=== PATIENT | female | born 1960 | race Caucasian/White ===

== ENCOUNTER 2018-09-27 02:39 | Outpatient (CLI) | payer MEDICAID, SELFPAY ==
[2018-09-27 10:56] LABS: ALT 32 U/L (12-78); AST 18 U/L (15-37); Albumin 3.9 g/dL (3.4-5.0); Alkaline Phosphatase 84 U/L (46-116); Anion Gap 11.6 mmol/L (3-11); BUN 19 mg/dL (7-18); Bilirubin, Total 0.3 mg/dL (0.2-1.0); CO2 28.4 mmol/L (21.0-32.0); CREATININE 0.83 mg/dL (0.55-1.02); Calcium 9.1 mg/dL (8.5-10.1); Chloride 103 mmol/L (98-107); Cholesterol 169 mg/dL (50-200); Glucose 85 mg/dL (70-100); HDL Cholesterol 47 mg/dL (40-60); LDL CHOLESTEROL 97 mg/dL (<100); Potassium 4.3 mmol/L (3.5-5.1); Sodium 143 mmol/L (136-145); TSH (W/Ref FT4) 2.41 uIU/mL (0.358-3.74); Total Protein 6.9 g/dL (6.4-8.2); Triglyceride 106 mg/dL (30-150)
== END 2018-09-27 02:59 ==
DX: E03.9 Hypothyroidism, unspecified (principal); G47.00 Insomnia, unspecified; G43.909 Migraine, unspecified, not intractable, without status migrainosus; G89.29 Other chronic pain; I10 Essential (primary) hypertension; M54.41 Lumbago with sciatica, right side; R63.8 Other symptoms and signs concerning food and fluid intake; E78.5 Hyperlipidemia, unspecified
CPT/HCPCS: 36415; 80053; 80061; 83721; 84443

== ENCOUNTER 2020-08-15 01:32 | Outpatient (CLI) | payer BC, SELFPAY ==
[2020-08-15 12:39] LABS: Abs Immature Grans 0.11 10^3/uL (0.0-0.06); Absolute Basophil Count 0.05 10^3/uL (0.0-0.2); Absolute Eosinophil Count 0.11 10^3/uL (0.0-0.7); Absolute Lymphocyte Count 2.46 10^3/uL (1.2-3.4); Absolute Monocyte Count 0.46 10^3/uL (0.1-0.8); Absolute Neutrophil Count 4.15 10^3/uL (1.2-6.7); Basophils % 0.7; Eosinophils % 1.5; HCT 41.4 % (36.0-46.0); HGB 13.6 g/dL (11.2-15.7); Immature Grans % 1.5; Lymphocytes % 33.5; MCH 29.2 pg (27.0-33.0); MCHC 32.9 % (32.0-36.0); MCV 88.8 fL (80-95); MPV 9.2 fL (8.0-11.0); Monocytes % 6.3; Neutrophils % 56.5; Nucleated RBC 0 %; Platelet Count 310 10^3/uL (130-400); RBC 4.66 10^6/uL (3.93-5.22); RDW 12.1 % (11.7-14.6); RDW-SD 39.1 fL; WBC 7.34 10^3/uL (4.4-10.8)
[2020-08-15 14:53] LABS: ALT 38 U/L (14-59); AST 14 U/L (15-37); Albumin 4.1 g/dL (3.4-5.0); Alkaline Phosphatase 88 U/L (46-116); Anion Gap 8.8 mmol/L (3-11); BUN 21 mg/dL (7-18); Bilirubin, Total 0.4 mg/dL (0.2-1.0); CO2 29.2 mmol/L (21.0-32.0); CREATININE 0.8 mg/dL (0.55-1.02); Calcium 8.9 mg/dL (8.5-10.1); Chloride 105 mmol/L (98-107); Glucose 82 mg/dL (74-106); Potassium 4.3 mmol/L (3.5-5.1); Sodium 143 mmol/L (136-145); TSH (W/Ref FT4) 1.31 uIU/mL (0.36-3.74); Total Protein 6.7 g/dL (6.4-8.2)
[2020-08-18 09:38] LABS: Hepatitis C Ab w Rflx HCV PCR Negative (Negative)
== END 2020-08-15 01:33 | disposition home or self-care (01) ==
LOC: LOS 01:32
DX: E03.9 Hypothyroidism, unspecified (principal); I10 Essential (primary) hypertension; G43.909 Migraine, unspecified, not intractable, without status migrainosus; B19.20 Unspecified viral hepatitis C without hepatic coma
CPT/HCPCS: 36415; 80053; 86803; 84443; 85025

== ENCOUNTER 2022-02-19 02:01 | Outpatient (CLI) | payer BC, SELFPAY ==
--- OUTSIDE RECORDS SUMMARY | 2022-02-19 02:03 | XMS_ITS | Encounter Summary ---
:1960 Author Organization [facility] Address [address] [place] [address] Care Team Providers Name Role Phone Arleth Cueva APRN Primary Care Provider Encounter Details Date Type Department Care Team Description 11/16/2019 Office Visit Obstetrics and Sulaiman Vivar, Encounter for [place]necology [place] [facility] [place] Jocelyne Cat CNM gynecological [facility] [address] abnormal finding [place], [place] OBSTETRICS & [id number] GYNECOLOGY [phone] [place], [place] [address] Social History Tobacco Use Types Packs/Day Years Used Date Former Smoker Cigarettes 1.5 10 Quit: 06/12/18 88 Smokeless Tobacco: Never Used Alcohol Use Standard Drinks/Week Comments No 0 (1 standard drink = 0.6 oz pure alcoho l) Sex Assigned at Date Recorded Not on file documented as of this encounter Last Filed Vital Signs Vital Sign Reading Time Taken Comments Blood Pressure 136/72 11/16/2019 3:37 PM EDT Pulse 54 11/16/2019 3:37 PM EDT Temperature - - Respiratory Rate - - Oxygen Saturation 100% 11/16/2019 3:37 PM EDT Inhaled Oxygen Concentration - - Weight 108.9 kg (240 lb) 11/16/2019 3:37 PM EDT Height 165.3 cm (5' 5.08) 11/16/2019 3:37 PM EDT Body Mass Index 39.84 11/16/2019 3:37 PM EDT documented in this encounter Progress Notes Melinda Murphy, NOEL - 11/16/2019 4:00 PM EDT Domestic Violence Screener 11/16/2019 Hit,kicked,punched or hurt in past year No Safe in current relationship Yes Partner from previous relationship making you feel unsafe No Emotionally hurt and/or controlled by someone No Jocelyne Fay CNM - 11/16/2019 4:00 PM EDT TYPING CHECKER Visit: Usha Huizar is a 59 y.o. postmenopausal female who presents to [facility] for annual[facility] exam. She is transferring her care from planner chief oncology as she is 5 yr out from treatment for uterine cancer. She denies any planner chief issues or concerns today. Not sexually active, with for 35 yrs. Denies any postmenopausal bleeding, bowel or bladder issues. Rarely has some urinary incontinence that is not bothersome. Exercise: none Nutrition: no restrictions, includes dairy, does not take any supplements. Self-breast exam: not regular Mammogram: 2019 Hx of RODRICK/ BSO for endometrial cancer in 2014, no HRT Has had sling for stress UI in 2013 Patient Active Problem List Diagnosis Code ??? SVT (supraventricular tachycardia) I47.1 ??? Hyperlipemia E78.5 ??? Migraine headache G43.909 ??? Hypothyroidism E03.9 ??? Stage 1A Grade II Endometrial cancer, s/p robotic hyst/ BSO complicated by a trocar injury 10/22/14 C54.1 ??? Psoriasis L40.9 ??? Hypertension I10 ??? Sciatica of right side M54.31 ??? Lumbar spondylosis M47.816 ??? Cystic lesion of abdominal viscera K66.8 Current Outpatient Medications on File Prior to Visit Medication Sig Dispense Refill ??? gabapentin (NEURONTIN) 100 mg Capsule Take 1 capsule by mouth 3 times daily. 90 capsule 12 ??? ibuprofen (ADVIL;MOTRIN) 600 mg Tablet Take 1 tablet by mouth every 6 hours as needed for Pain. 50 tablet 0 ??? meTOPROLOL tartrate (LOPRESSOR) 25 mg Tablet Take 1 tablet by mouth 2 times daily. ??? acetaminophen (TYLENOL) 325 mg Tablet Take 650 mg by mouth every 4 hours as needed for Pain. ??? hydrochlorothiazide (HYDRODIURIL) 25 mg tablet Take 25 mg by mouth daily. ??? simvastatin (ZOCOR) 20 mg tablet Take 20 mg by mouth nightly. ??? levothyroxine (SYNTHROID) 75 mcg tablet Take 75 mcg by mouth daily. ??? naproxen (Naprosyn) 250 mg Tablet TAKE ONE TABLET BY MOUTH FOUR TIMES A DAY No current facility-administered medications on file prior to visit. Allergies Allergen Reactions ??? Shellfish Containing Products Angioedema ??? Pollen Extracts Stuffy head headache. There is no immunization history for the selected administration types on file for this patient. Past Medical History: Diagnosis Date ??? Cancer uterine ca at 3-4 yrs ago ??? Chronic pain mosltly back and shoulder ??? Congenital heart defect ??? High blood pressure ??? HTN (hypertension) ??? Hyperlipidemia ??? Hypothyroid ??? Hypothyroidism ??? Intraoperative complication Groin site ablation woke up 5 yrs ago ??? Irregular heart beat got ablation for ??? Migraine ??? Motion sickness ??? Obesity ??? Palpitations started on beta lena approx one month ago ??? Psoriasis Past Surgical History: Procedure Laterality Date ??? ABLATION OF DYSRHYTHMIC FOCUS ??? CARDIAC SURGERY ablation ??? FINGER SURGERY ??? HYSTERECTOMY ??? ORTHOPEDIC SURGERY cyst removed from bone in pelvis ??? PRO EXPLORATORY RETROPERITONEAL N/A 10/22/2014 @EXPLORATION RETROPERITONEAL W OR W\O BIOPSY performed by Yoselyn Yip MD at [facility] ? ? PRO LAPAROSCOPY W TOT HYSTERECTUTERUS <=250 GRAM W TUBE/OVARY N/A 10/22/2014 LAPAROSCOPY,TOTAL HYST, UTERUS<250GM, DERRICK TYBE &/OR OVARY, ROBOTIC ASSIST performed by Marsha Godfrey MD at [facility] ??? PRO SLING OPER STRES INCONTINENCE 09/20/2012 URETHRAL SUSPENSION, SLING\FASCIA OR SYNTHETIC performed by Jozef Kent MD at [facility] Family History Problem Relation Age of Onset ??? GERD Mother ??? Suicide Father ??? Obesity Sister ??? Respiratory Disease Brother ??? Cancer Maternal Grandfather ??? Breast Cancer Neg Hx ??? Colorectal Cancer Neg Hx ??? Ovarian Cancer Neg Hx Social History Socioeconomic History ??? Marital status: Spouse name: Not on file ??? Number of children: Not on file ??? Years of education: Not on file ??? Highest education level: Not on file Occupational History ??? Not on file Social Needs ??? Financial resource strain: Not on file ??? Food insecurity Worry: Not on file Inability: Not on file ??? Transportation needs Medical: Not on file Non-medical: Not on file Tobacco Use ??? Smoking status: Former Smoker Packs/day: 1.50 Years: 10.00 Pack years: 15.00 Types: Cigarettes Last attempt to quit: 06/12/1987 Years since quittin.4 ??? Smokeless tobacco: Never Used Substance and Sexual Activity ??? Alcohol use: No ??? Drug use: Not Currently Types: Marijuana Comment: marijuana (very occasional)denies at this time ??? Sexual activity: Yes Partners: Male Comment: no contraception Lifestyle ??? Physical activity Days per week: Not on file Minutes per session: Not on file ??? Stress: Not on file Relationships ??? Social connections Talks on phone: Not on file Gets together: Not on file Attends zoroastrian service: Not on file Active member of club or organization: Not on file Attends meetings of clubs or organizations: Not on file Relationship status: Not on file ??? Intimate partner violence Fear of current or ex partner: Not on file Emotionally abused: Not on file Physically abused: Not on file Forced sexual activity: Not on file Other Topics Concern ??? Not on file Social History Narrative ??? Not on file ROS: denies any problems Constitutional: No fevers, chills, weight loss, fatigue. HEENT: No visual changes, hearing loss, epistaxis, or rhinorrhea. Cardio: No Chest pain, palpitations, angina, dyspnea, shortness of breath. Resp: No wheeze\ing, cough, or sputum production. Abdomen/GI: No abdominal pain, nausea, vomiting, GERD, constipation, diarrhea, blood in stool. : No dysuria, abnormal discharge, lesions, itching, or irritation. Musculoskeletal: No changes in ROM, no joint swelling, sudden weakness. Skin: No rashes or discoloration. Psych:No sadness, depression, anxiety or suicidal ideation. Neuro: No seizures, BRADEN, syncope, numbness or change in balance PE: BP 136/72 Pulse 54 Ht 165.3 cm (5' 5.08) Wt 108.9 kg (240 lb) LMP 10/20/2014 SpO2 100% BMI 39.84 kg/m?? General - A&O x 3. Pleasant with no apparent distress. Breasts - pt declines exam Abdomen - soft, NT Pelvic exam External Genitalia - No lesions, discharge, or erythema, normal hair pattern Urethral Meatus - no discharge or prolapse Vagina - pale pink with atrophic changes, no lesions Cervix - Neg CMT, without lesions or abnormal discharge Uterus - normal size, non-tender, mobile Adnexa - non-tender, no palpable masses Rectovaginal - declined Extremities - FROM, no edema Neuro - grossly intact, sensory function appears intact, normal gait. Assessment/ Plan: Healthy 59 y.o. woman with normal limited planner chief exam as she declined clinical breast exam. ??? Mammogram: pt declines having an order placed today. ??? This patient sees her primary care provider for age and disease specific screening not related to gynecological care ??? Return for pelvic/breast exam in 1 year ??? Preventative recommendations for this patient include: BSE, Regular exercise, Healthy diet, Vitamin D 1000 iu supplementation. documented in this encounter Plan of Treatment Not on filedocumented as of this encounter Visit Diagnoses Diagnosis Encounter for gynecological examination without abnormal finding Routine gynecological examination documented in this encounter Care Teams Price Clerk Relationship Specialty Start Date End Date Arleth Cueva, YUVAL PCP - General Family Medicine 06/24/16 [facility] [address] [facility] [address] [place] [address] documented as of this encounter
--- OUTSIDE RECORDS SUMMARY | 2022-02-19 02:03 | XMS_ITS | Encounter Summary ---
:1960 Author Organization [facility] [place] [address] Care Team Providers Name Role Phone Arleth Cueva APRN Primary Care Provider Reason for Visit Auth/Cert Specialty Diagnoses / Procedures Referred By Contact Refer red To Contact Diagnoses Encounter for general adult medical examination without abnormal findings screening Procedures PRO COLONOSCOPY, DIAGNOSTIC PRO ANESTH, LWR INTESTINE, NOS COLONOSCOPY, DIAGNOSTIC Referral ID Status Reason Start Date Expiration Date Visits Requ ested Visits Authorized [id number] 1 1 Encounter Details Date Type Department Care Team Description 05/29/2021 Surgery Gastroenterology at [facility] Cade Lizraraga COLONOSCOPY, [facility] Dre Allen MD POLYPECTOMY, [place] [address] [facility] LESION BY SNARE [phone] (WRVU 4.67) GASTROENTEROLOGY [place], [place] 0375 (Wo rk) Social History Tobacco Use Types Packs/Day Years Used Date Former Smoker Cigarettes 1.5 10 Quit: 06/12/18 88 Smokeless Tobacco: Never Used Alcohol Use Standard Drinks/Week Comments Yes 0 (1 standard drink = 0.6 oz pure alcoho l) once every couple months Alcohol Habits Answer Date Recorded How often do you have a drink containing Never 05/29/2021 alcohol? How many drinks containing alcohol do you Not asked have on a typical day when you are drinking? How often do you have six or more drinks on Not asked one occasion? Comment: once every couple months 05/29/2021 Sex Assigned at Date Recorded Not on file documented as of this encounter Last Filed Vital Signs Vital Sign Reading Time Taken Comments Blood Pressure 138/97 05/29/2021 4:50 PM EST Pulse 55 05/29/2021 4:50 PM EST Temperature 36.7 ??C (98 ??F) 05/29/2021 3:03 PM EST Respiratory Rate 11 05/29/2021 4:50 PM EST Oxygen Saturation 99% 05/29/2021 4:50 PM EST Inhaled Oxygen Concentration - - Weight 111.1 kg (245 lb) 05/29/2021 3:03 PM EST Height 167.6 cm (5' 6) 05/29/2021 3:03 PM EST Body Mass Index 39.54 05/29/2021 3:03 PM EST documented in this encounter Discharge Instructions Discharge InstructionsYadi Florence RN - 05/29/2021 5:03 PM EST Colonoscopy: What to Expect at Home Your Recovery Your doctor will talk to you about when you will need your next colonoscopy. Your doctor can help you decide how often you need to be checked. This will depend on the results of your test and your riskfor colorectal cancer. After the test, you may be bloated or have gas pains. You may need to pass gas. If a biopsy was doneor a polyp was removed, you may have streaks of blood in your stool (feces) for a few days. Problemssuch as heavy rectal bleeding may not occur until several weeks after the test. This isn't common. But it can happen after polyps are removed. This care sheet gives you a general idea about how long it will take for you to recover. But each person recovers at a different pace. Follow the steps below to get better as quickly as possible. How can you care for yourself at home? Activity Rest when you feel tired. ?? You can do your normal activities when it feels okay to do so. Diet ?? Follow your doctor's directions for eating. ?? Unless your doctor has told you not to, drink plenty of fluids. This helps to replace the fluidsthat were lost during the colon prep. ?? Do not drink alcohol. Medicines ?? Your doctor will tell you if and when you can restart your medicines. He or she will also give you instructions about taking any new medicines. ?? If you take blood thinners, such as warfarin (Coumadin), clopidogrel (Plavix), or aspirin, be sure to talk to your doctor. He or she will tell you if and when to start taking those medicines again.Make sure that you understand exactly what your doctor wants you to do. ?? If polyps were removed or a biopsy was done during the test, your doctor may tell you not to take aspirin or other anti-inflammatory medicines for a few days. These include ibuprofen (Advil, Motrin) and naproxen (Aleve). Other instructions ?? For your safety, do not drive or operate machinery until the medicine wears off and you can think clearly. Your doctor may tell you not to drive or operate machinery until the day after your test. ?? Do not sign legal documents or make major decisions until the medicine wears off and you can think clearly. The anesthesia can make it hard for you to fully understand what you are agreeing to. Additional Information for Sedation Patients For patients who received sedation: ?? You may have received medications before and/or during your procedure which effects your judgement and reaction time. ?? Do not drive, operate machinery, drink alcoholic beverages or make important decisions for 24 hours. ?? Be careful on stairs as you may be unsteady on your feet. ?? You may eat a regular diet as tolerated. ?? Do not smoke if you are alone. ?? IV site: Slight redness or tenderness is normal, you can use a warm compress if you would like. If tenderness and/or redness increase or if foul drainage occurs, please contact your Doctor. Please call [phone] before 8pm Mon-Fri with problems, questions or concerns. If you call after 8pm or on weekends, call the Hospital at [phone] and ask to speak to the Final Inspector dictaphone transcriber and the vibrating screen operator will contact that person for you. When should you call for help? Call [phone] anytime you think you may need emergency care. For example, call if: ?? You passed out (lost consciousness). ?? You pass maroon or bloody stools. ?? You have trouble breathing. Call your doctor now or seek immediate medical care if: ?? You have pain that does not get better after you take pain medicine. ?? You are sick to your stomach or cannot drink fluids. ?? You have new or worse belly pain. ?? You have blood in your stools. ?? You have a fever. ?? You cannot pass stools or gas. Watch closely for changes in your health, and be sure to contact your doctor if you have any problems. Where can you learn more? [facility] View your After Visit Summary and more online at [email or web address] If you would like to provide feedback about your hospital experience, please call the Office of Patient and Family Relations at . If you have received this After Visit Summary in error, please immediately return it in person to the department, or notify the [facility] Privacy Office by calling toll free at between the hours of 8AM and 5PM to arrange for our retrieval of the documents at no cost to you. Content Version: 12.2 ?? [id number] [employer] Care instructions adapted under license by [facility]. If you have questions about a medical condition or this instruction, always ask your healthcare professional. [employer] disclaims any warranty or liability for your use of this information. documented in this encounter Medications at Time of Discharge Medication Sig Dispensed Refills Start Date End Date naproxen (Naprosyn) 250 mg TAKE ONE TABLET 0 09/2019 Tablet BY MOUTH FOUR TIMES A DAY gabapentin (NEURONTIN) 100 mg Take 1 capsule by 90 capsule 12 06/01/2018 Capsule mouth 3 times daily. meTOPROLOL tartrate Take 1 tablet by 0 10/24/2014 (LOPRESSOR) 25 mg Tablet mouth 2 times daily. acetaminophen (TYLENOL) 325 Take 650 mg by 0 mg Tablet mouth every 4 hours as needed for Pain. hydrochlorothiazide Take 25 mg by 0 (HYDRODIURIL) 25 mg tablet mouth daily. simvastatin (ZOCOR) 20 mg Take 20 mg by 0 tablet mouth nightly. levothyroxine (SYNTHROID) 75 Take 75 mcg by 0 mcg tablet mouth daily. ibuprofen (ADVIL;MOTRIN) 600 Take 1 tablet by 50 tablet 0 0 10/24/2014 mg Tablet mouth every 6 hours as needed for Pain. documented as of this encounter H&P Notes Cade Lizarraga MD - 05/29/2021 4:13 PM EST Patient Name: Usha Huizar Patient Age: 60 y.o. Birthdate: 1960 Admit date: 05/29/2021 Attending Physician: Seema Saxena MD Gastroenterology & Hepatology Pre-Procedure History and Physical Planned Procedure: Colonoscopy: Indication: surveillance, history of polyp (2016), adenomas and sigmoid TVA Patient Active Problem List Diagnosis Code ??? SVT (supraventricular tachycardia) I47.1 ??? Hyperlipemia E78.5 ??? Migraine headache G43.909 ??? Hypothyroidism E03.9 ??? Stage 1A Grade II Endometrial cancer, s/p robotic hyst/ BSO complicated by a trocar injury 10/22/14 C54.1 ??? Psoriasis L40.9 ??? Hypertension I10 ??? Sciatica of right side M54.31 ??? Lumbar spondylosis M47.816 ??? Cystic lesion of abdominal viscera K66.8 Medications: Reviewed in [facility] Allergies Allergen Reactions ??? Shellfish Containing Products Angioedema ??? Pollen Extracts Stuffy head headache. Social History/Family History: Reviewed in [facility]. No changes Exam: Patient Vitals for the past 24 hrs: Temp Pulse Resp BP SpO2 O2 Flow Rate (L/min) O2 Device 05/29/21 1503 36.7 ??C (98 ??F) 65 20 157/79 100 % -- RA 05/29/21 1545 -- -- -- 143/59 98 % 3 L/min NC 05/29/21 1550 -- 60 13 139/74 100 % -- -- GEN: NAD, AAOX3 HEENT: NC/AT dryMM, anicteric Chest: CTAB Heart: RRR, nl s1, s2 Abdomen: normal bowel sounds, soft, non tender Assessment and Plan: Proceed with Colonoscopy: ASA Grade: ASA 2 - Patient with mild systemic disease with no functional limitations Mallampati: II (soft palate, uvula, fauces visible) Sedation plan: IV Conscious Sedation Risks and benefits of the procedure were discussed with the patient. Risks discussed including bleeding, infection, reaction to anesthesia, perforation or other intraabdominal trauma, pancreatitis (if applicable), missing a cancer (if applicable) and/or other unforseen complication. Informed Consent signed by patient (or computer help desk representative). documented in this encounter Plan of Treatment Not on filedocumented as of this encounter Procedures Procedure Name Priority Date/Time Associated Comments Diagnosis SURGICAL PATHOLOGY Routine 05/29/2021 4:52 PM Res ults for this REPORT EST procedure are i n the results section. SPECIMEN TO PATHOLOGY Routine 05/29/2021 4:52 PM Results for this EST procedure are i n the results section. COLONOSCOPY, 05/29/2021 3:44 PM screening POLYPECTOMY, REMOVAL EST LESION BY SNARE (WRVU 4.67) COLONOSCOPY Routine 05/29/2021 3:35 PM Results f or this EST procedure are i n the results section. documented in this encounter Results Surgical Pathology Report (05/29/2021 4:52 PM EST) Component Value Ref Test Analysis Performed At [facility] Range Method Time Signature Surgical [id number] ? Location: ; [facility]; [facility] Report The signing pathologist has (i) examined the relevant preparation(s) for the [facility] specimen(s) and (ii) rendered or confirmed the diagnosis(es) . HOSPITAL [facility] . ?Surgic al Pathology DIAGNOSIS A - Rectum colon polyp, excision: - ??Hyperplastic polyp. Electronically signed by: ?Ginna JURADO PhD, Deneen Verified: ??06/09/2021 9:34 ?? Pathologist Performed at: ??-[facility] Dept. of Pathology, [place], [place] SPECIMEN(S) SUBMITTED A - Rectum colon polyp, excision (1) CLINICAL INFORMATION 60-year-old female W/ HX polyps SPECIMEN PROCESSING A - Labeled/Fixative: Rectum colon polyp, formalin. Quantity/Size: Single, 0.9 cm. Tissue Description: Strip of burden mucosa with a central 0.4 cm red-burden polypoid focus. Sections/Processing: Inked, bisected and entirely submitted in 1 cassette labeled A1. ??mnd Specimen (Source) Anatomical Collection Method Collection Time Re ceived Time Location / / Volume Laterality 05/29/2021 4:52 PM EST Cade Lizarraga MD PATHOLOGY/CYTOLOGY ORDERABLE S Performing Organization Address [facility]/[place]IP [place] [address] Specimen to Pathology (05/29/2021 4:52 PM EST) Specimen Anatomical Collection Method Collection Time Receive d Time (Source) Location / / Volume Laterality AP Specimen 05/29/2021 4:52 PM 4:52 EST PM EST Narrative [facility] - 05/29/2021 4:52 PM EST Specimen requisition ordered. ??Separate Pathology report to follow Cade Lizarraga MD PATHOLOGY/CYTOLOGY ORDERABLE S Performing Organization Address City/[facility]/[place] [address] COLONOSCOPY (05/29/2021 3:35 PM EST) [facility] gist Method Time Signature COLONOSCOPY [facility] Endoscopy Procedure Date: 05/29/2021 3:35 PM ? Patient Name: Usha Huizar ? Date of : 1960 ? Age: 60 ? Order #: [id number] ? Instrument Name: [id number] ? Procedure: ? Colonoscopy Indications: ? High risk colon cancer surveillance : ? Personal history of adenoma w ith ? villous component, High risk colon ? cancer surveillance: Personal history ? of multiple (3 or more) adeno mas Patient Profile: ? This is a 60 year old female. Refer ? to note in patient chart for ? documentation of history and ? physical. Multiple polyps inc luding ? TVA in 2016. Providers: ? Isaiah Connell RN, Sara Biswas , ? Cade Lizarraga MD Referring MD: ?Arleth Cueva Medicines: ? Midazolam 5 mg IV, Fentanyl 200 ? micrograms IV Complications: ? No immediate complications. Procedure: ? Pre-Anesthesia Assessment: ? - Prior to the procedure, a H istory ? and Physical was performed, a nd ? patient medications and aller gies ? were reviewed. The patient's ? tolerance of previous anesthe keanu was ? also reviewed. The risks and benefits ? of the procedure and the elayne tion ? options and risks were discus sed with ? the patient. All questions we re ? answered, and informed consen t was ? obtained. Prior Anticoagulant s: The ? patient has taken no previous ? anticoagulant or antiplatelet agents. ? ASA Grade Assessment: II - A patient ? with mild systemic disease. A fter ? reviewing the risks and benef its, the ? patient was deemed in satisfa ctory ? condition to undergo the proc edure. ? The procedure, indications, b enefits, ? risks and alternatives were e xplained ? to the patient. Specifically ? discussed were potential ? complications including, but not ? limited to, bleeding, perfora tion, ? infection, missing a cancer, and ? adverse medication reactions. The ? patient was placed in the lef t ? lateral decubitus position, a nd a ? digital rectal exam was perfo rmed. ? The Colonoscope was inserted in the ? anus and under direct visuali zation, ? advanced to the terminal ileu m, with ? identification of the appendi ceal ? orifice and IC valve. Careful ? inspection was made as the ? colonoscope was withdrawn. Th e ? colonoscopy was performed wit abner ? difficulty. The patient renita ated the ? procedure well. The quality o f the ? bowel preparation was evaluat ed using ? the BBPS ([place] Bowel Prepar ation ? Scale) with scores of: Right Colon = ? 3 (entire mucosa seen well wi th no ? residual staining, small frag ments of ? stool or opaque liquid), Joshi sverse ? Colon = 3 (entire mucosa seen well ? with no residual staining, sm all ? fragments of stool or opaque liquid) ? and Left Colon = 3 (entire mu cosa ? seen well with no residual st aining, ? small fragments of stool or o paque ? liquid). The total BBPS score equals ? 9. The quality of the bowel ? preparation was excellent. Th e ? terminal ileum, ileocecal sourav ve, ? appendiceal orifice, and rect um were ? photographed. Scope withdrawa l time ? was 9 minutes. ? Findings: ? The perianal and digital rectal examinations were ? normal. ? A 4 mm polyp was found in the rectum. The polyp was ? semi-sessile. The polyp was removed with a cold ? snare. Resection and retrieval were complete. ? The terminal ileum appeared normal. ? The exam was otherwise without abnormality on direct ? and retroflexion views. ? Moderate Sedation: ? Moderate (conscious) sedation was administered by the ? endoscopy nurse and supervised by the endoscopist. ? The patient's oxygen saturation, heart rate, blood ? pressure and response to care were monitored. ? I was present during the intraservice time as ? documented by the sedation RN. Impression: ?- One 4 mm polyp in the rectum, ? removed with a cold snare. Re sected ? and retrieved. ? - The examined portion of the ileum ? was normal. ? - The examination was otherwi se ? normal on direct and retrofle xion ? views. Recommendation: ?- Await pathology results. ? - Repeat colonoscopy in 5 yea rs for ? surveillance. ? Attending Participation: ? I personally performed the entire procedure. ? I was present during the intraservice time as ? documented by the sedation RN. ? Dr. Dewey Lizarraga Cade Lizarraga MD 05/29/2021 5:11:59 PM Number of Addenda: 0 Note Initiated On: 05/29/2021 3:35 PM Specimen (Source) Anatomical Collection Method Collection Time Re ceived Time Location / / Volume Laterality 05/29/2021 3:35 PM EST Arleth J Hammad CRM ADMINISTRATOR GENERAL SURGICAL ORDERABLES Performing Organization Address City/State/ZIP Code Phon e Number [facility] documented in this encounter Visit Diagnoses Not on filedocumented in this encounter Administered Medications Inactive Administered Medications - up to 3 most recent administrations Medication Order MAR Action Action Date Dose Rate Site fentaNYL (pf) (50 mcg/mL) Given 05/29/2021 4:41 PM EST 50 mcg multi-dose injection ONCE PRN, Starting on Tue05/29/21 at 1622, Until Tue05/29/21 at 1943, Intra-Operative (Intra-Procedure), Routine Given 05/29/2021 4:38 PM EST 25 mcg Given 05/29/2021 4:29 PM EST 25 mcg midazolam (pf) (Versed) (1 mg/mL) multi-dose Given 05/29/2021 4: 41 PM EST 1 mg injection ONCE PRN, Starting on Tue05/29/21 at 1622, Until Tue05/29/21 at 1943, Intra-Operative (Intra-Procedure), Routine Given 05/29/2021 4:38 PM EST 0.5 mg Given 05/29/2021 4:29 PM EST 0.5 mg documented in this encounter Active and Recently Administered Medications Times are shown in EST. PRN Medication Order 05/27/2021 05/28/2021 05/29/2021 fentaNYL (pf) (50 mcg/mL) multi-dose injection (CANCELED) 1622 (Given - Provider: Isaiah Connell RN)1625 (Given - Provider: Isaiah Connell RN)1629 (Given - Provider: Isaiah Connell, RN)1638 (Given - Provider: Isaiah Connell, ASHLEE)1641 (Given - Provider: Isaiah Connell, RN) ONCE PRN, Starting on Tue05/29/21 at 162 2, Until Tue05/29/21 at 1943, Intra- Operative (Intra-Procedure), Routine midazolam (pf) (Versed) (1 mg/mL) multi-dose injection (CANCELED ) 1622 (Given - Provider: Isaiah Connell RN)1625 (Given - Provider: Isaiah Connell, ASHLEE)1629 (Given - Provider: Isaiah Connell, RN)1638 (Given - Provider: Isaiah Connell, ASHLEE)1641 (Given - Provider: Isaiah Connell RN) ONCE PRN, Starting on Tue05/29/21 at 162 2, Until Tue05/29/21 at 1943, Intra- Operative (Intra-Procedure), Routine documented in this encounter Care Teams Duco Polisher Relationship Specialty Start Date End Date Arleth Cueva, YUVAL PCP - General Family Medicine 06/24/16 [address] [place] [address] documented as of this encounter
--- OUTSIDE RECORDS SUMMARY | 2022-02-19 02:03 | XMS_ITS | Clinical Summary ---
:1960 Author Organization [facility] [place] [address] Care Team Providers Name Role Phone Arleth Cueva APRN Primary Care Provider Allergies Active Allergy Reactions Severity Noted Date Comments Pollen Extracts 09/12/2012 Stuffy head headache. Shellfish Containing Products Angioedema High 06/12/2012 Medications Medication Sig Dispensed Refills Start Date End Date Status simvastatin (ZOCOR) 20 mg Take 20 mg by 0 Active tablet mouth nightly. levothyroxine (SYNTHROID) Take 75 mcg 0 Active 75 mcg tablet by mouth daily. hydrochlorothiazide Take 25 mg by 0 Active (HYDRODIURIL) 25 mg tablet mouth daily. acetaminophen (TYLENOL) Take 650 mg 0 Active 325 mg Tablet by mouth every 4 hours as needed for Pain. ibuprofen (ADVIL;MOTRIN) Take 1 tablet 50 tablet 0 10/24/2014 Active 600 mg Tablet by mouth every 6 hours as needed for Pain. meTOPROLOL tartrate Take 1 tablet 0 10/24/2014 Active (LOPRESSOR) 25 mg Tablet by mouth 2 times daily. gabapentin (NEURONTIN) 100 Take 1 90 capsule 12 06/01/2018 Active mg Capsule capsule by mouth 3 times daily. naproxen (Naprosyn) 250 mg TAKE ONE 0 10/12/2019 Active Tablet TABLET BY MOUTH FOUR TIMES A DAY Active Problems Problem Noted Date Lumbar spondylosis 06/01/2018 Cystic lesion of abdominal viscera 06/01/2018 Sciatica of right side 09/12/2017 Hypertension 09/02/2015 Psoriasis 08/01/2015 Stage 1A Grade II Endometrial cancer, s/p robotic hyst / BSO complicated by 10/22/2014 a trocar injury 10/22/14 SVT (supraventricular tachycardia) 08/28/2013 Overview: ?? Echo 07/07/12 showing normal LF with EF 68%; mild MR ?? Holter 07/08/12 showing rare PACs with no runs ?? Symptoms abated after treatment for H TN with metoprolol ?? SVT noted on ILR - apparent short RP tachycardia ?? 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 Hyperlipemia 08/28/2013 Migraine headache 08/28/2013 Hypothyroidism 08/28/2013 Resolved Problems Problem Noted Date Resolved Date Near syncope 08/28/2013 09/12/2017 Breast mass 02/16/2013 09/02/2015 Immunizations Name Administration Dates Next Due Influenza PF, Split 07/10/2018 (Deferred: Patient Refused) Family History Medical History Relation Comments Respiratory Disease Brother Suicide Father Cancer Maternal Grandfather GERD Mother Obesity Sister Breast Cancer Neg Hx Colorectal Cancer Neg Hx Ovarian Cancer Neg Hx Relation Status Comments Brother Alive Father Maternal Grandfather Maternal Grandmother Mother Alive Sister Alive Social History Tobacco Use Types Packs/Day Years [...] Assigned at Date Recorded Not on file Last Filed Vital Signs Vital Sign Reading Time Taken Comments Blood Pressure 130/67 05/29/2021 5:20 PM EST Pulse 55 05/29/2021 4:50 PM EST Temperature 36.7 ??C (98 ??F) 05/29/2021 3:03 PM EST Respiratory Rate 18 05/29/2021 5:20 PM EST Oxygen Saturation 97% 05/29/2021 5:20 PM EST Inhaled Oxygen Concentration - - Weight 111.1 kg (245 lb) 05/29/2021 3:03 PM EST Height 167.6 cm (5' 6) 05/29/2021 3:03 PM EST Body Mass Index 39.54 05/29/2021 3:03 PM EST Plan of Treatment Health Maintenance Due Date Last Done Comments Covid-19 Vaccine (#1) 03/22/1961 HIV screen 1978 Hepatitis C Screening 1978 Tdap adult 09/20/1979 Tetanus vaccine 09/20/1979 HPV test 1990 PAP Smear 1990 Breast Cancer Share Decision 2000 Needed Zoster vaccine (1 of 2) 2010 Advance Directive 09/20/2015 Diabetes Screening (HgbA1C or 10/24/2017 10/24/2014, 2014, Glucose) 03/01/2014, Additional history exists Influenza (Flu) vaccine (1 of 1 - 01/07/2022 Influenza standard series) Breast Cancer screening 06/05/2023 06/05/2021, 04/02/2015, 02/19/2014, Additional history exists Colonoscopy 05/29/2031 05/29/2021, 05/29/2021 Medical Devices Implanted Type Area Jd Edwards Consultant Device Shelf Model / Identifier Expiration Serial / Date Lot Jaxson Hadley Monarc,Feml ([id number]) - Sn/A IMPLANTS N/A: 04/24/2015 [id number] / Implanted: Qty: 1 on 09/20/2012 by Jozef Kent MD at [facility] Pelvis N/A / [id number] Mdt : Reveal Linq Lnq11 : [id number] Implantable Medtronic I nc. [id number] / Implanted: 12/12/2013 (Quantity not on file) Diagnostic [id number] / Monitor Description: Medtronic : REVEAL LINQ LNQ 11 : [id number] Insurance Payer Benefit Plan / Subscriber ID Effective Dates Phone Addre ss Type Group [employer] NATIONAL [id number] 2021-Presen [phone] [address] BLUE [employer]IELD [place] PPO t [address] [place], [place] [address] [place] [id number] 2020-Presen [phone] [address] PRIMARY CARE t 7 [place] [address] Advance Directives Latest Code Status on File Code Status Date Activated Date Inactivated Comments Full Code 10/15/2015 7:22 AM 10/15/2015 10:48 AM Does patient have capacity to make decision: Yes Full Code 10/22/2014 12:11 PM 10/24/2014 5:03 PM Does patient have decision making capacity? Yes, order is based on Patient wishes. Full Code 10/03/2014 11:38 AM 10/08/2014 10:21 PM Full Code 03/01/2014 3:08 PM 03/02/2014 12:34 PM Order Status: Initial Order Does patient have decision making capacity? Yes, Order is based on Patients wishes. Full Code 09/20/2012 8:39 AM 09/20/2012 11:50 AM Care Teams Echo Technician Relationship Specialty Start Date End Date Arleth Cueva, ARTIFICIAL LIMB MAKER PCP - General Family Medicine 06/24/[address] [place] [address]
--- OUTSIDE RECORDS SUMMARY | 2022-02-19 02:03 | XMS_ITS | Encounter Summary ---
:1960 Author Organization [facility] [place] [address] Care Team Providers Name Role Phone Arleth Cueva APRN Primary Care Provider Encounter Details Date Type Department Care Team Description 07/10/2018 Laboratory Lab at [facility] Spondylolisthesis of Appointment [facility] [place] [id number] Social History Tobacco Use Types Packs/Day Years Used Date Former Smoker Cigarettes 1.5 10 Quit: 06/12/18 88 Smokeless Tobacco: Never Used Alcohol Use Standard Drinks/Week Comments No 0 (1 standard drink = 0.6 oz pure alcoho l) 2-3 a couple of times per week Alcohol Habits Answer Date Recorded How often do you have a drink containing Not asked alcohol? How many drinks containing alcohol do Not asked you have on a typical day when you are drinking? How often do you have six or more drinks Not asked on one occasion? Comment: 2-3 a couple of times per week 3 Sex Assigned at Date Recorded Not on file documented as of this encounter Plan of Treatment Not on filedocumented as of this encounter Procedures Procedure Name Priority Date/Time Associated Diagnosis Comme nts URINALYSIS WITH Routine 07/10/2018 4:28 Spondylolisthesis of R esults for this REFLEX CULTURE PM EST lumbosacral region procedu re are in the results section. ABORH RECHECK STATUS Routine 07/10/2018 4:25 Resu lts for this PM EST procedure are i n the results section. HEMOGRAM Routine 07/10/2018 4:25 Spondylolisthesis of Resu lts for this PM EST lumbosacral region procedure are in the results section. DIFFERENTIAL, Routine 07/10/2018 4:25 Spondylolisthesis of Res ults for this AUTOMATED PM EST lumbosacral region procedure are in the results section. TYPE AND SCREEN, SDP Routine 07/10/2018 4:25 Spondylolisthesis of (FUTURE SURGERY, PM EST lumbosacral region [facility] SAME DAY PROGRAM ONLY) CREATININE Routine 07/10/2018 4:25 Spondylolisthesis of Resu lts for this PM EST lumbosacral region procedure are in the results section. ABO/RH TYPING Routine 07/10/2018 4:25 Spondylolisthesis of Res ults for this PM EST lumbosacral region procedure are in the results section. APTT Routine 07/10/2018 4:25 Spondylolisthesis of Resu lts for this PM EST lumbosacral region procedure are in the results section. PROTHROMBIN TIME Routine 07/10/2018 4:25 Spondylolisthesis of Results for this PM EST lumbosacral region procedure are in the results section. CBC (WITH DIFF) Routine 07/10/2018 4:25 Spondylolisthesis of PM EST lumbosacral region ANTIBODY SCREEN Routine 07/10/2018 4:25 Spondylolisthesis of R esults for this PM EST lumbosacral region procedure are in the results section. BUN Routine 07/10/2018 4:25 Spondylolisthesis of Resu lts for this PM EST lumbosacral region procedure are in the results section. ELECTROLYTES PANEL Routine 07/10/2018 4:25 Spondylolisthesis o f Results for this PM EST lumbosacral region procedure are in the results section. documented in this encounter Results Urinalysis with reflex Culture (07/10/2018 4:28 PM EST) [facility] Method Time Signature Glucose UA Negative Negative [facility] Protein UA Negative Negative [facility] mg/dL [facility] Bilirubin UA Negative Negative [facility] mg/dL [facility] Comment: Clinical correlation required for positi ve Urine Bilirubin results as false positive may occur with some drugs and d rug related products. If a false positive is suspected a serum total bili esparza should be considered if clinically indicated. Urobilinogen UA Normal Normal mg/dL [facility] pH UA 6.0 5.0 - 8.0 [facility] Blood UA Negative Negative mg/dL [facility] Ketones UA Negative Negative mg/dL [facility] Nitrite UA Negative Negative [facility] Leukocytes UA Negative Negative [facility] LABORATORY Appearance UA Clear Clear [facility] Spec [place] UA 1.009 1.002 - 1.030 [facility] Color UA Straw Yellow [facility] Culture Reflexed No [facility] Specimen (Source) Anatomical Collection Method Collection Time Re ceived Time Location / / Volume Laterality Urine specimen 07/10/2018 4:28 07/10/2018 4:35 obtained by clean PM EST PM EST catch procedure (specimen) Resulting Agency Comment Spec In Lab Du Dodge MD URINE ORDERABLES Performing Organization Address City/State/ZIP Code Phon e Number [address] ABORH Recheck Status (07/10/2018 4:25 PM EST) Patholo gist Method Time Signature ABORH Type Completed [facility] LABORATORY Specimen Anatomical Collection Method Collection Time Receive d Time (Source) Location / / Volume Laterality Blood specimen 07/10/2018 4:25 PM 019 4:32 (specimen) EST PM EST Resulting Agency Comment Spec In Lab Du Dodge MD BLOOD BANK ORDERABLES Performing Organization Address City/[facility]/ZIP Code Phon e Number [address] Differential, Automated (07/10/2018 4:25 PM EST) P athologist Signature Neutrophils % 50.8 % [facility] Neutr Abs (ANC) 3.62 1.70 - [facility] 6.10 [facility] x10(3)/[facility] LABORATORY Lymphocytes % 38.7 % [facility] Lymphocytes Abs 2.8 0.9 - 3.2 [facility] x10(3)/[facility] LABORATORY Monocytes % 7.5 % [facility] Monocyte Abs 0.5 0.3 - 0.9 [facility] x10(3)/[facility] LABORATORY Eosinophils % 2.0 % [facility] Eosinophils Abs 0.1 0.0 - 0.4 [facility] x10(3)/[facility] LABORATORY Basophils % 0.7 % [facility] Basophils Abs 0.0 0.0 - 0.1 [facility] x10(3)/[facility] LABORATORY Immature Gran % 0.30 % [facility] Comment: Immature granulocytes(IG's)percentage an d absolute count will include metamyelocytes, myelocytes, and promyelo cytes. Blood smears from CBCs yielding IG's will be scanned manually for concor dance. If this scan disagrees with the automated IG or if promyelocytes are not ed, a manual differential will be performed. Ayala Gran Abs 0.02 0.00 - 0.04 x10(3)/[facility] MAR Y [facility] LABORATORY Specimen Anatomical Collection Method Collection Time Receive d Time (Source) Location / / Volume Laterality Blood specimen 07/10/2018 4:25 PM 019 4:35 (specimen) EST PM EST Resulting Agency Comment Spec In Lab Du Dodge MD HEMATOLOGY ORDERABLES Performing Organization Address City/State/[place] [address] Hemogram (07/10/2018 4:25 PM EST) P athologist Signature WBC 7.1 4.0 - 9.5 [facility] x10(3)/[facility] LABORATORY RBC 4.93 4.00 - [facility] 5.21 [facility] x10(6)/[facility] LABORATORY Hemoglobin 14.4 11.7 - [facility] 15.5 gm/dL [facility] Hematocrit 43.8 35.7 - [facility] 45.8 % [facility] MCV 88.8 82.6 - [facility] 94.4 fL [facility] MCH 29.2 27.1 - [facility] 32.0 pg [facility] MCHC 32.9 31.7 - [facility] 35.0 gm/dL [facility] Platelets 294 145 - 357 [facility] x10(3)/[facility] LABORATORY RDWSD 39.5 37.0 - [facility] [address] [facility] LABORATORY RDWCV 12.1 11.5 - [facility] 14.1 % [facility] MPV 9.7 7.6 - 12.9 [facility] LABORATORY nRBC % Auto 0.0 % [facility] nRBC Abs Auto 0.000 0.000 - [facility] 0.000 [facility] x10(3)/[facility] LABORATORY Specimen Anatomical Collection Method Collection Time Receive d Time (Source) Location / / Volume Laterality Blood specimen 07/10/2018 4:25 PM 019 4:35 (specimen) EST PM EST Resulting Agency Comment Spec In Lab Du Dodge MD HEMATOLOGY ORDERABLES Performing Organization Address City/[facility]/[place] [address] Antibody screen (07/10/2018 4:25 PM EST) Patholo gist Method Time Signature Ab Screen Negative [facility] LABORATORY Expires at 08/24/2018 [id number] on: [facility] Specimen Anatomical Collection Method Collection Time Receive d Time (Source) Location / / Volume Laterality Blood specimen 07/10/2018 4:25 PM 019 4:32 (specimen) EST PM EST Resulting Agency Comment Spec In Lab Du Dodge MD BLOOD BANK ORDERABLES Performing Organization Address City/[facility]/[place] [address] ABO/Rh Typing (07/10/2018 4:25 PM EST) P athologist Signature ABORh Type B Pos [facility] Specimen Anatomical Collection Method Collection Time Receive d Time (Source) Location / / Volume Laterality Blood specimen 07/10/2018 4:25 PM 019 4:32 (specimen) EST PM EST Resulting Agency Comment Spec In Lab Du Dodge MD BLOOD BANK ORDERABLES Performing Organization Address City/State/[place] [address] (ABNORMAL) Electrolytes panel (07/10/2018 4:25 PM EST) athologist Signature Sodium 144 135 - 145 [facility] mmol/L [facility] Potassium 4.1 3.5 - 5.0 [facility] mmol/[facility] Comment: Please note: ??Patients with WBC >100,00 0 may have falsely elevated Potassium levels. ??For accurate Potassium quantif ication in these patients send serum separator tube (gold top) for subsequent determinations. ??Contact the Clinical Chemistry Laboratory if there are any qu estions. Chloride 102 98 - 107 mmol/L [facility] CO2 32 (H) 22 - 31 mmol/L [facility] Anion Gap 10 5 - 15 mmol/L [facility] Specimen Anatomical Collection Method Collection Time Receive d Time (Source) Location / / Volume Laterality Blood specimen 07/10/2018 4:25 PM 019 4:35 (specimen) EST PM EST Resulting Agency Comment Spec In Lab Du Dodge MD CHEMISTRY ORDERABLES Performing Organization Address City/[facility]/[place] [address] (ABNORMAL) BUN (07/10/2018 4:25 PM EST) athologist Signature BUN 19 (H) 8 - 18 [facility] mg/dL [facility] Specimen Anatomical Collection Method Collection Time Receive d Time (Source) Location / / Volume Laterality Blood specimen 07/10/2018 4:25 PM 019 4:35 (specimen) EST PM EST Resulting Agency Comment Spec In Lab Du Dodge MD CHEMISTRY ORDERABLES Performing Organization Address City/[facility]/[place] [address] Creatinine (07/10/2018 4:25 PM EST) athologist Signature Creatinine 0.98 0.70 - [facility] 1.20 mg/dL [facility] Estimated GFR 64 >=60 [facility] mL/min/1.7 [facility] 3 m?? HOSPITAL LABORATORY Comment: The eGFR was calculated using the CKD-EP I equation. As with all creatinine based estimates of kidney function, eGFR values calculated with the CKD-EPI equation are not accurate in patients wi th acute kidney failure, extremes of body mass or the acutely ill. [email or web address] eGFR 74 >=60 mL/min/1.73 m?? [facility] Comment: The eGFR was calculated using the CKD-EP I equation. As with all creatinine based estimates of kidney function, eGFR values calculated with the CKD-EPI equation are not accurate in patients wi th acute kidney failure, extremes of body mass or the acutely ill. [email or web address] Specimen Anatomical Collection Method Collection Time Receive d Time (Source) Location / / Volume Laterality Blood specimen 07/10/2018 4:25 PM 019 4:35 (specimen) EST PM EST Resulting Agency Comment Spec In Lab Du Dodge MD CHEMISTRY ORDERABLES Performing Organization Address City/[facility]/[place] [address] Prothrombin Time (07/10/2018 4:25 PM EST) P athologist Signature PT 11.4 9.4 - 12.5 [facility] LABORATORY INR 1.0 [facility] Comment: An INR <2.0 indicates adequate procoagul ant activity for hemostasis in most patients without underlying bleeding dis orders, though the INR may not adequately reflect hemostatic capacity i n patients with liver disease and synthetic impairment. The recommended ta rget INR range for therapeutic anticoagulation is 2.0 ? 3.0 for most applications, though lower and higher ranges may be appropriate depending on c linical circumstances. Specimen Anatomical Collection Method Collection Time Receive d Time (Source) Location / / Volume Laterality Blood specimen 07/10/2018 4:25 PM 019 4:35 (specimen) EST PM EST Resulting Agency Comment Spec In Lab Du Dodge MD HEMATOLOGY ORDERABLES Performing Organization Address City/[facility]/[place] [address] APTT (07/10/2018 4:25 PM EST) P athologist Signature PTT 32 25 - 37 sec [facility] Comment: The PTT is NOT appropriate for heparin m onitoring. Use the Anti-Xa level for heparin monitoring (HEP UFH) or LMWH mon itoring (HEP LMW). A PTT less than 37 seconds generally indicates adequate hem ostasis. Specimen Anatomical Collection Method Collection Time Receive d Time (Source) Location / / Volume Laterality Blood specimen 07/10/2018 4:25 PM 019 4:35 (specimen) EST PM EST Resulting Agency Comment Spec In Lab Du Dodge MD HEMATOLOGY ORDERABLES Performing Organization Address City/State/[place] [address] documented in this encounter Visit Diagnoses Diagnosis Spondylolisthesis of lumbosacral region Acquired spondylolisthesis documented in this encounter Care Teams Clean Out Driller Relationship Specialty Start Date End Date Arleth Cueva APRN PCP - General Family Medicine 06/24/[address] [place] [address] documented as of this encounter
--- OUTSIDE RECORDS SUMMARY | 2022-02-19 02:03 | XMS_ITS | Encounter Summary ---
:1960 Author Organization [facility] [place] [address] Care Team Providers Name Role Phone Arleth Cueva APRN Primary Care Provider Encounter Details Date Type Department Care Team Description 09/28/2018 Telephone Neurosurgery at [facility] [place] [phone] Social History Tobacco Use Types Packs/Day Years Used Date Former Smoker Cigarettes 1.5 10 Quit: 06/12/18 88 Smokeless Tobacco: Never Used Alcohol Use Standard Drinks/Week Comments No 0 (1 standard drink = 0.6 oz pure alcoho l) Sex Assigned at Date Recorded Not on file documented as of this encounter Miscellaneous Notes Telephone Encounter - Opal Molina - 10/12/2018 5:17 PM EDT Attempted to reach patient on both numbers on file, there was no answer and voicemail was not available on either number. Mailing letter. Telephone Encounter - Yoselyn Fulton - 10/03/2018 2:51 PM EDT Called pt to schedule f/u w TCR = no answer no machine no message left Postpone 1w Telephone Encounter - Opal Molina - 09/28/2018 9:50 AM EDT Patient needs f/u appointment(s): With TCR on/around next available next available OVE, Discuss surgery, no imaging requested Telephone Encounter - Opal Molina - 09/28/2018 9:50 AM EDT ----- Message from ISACC Pineda sent at 09/26/2018 2:26 PM EDT ----- Regarding: Clinic appointment Isabella, Could you please schedule Ms. Huizar for a clinic appointment to discuss surgery again with Dr. Dodge at ? Please see my telephone note if needed. Thank you, Jame documented in this encounter Plan of Treatment Not on filedocumented as of this encounter Visit Diagnoses Not on filedocumented in this encounter Care Teams Logistic Manager Relationship Specialty Start Date End Date Arleth Cueva APRN PCP - General Family Medicine 06/24/[address] [place] [address] [address] [place] [address] documented as of this encounter
--- OUTSIDE RECORDS SUMMARY | 2022-02-19 02:03 | XMS_ITS | Encounter Summary ---
:1960 Author Organization [facility] [place] [address] Care Team Providers Name Role Phone Arleth Cueva APRN Primary Care Provider Encounter Details Date Type Department Care Team Description 07/10/2018 Hospital Encounter XRay at [facility] Du Dodge MD [address] [place] [phone] [place], [place] [address] (Wo rk) Social History Tobacco [...] on file documented as of this encounter Medications at Time of Discharge Medication Sig Dispensed Refills Start Date End Date gabapentin (NEURONTIN) 100 Take 1 capsule 90 capsule 12 06/01 mg Capsule by mouth 3 times daily. meTOPROLOL tartrate Take [...] every 6 hours as needed for Pain. methotrexate 2.5 mg Tablet Take 6 tablets 78 tablet 0 06/2408/28/2018 by mouth once a week (15 mg) documented as of this encounter Plan of Treatment Not on filedocumented as of this encounter Procedures Procedure Name Priority Date/Time Associated Diagnosis Comme nts XR CHEST PA AND Routine 07/10/2018 4:49 PM Result s for this LATERAL EST procedure are i n the results section. documented in this encounter Results XR Chest PA & Lateral (Generic) (07/10/2018 4:49 PM EST) Anatomical Region Laterality Modality Chest N/A Digital Radiography Specimen (Source) Anatomical Location Collection Method / Collectio n Time Received Time / Laterality Volume Impressions 07/10/2018 4:55 PM EST No active cardiopulmonary pathology identified. Thank you for letting us participate in the care of this patient. For questions regarding this report, please contact e number below. ? Narrative 07/10/2018 4:55 PM EST EXAMINATION: XR CHEST PA AND LATERAL (GENERIC) CLINICAL HISTORY: preop TECHNIQUE: PA and lateral views of the c hest. COMPARISON: None. FINDINGS: The lungs appear clear. The ca rdiomediastinal silhouette, quita, pulmonary vessels, and pleura are within normal limits. Thoracic spine vertebral body endplate productive changes /osteop hytes are present. Procedure Note Carmelita Mckeon MD - 07/10/2018Formatt ing of this note might be different from the original. EXAMINATION: XR CHEST PA AND LATERAL (GE NERIC) CLINICAL HISTORY: preop TECHNIQUE: PA and lateral views of the c hest. COMPARISON: None. FINDINGS: The lungs appear clear. The ca rdiomediastinal silhouette, quita, pulmonary vessels, and pleura are within normal limits. Thoracic spine vertebral body endplate productive changes /osteop hytes are present. IMPRESSION No active cardiopulmonary pathology iden tified. Thank you for letting us participate in the care of this patient. For questions regarding this report, please contact e number below. Du Dodge MD IMG DX ORDERABLES documented in this encounter Visit Diagnoses Not on filedocumented in this encounter Care Teams Quenching Car Operator Relationship Specialty Start Date End Date Arleth Cueva, AUTO TRAVEL COUNSELOR PCP - General Family Medicine 06/24/[address] [place] [address] documented as of this encounter
--- OUTSIDE RECORDS SUMMARY | 2022-02-19 02:03 | XMS_ITS | Encounter Summary ---
:1960 Author Organization [facility] [address] Care Team Providers Name Role Phone Arleth Cueva APRN Primary Care Provider Encounter Details Date Type Department Care Team Description 07/10/2018 Clinical Support Same Day at [facility] [place] [address] Social History Tobacco Use Types Packs/Day [...] Sign Reading Time Taken Comments Blood Pressure - - Pulse - - Temperature - - Respiratory Rate - - Oxygen Saturation 96% 07/10/2018 3:13 PM EST Inhaled Oxygen Concentration - - Weight - - Height - - Body Mass Index - - documented in this encounter Progress Notes Thao Solomon RN - 07/10/2018 3:20 PM EST PAT questionnaire reviewed with patient while in Pre Admission testing. Pre- operative instruction booklet reviewed. Patient verbalizes a good understanding of all information reviewed. PLAN: Testing: Urine, lab, T&S,EKG. To CXR after. Special medication instructions: Procedure date: Not booked. documented in this encounter Plan of Treatment Not on filedocumented as of this encounter Visit Diagnoses Not on filedocumented in this encounter Care Teams Hair Spring Cutter Relationship Specialty Start Date End Date Arleth Cueva APRN PCP - General Family Medicine 06/24/[address] [place] [address] [address] [place] [address] documented as of this encounter
--- OUTSIDE RECORDS SUMMARY | 2022-02-19 02:03 | XMS_ITS | Encounter Summary ---
:1960 Author Organization [place] [address] Care Team Providers Name Role Phone Hammad Arleth Oconnell APRN Primary Care Provider Reason for Visit Reason Onset Date Comments Follow-up 09/26/2018 Encounter Details Date Type Department Care Team Description 09/26/2018 Telephone Neurosurgery at [facility] Alex Handley PA Follow-up [facility] [place] [address] NEUROSURGERY [phone] [place], [place] [address] (Wo rk) Social History Tobacco Use Types Packs/Day Years Used Date Former Smoker Cigarettes 1.5 10 Quit: 06/12/18 88 Smokeless Tobacco: Never Used Alcohol Use Standard Drinks/Week Comments No 0 (1 standard drink = 0.6 oz pure alcoho l) Sex Assigned at Date Recorded Not on file documented as of this encounter Miscellaneous Notes Telephone Encounter - Alex Handley PA - 09/26/2018 2:21 PM EDT Called and spoke with patient in follow up regarding her lumbar spine. Plan at the time of her last clinic appointment with Dr. Dodge 07/10/18 was to obtain EMGs and schedule for L4-S1 decompression and instrumented fusion. Ms. Huizar states that she was afraid to proceed with surgery following EMG studies which did not show specific nerve root injury. I reviewed EMG results with her and discussed that while these studies are very helpful, they are not 100% sensitive. Answered other general questions regarding her MRI findings and expected post-operative course. She inquired about possible minimally invasive approach vs open. I suggested she make a return appointment to further discuss with Dr. Dodge. She agreed. Will arrange for clinic appointment at [facility] with Dr. Dodge. documented in this encounter Plan of Treatment Not on filedocumented as of this encounter Visit Diagnoses Not on filedocumented in this encounter Care Teams Entry Level Relationship Specialty Start Date End Date Arleth Cueva, YUVAL PCP - General Family Medicine 06/24/[address] [place] [address] documented as of this encounter
--- OUTSIDE RECORDS SUMMARY | 2022-02-19 02:03 | XMS_ITS | Encounter Summary ---
:1960 Author Organization [facility] Address [address] [place] [address] Care Team Providers Name Role Phone Arleth Cueva APRN Primary Care Provider Encounter Details Date Type Department Care Team Description 07/10/2018 Hospital Encounter XRay at [facility] Hamida Pedro Cystic lesion of [address] [facility] [address] Micaela APRN abdominal viscera [facility] [id number] Romance [phone] [place] [address] Social History Tobacco Use Types Packs/Day Years [...] Priority Date/Time Associated Diagnosis Comme nts XR ABDOMEN FLAT AND Routine 07/10/2018 10:32 AM Cystic lesion of Results for this UPRIGHT EST abdominal viscera procedure are in the results section. documented in this encounter Results XR Abdomen Flat & Upright (07/10/2018 10:32 AM EST) Anatomical Region Laterality Modality Abdomen N/A Digital Radiography Specimen (Source) Anatomical Location Collection Method / Collectio n Time Received Time / Laterality Volume Impressions 07/10/2018 12:23 PM EST 1. No radiopaque foreign body seen. The previously seen ovoid density projecting in the left abdomen on lumbar spine exam of 06/01/2018 is not visualized. 2. Nonobstructive bowel gas pattern. Thank you for letting us participate in the care of this patient. For questions regarding this report, please contact e number below. ? Narrative 07/10/2018 12:23 PM EST EXAMINATION: XR ABDOMEN FLAT AND UPRIGHT CLINICAL HISTORY: Follow up for abnormal finding of left abdominal cyst like lesion seen on lumbar films. TECHNIQUE: Upright and supine abdomen. COMPARISON: Lumbar spine 06/01/2018, abdo agnieszka radiograph 10/22/2014 FINDINGS: The previously seen ovoid density proje cting in the left abdomen on the lumbar spine 06/01/2018 is not visualized. The bowel gas pattern is nonobstructive. Air and fecal material are seen in nondilated colon, with distal gas seen i n the rectum. Air is seen in scattered nondilated small bowel. There is no evid ence of free intraperitoneal air. No abnormal abdominal calcifications. The l china bases are clear. No acute osseous lesion. Procedure Note Rosario Lee MD - 9 EXAMINATION: XR ABDOMEN FLAT AND UPRIGHT CLINICAL HISTORY: Follow up for abnormal finding of left abdominal cyst like lesion seen on lumbar films. TECHNIQUE: Upright and supine abdomen. COMPARISON: Lumbar spine 06/01/2018, abdo agnieszka radiograph 10/22/2014 FINDINGS: The previously seen ovoid density proje cting in the left abdomen on the lumbar spine 06/01/2018 is not visualized. The bowel gas pattern is nonobstructive. Air and fecal material are seen in nondilated colon, with distal gas seen i n the rectum. Air is seen in scattered nondilated small bowel. There is no evid ence of free intraperitoneal air. No abnormal abdominal calcifications. The l china bases are clear. No acute osseous lesion. IMPRESSION 1. No radiopaque foreign body seen. The previously seen ovoid density projecting in the left abdomen on lumbar spine exam of 06/01/2018 is not visualized. 2. Nonobstructive bowel gas pattern. Thank you for letting us participate in the care of this patient. For questions regarding this report, please contact th e number below. Hamida Pedro APRN IMG DX ORDERABLES documented in this encounter Visit Diagnoses Diagnosis Cystic lesion of abdominal viscera documented in this encounter Care Teams Outsole Scheduler Relationship Specialty Start Date End Date Arleth Cueva APRN PCP - General Family Medicine 06/24/[address] [place] [address] documented as of this encounter
--- OUTSIDE RECORDS SUMMARY | 2022-02-19 02:03 | XMS_ITS | Encounter Summary ---
:1960 Author Organization [facility] [address] Care Team Providers Name Role Phone Arleth Cueva APRN Primary Care Provider Reason for Visit Auth/Cert Specialty Diagnoses / Procedures Referred By Contact Refer red To Contact Diagnoses Encounter for general adult medical examination without abnormal findings screening Procedures PRO COLONOSCOPY, DIAGNOSTIC PRO ANESTH, LWR INTESTINE, NOS COLONOSCOPY, DIAGNOSTIC Referral ID Status Reason Start Date Expiration Date Visits Requ ested Visits Authorized [id number] 1 1 Encounter Details Date Type Department Care Team Description 05/29/2021 Hospital Encounter Gastroenterology at [facility] Seema Saxena MD [facility] [place] [address] [facility] Cade Bush MD [facility] [place] [address] [place] [address] Social History Tobacco Use Types Packs/Day [...] occurs, please contact your Doctor. Please call [phone] before 8pm Mon-Fri with problems, questions or concerns. If you call after 8pm or on weekends, call the Hospital at [phone] and ask to speak to the Biodiesel Process Control Technician emergency vehicle operations instructor and the chain saw operator will contact that person for you. When should you call for help? Call [phone] anytime you think you may need emergency [...] any problems. Where can you learn more? [facility] View your After Visit Summary and more online at [email or web address] If you would like to provide feedback about your hospital experience, please call the Office of Patient and Family Relations at . If you have received this After Visit Summary in error, please immediately return it in person to the department, or notify the [facility] Privacy Office by calling toll free at between the hours of 8AM and 5PM to arrange for our retrieval of the documents at no cost to you. Content Version: 12.2 ?? 4258-2479 [employer]. Care instructions adapted under license by [facility]. If you have questions about a medical condition or this instruction, always ask your healthcare professional. [employer] disclaims any warranty or liability for your [...] complication. Informed Consent signed by patient (or sales representative printing). documented in this encounter Plan of Treatment [...] Component Value Ref Test Analysis Performed At [facility] Range Method Time Signature Surgical [id number] ? Location: ; [facility]; [facility] Report The signing pathologist has (i) examined the relevant preparation(s) for the [facility]ORIAL specimen(s) and (ii) rendered or confirmed the diagnosis(es) . HOSPITAL LABORATORY . ?Surgic al Pathology DIAGNOSIS A - Rectum colon polyp, excision: - ??Hyperplastic polyp. Electronically signed by: ?Ginna JURADO PhD, Deneen Verified: ??06/09/2021 9:34 ?? Pathologist Performed at: ??-[facility] Dept. of Pathology, [place], [place] SPECIMEN(S) SUBMITTED A - Rectum colon [...] MD PATHOLOGY/CYTOLOGY ORDERABLE S Performing Organization Address City/[facility]/[place]IP [place] [address] Specimen to Pathology (05/29/2021 4:52 PM EST) Specimen Anatomical Collection Method Collection Time Receive d Time (Source) Location / / Volume Laterality AP Specimen 05/29/2021 4:52 PM 4:52 EST PM EST N[address] [facility] - 05/29/2021 4:52 PM EST Specimen requisition ordered. ??Separate Pathology report to follow Cade Lizarraga MD PATHOLOGY/CYTOLOGY ORDERABLE S Performing Organization Address City/[facility] [place] [address] COLONOSCOPY (05/29/2021 3:35 PM EST) [facility] Method Time Signature COLONOSCOPY [facility] Endoscopy Procedure Date: 05/29/2021 3:35 PM ? Patient Name: Usha Huizar ? Date of : 1960 ? Age: 60 ? Order #: [id number] ? Instrument Name: [id number] ? Procedure: ? Colonoscopy Indications: ? High [...] ? Cade Lizarraga MD Referring MD: ?Arleth AnishPhuc Cueva Medicines: ? Midazolam 5 mg IV, [...] was evaluat ed using ? the BBPS ([place] Bowel Prepar ation ? Scale) with scores [...] Volume Laterality 05/29/2021 3:35 PM EST Arleth Cueva APRN GENERAL SURGICAL ORDERABLES Performing Organization Address City/State/ZIP Code Phon e Number [employer] documented in this encounter Visit Diagnoses Not on filedocumented in this encounter Active and Recently Administered Medications Times are shown in EST. PRN Medication Order 05/27/2021 05/28/2021 05/29/2021 fentaNYL (pf) (50 mcg/mL) multi-dose injection (CANCELED) 1622 (Given - Provider: Isaiah Connell RN)1625 (Given - Provider: Isaiah Connell RN)1629 (Given - Provider: Isaiah Connell RN)1638 (Given - Provider: Isaiah Connell RN)1641 (Given - Provider: Isaiah Connell RN) ONCE PRN, Starting on Tue05/29/21 at 162 2, Until Tue05/29/21 at 1943, Intra- Operative (Intra-Procedure), Routine midazolam (pf) (Versed) (1 mg/mL) multi-dose injection (CANCELED ) 1622 (Given - Provider: Isaiah Connell RN)1625 (Given - Provider: Isaiah Connell RN)1629 (Given - Provider: Isaiah Connell RN)1638 (Given - Provider: Isaiah Connell, ASHLEE)1641 (Given - Provider: Isaiah Connell RN) ONCE PRN, Starting on Tue05/29/21 at 162 2, Until Tue05/29/21 at 1943, Intra- Operative (Intra-Procedure), Routine documented in this encounter Care Teams Bell Hole Digger Relationship Specialty Start Date End Date Arleth Cueva APRN PCP - General Family Medicine 06/24/[address] [place] [address] [address] [place] [address] documented as of this encounter
--- OUTSIDE RECORDS SUMMARY | 2022-02-19 02:03 | XMS_ITS | Encounter Summary ---
:1960 Author Organization [facility] [address] Care Team Providers Name Role Phone Arleth Cueva APRN Primary Care Provider Reason for Visit Consultation (Routine) - Closed Specialty Diagnoses / Procedures Referred By Contact Refer red To Contact Neurology Diagnoses Spondylolisthesis of lumbosacral region Du Dodge MD [facility] 3c [facility] [place] [address] [place] [address] Referral ID Status Reason Start Date Expiration Date Visits V isits Requested Authorized [id number] Closed Test Only 07/10/2018 07/10/2019 1 1 Encounter Details Date Type Department Care Team Description 08/28/2018 Procedure visit Neurology at [facility] Maicol Neely MD [facility] [place] [address] Polyneuropathy, [facility] Dustin Cason MD [facility] [place] [address] [place] [address] Social History Tobacco Use Types Packs/Day Years Used Date Former Smoker Cigarettes 1.5 10 Quit: 06/12/18 88 Smokeless Tobacco: Never Used Alcohol Use Standard Drinks/Week Comments No 0 (1 standard drink = 0.6 oz pure alcoho l) Sex Assigned at Date Recorded Not on file documented as of this encounter Last Filed Vital Signs Vital Sign Reading Time Taken Comments Blood Pressure 127/68 08/28/2018 10:03 AM EDT Pulse 57 08/28/2018 10:03 AM EDT Temperature - - Respiratory Rate - - Oxygen Saturation - - Inhaled Oxygen Concentration - - Weight 111.6 kg (246 lb) 08/28/2018 10:03 AM EDT Height 167.6 cm (5' 6) 08/28/2018 10:03 AM EDT reporte d Body Mass Index 39.71 08/28/2018 10:03 AM EDT documented in this encounter Progress Notes Dustin Cason MD - 08/28/2018 10:30 AM EDT Neurology Electrodiagnostics Clinic Encounter Patient name: Usha Huizar Date of : 1960 PCP: Arleth Cueva APRN Clinic Attending: Dr. Neely Usha Huizar is a 57 y.o. right-handed woman referred for EDX studies by Du Dodge to look for evidence of lumbosacral radiculopathy on the right. Per Dr. Dodge on 07/10/18: She has progressively worsening low back pain for the past approximately 15 years. She has been taking gabapentin since her last visit which has been helpful in reducing the pain she experiences in her gluteal area. She continues to have pain in her lower lumbar area which is her primary complaint. She also notes pain in her upper lumbar area. She describes feeling of numbness in her Right > Leftplantar aspect of foot. Her pain is aggravated by activity. She gets some relief with ice. She denies feeling of weakness of either lower extremity. Medrol dosepak taken in the past provided some degree of short term relief. She denies bowel or bladder incontinence or retention. Note from previous visit 06/01/18: ...She notes pain in midline upper lumbar times at times, but her most persistent pain reina ??severe deep ache in right buttocks. When she is walking at times the pain will be present on both left and right, in a similar distribution. ...She also endorses intermittent right foot numbness that occurs sometimes with sitting and sometimes when standing. At times she has left foot numbness as well, but this is less frequent. She has done several courses of PT, chiropractor, and muscle relaxants which have provided limited relief.She has tried medrol dose pack with a flair up??and has temporary improvement in symptoms. She is unable to engage in her usual level of activities including walking and hiking because of pain and has gained weight as a result. She reports no change in bowel or bladder function. She adds the following: Her chronic midline lower back pain does not radiate into her legs. She has tingling and numbness over the plantar and dorsal surface of her foot up to her posterolateral mid-calf, primarily over her right foot, but also over her left. These bilateral tingling paresthesias have been present and unchanged for many years, but she does note this sensation was initially more notable in her left foot and now bothers her more in her right foot. She denies any weakness of any kind in her legs or arms. She has no symptoms proximal to her mid-calf on either foot. She has no symptoms in either arm or hand, has no neck pain, and has no bowel or bladder problems. Of note, she had bilateral CTS in the past andhad a successful CTS release surgery on her right side, and the other resolved on its own. On exam she has full 5/5 strength in her bilateral lower extremities will no atrophy. Sensation is intact to light touch and temperature throughout bilateral feet and legs. She has mildly diminished vibration from her knees to toes symmetrically. Reflexes were brisk in her upper and lower extremities and were symmetrical and 2+ throughout with downgoing toes bilaterally. She has intact coordination and fine motor movements without tremors at rest or with motion. Her gait is subtly trendelenburg but is overall stable and steady. ?? 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 There was no clearcut electrodiagnostic evidence of lumbosacral radiculopathy on the left or the right. Report to be scanned into [facility]. She is planning to discuss these results with Dr. Dodge and her PCP, who may wish to order neuropathy labs to evaluate for reversible causes of her symptoms. She notes she is also planning to discuss the role for a pain clinic evaluation for possible injections or ablations, in addition to potentiallyincreasing her dose of gabapentin. She has no other questions or concerns at this time. Seen with Dr. Neely. Dustin Cason MD Clinical Neurophysiology Fellow Personal Pager #[phone] Neurology Staff Note I have reviewed the above fellows's history during the visit and I agree with the details as written. My physical examination confirms the fellow's findings. The assessment and plan were formulated in discussion with me at the time of the visit and I agree with them as documented. I participated in the EDX studies. Maicol Neely MD documented in this encounter Plan of Treatment Scheduled Referrals Name Type Priority Associated Diagnoses Order S chedule Referral to Outpatient Routine Spondylolisthesis of Ordered : Neurology Referral lumbosacral region 9 documented as of this encounter Visit Diagnoses Diagnosis Polyneuropathy, peripheral sensorimotor axonal Other specified idiopathic peripheral ne uropathy documented in this encounter Care Teams Coremaker Machine Relationship Specialty Start Date End Date Arleth Cueva, YUVAL PCP - General Family Medicine 06/24/[address] [place] [address] documented as of this encounter
--- OUTSIDE RECORDS SUMMARY | 2022-02-19 02:03 | XMS_ITS | Encounter Summary ---
:1960 Author Organization [facility] Address [address] [place] [address] Care Team Providers Name Role Phone Arleth Cueva APRN Primary Care Provider Reason for Visit Reason Comments Established Encounter Details Date Type Department Care Team Description 2018 Office Visit Gynecology Oncology Hien Joe Sta ge 1A Grade II at [facility] Endometrial cancer, [facility] s/p robotic hyst/ BSO Drive DR complicated by lorena Sotelo, [place] [id number] 6 trocar injury 10/22/14 [id number] [phone] Social History Tobacco Use Types Packs/Day Years Used Date Former Smoker Cigarettes 1.5 10 Quit: 06/12/18 88 Smokeless Tobacco: Never Used Alcohol Use Standard Drinks/Week Comments No 0 (1 standard drink = 0.6 oz pure alcoho l) Sex Assigned at Date Recorded Not on file documented as of this encounter Last Filed Vital Signs Vital Sign Reading Time Taken Comments Blood Pressure 132/62 2018 8:58 AM EDT Pulse 52 2018 8:58 AM EDT Temperature 36.8 ??C (98.2 ??F) 2018 8:58 AM EDT Respiratory Rate 16 2018 8:58 AM EDT Oxygen Saturation 100% 2018 8:58 AM EDT Inhaled Oxygen Concentration - - Weight 111.9 kg (246 lb 11.1 oz) 2018 8:58 AM EDT Height 167.6 cm (5' 5.98) 2018 8:58 AM EDT Body Mass Index 39.84 2018 8:58 AM EDT documented in this encounter Progress Notes Hien Joe, BOTTLE HOP - 2018 9:00 AM EDT Division [place] [address] Reason For Visit: Post Treatment Surveillance Exam History of Present Illness: Usha Huizar is a 57 y.o. woman who presents today for surveillance exam. She has a hx of Stage 1A Grade II Endometrioid Adenocarcinoma. On 10/22/14 she underwent a robotic hysterectomy and BSO that was complicated by a mesenteric trochar injury.?? She was converted to laparotomy and vascular surgery was called in, no major vascular injury was discovered. Interim Health: Her health has been overall stable, she continues to be bothered by her back pain/sciatica. She had been considering surgery then was seen by neurology who advised against surgery. She is scheduled for pain clinic consultation. Otherwise no new medical issues, surgeries or hospitalizations. No VELVET WEAVER questions/concerns today. ROS: No Fever, chills, nausea, vomiting, diarrhea No Pelvic/abdominal pain or bloating. No Bowel/bladder concerns or changes. Energy level: tires more easily d/t back pain. No Vaginal bleeding or discharge No lower extremity edema Weight is down 15 lbs, more active Appetite is good No SOB, cough or chest pain. Sexual function: Sexually active without problems. Advanced Directives: not interested in completing at this time Health Habits: Tobacco: Non-smoker ETOH: none Exercise: trying to walk when she can, limited d/t back/sciatic pain. Health Maintenance: Mammogram: up to date, done locally at [facility]. Colonoscopy: Done 03/2016 at [facility] Social History: Lives with her . They have 2 adult children. Not currently working d/t sciatic nerve pain. Patient Active Problem List Diagnosis Code ??? SVT (supraventricular tachycardia) I47.1 ??? Hyperlipemia E78.5 ??? Migraine headache G43.909 ??? Hypothyroidism E03.9 ??? Stage 1A Grade II Endometrial cancer, s/p robotic hyst/ BSO complicated by a trocar injury 10/22/14 C54.1 ??? Psoriasis L40.9 ??? Hypertension I10 ??? Sciatica of right side M54.31 ??? Lumbar spondylosis M47.816 ??? Cystic lesion of abdominal viscera K66.8 Past Surgical History: Procedure Laterality Date ??? ABLATION OF DYSRHYTHMIC FOCUS ??? CARDIAC SURGERY ablation ??? FINGER SURGERY ??? HYSTERECTOMY ??? ORTHOPEDIC SURGERY cyst removed from bone in pelvis ??? PRO EXPLORATORY RETROPERITONEAL N/A 10/22/2014 @EXPLORATION RETROPERITONEAL W OR W\O BIOPSY performed by Yoselyn Yip MD at [facility] ? ? PRO LAPAROSCOPY W TOT HYSTERECTUTERUS <=250 GRAM W TUBE/OVARY N/A 10/22/2014 LAPAROSCOPY,TOTAL HYST, UTERUS<250GM, DERRICK TYBE &/OR OVARY, ROBOTIC ASSIST performed by Marsha Godfrey MD at [facility] ??? PRO SLING OPER STRES INCONTINENCE 09/20/2012 URETHRAL SUSPENSION, SLING\FASCIA OR SYNTHETIC performed by Jozef Kent MD at [facility] Allergies Allergen Reactions ??? Shellfish Containing Products Angioedema ??? Pollen Extracts Stuffy head headache. Current Outpatient Medications on File Prior to [...] tablet Take 75 mcg by mouth daily. No current facility-administered medications on file prior to visit. Vital Signs: BP 132/62 (Patient Position: Sitting) Pulse 52 Temp 36.8 ??C (98.2 ??F) Resp 16 Ht 167.6 cm (5' 5.98) Wt 111.9 kg (246 lb 11.1 oz) LMP 10/20/2014 SpO2 100% BMI 39.84 kg/m?? PHYSICAL EXAM: Gen: Pleasant, NAD, Alert HEENT: No clavicular adenopathy or thyromegaly. Lungs: clear to auscultation Cor: heart RRR without appreciable murmurs. Abdomen: soft, non- distended, non-tender, no appreciable masses or inguinal adenopathy Lower Extremities: without edema Pelvic exam: normal appearing external female genitalia; vulva, urethral meatus, and perineum are without lesions. Speculum exam: intact vaginal cuff, no visible lesions. Bimanual exam: exam is limitedsecondary to body habitus. Uterus and adnexae surgically absent. No appreciable masses, nodularity or tenderness. Rectovaginal exam:. No appreciable masses or tenderness. ASSESSMENT/PLAN: Usha Huizar is a 57 y.o. woman who is post treatment of stage 1A Grade II endometrioid adenocarcinoma. She has no evidence of recurrent disease. We reviewed signs and symptoms of recurrent disease.Reviewed O surveillance guidelines, she will RTC 1 year for surveillance exam, she will call/rtc sooner prn with questions/concerns. Hien Joe APRN documented in this encounter Plan of Treatment Not on filedocumented as of this encounter Visit Diagnoses Diagnosis Stage 1A Grade II Endometrial cancer, s/ p robotic hyst/ BSO complicated by a trocar injury 10/22/14 Malignant neoplasm of corpus uteri, exce pt isthmus documented in this encounter Care Teams Promotion Manager Relationship Specialty Start Date End Date Arleth Cueva APRN PCP - General Family Medicine 06/24/[address] [place] [address] documented as of this encounter
--- OUTSIDE RECORDS SUMMARY | 2022-02-19 02:03 | XMS_ITS | Encounter Summary ---
:1960 Author Organization [facility] [place] [address] Care Team Providers Name Role Phone Arleth Cueva APRN Primary Care Provider Reason for Referral Diagnostic Test (Routine) - Denied Specialty Diagnoses / Procedures Referred By Contact Refer red To Contact Radiology Diagnoses Lumbar spondylosis Hamida Pedro APRN [facility] Rad Mri Procedures MRI Lumbar Spine wo Contrast (Generic) [facility] [place], [place] [id number] [place] [id number] Referral ID Status Reason Start Date Expiration Date Visits V isits Requested Authorized [id number] Denied Specialty 06/01/2018 06/01/2019 1 0 Service Requested Reason for Visit Diagnostic Test (Routine) - Denied Specialty Diagnoses / Procedures Referred By Contact Refer red To Contact Radiology Diagnoses Lumbar spondylosis Hamida Pedro APRN [facility] Rad Mri Procedures MRI Lumbar Spine wo Contrast (Generic) [facility] [address] [place] [address] Referral ID Status Reason Start Date Expiration Date Visits V isits Requested Authorized [id number] Denied Specialty 06/01/2018 06/01/2019 1 0 Service Requested Encounter Details Date Type Department Care Team Description 07/10/2018 Hospital Encounter MRI at [facility] Hamida Pedro Lumbar spondylosis [facility] C, [address] [place] [address] [place], [place] [phone] Social History Tobacco Use Types Packs/Day Years [...] Name Priority Date/Time Associated Diagnosis Comme nts MRI LUMBAR SPINE Routine 07/10/2018 1:12 PM Lumbar spondylosis Results for this WITHOUT CONTRAST EST procedure a re in the results section. documented in this encounter Results MRI Lumbar Spine wo Contrast (Generic) (07/10/2018 1:12 PM EST) Anatomical Region Laterality Modality L-spine Magnetic Resonance Specimen (Source) Anatomical Location Collection Method / Collectio n Time Received Time / Laterality Volume Impressions 07/10/2018 3:50 PM EST Fairly extensive changes of lumbar spondylosis similar to the prior study. Foraminal narrowing on the right at L5-S 1 appears to be somewhat worse. Comment: The Following Findings Are So C ommon In People Without Low Back Pain That While We Report Their Presence, The y Must Be Interpreted With Caution And In Context Of The Clinical Situation (Re sarika Chen Et Al, Spine 2001). Findings: (Prevalence In Patients Withou t Low Back Pain), Disc Degeneration (Decreased T2 Signal, Height Loss, Bulge ) (91%), Disc T2-Signal Loss (83%), Disc Height Loss (56%), Disc Bulge (64%), Dis c Protrusion (32%), Annular Fissure (38%). Thank you for letting us participate in the care of this patient. For questions regarding this report, please contact e number below. ? Narrative 07/10/2018 3:50 PM EST EXAMINATION: MRI LUMBAR SPINE WO CONTRAST (GENERIC) CLINICAL HISTORY: lumbar spondylosis wit h worsening symptoms over past year. TECHNIQUE: MRI of the lumbar spine performed withou t intravenous contrast administration. COMPARISON: 09/16/2016 FINDINGS: There is anterolisthesis of L5 on S1, an d anterolisthesis of L4 on L5. Alignment is unchanged compared to the prior studi es. There is no focal, aggressive appearing marrow lesion. The normal appe aring conus terminates at L1. Visualized retroperitoneal structures are unremarka ble. Findings at specific levels: L1-L2: There is loss of disc height. Dis c bulge, and endplate osteophyte produce mild central canal narrowing and narrowi ng of the left subarticular recess. There is moderate left and mild right fo raminal narrowing. Findings are similar to the prior study. L2-L3: Disc bulge and facet arthropathy and lateral right disc protrusion contributes to similar right greater neeta n left foraminal narrowing. The lateral disc herniation contacts the exiting rig ht L3 root. L3-L4: Disc bulge and facet arthropathy produces mild central canal narrowing and moderate right and mild left foramin al narrowing without change compared to the prior exam. L4-L5: Listhesis, disc bulge, and extens leandro facet arthropathy produces mild central canal and moderate bilateral for aminal narrowing without change compared to the previous study. L5-S1: Disc bulge, marked facet arthropa thy, listhesis, and endplate arthropathy produces moderate left foraminal narrowi ng unchanged compared to the prior exam. There is a component of disc protrusion on the right contacting the exiting right L5 root with fairly severe foramin al stenosis, worse than on the prior study. Procedure Note Pipo Harrell MD - 07/10/2018Format ting of this note might be different from the original. EXAMINATION: MRI LUMBAR SPINE WO CONTRAS T (GENERIC) CLINICAL HISTORY: lumbar spondylosis wit h worsening symptoms over past year. TECHNIQUE: MRI of the lumbar spine performed withou t intravenous contrast administration. COMPARISON: 09/16/2016 FINDINGS: There is anterolisthesis of L5 on S1, an d anterolisthesis of L4 on L5. Alignment is unchanged compared to the prior studi es. There is no focal, aggressive appearing marrow lesion. The normal appe aring conus terminates at L1. Visualized retroperitoneal structures are unremarka ble. Findings at specific levels: L1-L2: There is loss of disc height. Dis c bulge, and endplate osteophyte produce mild central canal narrowing and narrowi ng of the left subarticular recess. There is moderate left and mild right fo raminal narrowing. Findings are similar to the prior study. L2-L3: Disc bulge and facet arthropathy and lateral right disc protrusion contributes to similar right greater neeta n left foraminal narrowing. The lateral disc herniation contacts the exiting rig ht L3 root. L3-L4: Disc bulge and facet arthropathy produces mild central canal narrowing and moderate right and mild left foramin al narrowing without change compared to the prior exam. L4-L5: Listhesis, disc bulge, and extens leandro facet arthropathy produces mild central canal and moderate bilateral for aminal narrowing without change compared to the previous study. L5-S1: Disc bulge, marked facet arthropa thy, listhesis, and endplate arthropathy produces moderate left foraminal narrowi ng unchanged compared to the prior exam. There is a component of disc protrusion on the right contacting the exiting right L5 root with fairly severe foramin al stenosis, worse than on the prior study. IMPRESSION Fairly extensive changes of lumbar spond ylosis similar to the prior study. Foraminal narrowing on the right at L5-S 1 appears to be somewhat worse. Comment: The Following Findings Are So C ommon In People Without Low Back Pain That While We Report Their Presence, The y Must Be Interpreted With Caution And In Context Of The Clinical Situation (Re pedro- Catalinok Et Al, Spine 2001). Findings: (Prevalence In Patients Withou t Low Back Pain), Disc Degeneration (Decreased T2 Signal, Height Loss, Bulge ) (91%), Disc T2-Signal Loss (83%), Disc Height Loss (56%), Disc Bulge (64%), Dis c Protrusion (32%), Annular Fissure (38%). Thank you for letting us participate in the care of this patient. For questions regarding this report, please contact e number below. 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
--- OUTSIDE RECORDS SUMMARY | 2022-02-19 02:03 | XMS_ITS | Encounter Summary ---
:1960 Author Organization [facility] [place] [address] Care Team Providers Name Role Phone Arleth Cueva APRN Primary Care Provider Reason for Referral Consultation (Routine) - Closed Specialty Diagnoses / Procedures Referred By Contact Refer red To Contact Neurology Diagnoses Spondylolisthesis of lumbosacral region Du Dodge MD [facility] Neurology 3c [facility] [place] [address] [place] [address] Referral ID Status Reason Start Date Expiration Date Visits V isits Requested Authorized [id number] Closed Test Only 07/10/2018 07/10/2019 1 1 Reason for Visit Reason Comments Advice Only Next available OV, surgical consult - Chroinic bilat. back pain, sciatica Encounter Details Date Type Department Care Team Description 07/10/2018 Office Visit Neurosurgery at [facility] Du Dodge Spondylolisthesis of [facility] MD Micaela lumbosacral region [facility] (Primary Dx) [facility] [id number] NEUROSURGERY [phone] [place] [address] Social History Tobacco Use Types Packs/Day Years [...] Sign Reading Time Taken Comments Blood Pressure 135/72 07/10/2018 1:54 PM EST Pulse 62 07/10/2018 1:54 PM EST Temperature 36.8 ??C (98.3 ??F) 07/10/2018 1:54 PM EST Respiratory Rate - - Oxygen Saturation - - Inhaled Oxygen Concentration - - Weight 114.2 kg (251 lb 12.3 oz) 07/10/2018 1:54 PM EST Height 162.6 cm (5' 4) 07/10/2018 1:54 PM EST Body Mass Index 43.22 07/10/2018 1:54 PM EST documented in this encounter Progress Notes Du Dodge MD - 07/10/2018 2:00 PM EST Images from the original note were not included. [facility] Section of Neurosurgery Department of Surgery History and Physical Examination Clinic - Followup Subjective: 57 yo F returns after new lumbar MRI done this morning. She has progressively worsening low back pain [...] feeling of numbness in her Right > Left plantar aspect of foot. Her pain is aggravated by activity. She gets some relief with ice. She denies feeling of weakness of either lower extremity. Medrol dosepak taken in the past provided some degree of short term relief. She denies bowel or bladder incontinence or retention. Note from previous visit 06/01/18: Usha Huizar is a 57 y.o. with 15 year history of lumbar pain which has gradually worsened over several years. She notes pain in midline upper lumbar times at times, but her most persistent pain is a severe deep ache in right buttocks. When she is walking at times the pain will be present on both left and right, in a similar distribution. ?? She also endorses intermittent right foot numbness that occurs sometimes with sitting and sometimes when standing. At times she has left foot numbness as well, but this is less frequent. She has done several courses of PT, chiropractor, and muscle relaxants which have provided limited relief.She has tr ied medrol dose pack with a flair up and has temporary improvement in symptoms. She is unable to engage in her usual level of activities including walking and hiking because of pain and has gained weight as a result. She reports no change in bowel or bladder function. At this point she feels pain is limiting her ability to engage in activity and would like to explore surgical options. Most recent MRI September 2016. Never had EMG. No previous spine surgeries. She stopped smoking in 1987. Other med hx includes HTN, HLD, hypothyroid, migraine. Chief Complaint: Chief Complaint Patient presents with ??? Advice Only Next available OV, surgical consult - Chroinisrael bilat. back pain, sciatica Previous Spine Surgeons Seen: NA Past Surgical History (Spine Specific): No previous spine surgeries. Years ago had a procedure to remove a cyst in pelvis. (at ) NSAIDS Treatment (length): Physical Therapy Treatment (length): She has completed PT in the past for greater than 6 weeks without relief. Pain Clinic Consults / Injections: She has been referred for pain clinic consult. Activities of Daily Living Modification: All ADLs modified or limited. Helpful Treatments: Gabapentin Bladder/Bowel Concerns: NA Depression/Anxiety: Smoking Cessation Education: Former smoker. Quit 1987. Current Pain Management: Gabapentin Symptoms: Symptom Location (Back versus Leg) Patient Response (Zia one with X) Back Pain only Back Pain greater than Leg Pain X Back Pain equal to Leg Pain Leg Pain greater than Back Pain Leg Pain Only Distribution (Back versus Leg) Patient (Zia one with X) 90% vs. 10% 80% vs 20% X 70% vs. 30% 60% vs 40% NA Leg Symptoms Patient (Zia one with X) RIght only Right Greater than Left X (numbness) RIght and Left Equal Left Greater than Right Left Only NA Distribution Between Legs Patient (Zia one with X) 90% vs. 10% 80% vs 20% 70% vs. 30% X 60% vs 40% NA Chronic Conditions (Most relevant to lumbar spine conditions): Condition Zia with X if present. Treatment ( if applicable) Smoking Diabetes Insulin Oral Depression Past Surgical History: Past Surgical History: Procedure Laterality Date ??? ABLATION OF DYSRHYTHMIC FOCUS ??? FINGER SURGERY ??? HYSTERECTOMY ??? ORTHOPEDIC SURGERY cyst removed from bone in pelvis ??? PRO EXPLORATORY RETROPERITONEAL N/A 10/22/2014 @EXPLORATION RETROPERITONEAL W OR W\O BIOPSY performed by Yoselyn Yip MD at [facility] ? ? PRO LAPAROSCOPY W TOT HYSTERECTUTERUS <=250 GRAM W TUBE/OVARY N/A 10/22/2014 LAPAROSCOPY,TOTAL HYST, UTERUS<250GM, DERRICK TYBE &/OR OVARY, ROBOTIC ASSIST performed by Marsha Godfrey MD at [facility] ??? PRO SLING OPER STRES INCONTINENCE 09/20/2012 URETHRAL SUSPENSION, SLING\FASCIA OR SYNTHETIC performed by Jozef Ketn MD at [facility] Past Medical History: Past Medical History: Diagnosis Date ??? HTN (hypertension) ??? Hyperlipidemia ??? Hypothyroidism ??? Migraine ??? Obesity ??? Palpitations started on beta lena approx one month ago ??? Psoriasis Social History: Social History Tobacco Use ??? Smoking status: Former Smoker Packs/day: 1.50 Years: 10.00 Pack years: 15.00 Types: Cigarettes Last attempt to quit: 06/12/1987 Years since quittin.0 ??? Smokeless tobacco: Never Used Substance Use Topics ??? Alcohol use: No Comment: 2-3 a couple of times per week Family History: Family History Problem Relation Age of Onset ??? Breast Cancer Neg Hx ??? Colorectal Cancer Neg Hx ??? Ovarian Cancer Neg Hx Allergies: Allergies Allergen Reactions ??? Shellfish Containing Products Angioedema ??? Pollen Extracts Stuffy head headache. Medications: has a current medication list which includes the following prescription(s): gabapentin, metoprolol tartrate, hydrochlorothiazide, simvastatin, levothyroxine, methotrexate, ibuprofen, and acetaminophen. Review of Systems: Review of Systems Objective: General Physical Exam: BP 135/72 Pulse 62 Temp 36.8 ??C (98.3 ??F) Ht 162.6 cm (5' 4) Wt 114.2 kg (251 lb 12.3 oz) LMP 10/20/2014 BMI 43.22 kg/m?? Body mass index is 43.22 kg/m??. General Appearance: No acute distress Lungs: Clear to auscultation bilaterally Heart: Regular rate and rhythm Abdomen: Soft, non-tender. Bowel sounds normal. Extremities: No edema, redness or tenderness in the calves or thighs General Neurologic Exam: Mental Status: Awake, alert and oriented x 4, fluent speech, normal cognition Pupils: Pupils equal round and reactive to light Cranial Nerves: CN II-XII individually tested and found to be intact, gag not tested Motor: Strength Normal muscle bulk and tone No pronator drift Cerebellar: No dysmetria, No dysdiadochokinesia Focused Lumbar Exam: Percussion tenderness: Tender to palpation over lower lumbar spine > upper lumbar spine. Lumbar Range of Motion: Motion Normal (Degrees) Patient Flexion 60 55 Extension 25 20 Left Lateral Bending 25 20 Right Lateral Bending 25 20 Hip Flexion and External Rotation: Symmetric Tension signs: + SLR on R. Motor Strength: Test Muscle Root Right Left Hip Flexion Iliopsoas (femoral nerve) L123 5 5 Hip Adduction obturator L234 5 5 Hip Abduction superior gluteal L45S1 5 5 Hip Extension Gluteus isabel (inferior gluteal) L5S12 5 5 Knee Flexion Hamstrings (sciatic) L45S1 5 5 Knee Extension Quadriceps (femoral) L234 5 5 Ankle Dorsiflexion Anterior tibial (deep peroneal) L45 5 5 Ankle Inversion Posterior tibialis (tibial) L45 5 5 Great toe extension Extensor hallicus longus (deep peroneal) L5 5 5 Ankle Eversion Peroneus longus and brevis (superficial peroneal) L5S1 5 5 Ankle Plantar Flexion Gastroc (tibial) L5S12 5 5 Reflexes: Test Root / Syndrome Right Left Knee L4 2 2 Ankle S1 2 2 Plantar Myelopathy no no Clonus Myelopathy no no Sensation: (Light Touch and Pin) Reported percent of normal Location Root Nerve Right Left Upper and medial thigh L1-3 Lateral and Anterior Cutaneous b. Femoral 80 100 Medial aspect of LE L4 Saphenous b. Femoral 80 100 Central LE and dorsum of foot, 1st web foot L5 Common peroneal b.sciatic 80 100 Lateral lower extremity and foot S1 Tibial b. sciatic 80 100 Gait: Normal gait, with tandem, heel, and toe walk. Increased pain with heel and toe walking. Studies Reviewed: MRI lumbar spine without mony 07/10/18: FINDINGS: There is anterolisthesis of L5 on S1, and anterolisthesis of L4 on L5. Alignment is unchanged compared to the prior studies. There is no focal, aggressive appearing marrow lesion. The normal appearing conus terminates at L1. Visualized retroperitoneal structures are unremarkable. Findings at specific levels: L1-L2: There is loss of disc height. Disc bulge, and endplate osteophyte produce mild central canal narrowing and narrowing of the left subarticular recess. There is moderate left and mild right foraminal narrowing. Findings are similar to the prior study. L2-L3: Disc bulge and facet arthropathy and lateral right disc protrusion contributes to similar right greater than left foraminal narrowing. The lateral disc herniation contacts the exiting right L3 root. L3-L4: Disc bulge and facet arthropathy produces mild central canal narrowing and moderate right and mild left foraminal narrowing without change compared to the prior exam. L4-L5: Listhesis, disc bulge, and extensive facet arthropathy produces mild central canal and moderate bilateral foraminal narrowing without change compared to the previous study. L5-S1: Disc bulge, marked facet arthropathy, listhesis, and endplate arthropathy produces moderate left foraminal narrowing unchanged compared to the prior exam. There is a component of disc protrusion on the right contacting the exiting right L5 root with fairly severe foraminal stenosis, worse than on the prior study. ?? Specific relevant MRI observations: Observation Zia with X if present Disc collapse Listhesis X Disc herniation Modic Changes X-ray lumbar spine 06/01/18 Assessment: 57 yo F with progressively worsening and debilitating lower lumbar pain with right > left lumbar radiculopathy. She experiences some relief of radicular component with gabapentin, but she has exhausted other non-surgical measures including activity modification, PT for greater than 6 weeks, chiropractic, and NSAID use. Plan: Discussed all options including non-surgical measures and surgical option of lumbar decompression and instrumented fusion. She favors surgical intervention at this time. Will proceed with PAT visit today, referral to Neurology for EMG/NCV studies, and scheduling for surgery. Discussed options for L4S1 spondylolisthesis. EMG NCV studies requested (can be done closer to home or back here). Preop for L45S1 Navigated Decompression and Fusion. I spent 40 minutes of this 60 minute encounter in face to face contact counseling the patient regarding treatment options and addressing specific questions. She indicated she had no further questions at this time and was pleased with the appointment. Du Dodge MD MS Professor and Chair Section of Neurosurgery Department of Surgery [facility] NOTE CASE ENTERED IN DEPOT L5S1 only need to change to L4-S1 otherwise same equipment. documented in this encounter Plan of Treatment Scheduled Referrals Name Type Priority Associated Diagnoses Order S chedule Referral to Outpatient Routine Spondylolisthesis of Ordered : Neurology Referral lumbosacral region 9 documented as of this encounter Procedures Procedure Name Priority Date/Time Associated Diagnosis Comme nts XR CHEST PA AND Routine 07/10/2018 4:49 Results f or this LATERAL PM EST procedure are i n the results section. EKG 12-LEAD Routine 07/10/2018 3:58 Spondylolisthesis of Resu lts for this PM [...] report, please contact e number below. ? Electronically signed by: Carmelita Mckeon [facility] ([phone]), at 07/10/2018 4:55 PM Narrative 07/10/2018 4:55 PM EST EXAMINATION: XR [...] below. Du Dodge MD IMG DX ORDERABLES Urinalysis with reflex Culture (07/10/2018 4:28 PM EST) [facility] Method Time Signature Glucose UA Negative Negative [facility] mg/dL [facility] Protein UA Negative Negative [facility] mg/dL [facility] Bilirubin UA Negative Negative [facility] mg/dL [facility] Comment: Clinical correlation required for positi ve Urine Bilirubin results as false positive may occur with some drugs and d rug related products. If a false positive is suspected a serum total bili esparza should be considered if clinically indicated. Urobilinogen UA Normal Normal mg/dL [facility] pH UA 6.0 5.0 - 8.0 [facility] Blood UA Negative Negative mg/dL [facility] Ketones UA Negative Negative mg/dL [facility] Nitrite UA Negative Negative [facility] Leukocytes UA Negative Negative [facility]ORY Appearance UA Clear Clear [facility] Spec [place] UA 1.009 1.002 - 1.030 [facility] Color UA Straw Yellow [facility] Culture Reflexed No [facility] Specimen (Source) Anatomical Collection Method Collection Time Re ceived Time Location / / Volume Laterality Urine specimen 07/10/2018 4:28 07/10/2018 4:35 obtained by clean PM EST PM EST catch procedure (specimen) Resulting Agency Comment Spec In Lab Du Dodge MD URINE ORDERABLES Performing Organization Address City/[facility]/ZIP [facility] Phon e Number [address] APTT (07/10/2018 4:25 PM EST) P athologist Signature PTT 32 25 - 37 sec [facility] Comment: The PTT is NOT appropriate [...] Dodge MD HEMATOLOGY ORDERABLES Performing Organization Address City/[facility]/ZIP [facility] Phon e Number [address] Prothrombin Time (07/10/2018 4:25 PM EST) P athologist Signature PT 11.4 9.4 - 12.5 [facility] LABORATORY INR 1.0 [facility] Comment: An INR <2.0 indicates adequate [...] Dodge MD HEMATOLOGY ORDERABLES Performing Organization Address City/[facility]/ZIP Code [place] [address] Creatinine (07/10/2018 4:25 PM EST) P athologist Signature Creatinine 0.98 0.70 - PRASHANTH JUANCARLOS 1.20 mg/dL [facility] Estimated GFR 64 >=60 [facility] mL/min/1.7 [facility] 3 m?? HOSPITAL LAB[facility]ORY Comment: The eGFR was calculated using the CKD-EP I equation. As with all creatinine based estimates of kidney function, eGFR values calculated with the CKD-EPI equation are not accurate in patients wi th acute kidney failure, extremes of body mass or the acutely ill. [email or web address]/[facility] eGFR 74 >=60 mL/min/1.73 m?? [facility] Comment: The eGFR was calculated using the CKD-EP I equation. As with all creatinine based estimates of kidney function, eGFR values calculated with the CKD-EPI equation are not accurate in patients wi th acute kidney failure, extremes of body mass or the acutely ill. [email or web address] Specimen Anatomical Collection Method Collection Time Receive d Time (Source) Location / / Volume Laterality Blood specimen 07/10/2018 4:25 PM 019 4:35 (specimen) EST PM EST Resulting Agency Comment Spec In Lab Du Dodge MD CHEMISTRY ORDERABLES Performing Organization Address City/[facility]/ZIP Code [place] [address] (ABNORMAL) BUN (07/10/2018 4:25 PM EST) P athologist Signature BUN 19 (H) 8 - 18 [facility] mg/dL [facility] Specimen Anatomical Collection Method Collection Time Receive d Time (Source) Location / / Volume Laterality Blood specimen 07/10/2018 4:25 PM 019 4:35 (specimen) EST PM EST Resulting Agency Comment Spec In Lab Du Dodge MD CHEMISTRY ORDERABLES Performing Organization Address City/[facility]/ZIP Code [place] [address] (ABNORMAL) Electrolytes panel (07/10/2018 4:25 PM EST) P athologist Signature Sodium 144 135 - 145 [facility] mmol/[facility] Potassium 4.1 3.5 - 5.0 [facility] mmol/[facility] Comment: Please note: ??Patients with WBC >100,00 0 may have falsely elevated Potassium levels. ??For accurate Potassium quantif ication in these patients send serum separator tube (gold top) for subsequent determinations. ??Contact the Clinical Chemistry Laboratory if there are any qu estions. Chloride 102 98 - 107 mmol/L [facility] CO2 32 (H) 22 - 31 mmol/L [facility] Anion Gap 10 5 - 15 mmol/L [facility] Specimen Anatomical Collection Method Collection Time Receive d Time (Source) Location / / Volume Laterality Blood specimen 07/10/2018 4:25 PM 4:35 (specimen) EST PM EST Resulting Agency Comment Spec In Lab Du Dodge MD CHEMISTRY ORDERABLES Performing Organization Address City/[facility]/ZIP [place] [address] EKG 12 Lead (07/10/2018 3:58 PM EST) Component Value Ref Range Test Analysis Performed Pathologis t Method Time At Signature Ventricular rate 55 BPM MUSE SYSTEM Atrial Rate 55 BPM MUSE SYSTEM P-R Interval 206 ms MUSE SYSTEM QRS Duration 88 ms MUSE SYSTEM Q-T Interval 476 ms MUSE SYSTEM QTC Calculated 455 ms MUSE SYSTEM (Bezet) Calculated P Logan 78 degrees MUSE SYSTEM Calculated R Logan 34 degrees MUSE SYSTEM Calculated T Logan 26 degrees MUSE SYSTEM INTERPRETATION Sinus bradycardia MUSE SY STEM Possible Left atrial enlargement Borderline ECG When compared with ECG of 03-OCT-2014 13:09, No significant change was found Confirmed by MD Christine, Toñito Glover ([id number]) on 07/10/2018 9: 35:05 PM Specimen Anatomical Collection Method Collection Time Receive d Time (Source) Location / / Volume Laterality 07/10/2018 3:58 PM 9 9:35 EST PM EST Du Dodge MD ECG ORDERABLES Performing Organization Address City/State/ZIP Code Phon e Number MUSE SYSTEM documented in this encounter Visit Diagnoses Diagnosis Spondylolisthesis of lumbosacral region - Primary Acquired spondylolisthesis documented in this encounter Care Teams Regulatory Compliance Coordinator Relationship Specialty Start Date End Date Arleth Cueva APRN PCP - General Family Medicine 06/24/[address] [place] [address] documented as of this encounter
--- OUTSIDE RECORDS SUMMARY | 2022-02-19 02:03 | XMS_ITS | Encounter Summary ---
:1960 Author Organization [facility] [place] [address] Care Team Providers Name Role Phone Arleth Cueva APRN Primary Care Provider Encounter Details Date Type Department Care Team Description 02/12/2019 Telephone Neurosurgery at [facility] Zahira Flores, [place] [phone] Social History Tobacco Use Types Packs/Day Years Used Date Former Smoker Cigarettes 1.5 10 Quit: 06/12/18 88 Smokeless Tobacco: Never Used Alcohol Use Standard Drinks/Week Comments No 0 (1 standard drink = 0.6 oz pure alcoho l) Sex Assigned at Date Recorded Not on file documented as of this encounter Miscellaneous Notes Telephone Encounter - Zahira Flores - 02/12/2019 2:57 PM EDT I called Usha at the request of Dr. Dodge to f/u as she never called our OR coremaker pipe back to book her surgery. Her home number rang and rang w/ no option to LM. Her alternate number did not have a VM box set up so I was unable to LM. documented in this encounter Plan of Treatment Not on filedocumented as of this encounter Visit Diagnoses Not on filedocumented in this encounter Care Teams Database Analyst Relationship Specialty Start Date End Date Arleth Cueva APRN PCP - General Family Medicine 06/24/[address] [place] [address] (work) documented as of this encounter
--- OUTSIDE RECORDS SUMMARY | 2022-02-19 02:03 | XMS_ITS | Encounter Summary ---
:1960 Author Organization [facility] [place] [address] Care Team Providers Name Role Phone Arleth Cueva APRN Primary Care Provider Reason for Referral Diagnostic Test (Routine) - Pending Review Specialty Diagnoses / Procedures Referred By Contact Refer red To Contact Radiology Diagnoses Visit for screening mammogram Arleth Cueva APRN [facility] Rad Mammography Procedures Mammo Screening Cad and Allen Bilateral [address] [place], [place] [address] [place] [address] Phone: Referral ID Status Reason Start Expiration Visits Visits Date Date Requested Authorized [id number] Pending Specialty 09/27/2022 1 1 Review Service 1 Requested Reason for Visit Diagnostic Test (Routine) - Pending Review Specialty Diagnoses / Procedures Referred By Contact Refer red To Contact Radiology Diagnoses Visit for screening mammogram Arleth Cueva APRN [facility] Rad Mammography Procedures Mammo Screening Cad and Allen Bilateral [address] [place], [place] [address] [place] [address] Phone: Referral ID Status Reason Start Expiration Visits Visits Date Date Requested Authorized [id number] Pending Specialty 09/27/2022 1 1 Review Service 1 Requested Encounter Details Date Type Department Care Team Description 06/05/2021 Hospital Encounter Mammography/DXA at Arleth Cueva, Visit for screening [facility] [address] [phone] Social History Tobacco Use Types Packs/Day Years [...] for Pain. documented as of this encounter Plan of Treatment Not on filedocumented as of this encounter Procedures Procedure Name Priority Date/Time Associated Diagnosis Comme nts MAMMO SCREENING CAD Routine 06/05/2021 3:57 PM Visit for madison lópez Results for this AND ALLEN BILATERAL EST mammogram procedure are in the results section. documented in this encounter Results Mammo Screening Cad and Allen Bilateral (06/05/2021 3:57 PM EST) Anatomical Region Laterality Modality Breast Bilateral Mammography Specimen (Source) Anatomical Location Collection Method / Collectio n Time Received Time / Laterality Volume Narrative 06/07/2021 7:23 PM EST BILATERAL MAMMOGRAPHY REASON FOR EXAM: Screening TECHNIQUE: CC and MLO views were obtaine d of each breast using standard 2-D mammography as well as 3-D tomosynth esis. Computer aided detection was used. This is compared with prior images . FINDINGS: ??The breasts are almost entir frankie fatty. There are no suspicious microcalcifications, masses, or areas of distortion. The pattern is stable. CONCLUSION: No mammographic evidence of malignancy. RECOMMENDATION: Regular screening mammograms starting be tween age 40 and 50 reduces the risk of from breast cancer. All screening tests have both risks and benefits. These risks and benefits should be assessed for each individual p atient through discussion with their provider to determine their prefer red breast cancer screening schedule. Women should report any breast changes t o a health care provider right away. Some women, because of their family hist ory, a genetic tendency, or other factors, should be screened with annual breast MRI as well as with mammograms. (The number of women who fal l into this category is very small). Patients and health care provide rs should discuss each patient? s history to decide if earlier screening a nd/or breast MRI are appropriate. Screening should continue as long as a w pankaj is in good health and is expected to live 10 years or longer. Screening mammography may not detect 10- 15% of breast cancers. A result letter has been sent to this ailyn reilly by [facility]. BIRADS CATEGORY 1: NEGATIVE Electronically signed by: RAMON ARNOLD MD Arleth Cueva APRN IMG MAMMO ORDERABLES documented in this encounter Visit Diagnoses Diagnosis Visit for screening mammogram Other screening mammogram documented in this encounter Care Teams Direct Care Professional Relationship Specialty Start Date End Date Arleth Cueva APRN PCP - General Family Medicine 06/24/[address] [place] [address] documented as of this encounter
--- OUTSIDE RECORDS SUMMARY | 2022-02-19 02:03 | XMS_ITS | Encounter Summary ---
:1960 Author Organization [facility] [place] [address] Care Team Providers Name Role Phone Arleth Cueva APRN Primary Care Provider Encounter Details Date Type Department Care Team Description 04/15/2021 Telephone [place]astro[place]ology [place] [facility] [place] [address] Social History Tobacco Use Types Packs/Day Years Used Date Former Smoker Cigarettes 1.5 10 Quit: 06/12/18 88 Smokeless Tobacco: Never Used Alcohol Use Standard Drinks/Week Comments No 0 (1 standard drink = 0.6 oz pure alcoho l) Sex Assigned at Date Recorded Not on file documented as of this encounter Miscellaneous Notes Telephone Encounter - Zandra King - 04/15/2021 4:36 PM EST Usha Huizar [id number] Diagnosis/Indication: screening 1. Have you ever had a/an Colonoscopy before? Yes: Date 6+ years [place] If yes, did you have any problems with the procedure? No What type of sedation was used: Other: unknown 2. Do you take any blood thinners or have you been diagnosed with a bleeding disorder that increasesyour risk of bleeding with procedures? No 3. Do you have a Pacemaker or Defibrillator device? No 4. Are you a diabetic? No 5. Do you have any Allergies to Eggs, Latex or Medications? No 6. Do you take any Oral Iron Supplements (Including multi-vitamins)? No 7. Do you have a history of three or more abdominal surgeries? No 8. Have you had a problem with sedation or anesthesia? Yes Woke up 9. Do you use a c-pap machine or oxygen tank? Neither 10. Do you take prescription narcotic pain medications, including suboxone or methodone? No 11. Do you have a preference regarding the gender of your provider? Yes: Female 12. Is there any other information you would like to us to note for the provider and nursing team who will perform your case? No 13. Say to patient: You must have a responsible republican who will drive you to your procedure, stay on campus for the entire duration of your procedure, and drive you home from your procedure? *Please Verify the height and weight, and adjust if height and/or weight have changed* Estimated body mass index is 39.84 kg/m?? as calculated from the following: Height as of 11/16/19: 165.3 cm (5' 5.08). Weight as of 11/16/19: 108.9 kg (240 lb). *Delete if not needed* Height: 5'4 Weight: 230 BMI: 39.5 Age:60 y.o. documented in this encounter Plan of Treatment Not on filedocumented as of this encounter Visit Diagnoses Not on filedocumented in this encounter Care Teams Director Integrated Relationship Specialty Start Date End Date Arleth Cueva APRN PCP - General Family Medicine 06/24/[address] [place] [address] documented as of this encounter
--- OUTSIDE RECORDS SUMMARY | 2022-02-19 02:03 | XMS_ITS | Encounter Summary ---
:1960 Author Organization [facility] [place] [address] Care Team Providers Name Role Phone Arleth Cueva APRN Primary Care Provider Encounter Details Date Type Department Care Team Description 08/28/2018 External Results Neurology at [facility] [place] Maicol Neely MD [facility] [place] [address] NEUROLOGY DEPT. [phone] [place], [place] [address] (Wo rk) Social History Tobacco [...] Name Priority Date/Time Associated Diagnosis Comme nts EMG SCAN Routine 08/28/2018 documented in this encounter Results Scan Doc: EMG (08/28/2018) Narrative This result has an attachment that is no t available. Maicol Neely MD MEDIA MGR SCAN EXT ORDR/RSLT documented in this encounter Visit Diagnoses Not on filedocumented in this encounter Care Teams Credit Officer Relationship Specialty Start Date End Date Arleth Cueva APRN PCP - General Family Medicine 06/24/[address] [place], [place] [id number] documented as of this encounter
--- OUTSIDE RECORDS SUMMARY | 2022-02-19 02:04 | XMS_ITS | Encounter Summary ---
:1960 Author Organization [place] [address] Care Team Providers Name Role Phone None Primary Care Provider Unavailable Reason for Visit Reason Comments Tachycardia Encounter Details Date Type Department Care Team Description 09/25/2015 Office Visit Cardiology at [facility] [place] Zia Eli, SVT (supraventricular [facility] tachycardia) [place] [address] CARDIOLOGY DEPT. [phone] [place], [place] [address] Social History Tobacco Use Types [...] Sign Reading Time Taken Comments Blood Pressure 120/80 09/25/2015 9:33 AM EDT Pulse 52 09/25/2015 9:33 AM EDT Temperature - - Respiratory Rate - - Oxygen Saturation 97% 09/25/2015 9:33 AM EDT room ai r Inhaled Oxygen Concentration - - Weight 109.7 kg (241 lb 14.4 oz) 09/25/2015 9:33 AM EDT Height 154.9 cm (5' 1) 09/25/2015 9:33 AM EDT Body Mass Index 45.71 09/25/2015 9:33 AM EDT documented in this encounter Patient Instructions Patient InstructionsZia Eli PA - 09/25/2015 9:57 AM EDT You have been scheduled for ILR removal on TuesdayOctober 14 with 0600 arrival at 4W SAME DAY Please do not eat after midnight documented in this encounter Progress Notes Zia Eli PA - 09/25/2015 10:44 AM EDT Subjective: Patient ID: Usha Huizar is a 55 y.o. female. HPI 55yo woman with ILR implanted on 12/12/2013 now has device cell depletion. Her ILR was implanted following near syncope that was associated with tachycardia. 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 The ILR reached EMMIE/EOL on 2015. She feels well and would like the device explanted. Patient Active Problem List Diagnosis Code ??? Near syncope R55 ??? SVT (supraventricular tachycardia) I47.1 ??? Hyperlipemia E78.5 ??? Migraine headache G43.909 ??? Hypothyroidism E03.9 ??? Stage 1A Grade II Endometrial cancer, s/p robotic hyst/ BSO complicated by a trocar injury 10/22/14 C54.1 ??? Psoriasis L40.9 ??? Hypertension I10 Review of Systems Constitutional: Negative for diaphoresis, fatigue and fever. Respiratory: Negative for chest tightness and shortness of breath. Cardiovascular: Negative for chest pain, palpitations and leg swelling. Neurological: Negative for dizziness, syncope and light-headedness. History Substance Use Topics ??? Smoking status: Former Smoker Packs/day: 1.50 Years: 10.00 Types: Cigarettes Quit date: 06/12/1987 ??? Smokeless tobacco: Never Used ??? Alcohol use: Yes Comment: 2-3 a couple of times per week Current Outpatient Prescriptions Medication Sig Dispense Refill ??? folic acid (FOLVITE) 1 mg Tablet Take 1 mg by mouth daily. ??? methotrexate 2.5 mg Tablet Take by mouth once a week. ??? calcipotriene (DOVONEX) 0.005 % Cream Apply topically to trunk and extremities twice a day as needed, Tuesday - Tuesday 120 g PRN ??? betamethasone dipropionate (DIPROLENE) 0.05 % Cream Apply topically to affected areas on the trunk and extremities twice daily as needed, Tuesday and Tuesday 90 g 1 ??? ibuprofen (ADVIL;MOTRIN) 600 mg Tablet Take [...] Take 75 mcg by mouth daily. ??? chlorhexidine (HIBICLENS) 4 % Liquid Apply topically daily as needed. Shower/bathe from head to toe with Chlorhexidine the night before the procedure and the morning of the procedure. . 120 mL 0 Objective: Physical Exam Constitutional: She is oriented to person, place, and time. No distress. Cardiovascular: Normal rate and regular rhythm. Pulmonary/Chest: Effort normal. Well healed anterior chest wall ILR implant site Neurological: She is alert and oriented to person, place, and time. Skin: Skin is warm and dry. She is not diaphoretic. Nursing note and vitals reviewed. ILR: Medtronic Reveal Linq Model# LNQ11, Serial # [id number] ??12/12/2013 BV: EMMIE/EOL 09/07/2015 No events Assessment and Plan: 55yo woman with ILR implanted 2013 now with cell depletion. She has not had recurrent symptoms since her AVNRT ablation. We discussed ILR explant procedure and she wishes to proceed. Scheduled for 10/15/2015 with 0600 arrival to Same Day. NPO after midnight except meds. Not anticoagulated. No IV required. Written consent obtained and scanned to chart. Provider: [facility] Fisher Provider#: [id number] Consult attending physician: Sanna Grier MD documented in this encounter H&P Notes Zia Eli PA - 09/25/2015 10:43 AM EDT See progress note. documented in this encounter Plan of Treatment Pending Results Name Type Priority Associated Date/Time Diagnoses Electrophysiology Electrophysiology Routine SVT 10/14 8:11 Procedure (supraventricular AM EDT tachycardia) documented as of this encounter Procedures Procedure Name Priority Date/Time Associated Diagnosis Comme nts ELECTROPHYSIOLOGY PROCEDURE Routine 10/15/2015 8:11 AM SVT EDT (supraventricular tachycardia) Procedure Note - Julieth Campos MD / Jozef Mcbride MD - 10/15/2015 8:11 AM EDTThis note is in progress. Formatting of this note migh t be different from the original. Implantable Loop Recorder (I LR) Removal Indication: Usha Huizar is a 55 y.o. female with ILR implantation for SVT. She had ablation for AVNRT and was noted have no recurrence of arrhythmia and advised to have her ILR removed. Operators: JULIETH CAMPOS MD and JOZEF MCBRIDE MD. Procedure: The left paraster nal area was prepped and draped in the usual sterile fashion and 2% lidocaine with 0.5 bupivicaine in a 2:3 mixture was instilled for local anesthesia. Moderate sedation was administered with midazolam and fentanyl given in incremental doses. A two centimeter incision wa s made over the old incision and was carried down to the device using sharp and blunt dissection. The ILR was removed. The wound was flushed with neosporin solution and was closed with interupted stitches of 4-O Vicryl and the skin was closed with a subcuticular stitch of 4-0 Vicryl. Medical adhesive (Dermabond) was applied to the incision followed by a Sterile dressing. The incision was covered by a Tegaderm dressing. Incision: [id number] Estimated blood loss: < 5 cc Fluoroscopy: none The patient tolerated the pr ocedure well. Dr. Mcbride was present and participated in all weaver portions of the procedure. documented in this encounter Visit Diagnoses Diagnosis SVT (supraventricular tachycardia) Other specified cardiac dysrhythmias SVT (supraventricular tachycardia) Other specified cardiac dysrhythmias documented in this encounter Care Teams Sensitometrist Relationship Specialty Start Date End Date None PCP - General 03/07/14 06/23/16 None documented as of this encounter
--- OUTSIDE RECORDS SUMMARY | 2022-02-19 02:04 | XMS_ITS | Encounter Summary ---
:1960 Author Organization [facility] [address] Care Team Providers Name Role Phone Arleth Cueva APRN Primary Care Provider Reason for Referral Consultation (Urgent) - Canceled Specialty Diagnoses / Procedures Referred By Contact Refer red To Contact Pain Management Diagnoses Sciatica of right side Lumbar spondylosis Hamida Pedro Gellis, Janice E, MD Procedures PRO INJECTION DX/THER SBST INTRLMNR LMBR/SAC W/IMG GDN [facility] [place] [address] Fax: Referral ID Status Reason Start Date Expiration Date Visits V isits Requested Authorized [id number] Canceled Consult, 06/01/2018 06/01/2019 1 1 Test & Treat Diagnostic Test (Routine) - Denied Specialty Diagnoses / Procedures Referred By Contact Refer red To Contact Radiology Diagnoses Lumbar spondylosis Hamida Pedro APRN [facility] Rad Mri Procedures MRI Lumbar Spine wo Contrast (Generic) [place] [phone] Referral ID Status Reason Start Date Expiration Date Visits V isits Requested Authorized [id number] Denied Specialty 06/01/2018 06/01/2019 1 0 Service Requested Reason for Visit Reason Comments Advice Only Chronic bilat. back pain, sc iatica Consultation (Routine) - Closed Specialty Diagnoses / Procedures Referred By Contact Refer red To Contact Neurosurgery Diagnoses Chronic bilat. back pain, sciatica. Arleth Cueva APRN [facility] [address] [address] [facility] [address] [place] [address] [place] [id number] 1 Referral ID Status Reason Start Date Expiration Date Visits V isits Requested Authorized [id number] Closed Consult, 05/30/2018 05/30/2019 1 1 Test & Treat Connection Center Encounter Details Date Type Department Care Team Description 06/01/2018 Office Visit Neurosurgery at [facility] Hamida Pedroa of right side; [facility] YUVAL Hinojosa Lumbar spondylosis; [facility] Cystic [place] [address] [phone] [place], [place] [address] Social History Tobacco Use Types [...] Sign Reading Time Taken Comments Blood Pressure 128/75 06/01/2018 9:20 AM EST Pulse 52 06/01/2018 9:20 AM EST Temperature - - Respiratory Rate - - Oxygen Saturation - - Inhaled Oxygen Concentration - - Weight 116.5 kg (256 lb 13.4 oz) 06/01/2018 9:20 AM EST Height 162.6 cm (5' 4) 06/01/2018 9:20 AM EST Body Mass Index 44.09 06/01/2018 9:20 AM EST documented in this encounter Progress Notes Hamida Pedro, YUVAL - 06/01/2018 10:00 AM EST Images from the original note were not included. [facility] Section of Neurosurgery Department of Surgery History and Physical Examination Clinic - New Lumbar Spine Patient Subjective: Chief Complaint: Chronic bilateral sciatica History of Present Illness: Usha Huizar is a 57 y.o. with 15 year history of lumbar pain which has gradually worsened over several years. She notes pain in midline upper lumbar times at times, but her most persistent pain is a severe deep ache in right buttocks. When she is walking at times the pain will be present on both left and right, in a similar distribution. She also endorses intermittent right foot numbness [...] med hx includes HTN, HLD, hypothyroid, migraine. Previous Spine Surgeons Seen: No previous spine surgeons. Past Surgical History (Spine Specific): Previous Spine Surgeries (Procedure / Data/ Surgeon/ Location of Records): Years ago had a procedure to remove a cyst in pelvis. (at ) Physical Therapy Treatment (length): Pt done - did gain some strength and flexibility but no sustained pain relief. Symptoms: Symptom Location (Back versus Leg) Patient Response (Zia one with X) Back Pain only Back Pain greater than Leg Pain Back Pain equal to Leg Pain x Leg Pain greater than Back Pain Leg Pain Only Distribution (Back versus Leg) Patient (Zia one with X) 90% vs. 10% 80% vs 20% 70% vs. 30% 60% vs 40% NA Leg Symptoms Patient (Zia one with X) RIght only Right Greater than Left x RIght and Left Equal Left Greater than Right Left Only NA Past Surgical History: Past Surgical History: Procedure Laterality Date ??? ABLATION OF DYSRHYTHMIC FOCUS ??? FINGER SURGERY ??? HYSTERECTOMY ??? ORTHOPEDIC SURGERY cyst removed from bone in pelvis ??? PRO EXPLORATORY RETROPERITONEAL N/A 10/22/2014 @EXPLORATION RETROPERITONEAL W OR W\O BIOPSY performed by Yoselyn Yip MD at [facility] MAIN OR ? ? PRO LAPAROSCOPY W TOT HYSTERECTUTERUS <=250 GRAM W TUBE/OVARY N/A 10/22/2014 LAPAROSCOPY,TOTAL HYST, UTERUS<250GM, DERRICK TYBE &/OR OVARY, ROBOTIC ASSIST performed by Marsha Godfrey MD at [facility] MAIN OR ??? PRO SLING OPER STRES INCONTINENCE 09/20/2012 URETHRAL SUSPENSION, SLING\FASCIA OR SYNTHETIC performed by Jozef Kent MD at [facility] MAIN OR Past Medical History: Past Medical History: Diagnosis Date ??? HTN (hypertension) ??? Hyperlipidemia ??? Hypothyroidism ??? Migraine ??? Obesity ??? Palpitations started on beta lena approx one month ago ??? Psoriasis Social History: Social History Tobacco Use ??? Smoking status: Former Smoker Packs/day: 1.50 Years: 10.00 Pack years: 15.00 Types: Cigarettes Last attempt to quit: 06/12/1987 Years since quittin.9 ??? Smokeless tobacco: Never Used Substance Use [...] medication list which includes the following prescription(s): methotrexate, ibuprofen,metoprolol tartrate, acetaminophen, hydrochlorothiazide, simvastatin, levothyroxine, and gabapentin. Review of Systems: Review of Systems Objective: General Physical Exam: BP 128/75 Pulse 52 Ht 162.6 cm (5' 4) Wt 116.5 kg (256 lb 13.4 oz) LMP 10/20/2014 BMI 44.09 kg/m?? Body mass index is 44.09 kg/m??. General Appearance: Pleasant, well groomed, no acute distress. Extremities: No edema, redness or tenderness in the calves or thighs General Neurologic Exam: Mental Status: Awake, alert and oriented x 4, fluent speech, normal cognition Pupils: Pupils equal round and reactive to light Cranial Nerves: CN II-XII individually tested and found to be intact, gag not tested Motor: Strength Normal muscle bulk and tone No pronator drift Sensation: Sensation intact to light touch - decreased in right leg - Focused Lumbar Exam: Percussion tenderness: Lumbar Range of Motion: Motion Normal (Degrees) Patient Flexion 60 60 Extension 25 20 Left Lateral Bending 25 25 Right Lateral Bending 25 25 Motor Strength: Test Muscle Root Right Left [...] Plantar Flexion Gastroc (tibial) L5S12 5 5 Special tests (Indicate Positive or Negative): Test Positive Negative Straight Leg Raise Test (radiating-type pain experienced in a leg raised between 30-60 degrees-sensitive but not specific for LDH). at 30 degrees. Reflexes: Test Root / Syndrome Right Left Knee L4 2 2 Ankle S1 2 2 Plantar Myelopathy no no Clonus Myelopathy no no Sensation: (Light Touch and Pin) Reported percent of normal Location Root Nerve Right Left Upper and medial thigh L1-3 Lateral and Anterior Cutaneous b. Femoral 70 100 Medial aspect of LE L4 Saphenous b. femoral 70 100 Central LE and dorsum of foot, 1st web foot L5 Common peroneal b.sciatic 70 100 Lateral lower extremity and foot S1 Tibial b. sciatic 70 100 Gait: Normal gait, with tandem, mild pain with heel walk, shana on right. Studies Reviewed: MRI 09/16/16 FINDINGS: 5 nonrib-bearing lumbar-type vertebral segments. Mild retrolisthesis of L1 with respect to L2, L2 with respect to L3, L3 with respect to L4 on a degenerative basis. Trace anterolisthesis of L4 respect L5 and L5 with respect to S1 on a degenerative basis. Heterogeneous endplate marrow fatty change related to degeneration. Intraosseous vertebral body hemangiomas noted at L3 and L5. The conus is normal in signal and terminates at L1. ?? T12-L1: No significant stenosis. ?? L1-2: Disc bulge and facet arthropathy contributes to mild central canal and left subarticular recess stenosis. Mild left foraminal stenosis. ?? L2-3: Disc bulge with superimposed right foraminal disc protrusion and facet arthropathy contributes to mild central canal and mild right greater than left neural foraminal stenosis. The disc protrusion impinges on the exiting right L2 nerve root. ?? L3-4: Disc bulge and facet arthropathy contributes to mild central canal and mild left and moderate right neural foraminal stenosis. ?? L4-5: Disc bulge and pronounced facet arthropathy contributes to mild central canal and moderate bilateral neural foraminal stenosis. ?? L5-S1: Disc bulge and pronounced facet arthropathy contributes to moderate bilateral neural foraminal stenosis. Assessment: Usha Huizar is a 57 y.o. with 15 year history of lumbar pain which has gradually worsened over several years. She has pain in midline upper lumbar times at times, but her most persistent pain is a severe deep ache in right buttocks. When she is walking at times the pain will be present on both left and right, in a similar distribution. Pain is increased with activity. She also describes intermittent right foot numbess. She has tried PT, chiropractor, muscle relaxants and oral steroids with limited relief. She would like to discuss surgical options. We reviewed imaging including issues disc bulges at L1-2, L4-5 and L5-S1 and foraminal stenosis at several levels and mild retrolisthesis at L1-2. Her most persistent symptoms seem to be most consistent with right L5 or S1 radiculopathy. I think it's reasonable to try a trial of low dose gabapentin, re ferral to pain clinic for right L5/S1 SACHA and get an updated lumbar MRI. Will order lumbar flexion extension to check for dynamic listhesis and have her scheduled for follow up with after MRI is completed. On exam she has no appreciable weakness in LE, reflexes are 2+ symmetrical. She does have decreased sensation throughout right leg. Plan: Trial of low dose gabapentin. Referral to pain clinic for L5S1. Lumbar flexion/extension today. Ordered updated MRI, abdominal xray (d/t abnormal finding on lumbar flex/ex of cystic type lesion atlevel of L3. Follow up with Dr. Dodge in clinic for surgical consult. documented in this encounter Plan of Treatment Scheduled Referrals Name Type Priority Associated Diagnoses Order S chedule Referral to Pain Outpatient Referral Routine Sciatica of right Ordered: Clinic side 06/01/2018 Lumbar spondylosis documented as of this encounter Results MRI Lumbar Spine wo [...] For questions regarding this report, please contact [facility] number below. Hamida Hinojosa Mayela BRIM [facility] IMG MRI ORDERABLES XR Abdomen Flat & Upright (07/10/2018 10:32 [...] please contact e number below. Hamida Pedro BRIM PLATER IMG DX ORDERABLES (ABNORMAL) XR Lumbar Spine AP & Flexion & Extension Only (06/01/2018 10:45 AM EST) Anatomical Region Laterality Modality L-spine N/A Digital Radiography Specimen (Source) Anatomical Location Collection Method / Collectio n Time Received Time / Laterality Volume Impressions 06/01/2018 11:41 AM EST 1. ??Multilevel degenerative disc disease and spondylolisthesis as described above. 2. ??No dynamic instability is seen betw een L1 and L5. The L5-S1 level is difficult to evaluate secondary to poor visualization of the margins of the L5 and S1 vertebral bodies due to overlappi ng bony and soft tissue structures. Within the limits of the study, there ap pears to be a anterolisthesis of L5-S1 in flexion which may decrease slightly i n extension to 6 mm. 3. ??Unexpected finding: On the AP view only, there is a 4.4 x 1.9 cm ovoid structure with thin radiodense margins p rojecting over the left abdomen, just lateral to the L3 vertebral body. This f inding was not seen in on abdominal radiographs from 2015. This finding is o f unclear etiology and unclear clinical significance. This could represent an ob ject that was external to the patient at the time of image acquisition. However, a partially rim calcified cyst, solid lesion, or vascular lesion cannot be exc luded by this radiographic appearance alone. Repeat AP and (larger FOV) latera l radiographs of the abdomen could be considered to evaluate for persistence a nd localization of this finding. Thank you for letting us participate in the care of this patient. For questions regarding this report, please contact th e number below. ? Narrative 06/01/2018 11:41 AM EST EXAMINATION: XR LUMBAR SPINE AP AND FLEXION AND EXTENSION ONLY CLINICAL HISTORY: lumbar spondylosis TECHNIQUE: AP view the lumbar spine with lateral fl exion and extension views lumbar spine. COMPARISON: MR of the lumbar spine 09/16/2016. Abdomi nal radiograph 10/22/2014. FINDINGS: 5 nonrib-bearing lumbar-type vertebral b odies. This is in keeping with the numbering sc heme that was used for MR dated 09/16/2016. There is gentle right convex curvature of the spine. Disc space narrowing at all levels of the lumbar sp ine, most pronounced at L1-2 and L2-3. On the lateral view, the posterior bogdan n of L5 and S1 are poorly visualized, due to overlapping bony and soft tissue structures. As such, the degree of listhesis at L5-S1 with measured using t he anterior margins of L5 and S1, which were still quite difficult to visualize: 7 mm retrolisthesis of L1 on L2, 4 mm re trolisthesis of L2 on L3, 4 mm retrolisthesis of L3 3 on L4, and 7 mm a nterolisthesis of L4 on L5 are all unchanged in flexion and extension. 8 mm anterolisthesis at L5-S1 in flexion may decrease slightly to 6 mm in extension. There is a 4.4 x 1.9 cm ovoid structure with thin dense margins projecting just left of the L3 vertebral body on the AP view. No definite correlate is seen on the lateral views. This finding was not seen on abdominal radiograph dated 10/22/2014. Resulting Agency Comment Unexpected Finding Hamida Pedro APRN IMG DX ORDERABLES documented in this encounter Visit Diagnoses Diagnosis Sciatica of right side Sciatica Lumbar spondylosis Lumbosacral spondylosis without myelopat hy Cystic lesion of abdominal viscera Sciatica of right side Sciatica Lumbar spondylosis Lumbosacral spondylosis without myelopat hy Cystic lesion of abdominal viscera documented in this encounter Care Teams Se[employer] Relationship Specialty Start Date End Date Arleth Cuvea APRN PCP - General Family Medicine 06/24/[address] [place] [address] documented as of this encounter
--- OUTSIDE RECORDS SUMMARY | 2022-02-19 02:04 | XMS_ITS | Encounter Summary ---
:1960 Author Organization [facility] [place] [address] Care Team Providers Name Role Phone Arleth Cueva APRN Primary Care Provider Reason for Visit Reason Comments Follow-up Encounter Details Date Type Department Care Team Description 06/24/2016 Office Visit Dermatology at [facility] Kp Damon MD Psoriasis [address] [facility] [address] [place] [address] DERMATOLOGY [phone] [place], [place] [address] (Wo rk) Social History Tobacco Use Types [...] on file documented as of this encounter Progress Notes Kp Damon MD - 06/24/2016 11:15 AM EST PROBLEM: Follow up psoriasis on methotrexate. Usha follows up and is doing very well. She stopped the methotrexate over the last 2 weeks, however, because she started taking Naprosyn for some arthralgias. She is going to be undergoing PT. The pharmacy actually had called her and advised her to stop taking it. She has not had any nausea at all during the last 3 months while taking the methotrexate. Physical examination reveals that her psoriasis remains largely clear with just a thin patch on the elbow. Otherwise she is clear. This despite no dosing of methotrexate for the last 2 weeks. A/P: Psoriasis responding well to methotrexate. a. Recommend that she resume methotrexate, taking 60 mg once a week on Tuesday evenings after dinner. Today we will call in 78 of the 2.5-mg tablets to be taken 6 of these tablets once weekly for a 15-mg dose. This will represent a 3-month supply. b. Continue folate 1 mg p.o. daily every day of the week except for Sundays when she takes her methotrexate dose. We will call in #[phone] with 3 refills. This also represents a 3-month supply. c. For folliculitis of her presternal chest begin clindamycin 1% solution, applying b.i.d. for about 6 weeks, 60 mL dispensed with 3 refills. Return to clinic in 3 months for repeat check. d. Obtained methotrexate labs; repeat again in 3 months. cc: Arleth Cueva APRN documented in this encounter Plan of Treatment Not on filedocumented as of this encounter Visit Diagnoses Diagnosis Psoriasis Other psoriasis documented in this encounter Care Teams Superintendent Meter Tests Relationship Specialty Start Date End Date Arleth Cueva APRN PCP - General Family Medicine 06/24/[address] [place] [address] documented as of this encounter
--- OUTSIDE RECORDS SUMMARY | 2022-02-19 02:04 | XMS_ITS | Encounter Summary ---
:1960 [place] [address] Care Team Providers Name Role Phone None Primary Care Provider Unavailable Encounter Details Date Type Department Care Team Description 10/22/2014 - Hospital Encounter 1 Nain Godfrey Marcelaemma Santoyo trial cancer 10/24/2014 [facility] MD Tiffanie [facility] DR [address] GYNECOLOGY [place], [place] ONCOLOGY [id number] [place], [place] [phone] [id number] Social History Tobacco Use Types Packs/Day Years [...] Sign Reading Time Taken Comments Blood Pressure 120/68 10/24/2014 12:14 PM EDT Pulse 70 10/24/2014 12:14 PM EDT Temperature 37.1 ??C (98.8 ??F) 10/24/2014 12:14 PM EDT Respiratory Rate 20 10/24/2014 12:14 PM EDT Oxygen Saturation 98% 10/24/2014 12:14 PM EDT Inhaled Oxygen Concentration - - Weight 108.9 kg (240 lb) 10/22/2014 7:09 AM EDT Height 167.6 cm (5' 6) 10/22/2014 7:09 AM EDT Body Mass Index 38.74 10/22/2014 7:09 AM EDT documented in this encounter Discharge Summaries Katia Vazquez PA - 10/24/2014 1:56 PM EDT Images from the original note were not included. Discharge Summary Patient Name: Elvia Huizar Patient Age: 54 y.o. Language: Wallisian Race: White Ethnicity: Not nor Admit date: 10/22/2014 Discharge date and time: 10/24/2014 Attending Physician: Marcela Godfrey MD Discharge Physician: Marcela Godfrey MD Follow-up Recommendations for Providers: -Staple removal 11/01/14 at 2:30PM -Follow-up with Dr. Godfrey on 11/13/14 Inpatient Provider Contact Information: Dr. Godfrey, [facility] Gynecologic Oncology, Discharge Diagnoses (Hospital Problems) and Secondary Diagnoses (Chronic Problems): Active Hospital Problems Diagnosis ??? Endometrial cancer Resolved Hospital Problems Diagnosis Date Resolved No resolved problems to display. Active Non-Hospital Problems Diagnosis ??? Near syncope ??? SVT (supraventricular tachycardia) ??? Hyperlipemia ??? Migraine headache ??? Hypothyroidism ??? Breast mass Operations/Major Procedures: Robotic assisted laparoscopic hysterectomy, bilateral oophorectomy followed by exploratory laparotomy History of Presentation: From clinic note 10/03/14 and confirmed upon admission Elvia Huizar is a 54 y.o. female referred for evaluation of endometrial cancer. Elvia reports having irregular periods for at least a year, maybe two. She noticed that she has been skipping monthsat a time, with the largest period being about 6 months. When she does get her menses, they are heavier than they used to be, though she is not passing clots or symptomatic of pelvic cramping. They areabout 5 days duration. She has had one episode in July when she had a period then a week later had one day of spotting. She denies dizziness, sob, cp with menses. She presented to her PCP who ordered a transvaginal u/s, which demonstrated the followin09/02/14 Transvaginal Ultrasound 1. Normal thickness endometrium for a menstruating woman, no associated vascularity, however endometrium is ill defined and heterogeneous in appearance. In the clinical setting of abnormal bleeding, consider gynecologic consultation. 2. Diffusely heterogeneous myometrial echogenicity suggestive of adenomyosis, which could be better characterized by MR. One discrete measurable fibroid identified, measuring approximately 3 cm. 3. Normal ovaries. Then had endometrial biopsy 09/16/14: Endometrial carcinoma, endometrioid type, FIGO II, with extensive squamous differentiation. She presents for definitive treatment (surgery) for her endometrioid endometrial adenocarcinoma, FIGO grade 2. Hospital Course: Elvia Huizar was admitted through Same Day Surgery and underwent the above procedures-- robotic assisted hysterectomy followed by exploratory laparotomy of retroperitoneal area with assistance from vascular team in setting of a trocar injury to small bowel mesentary. EBL was 700cc. Findings were notable for: -Normal intraoperative anatomy. -Small bowel mesenteric hematoma. Frozen Section: AFS - Uterus and cervix for frozen section: 1. Focal hyperplasia, no definite tumor identified on gross or wireless sales representative section. 2. Lower uterine segment is not involved. Postoperatively the patient was taken to PACU and on POD #0 was transferred to the floor. Post operative hemoglobin trended down from 13.6 preoperatively to 12.3 stephen to 8.5 and recheck was9.4-- likely due to hemodilution from the fluids she received for resuscitation during her surgery. She will trial iron at home (and continue pericolace as discussed). She was able to tolerate a regular diet and ambulate without difficulty. Meyers catheter was removed on POD#1 and pt was able to void without issue. Her pain was well-controlled on oral medications by the time of discharge. She was discharged home on POD #2 in stable condition with follow-up in place. Vital signs at Discharge: BP: 120/68 mmHg, Heart Rate: 70, Temp: 37.1 ??C (98.8 ??F), Resp: 20, BMI (Calculated): 38.8 Height: 167.6 cm (5' 6) (10/22/14 07) Weight - Scale: 108.863 kg (240 lb) (10/22/14 07) Functional and Cognitive status: Fully functional and cognitively intact Important Studies and Lab Data: Labs: Last 3 wbc, hgb, hct plt Recent Labs 10/24/14 1220 10/24/14 0321 10/23/14 1554 WBC 8.0 8.2 10.1* HGB 9.4* 8.5* 9.5* HCT 28.5* 25.8* 28.7* PLATELET 220 200 242 Last 3 Lytes Recent Labs 10/24/14 0321 10/23/14 0333 10/03/14 1300 03/01/14 1058 NA 141 137 -- 142 K 3.6 4.0 -- 4.0 CL 104 100 -- 97* CO2 26 25 -- 29 BUN 12 12 -- 15 CREATININE 0.93 0.79 0.81 0.78 Studies: Frozen section AFS - Uterus and cervix for frozen section: 1. Focal hyperplasia, no definite tumor identified on gross or wireless sales representative section. 2. Lower uterine segment is not involved. Pending Studies and Lab Data: Final pathology pending Discharge Conditions/Prognosis: Stable Discharge to: Home Updated Allergies/ADRs: Allergies Allergen Reactions ??? Shellfish Containing Products Angioedema ??? Pollen Extracts Stuffy head headache. Immunizations Given this Hospitalization: There is no immunization history on file for this patient. Discharge Medications: Your Medications New Medications Dose Details ferrous sulfate 325 mg (65 mg iron) [facility] Take 1 tablet by mouth 2 times daily (with meals). 325 mg Quantity: 60 tablet Refills: 1 ibuprofen 600 mg Tab Commonly known as: ADVIL;MOTRIN Take 1 tablet by mouth every 6 hours as needed for Pain. 600 mg Quantity: 50 tablet Refills: 0 oxyCODONE 5 mg Tab Commonly known as: ROXICODONE Take 1 tablet by mouth every 4 hours as needed for Pain. 5 mg Quantity: 30 tablet Refills: 0 senna-docusate 8.6-50 mg Tab Commonly known as: PERICOLACE Take 2 tablets by mouth 2 times daily. 2 tablet Quantity: 60 tablet Refills: 1 Continued medications, unchanged Dose Details acetaminophen 325 mg Tab Commonly known as: TYLENOL Take 650 mg by mouth every 4 hours as needed for Pain. 650 mg Refills: 0 hydrochlorothiazide 25 mg Tab Commonly known as: HYDRODIURIL Take 25 mg by mouth daily. 25 mg Refills: 0 levothyroxine 75 mcg Tab Commonly known as: SYNTHROID Take 75 mcg by mouth daily. 75 mcg Refills: 0 meTOPROLOL tartrate 25 mg Tab Commonly known as: LOPRESSOR Take 1 tablet by mouth 2 times daily. 25 mg Refills: 0 simvastatin 20 mg Tab Commonly known as: ZOCOR Take 20 mg by mouth nightly. 20 mg Refills: 0 Smoking Status at Discharge: History Smoking status ??? Former Smoker -- 1.50 packs/day for 10 years ??? Types: Cigarettes ??? Quit date: 06/12/1987 Smokeless tobacco ??? Never Used Instructions Given to Patient at Discharge: Patient Instructions PATIENT DISCHARGE INSTRUCTIONS Gynecology Oncology phone number: [phone] -Staple removal 11/01/14 at 2:30PM with Latonya Chacko RN -Follow-up with Dr. Godfrey on 11/13/14 at 2:00PM Call your doctor if you develop: --A fever over 101 degrees --Severe pain --Heavy vaginal bleeding --Increasing pain, redness, or discharge at your incision --It is normal to have light spotting from the vagina for up to 3 weeks following hysterectomy Activity level: No heavy lifting, pushing or pulling for 6 weeks. No sexual intercourse, no tampons,nothing in the vagina for 8 weeks. Diet: You may resume your regular diet. Be sure you drink plenty of fluids. Please use bryan-colace 1-2 tablets twice daily for the entire time that you are taking pain medication to keep your bowel movements soft and regular. If you are constipated or have not had a bowel movement in 3 days, please use milk of magnesia (or miralax) as directed over the counter. Driving: Do not drive until you are off of all narcotic medications and you are not feeling pain; usually about 2 weeks. Shower/Bath: Showering is fine. Short baths are OK but you should avoid having any abdominal incision submerged for more than 10-15 minutes for the next 2 weeks. Wound Care: You will have your kelsie removed 10-14 days after surgery by a healthcare provider, who will place small pieces of paper tape over your incision. This tape can get wet in the shower, justensure that you dry them well. These pieces of tape should fall off within 7 days; if they have not, please remove them after one week. Pain medications include oxycodone and ibuprofen ??? Please use ibuprofen 600 mg every 6 hours with food around the clock for the next several days and then after that use it only as needed. ??? Please use the oxycodone every 3-4 hours as needed for pain that breaks through the ibuprofen. ??? You may use Tylenol over the counter as prescribed. Do not exceed 3000mg of Tylenol (acetaminophen) from any source in a 24 hour period. General Instructions None Future Appointments Provider Department Dept Phone 11/01/2014 2:30 PM Real Estate Officer, Onc Nurse Gynecologic Oncology [phone] 11/13/2014 2:00 PM Marcela Godfrey MD Gynecologic Oncology [phone] 04/22/2015 12:40 PM Jhony Rodriguez RN Cardiology [phone] Joint Appt CARDIOLOGY INTAKE, NURSE ONE Cardiology [phone] Discharge References/Attachments None Provider Contact Information: RENE GARCÍA MD [phone] documented in this encounter Discharge Instructions Patient InstructionsKatia Vazquez PA - 10/23/2014 3:04 PM EDT Images from the original note were not included. PATIENT DISCHARGE INSTRUCTIONS Gynecology Oncology phone number: [phone] -Staple removal 11/01/14 at 2:30PM with Latonya Chacko RN -Follow-up with Dr. Godfrey on 11/13/14 at 2:00PM Call your doctor if you develop: --A fever over 101 degrees --Severe pain --Heavy vaginal bleeding --Increasing pain, redness, or discharge at your incision --It is normal to have light spotting from the vagina for up to 3 weeks following hysterectomy Activity level: No heavy lifting, pushing or pulling for 6 weeks. No sexual intercourse, no tampons,nothing in the vagina for 8 weeks. Diet: You may resume your regular diet. Be sure you drink plenty of fluids. Please use bryan-colace 1-2 tablets twice daily for the entire time that you are taking pain medication to keep your bowel movements soft and regular. If you are constipated or have not had a bowel movement in 3 days, please use milk of magnesia (or miralax) as directed over the counter. Driving: Do not drive until you are off of all narcotic medications and you are not feeling pain; usually about 2 weeks. Shower/Bath: Showering is fine. Short baths are OK but you should avoid having any abdominal incision submerged for more than 10-15 minutes for the next 2 weeks. Wound Care: You will have your kelsie removed 10-14 days after surgery by a healthcare provider, who will place small pieces of paper tape over your incision. This tape can get wet in the shower, justensure that you dry them well. These pieces of tape should fall off within 7 days; if they have not, please remove them after one week. Pain medications include oxycodone and ibuprofen ??? Please use ibuprofen 600 mg every 6 hours with food around the clock for the next several days and then after that use it only as needed. ??? Please use the oxycodone every 3-4 hours as needed for pain that breaks through the ibuprofen. ??? You may use Tylenol over the counter as prescribed. Do not exceed 3000mg of Tylenol (acetaminophen) from any source in a 24 hour period. documented in this encounter Medications at Time of Discharge Medication Sig Dispensed Refills Start Date End Date meTOPROLOL tartrate Take 1 tablet by 0 [...] every 6 hours as needed for Pain. senna-docusate (PERICOLACE) Take 2 tablets 60 tablet 1 10/0703/21/2015 8.6-50 mg Tablet by mouth 2 times daily. oxyCODONE (ROXICODONE) 5 mg Take 1 tablet by 30 tablet 0 11/13/2014 Tablet mouth every 4 hours as needed for Pain. ferrous sulfate 325 mg (65 mg Take 1 tablet by 60 tablet 1 10/24/2014 03/21/2015 iron) Tablet, Delayed Release mouth 2 times (E.C.) daily (with meals). documented as of this encounter Progress Notes Opal Pena RN - 10/24/2014 2:18 PM EDT The patient is awake, alert and oriented and being discharged home with her . Her IV was DC'dwith the tip intact and she tolerated this well. I went over discharge instructions with her and herhusband and they voiced understanding of those instructions. She had no complaints of pain at the time of discharge. Ele Win RN - 10/24/2014 11:42 AM EDT Office of Care Management Director Of Scientific Research RN Initial Note/DC Planning: no continuing care needs identified Reviewed record and discussed pt with Samantha DEXTER, inpt rivet spinner-oncology team, and at interdisciplinary discharge rounds. Did not interview pt. Reason for hospitalization:54 y.o. woman whose PMH is significant for hypertension, palpitations resolved after cardiac ablation (now on metoprolol), hypothyroid, hyperlipidemia, psoriasis, and migraines who is post operative day #2 s/p robotic assisted total laparoscopic hysterectomy, bilateral salpingectomy for endometrioid endometrial adenocarcinoma, FIGO grade 2 which was converted to exploratory laparotomy in setting of trocar injury to small bowel mesentery. (10/24/2014, herve alvarado) Functional status:independent prior to surgery, and has ambulated on-unit post- procedure without problem Immediate support: lives with in [facility] Insurance/prescription coverage: [place] Medicaid Anticipated needs at DC:no VNA services/no assistive equipment P: DC to home when medically ready, no services. Director Of Scientific Research RN is available to assist with any identified continuing care needs until discharge. Papo Win shrimp peeling machine tender Office of Care Management [phone] and [phone] Kelsy Longoria MD - 10/24/2014 6:35 AM EDT Real Estate Officer Oncology Progress Note ID: Elvia Huizar is a 54 y.o. woman whose PMH is significant for hypertension, palpitations resolved after cardiac ablation (now on metoprolol), hypothyroid, hyperlipidemia, psoriasis, and migraines who is post operative day #2 s/p robotic assisted total laparoscopic hysterectomy, bilateral salpingectomy for endometrioid endometrial adenocarcinoma, FIGO grade 2 which was converted to exploratorylaparotomy in setting of trocar injury to small bowel mesentery. Subjective: She has no complaints. Mild nausea overnight relieved by Zofran. No current nausea or vomiting. Painis controlled with tylenol and oxycodone. She has ambulated in the hallway without issues. She has tolerated a regular diet without nausea/vomiting. Voiding spontaneously. + flatus. Denies nausea/vomiti ng, cp, sob, dizziness, lightheadedness, leg pain. ROS: As per HPI, otherwise all systems reviewed and negative. Physical Exam: Last value Range last 24 hrs Temperature Temp: 37 ??C (98.6 ??F) Temp: [36.8 ??C (98.2 ??F)-37 ??C (98.6 ??F)] Heart Rate Heart Rate: 62 Heart Rate: [62-79] Blood Pressure BP: 104/62 mmHg BP: (96-126)/(56-70) Respiratory Rate Resp: 16 Resp: [16-20] SpO2 SpO2: 96 % SpO2: [94 %-99 %] Art BP BP (Arterial Line): -- Intake/Output Summary (Last 24 hours) at 10/24/14 0638 Last data filed at 10/24/14 0530 Gross per 24 hour Intake 860 ml Output 3400 ml Net -2540 ml UOP at 50-200 cc/hr Since admission: 3.4L Gen: Resting in bed. Appears comfortable NAD. Neuro: Alert and oriented. Cardiac: RRR. No murmurs, rubs, or gallops. Pulm: CTAB. No wheezes, rales, or rhonci. Abd: +BS. Soft. Mild tenderness to palpation. No rebound or guarding. Incision: C/D/I. Midline incision with kelsie in place. Port site incisions well approximated with skin glue. No drainage, erythema, or induration. Extremities: No lower extremity edema. Laboratory (Last 24 Hours): Recent Labs 10/24/14 0321 10/23/14 1554 10/23/14 0333 WBC 8.2 10.1* 10.5* HGB 8.5* 9.5* 10.0* HCT 25.8* 28.7* 29.6* PLATELET 200 242 238 Recent Labs 10/24/14 0321 10/23/14 0333 NA 141 137 K 3.6 4.0 CL 104 100 CO2 26 25 BUN 12 12 CREATININE 0.93 0.79 Recent Labs 10/24/14 0321 10/23/14 0333 CALCIUM 8.4* 8.1* Ma.87 Frozen Section: 10/22/14 AFS - Uterus and cervix for frozen section: 1. Focal hyperplasia, no definite tumor identified on gross or wireless sales representative section. 2. Lower uterine segment is not involved. Final Pathology Pending Assessment and Plan Elvia Huizar is a 54 y.o. woman whose PMH is significant for hypertension, palpitations with cardiac ablation, hypothyroid, hyperlipidemia, psoriasis, and migraines who is post operative day #2 s/p robotic assisted total laparoscopic hysterectomy, bilateral salpingectomy converted to exploratory l aparotomy in setting of trocar injury to small bowel mesentary for endometrioid endometrial adenocarcinoma, FIGO grade 2. Pt is recovering appropriately and is currently normotensive with good urine output and no sign of active bleeding. If H/H remains stable at noon, will consider discharge home today. Neuro: Pain well controlled on oral medication. Alert and oriented. Cardiovascular: s/p cardiac ablation. Vital signs wnl. Hemodynamically stable, no evidence of activebleeding. - Hemoglobin continues to have a slow downward trend, however vital signs remain stable with good urine output. Anemia likely combination of acute blood loss anemia and hemodilution as she received 5L of fluid intraop. Will repeat h/h at noon. -Will hold home HCTZ, simvastatin, will cont to monitor blood pressure and restart as appropriate. -Metoprolol 25mg BID Pulmonary: Adequate spO2 on room air. No concerns - Encourage incentive spirometry GI: Denies current nausea, vomiting, and constipation. + flatus. Tolerating regular diet. -Zofran/pericolace prn. : Voiding spontaneously. Adequate urine output. -Monitor intake and output FEK: Tolerating PO intake. - Lytes wnl. Onc: Frozen section revealed no identifiable residual cancer. Final pathology report pending. -Follow up in clinic 3-4 weeks postoperatively Endocrine: Hypothyroid- continue home levothyroxine. ID: Afebrile, received prophylactic antibiotics preop, no evidence of infection -continue to monitor vital signs. Prophylaxis: - ICDs while in bed, encourage ambulation, incentive spirometry Dispo: Requires inpatient management for post-operative care. Consider discharge home later today. Code Status: Full Code Pt was discussed with MD Kelsy Taylor MD PGY3 10/24/2014 Julissa Cruz RN - 10/23/2014 4:23 PM EDT Wrote in wrong patient's chart. Marcela Godfrey MD - 10/23/2014 7:35 AM EDT Real Estate Officer Oncology Progress Note ID: Elvia Huizar is a 54 y.o. woman whose PMH is significant for hypertension, palpitations resolved after cardiac ablation (now on metoprolol), hypothyroid, hyperlipidemia, psoriasis, and migraines who is post operative day #1 s/p robotic assisted total laparoscopic hysterectomy, bilateral salpingectomy for endometrioid endometrial adenocarcinoma, FIGO grade 2 which was converted to exploratorylaparotomy in setting of trocar injury to small bowel mesentery. Subjective: She has no complaints. Pain is controlled with tylenol and dilaudid DIE PRESS OPERATOR. She reports having low backpain that is unchanged from baseline for her. She has ambulated in the hallway with assistance. Slightly woozy with ambulation that she attributes to pain medications. She has tolerated a regular diet last night and has been drinking water since then. Denies nausea/vomiting, cp, sob, dizziness, lightheadedness, leg pain. ROS: As per HPI, otherwise all systems reviewed and negative. Physical Exam: Last value Range last 24 hrs Temperature Temp: 37 ??C (98.6 ??F) Temp: [36.2 ??C (97.2 ??F)-37 ??C (98.6 ??F)] Heart Rate Heart Rate: 72 Heart Rate: [60-85] Blood Pressure BP: 112/58 mmHg BP: (88-116)/(39-70) Respiratory Rate Resp: 16 Resp: [14-16] SpO2 SpO2: 95 % SpO2: [94 %-100 %] Art BP BP (Arterial Line): -- Intake/Output Summary (Last 24 hours) at 10/23/14 0735 Last data filed at 10/23/14 0559 Gross per 24 hour Intake 8650.33 ml Output 3730 ml Net 4920.33 ml UOP at ~150 cc/hr Since admission: 4.9L Gen: Resting in bed. Appears comfortable NAD. Neuro: Alert and oriented. Cardiac: RRR. No murmurs, rubs, or gallops. Pulm: CTAB. No wheezes, rales, or rhonci. Abd: +BS. Soft. Mild tenderness to palpation. No rebound or guarding. Incision: C/D/I. Midline incision with dressing in place, minimal drainage within markings. Port site incisions well approximated with skin glue. No drainage, erythema, or induration. : Meyers draining clear yellow colored urine. Extremities: No lower extremity edema. Laboratory (Last 24 Hours): Pre op: hgb 13. Recent Labs 10/23/14 0333 10/22/14 1345 WBC 10.5* 11.0* HGB 10.0* 12.3 HCT 29.6* 36.1 PLATELET 238 243 Recent Labs 10/23/14 0333 NA 137 K 4.0 CL 100 CO2 25 BUN 12 CREATININE 0.79 Recent Labs 10/23/14 0333 CALCIUM 8.1* Ma.68 Frozen Section: 10/22/14 AFS - Uterus and cervix for frozen section: 1. Focal hyperplasia, no definite tumor identified on gross or wireless sales representative section. 2. Lower uterine segment is not involved. Final Pathology Pending Assessment and Plan Elvia Huizar is a 54 y.o. woman whose PMH is significant for hypertension, palpitations with cardiac ablation, hypothyroid, hyperlipidemia, psoriasis, and migraines who is post operative day #1 s/p robotic assisted total laparoscopic hysterectomy, bilateral salpingectomy converted to exploratory l aparotomy in setting of trocar injury to small bowel mesentary for endometrioid endometrial adenocarcinoma, FIGO grade 2. Pt is recovering appropriately and is currently normotensive with good urine output and no sign of active bleeding. 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 Will transition to oral pain meds today. Alert and oriented. Cardiovascular: s/p cardiac ablation. Vital signs wnl. Hemodynamically stable, no evidence of bleeding. -Daily CBC- Hemoglobin trended down from 12.6 --10.0. Likely combination of acute blood loss anemia and hemodilution as she received 5L of fluid intraop. Will consider repeat h/h later today. -Will hold home HCTZ, simvastatin, will cont to monitor blood pressure and restart as appropriate. -Metoprolol 25mg BID Pulmonary: Adequate spO2 on room air. No concerns - Encourage incentive spirometry GI: Denies nausea, vomiting, and constipation. Tolerating regular diet. -Zofran/pericolace prn. : Meyers is in place draining clear yellow colored urine. Adequate urine output. -Will D/C meyers today. -Monitor intake and output FEK:IVF: LR @100cc/hr. Will d/c IVF. Tolerating PO intake. -Daily BMP/mag. Hypomagnesemic, will replete IV. Onc: Frozen section revealed no identifiable residual cancer. Final pathology report pending. -Follow up in clinic 3-4 weeks postoperatively Endocrine: Hypothyroid- continue home levothyroxine. ID: Afebrile, received prophylactic antibiotics preop, no evidence of infection -continue to monitor vital signs. Prophylaxis: - ICDs while in bed, encourage ambulation, incentive spirometry Dispo: Requires inpatient management for post-operative care. Code Status: Full Code Pt was discussed with MD Kelsy Taylor MD PGY3 10/23/2014 I have seen and examined the patient and reviewed and edited the resident's above history and I agree with the details as written. The assessment and plan were formulated in discussion with me and I agree with them as documented. Marcela Godfrey MD Kelsy Longoria MD - 10/22/2014 6:57 PM EDT Real Estate Officer Oncology Post Op Check ID: Elvia Huizar is a 54 y.o. woman whose PMH is significant for hypertension, palpitations resolved after cardiac ablation (now on metoprolol), hypothyroid, hyperlipidemia, psoriasis, and migraines who is post operative day #0 s/p robotic assisted laparoscopic hysterectomy, bilateral salpingectomy for endometrioid endometrial adenocarcinoma, FIGO grade 2 which was converted to exploratory laparotomy in setting of trocar injury to small bowel mesentery. Subjective: She has no complaints. 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 She has not yet ambulated. She has tolerated chicken and mashed potatoes. Denies nausea/vomiting, cp, sob, dizziness, lightheadedness, leg pain. ROS: As per HPI, otherwise all systems reviewed and negative. Physical Exam: Last value Range last 8 hrs Temperature Temp: 36.4 ??C (97.5 ??F) Temp: [36.2 ??C (97.2 ??F)-36.5 ??C (97.7 ??F)] Heart Rate Heart Rate: 77 Heart Rate: [60-77] Blood Pressure BP: 104/70 mmHg BP: (88-112)/(39-70) Respiratory Rate Resp: 16 Resp: [14-16] SpO2 SpO2: 98 % SpO2: [98 %-100 %] Intake/Output Summary (Last 24 hours) at 10/22/141856 Last data filed at 10/22/14 185 Gross per 24 hour Intake 7052 ml Output 1680 ml Net 5372 ml I/O this shift: In: 7052 [P.O.:360; I.V.:6692] Out: 1680 [Urine:980; Blood:700] UOP at ~40-100 cc/hr Gen: Resting in bed. Appears comfortable NAD. Neuro: Alert and oriented. Cardiac: RRR. No murmurs, rubs, or gallops. Pulm: CTAB. No wheezes, rales, or rhonci. Abd: +BS. Soft. Non tender. No rebound or guarding. Incision: C/D/I. Midline incision with dressing in place, minimal drainage within markings. Port site incisions well approximated with skin glue. No drainage, erythema, or induration. : Meyers draining clear yellow colored urine. Extremities: No lower extremity edema. ICDs in place. Laboratory (Last 24 Hours): Pre op: hgb 13.6 Recent Labs 10/22/14 1345 WBC 11.0* HGB 12.3 HCT 36.1 PLATELET 243 Frozen Section: 10/22/14 AFS - Uterus and cervix for frozen section: 1. Focal hyperplasia, no definite tumor identified on gross or wireless sales representative section. 2. Lower uterine segment is not involved. Final Pathology Pending Assessment and Plan Elvia Huizar is a 54 y.o. woman whose PMH is significant for hypertension, palpitations with cardiac ablation, hypothyroid, hyperlipidemia, psoriasis, and migraines who is post operative day #0 s/p robotic assisted laparoscopic hysterectomy, bilateral salpingectomy converted to exploratory laparotomy in setting of trocar injury to small bowel mesentary for endometrioid endometrial adenocarcinoma, FIGO grade 2. Pt initially had low blood pressure in PACU, which has now resolved. Post op H/H stable with no evidence of active bleeding and good urine output. 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 Alert and oriented. Cardiovascular: s/p cardiac ablation. Vital signs wnl. Hemodynamically stable, no evidence of bleeding. -Daily CBC- Post-operative hemoglobin 12.3 (from 13.6 preop). -Will hold home HCTZ, simvastatin, will cont to monitor blood pressure and restart as appropriate. -Metoprolol 25mg BID Pulmonary: Adequate spO2 on room air. No concerns - Encourage incentive spirometry GI: Denies nausea, vomiting, and constipation. Tolerating clear liquid diet. -Advance diet as tolerated. -Zofran/pericolace prn. : Meyers is in place draining clear yellow colored urine. Adequate urine output. -D/C meyers when ambulatory -Monitor intake and output FEK:IVF: LR @100cc/hr. Tolerating PO intake. -Daily BMP/mag Onc: Frozen section revealed no identifiable residual cancer. Final pathology report pending. -Follow up in clinic 3-4 weeks postoperatively Endocrine: Hypothyroid- will continue home levothyroxine. ID: Afebrile, received prophylactic antibiotics preop, no evidence of infection -continue to monitor vital signs. Prophylaxis: - ICDs while in bed, encourage ambulation, incentive spirometry Dispo: Requires inpatient management for post-operative care. Code Status: Full Code Pt was discussed with MD Kelsy Taylor MD PGY3 10/22/2014 Latonya Ruvalcaba RN - 10/22/2014 12:38 PM EDT 1220) Assuming care of patient. Patient c/o pain. 02 changed to 2LNC. Blood pressure soft. Erika RN 1230) Anesthesia at bedside. Aware of soft bp. Fluids up. Erika RN 1345) BP remains lower than baseline. CBC drawn and sent. Erika RN 1430) Family in at bedside. Erika RN 1445) Update given to service regarding post op CBC and BP. OKs going to room and will dc 1500 H/H. Meets PACU dc criteria. Erika RN Alex Marcus RN - 10/22/2014 12:06 PM EDT Pt to PACU placed on monitor alarms noted and appropriate for Pt. 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 Godfrey on 10/03/2014. (x) Condition unchanged since H&P originally performed. Interval Note: Gen: NAD CVS: RRR, no m/r/g Resp: cta b/l, no wheezing Abd: soft, ndnt Ext: no calf tenderness Plan: Proceed with Robotic assisted total laparoscopic hysterectomy, bilateral salpingo-oophorectomyand pelvic and para-aortic lymph node dissection for biopsy showing endometrioid endometrial adenocarcinoma, FIGO grade 2. A copy of this document will be sent to the patient's Primary Care Physician and/or Referring Physician. Kelsy Longoria MD PGY3 10/22/2014 documented in this encounter Miscellaneous Notes Med Student Progress Note - Shirin Trotter - 10/24/2014 6:06 AM EDT General Surgery Resident Inpatient Progress Note ID: Elvia Huizar is a 54 y.o. female with PMH of HTN, hyperlipidemia, hypothyroid, palpitations that resolved after cardiac ablation, psoriasis and migraines POD#2 after robotic assisted laparoscopic hysterectomy with bilateral salping oophorectomy complicated by trochar injury of the small bowel mesentery necessitating conversion to open incision for endometrioid endometrial adenocarcinoma FIGO grade 2 per endometrial biopsy. Subjective: Ms. Huizar reports that her pain is well controlled on oral medications and that she has been able to walk around the pod several times yesterday without dizziness. She reports only an hour and a halfof sleep and looks forward to going home and sleeping in her own bed. She has had a good appetite but notes occasional mild heartburn. She had some nausea early this morning which was relieved without medication. She has passed flatus x 3 since yesterday. No longer wearing a pad. She has no noticed vaginal bleeding and denies chest pain/SOB/leg pain. O: Last value Range last 24hrs Temperature Temp: 37 ??C (98.6 ??F) Temp: [36.8 ??C (98.2 ??F)-37 ??C (98.6 ??F)] Heart Rate Heart Rate: 62 Heart Rate: [62-79] Blood Pressure BP: 104/62 mmHg BP: (96-126)/(56-70) Respiratory Rate Resp: 16 Resp: [16-20] SpO2 SpO2: 96 % SpO2: [94 %-99 %] 10/23 0701 - 10/24 0700 In: 860 [P.O.:860] Out: 3400 [Urine:3400] + 1 unrecorded Output over last 8 hours: 100 cc/hr Surgery EBL: 700 +2.3L since admission Physical Exam: General: NAD, seated comfortably, pleasant, conversant HEENT: PERRL, anicteric sclerae CVS: RRR, no m/r/g Pulm: CTAB without wheezing or rhales Abd: soft, mildtenderness to palpation in all quadrants, non-distended. No rebound tenderness or guarding. Incision sites : midline incision site dressing C/D/I and removed this morning, port site closed with skin tape. No erythema or drainage. : No bleeding or pad in place.. Skin: warm, dry Ext: no erythema or swelling of the lower extremities Recent Labs 10/24/14 0321 10/23/14 1554 10/23/14 0333 10/22/14 1345 WBC 8.2 10.1* 10.5* 11.0* HGB 8.5* 9.5* 10.0* 12.3 HCT 25.8* 28.7* 29.6* 36.1 PLATELET 200 242 238 243 Recent Labs 10/24/14 0321 10/23/14 0333 NA 141 137 K 3.6 4.0 CL 104 100 CO2 26 25 BUN 12 12 CREATININE 0.93 0.79 GLUCOSE 104 131 CALCIUM 8.4* 8.1* MAGNESIUM 0.87 0.68* Frozen Section 10/22/14 Uterus and cervix demonstrated focal hyperplasia without tumor on gross or frozen section without lower uterine involvement. ASSESSMENT: Elvia Huizar is a 54 y.o. female with PMH of HTN, hyperlipidemia, hypothyroid, palpitations that resolved after cardiac ablation, psoriasis and migraines POD#2 after robotic assisted laparoscopic hysterectomy with bilateral salping oophorectomy complicated by trochar injury of the smallbowel mesentery necessitating conversion to open incision for endometrioid endometrial adenocarcinoma FIGO grade 2 per endometrial biopsy, recovering well with the exception of a slow downtrending HgB.Her vital signs have been stable without tachycardia or hypotension and she has been ambulating extensively, however, given her complicated surgery, it would be useful to recheck HgB for stabilization later today prior to discharge. PLAN: NEURO: Well controlled on PO oxycodone, ibuprophen and acetaminophen. CV: Continue on home metoprolol, holding home simvastatin and HCTZ given the lack of hypertension. PULM: Excellent sats on RA, encourage incentive spirometry. GI: Regular diet, pericolace and zofran PRN. Esomeprazole and tums PRN for GERD. /FEK: Excellent UOP at ~100cc/hr. Daily BMPs ID: Afebrile, no leukocytosis. Continue to monitor vital signs HEME: Hg has decreased to 8.5 from 13.6 prior to surgery to 12.3 intraoperative to 10.0 yesterday AMto 9.5 yesterday PM to 8.5 this morning. Despite this decline in hemoglobin, she has been normotensive without tachycardia or dizziness with ambulation so these results are likely a combination of surgical blood loss with hemodilution from fluid recesitation. However, given that the Hg is continuing to trend downwards, it should be rechecked later today or earlier if symptoms develop. ENDO: Continue home levothyroxine for hypothyroidism. PROPHYLAXIS: SCDs, incentive spirometry and ambulation. DISPO: Likely to home today pending H&H results Pt discussed with Real Estate Officer Onc Resident Team Shirin Trotter, MS3 Plan of Care - Adali Spears RN - 10/24/2014 4:19 AM EDT Problem: General Plan of Care Goal: Plan of Care Review Outcome: Ongoing (Interventions Implemented as Appropriate) 10/24/14 0322 Plan of Care Review Plan of Care Outcome Status ongoing (interventions implemented as appropriate) Progress improving Coping/Psychosocial Response Interventions Plan of Care Reviewed with patient OUTCOME EVALUATION NOTE: OUTCOME SUMMARY: Patient stated she slept about an hour in total, anxious to get home and sleep in her own bed. VSS. Patient remains on room air with oxygen sats above 93%. Pain well controlled with tylenol and ibuprofen. Midline incision gauze intact and dry, 5 other laproscopic sites open to air. Patient had some nausea early AM (0400), given gingerale and saltines with good affect. PLAN MOVING FORWARD: Hopeful d/c home in the AM INDIVIDUALIZED FALL PREVENTION: Assistance: Independent Supervision: Intermittent Surveillance: Purposeful hourly rounding CPG GOAL OUTCOME EVALUATION: Goal: Individualization and Mutuality Outcome: Ongoing (Interventions Implemented as Appropriate) Goal: Fall Prevention-Safe Patient Handling Outcome: Ongoing (Interventions Implemented as Appropriate) Goal: Infection Control Outcome: Ongoing (Interventions Implemented as Appropriate) Goal: Discharge Needs Assessment Outcome: Ongoing (Interventions Implemented as Appropriate) 10/24/14415 Discharge Needs Assessment Concerns to be Addressed no discharge needs identified Readmission Within the Last 30 Days no previous admission in last 30 days Equipment Needed After Discharge none Current Health Anticipated Changes Related to Illness none Self-Care Equipment Currently Used at Home none Living Environment Transportation Available family or friend will provide Problem: Hysterectomy (Adult, Obstetrics) Goal: Signs and symptoms of listed potential problems will be absent or manageable (reference (Hysterectomy (Adult, Obstetrics)) CPG) Outcome: Ongoing (Interventions Implemented as Appropriate) 10/24/14415 Hysterectomy Problems Assessed (Hysterectomy) all Problems Present (Hysterectomy) acute pain Problem: Fall/Trauma/Injury Risk (Adult, Obstetrics) Goal: Identify Signs and Symptoms and Related Risk Factors Signs and symptoms and related risk factors are identified upon initiation of Human Response Clinical Practice Guideline (CPG) Outcome: Ongoing (Interventions Implemented as Appropriate) 10/23/14 0135 Fall/Trauma/Injury Risk Personal Related Risk Factors (Fall/Trauma/Injury Risk) fatigue/slowed reaction time Environmental Related Risk Factors (Fall/Trauma/Injury Risk) environment unfamiliar Physiological Related Risk Factors (Fall/Trauma/Injury Risk) pain Treatment Related Related Risk Factors (Fall/Trauma/Injury Risk) invasive/noninvasive equipment;medications, greater than 4 daily;medication Signs and Symptoms (Fall/Trauma/Injury Risk) presence of risk factors;decreased knowledge of safety/environmental hazards Goal: Absence of Trauma/Injury/Falls Patient will demonstrate the desired outcomes. Outcome: Ongoing (Interventions Implemented as Appropriate) 10/24/14415 Fall/Trauma/Injury Risk (Adult, Obstetrics) Absence of Trauma/Injury/Falls making progress toward outcome Plan of Care - Julissa Cruz RN - 10/23/2014 4:23 PM EDT Problem: General Plan of Care Goal: Plan of Care Review Outcome: Ongoing (Interventions Implemented as Appropriate) 10/23/14 0135 10/23/14 1000 Plan of Care Review Plan of Care Outcome Status ongoing (interventions implemented as appropriate) -- Progress progress toward functional goals as expected -- Coping/Psychosocial Response Interventions Plan of Care Reviewed with -- patient OUTCOME EVALUATION NOTE: OUTCOME SUMMARY: Pt Ambulated numerous times today around the unit. DIE PRESS OPERATOR d'dinora and pain coverage withoxycodone PO with positive effect. Meyers discontinued and patient urinated 400 ml within the 4 hour protocol. Patient alert and very pleasant and very independent. Midline incision covered with gauze and CDI. 5 laparoscopic sites CDI. PLAN MOVING FORWARD: Encourage use if IS and ambulation, pain management INDIVIDUALIZED FALL PREVENTION: Assistance: independent Supervision: intermittent Surveillance: Masimo, hourly rounding, call light within reach, bed in lowest position CPG GOAL OUTCOME EVALUATION: ongoing Goal: Individualization and Mutuality Outcome: Ongoing (Interventions Implemented as Appropriate) 10/22/14 1700 Mutuality/Individual Preferences What anxieties, fears or concerns do you have about your health or care? none at this time What questions do you have about your health or care? none at this time What information would help us give you more personalized care? none at this time Goal: Fall Prevention-Safe Patient Handling Outcome: Ongoing (Interventions Implemented as Appropriate) 10/23/14 1000 Safety Interventions Safety Precautions/Fall Reduction environmental modification Musculoskeletal Interventions Activity/Level of Assistance dangled at bedside Positioning HOB up 30-45 degrees Muscle Strengthening personal routines for BADL/IADL promoted;activity/mobility promoted Self-Care Promotion independence encouraged while providing assistance Shepard Fall Risk History of Falling 0 Secondary Diagnosis 15 Ambulatory Aids 15 Intravenous Therapy/Heparin/Saline Lock 20 Gait/Transferring 10 Mental Status 0 Score 60 OTHER Shepard Fall Risk High Goal: Infection Control Outcome: Ongoing (Interventions Implemented as Appropriate) 10/22/14201110/23/14 1000 Safety Interventions Isolation Precautions -- standard precautions maintained Infection Prevention -- bronchial hygiene promoted;environmental surveillance;hydration promoted;nutrition promoted;promote handwashing;rest/sleep promoted Coping/Psychosocial Response Interventions Counseling emotional support provided;problem solving facilitated;reassurance provided;understandingof situation facilitated;verbalization of feelings encouraged -- Goal: Discharge Needs Assessment Outcome: Ongoing (Interventions Implemented as Appropriate) 10/22/14 1704 10/22/14 1814 Discharge Needs Assessment Concerns to be Addressed -- no discharge needs identified Living Environment Transportation Available car;family or friend will provide -- Problem: Skin Integrity Impairment, Risk/Actual (Adult, Obstetrics) Goal: Identify Signs and Symptoms and Related Risk Factors Signs and symptoms and related risk factors are identified upon initiation of Human Response Clinical Practice Guideline (CPG) Outcome: Outcome (s) achieved Date Met: 10/23/14 10/23/14 013 Skin Integrity Impairment, Risk/Actual Personal Related Risk Factors (Skin Integrity Impairment, Risk/Actual) fair complexion;stress Environmental Related Risk Factors (Skin Integrity Impairment, Risk/Actual) trauma Physiological Related Risk Factors (Skin Integrity Impairment, Risk/Actual) malignancy Treatment Related Related Risk Factors (Skin Integrity Impairment, Risk/Actual) invasive catheters;medication;surgery Goal: Skin Integrity/Wound Healing Patient will demonstrate the desired outcomes. Outcome: Ongoing (Interventions Implemented as Appropriate) 10/22/141813 Skin Integrity Impairment, Risk/Actual (Adult, Obstetrics) Skin Integrity/Wound Healing making progress toward outcome Problem: Hysterectomy (Adult, Obstetrics) Goal: Signs and symptoms of listed potential problems will be absent or manageable (reference (Hysterectomy (Adult, Obstetrics)) CPG) Outcome: Ongoing (Interventions Implemented as Appropriate) 10/23/14 013 Hysterectomy Problems Assessed (Hysterectomy) all Problems Present (Hysterectomy) acute pain Problem: Pain, Acute (Adult, Obstetrics) Goal: Identify Signs and Symptoms and Related Risk Factors Signs and symptoms and related risk factors are identified upon initiation of Human Response Clinical Practice Guideline (CPG) Outcome: Outcome (s) achieved Date Met: 10/23/14 10/23/14 013 Pain, Acute Related Risk Factors (Acute Pain) disease process;stress;surgery;under reporting Signs and Symptoms (Acute Pain) facial mask of pain/grimace;fatigue/weakness;guarding/abnormal postur ing/positioning;verbalization of pain descriptors Goal: Acceptable Pain Control/Comfort Level Patient will demonstrate the desired outcomes. Outcome: Ongoing (Interventions Implemented as Appropriate) 10/23/14 1601 Pain, Acute (Adult, Obstetrics) Acceptable Pain Control/Comfort Level making progress toward outcome Problem: Fall/Trauma/Injury Risk (Adult, Obstetrics) Goal: Identify Signs and Symptoms and Related Risk Factors Signs and symptoms and related risk factors are identified upon initiation of Human Response Clinical Practice Guideline (CPG) Outcome: Ongoing (Interventions Implemented as Appropriate) 10/23/14 0135 Fall/Trauma/Injury Risk Personal Related Risk Factors (Fall/Trauma/Injury Risk) fatigue/slowed reaction time Environmental Related Risk Factors (Fall/Trauma/Injury Risk) environment unfamiliar Physiological Related Risk Factors (Fall/Trauma/Injury Risk) pain Treatment Related Related Risk Factors (Fall/Trauma/Injury Risk) invasive/noninvasive equipment;medications, greater than 4 daily;medication Signs and Symptoms (Fall/Trauma/Injury Risk) presence of risk factors;decreased knowledge of safety/environmental hazards Goal: Absence of Trauma/Injury/Falls Patient will demonstrate the desired outcomes. 10/23/14 1601 Fall/Trauma/Injury Risk (Adult, Obstetrics) Absence of Trauma/Injury/Falls achieves outcome Med Student Progress Note - Shirin Trotter - 10/23/2014 7:02 AM EDT General Surgery Resident Inpatient Progress Note ID: Elvia Huizar is a 54 y.o. female with PMH of HTN, hyperlipidemia, hypothyroid, palpitations that resolved after cardiac ablation, psoriasis and migraines POD#1 after robotic assisted laparoscopic hysterectomy with bilateral salping oophorectomy complicated by trochar injury of the small bowel mesentery necessitating conversion to open incision for endometrioid endometrial adenocarcinoma FIGO grade 2 per endometrial biopsy. Subjective: Ms. Huizar reports 5/10 pain this morning, mostly at the incision site as well as back pain. She states that she has this back pain at baseline when she spends a more time lying in bed. She did 2 laps around the pod last night and again this morning, felt a bit woozy but feels this is due to medication. She ate a full dinner last night including dessert without nausea/emesis. She had one episode of heartburn while walking but it went away quickly without medications. She has no noticed vaginal bleeding and denies chest pain/SOB/leg pain. O: Last value Range last 24hrs Temperature Temp: 36.9 ??C (98.4 ??F) Temp: [36.8 ??C (98.2 ??F)-37 ??C (98.6 ??F)] Heart Rate Heart Rate: 79 Heart Rate: [72-85] Blood Pressure BP: 116/68 mmHg BP: (98-126)/(52-70) Respiratory Rate Resp: 16 Resp: [16-20] SpO2 SpO2: 96 % SpO2: [94 %-99 %] 10/22 0701 - 10/23 0700 In: 8650.3 [P.O.:840; I.V.:7810.3] Out: 3730 [Urine:3030] Output over last 8 hours: 200 cc/hr Surgery EBL: 700 Physical Exam: General: NAD, seated comfortably, pleasant, conversant HEENT: PERRL, anicteric sclerae CVS: RRR, no m/r/g Pulm: CTAB without wheezing or rhales Abd: soft, moderate tenderness to palpation in all quadrants, non-distended. No rebound tenderness or guarding. Incision sites : midline incision site dressing C/D/I, port site closed with skin tape. No erythema or drainage. : Bryan-pad with small spots of dark blood. Meyers in place draining clear urine. Skin: warm, dry Ext: no erythema or swelling of the lower extremities Recent Labs 10/23/14 1554 10/23/14 0333 10/22/14 1345 WBC 10.1* 10.5* 11.0* HGB 9.5* 10.0* 12.3 HCT 28.7* 29.6* 36.1 PLATELET 242 238 243 Recent Labs 10/23/14 0333 NA 137 K 4.0 CL 100 CO2 25 BUN 12 CREATININE 0.79 GLUCOSE 131 CALCIUM 8.1* MAGNESIUM 0.68* Frozen Section 10/22/14 Uterus and cervix demonstrated focal hyperplasia without tumor on gross or frozen section without lower uterine involvement. ASSESSMENT: Elvia Huizar is a 54 y.o. female with PMH of HTN, hyperlipidemia, hypothyroid, palpitations that resolved after cardiac ablation, psoriasis and migraines POD#1 after robotic assisted laparoscopic hysterectomy with bilateral salping oophorectomy complicated by trochar injury of the smallbowel mesentery necessitating conversion to open incision for endometrioid endometrial adenocarcinoma FIGO grade 2 per endometrial biopsy, recovering well. PLAN: NEURO: Well controlled on dilaudid and acetaminophen. Tolerating food without nausea or vomiting, convert to PO oxycodone, acetaminophen and ibuprofen. CV: Continue on home metoprolol, holding home simvastatin and HCTZ given the lack of hypertension. PULM: Excellent sats on RA, encourage incentive spirometry. GI: Regular diet, pericolace and zofran PRN. Esomeprazole and tums PRN for GERD. : Meyers draining clear urine, given her excellent UOP and ambulation capacities, it should be removed. FEK: D/C maintenance fluids given her excellent PO intake. Oral Mg repletion is indicated given her lab level of 0.68. Calcium is slightly low, likely due to concurrent hypomagnesium due to increased resistance to PTH and will be corrected with the mg. ID: Afebrile, minor leukocytosis likely due to surgical trauma. Continue to monitor vital signs HEME: Hg has decreased from 13.6 prior to surgery to 12.3 intraoperative to 10.0 this morning. Despite this decline in hemoglobin, she has been normotensive without tachycardia or dizziness with ambulation so these results are likely a combination of surgical blood loss with hemodilution from fluid recesitation. However, given that the Hg is continuing to trend downwards, it should be rechecked latertoday or earlier if symptoms develop. ENDO: Continue home levothyroxine for hypothyroidism. PROPHYLAXIS: SCDs, incentive spirometry and ambulation. 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 Also reporting back pain r/t being inbed. Ambulated and up in chair with improvement in back pain per pt report. Good UOP and tolerating po intake without issue. Reported acid reflux x1 during ambulation but dissipated before interventioncompleted. PLAN MOVING FORWARD: Continue to monitor pain level and effectiveness of interventions. Encourage ambulation and po intake. Maintain bowel regimen. Likely remove urethral catheter in next 24 hours and transition to oral pain regimen. INDIVIDUALIZED FALL PREVENTION: Assistance: SBA. Supervision: Intermittent-using call argueta appropriately for assistance. Surveillance: VS, I/O, labs, daily weight, masimo, purposeful rounding. CPG GOAL OUTCOME EVALUATION: Problem: Skin Integrity Impairment, Risk/Actual (Adult, Obstetrics) Goal: Identify Signs and Symptoms and Related Risk Factors Signs and symptoms and related risk factors are identified upon initiation of Human Response Clinical Practice Guideline (CPG) Outcome: Ongoing (Interventions Implemented as Appropriate) 10/23/14134 Skin Integrity Impairment, Risk/Actual Personal Related Risk Factors (Skin Integrity Impairment, Risk/Actual) fair complexion;stress Environmental Related Risk Factors (Skin Integrity Impairment, Risk/Actual) trauma Physiological Related Risk Factors (Skin Integrity Impairment, Risk/Actual) malignancy Treatment Related Related Risk Factors (Skin Integrity Impairment, Risk/Actual) invasive catheters;medication;surgery Problem: Hysterectomy (Adult, Obstetrics) Goal: Signs and symptoms of listed potential problems will be absent or manageable (reference (Hysterectomy (Adult, Obstetrics)) CPG) Outcome: Ongoing (Interventions Implemented as Appropriate) 10/23/14134 Hysterectomy Problems Assessed (Hysterectomy) all Problems Present (Hysterectomy) acute pain Problem: Pain, Acute (Adult, Obstetrics) Goal: Identify Signs and Symptoms and Related Risk Factors Signs and symptoms and related risk factors are identified upon initiation of Human Response Clinical Practice Guideline (CPG) Outcome: Ongoing (Interventions Implemented as Appropriate) 10/23/14134 Pain, Acute Related Risk Factors (Acute Pain) disease process;stress;surgery;under reporting Signs and Symptoms (Acute Pain) facial mask of pain/grimace;fatigue/weakness;guarding/abnormal postur ing/positioning;verbalization of pain descriptors Problem: Fall/Trauma/Injury Risk (Adult, Obstetrics) Goal: Identify Signs and Symptoms and Related Risk Factors Signs and symptoms and related risk factors are identified upon initiation of Human Response Clinical Practice Guideline (CPG) Outcome: Ongoing (Interventions Implemented as Appropriate) 10/23/14134 Fall/Trauma/Injury Risk Personal Related Risk Factors (Fall/Trauma/Injury Risk) fatigue/slowed reaction time Environmental Related Risk Factors (Fall/Trauma/Injury Risk) environment unfamiliar Physiological Related Risk Factors (Fall/Trauma/Injury Risk) pain Treatment Related Related Risk Factors (Fall/Trauma/Injury Risk) invasive/noninvasive equipment;medications, greater than 4 daily;medication Signs and Symptoms (Fall/Trauma/Injury Risk) presence of risk factors;decreased knowledge of safety/environmental hazards Plan of Care - Idania Blackman RN - 10/22/2014 6:20 PM EDT Problem: General Plan of Care Goal: Plan of Care Review Outcome: Ongoing (Interventions Implemented as Appropriate) 10/22/141813 Plan of Care Review Plan of Care Outcome Status ongoing (interventions implemented as appropriate) Progress no change Coping/Psychosocial Response Interventions Plan of Care Reviewed with patient OUTCOME EVALUATION NOTE: OUTCOME SUMMARY: Pt arrived to unit from PACU alert and oriented, denies pain/nausea at this time. Oriented to unit and plan to stand at bedside by the end of the day. Incision clean dry and intact with scant drainage.Meyers with adequate output at this time. PLAN MOVING FORWARD: Stand at bedside, continue to monitor for adequate pain control INDIVIDUALIZED FALL PREVENTION: Assistance: Assist x2 with walker Supervision: Pt calling appropriately, call argueta within reach Surveillance: Purposeful hourly rounding completed CPG GOAL OUTCOME EVALUATION: Goal: Individualization and Mutuality Outcome: Ongoing (Interventions Implemented as Appropriate) Goal: Fall Prevention-Safe Patient Handling Outcome: Ongoing (Interventions Implemented as Appropriate) 10/22/14 1200 10/22/14 1653 10/22/14 1704 Safety Interventions Safety Precautions/Fall Reduction -- -- -- Musculoskeletal Interventions Activity/Level of Assistance -- with 2-person assist -- Positioning supine -- -- Self-Care Promotion -- -- -- Shepard Fall Risk History of Falling -- -- 0 Secondary Diagnosis -- -- 15 Ambulatory Aids -- -- 15 Intravenous Therapy/Heparin/Saline Lock -- -- 20 Gait/Transferring -- -- 10 Mental Status -- -- 0 Score -- -- 60 OTHER Shepard Fall Risk -- -- High 10/22/14 1740 10/22/14 1814 Safety Interventions Safety Precautions/Fall Reduction family at bedside -- Musculoskeletal Interventions Activity/Level of Assistance -- -- Positioning -- -- Self-Care Promotion -- independence encouraged while providing assistance Shepard Fall Risk History of Falling -- -- Secondary Diagnosis -- -- Ambulatory Aids -- -- Intravenous Therapy/Heparin/Saline Lock -- -- Gait/Transferring -- -- Mental Status -- -- Score -- -- OTHER Shepard Fall Risk -- -- Goal: Infection Control Outcome: Ongoing (Interventions Implemented as Appropriate) 10/22/14 1653 10/22/141813 Safety Interventions Isolation Precautions -- standard precautions maintained Infection Prevention environmental surveillance;hydration promoted;nutrition promoted;promote handwashing;rest/sleep promoted -- Coping/Psychosocial Response Interventions Counseling calming techniques promoted;personal strengths integrated;problem solving facilitated;reassurance provided -- Goal: Discharge Needs Assessment Outcome: Ongoing (Interventions Implemented as Appropriate) 10/22/14 1704 10/22/141813 Discharge Needs Assessment Concerns to be Addressed -- no discharge needs identified Living Environment Transportation Available car;family or friend will provide -- Problem: Skin Integrity Impairment, Risk/Actual (Adult, Obstetrics) Goal: Identify Signs and Symptoms and Related Risk Factors Signs and symptoms and related risk factors are identified upon initiation of Human Response Clinical Practice Guideline (CPG) Outcome: Ongoing (Interventions Implemented as Appropriate) 10/22/141813 Skin Integrity Impairment, Risk/Actual Treatment Related Related Risk Factors (Skin Integrity Impairment, Risk/Actual) invasive catheters;medication Goal: Skin Integrity/Wound Healing Patient will demonstrate the desired outcomes. Outcome: Ongoing (Interventions Implemented as Appropriate) 10/22/141813 Skin Integrity Impairment, Risk/Actual (Adult, Obstetrics) Skin Integrity/Wound Healing making progress toward outcome Problem: Hysterectomy (Adult, Obstetrics) Goal: Signs and symptoms of listed potential problems will be absent or manageable (reference (Hysterectomy (Adult, Obstetrics)) CPG) Outcome: Ongoing (Interventions Implemented as Appropriate) 10/22/141813 Hysterectomy Problems Assessed (Hysterectomy) all Problems Present (Hysterectomy) none Op Note - Marcela Godfrey MD - 10/22/2014 11:03 AM EDT [facility] [place] Operative Note Patient Name: Elvia Huizar : [id number] MR#: [id number] Case Date: 10/22/2014 Surgeon: Surgeon(s) and Role: Panel 1: * Marcela Godfrey MD - Primary * Kelsy Longoria MD Panel 2: * Yoselyn Yip MD - Primary * Cesar Lawrence MD Preoperative diagnosis: endometrial cancer, morbid obesity: bmi = 41 Postoperative diagnosis: endometrial cancer, morbid obesity: bmi = 41 Procedure(s): LAPAROSCOPY,TOTAL HYST, UTERUS<250GM, DERRICK TYBE &/OR OVARY, ROBOTIC ASSIST LAPAROSCOPY,W\BILATERAL TOTAL PELVIC LYMPHADENECTOMY, PERIAORTIC LYMPH NODE SAMPLING, ROBOTIC MODIFIER ROBOT,DAVINCI XI @EXPLORATION RETROPERITONEAL W OR W\O BIOPSY Anesthesia: General Estimated Blood Loss: 700 mL Specimens removed during surgery: uterus, cervix, both tubes and ovaries. Drains: meyers Surgical Closure: Primary Closure - closure of ALL tissue levels during the original surgery regardless of wires, wickes, drains, or other devices extruding through the incision Disposition: awakened from anesthesia, extubated and taken to the recovery room in a stable condition, having suffered no apparent untoward event. Condition: doing well without problems (Please see the Surgical Encounter Summary for any Implant and Specimen details pertinent to this patient.) HPI/Surgical Indications: grade 2 Endometrial cancer, desires definitive management. Informed consent obtained during the office visit. Procedure Description: The patient was identified and consent was reaffirmed. She was taken to the operating room and placed in low lithotomy position with stirrups after induction of anesthesia. An exam was conducted and there was a small anteverted uterus. An antiseptic preparation of the abdomen, perineum, and vagina was performed and the patient was sterilely draped. A surgical pause was performed, correctly identifying the intended procedures, for this patient. A Meyers catheter was inserted into the bladder. A Medesenare uterine manipulator was placed. An 8-mm transverse incision was made above the umbilicus, through which a Veress needle was inserted and the abdomen was insufflated to tympany with carbon dioxide gas after two attempts. An 8mm trocar was then inserted and the camera was placed. There was noted to be blood in the pelvis and no uterine defect. Inspection revealed a small defect in the omentum and after reflection of this, there was notedto be a hematoma in the small bowel mesenteric root. This appeared stable. Additional 8-mm trocars and a 12-mm right upper quadrant title i instructional assistant port were placed in the usual locations without difficulty, under direct visualization. The patient was placed in steep Trendelenburg position. Using sharp and electrosurgical dissection, the round ligaments were desiccated and divided bilaterally. The retroperitoneum was opened and the ureters identified. A bladder flap was developed to a point over the upper vagina with sharp and electrosurgical dissection. The ovarian vessels were identified and taking care not to injure the underlying ureter, the vessels were cauterized and divided. The mesosalpinx was then opened to the level of the uterine vessels. The uterine vessels were skeletonized and then cauterized and divided bi laterally as were the uterosacral ligaments. The hysterectomy was completed by making a circumferential colpotomy incision over the VCare cup with monopolarcautery and then the specimen was withdrawn through the vagina. During this time, the patient had an initial bradycardic episode to 29 BPM during the initial insufflation. The pneumoperitoneum was evacuated and her heart rate recovered. However, later, during the case the patient became hypotensive to 40/30's. This recovered with the use of additional IV hydration and phenylephrine. She had a second episode of hypotension and thus the decision was made to open the abdomen and explore the retroperitoneum for a possible retroperitoneal bleed leading to ongoing hypotension. The patients IV access was adequate, a type and screen was confirmed, blood called for, vascular instruments and given the concern for major hemorrhage once opening the retroperitoneum, the Vascular Surgery staff was called in to assist. The robot was undocked and the abdomen was opened in a vertical periumbilical midline incision and the abdomen explored. See their separate op note for details. In brief, the root of the small bowel mesentery was noted to have surrounding hematoma. The peritoneum overlying the aorta and distal vena cava were opened sharply and explored. No major vascular defect was identified and the portion of the duodenum visible was intact. The majority of the bleedingappeared to be coming from the mesenteric defect itself. There was 350 cc EBL to this point and no welling up of blood was seen. A pack was placed here for hemostasis and the case was turned back over to the primary team. The entire small bowel was run from the cecum to the ligament of treitz and no defects were seen. The bowel was viable. A pelvic and paraaortic lymphadenectomy was not done as the specimen returned from frozen with no identifiable residual cancer. The vaginal cuff was closed from above with 0Vicryl in a running locked fashion. The packs removed and the paraaortic region had brisk bleeding from an arterial vessel coming off the surface of the aorta, this was clipped and hemostasis achieved. Floseal was applied to this area. The fascia was closed with #1 looped PDS and then 2-0 plain gut in the adipose tissue followed by kelsie on the skin. The laparopscopic skin incisions were closed with 4-0 Vicryl. Dermaflex was applied to each site. The vagina was inspected and noted to be intact and hemostatic. The patient was returned to a supine position as anesthesia was discontinued. The instrument counts were incorrect and thus as per policy, plain films were obtained and noted to be free of retained instruments. She was then extubated and taken to the PACU in stable condition, and accompanied by the anesthesiologist and surgeons. Dr. Marcela Godfrey, the attending physician, was present for the entire procedure. Complications: Mesenteric vascular trocar injury Antibiotics: 3 gm (s) cefazolin at induction of anesthesia. DVT Prophylaxis: 5000 units of heparin subcutaneously and SCDs continuously applied to the lower extremities. Attestation: Case Date: 10/22/2014 I was present and I participated during the entire procedure (does not need to include opening and closing). Marcela Godfrey MD 10/22/2014 Brief Op Note - Marcela Godfrey MD - 10/22/2014 10:59 AM EDT Brief Operative Note Patient Name: Elvia Huizar : [id number] MR#: [id number] Case Date: 10/22/2014 Surgeon: Surgeon(s) and Role: Panel 1: * Mracela Godfrey MD - Primary * Kelsy Longoria MD Panel 2: * Yoselyn Yip MD - Primary * Cesar Lawrence MD Preoperative diagnosis: endometrial cancer Postoperative diagnosis: endometrial cancer Procedure(s): LAPAROSCOPY,TOTAL HYST, UTERUS<250GM, DERRICK TYBE &/OR OVARY, ROBOTIC ASSIST Exploratory laparotomy MODIFIER ROBOT,DAVINCI XI @EXPLORATION RETROPERITONEAL W OR W\O BIOPSY Anesthesia: General Findings: normal intraoperative anatomy. Small bowel mesenteric hematoma. Complications: trocar injury to the small bowel mesentery Fluids: 4.4 L LR Estimated Blood Loss: 700 mL Drains: meyers 325 cc uop Disposition: awakened from anesthesia, extubated and taken to the recovery room in a stable condition, having suffered no apparent untoward event. Condition: doing well without problems Attestation: Case Date: 10/22/2014 I was present and I participated during the entire procedure (does not need to include opening and closing). (Please see the Surgical Encounter Summary for any Implant and Specimen details pertinent to this patient.) Op Note - Cesar Lawrence - 10/22/2014 10:12 AM EDT [facility] [place] Operative Note Patient Name: Elvia Huizar : [id number] MR#: [id number] Case Date: 10/22/2014 Surgeon: Surgeon(s) and Role: MD Cesar Rust MD Preoperative diagnosis: endometrial cancer Postoperative diagnosis: endometrial cancer Procedure(s): Intraoperative Consult Exploration of retroperitoneal zone 1 Anesthesia: General Estimated Blood Loss: 50 mL Specimens removed during surgery: none Drains: none HPI/Surgical Indications: Mrs. Huizar is a 54 yo female with endometrial cancer who presented for robotic title i instructional assistant hysterectomy, BSO and retroperitoneal lymph node sampling. After gaining port access, there was approximately 250cc of blood in the peritoneal cavity. She underwent her hysterectomy, but then developed hypotension and tachycardia. The concern was for vascular injury and the operation was converted to open. A through and through defect was noted at the base of the small bowel mesentery, concerning for a trocar injury. There was significant retroperitoneal hematoma. We were asked to consult and aid with retroperitoneal exploration in case a tamponaded large vessel injury would unroof. Procedure Description: The patient was under anesthesia on the OR table with the abdominal cavity explored. We performed a focal exploration and noted a through and through defect at the base of the mid jejunal mesentery. There was hematoma from that area that tracked into the retroperitoneum into zone 1. The aortic and iliac pulses were palpable. We mobilized the duodenum to the ligament of Treitz and reflected it off the retroperitoneum right laterally. With a combination of blunt and sharp dissection, we opened and explored the central retroperitoneum. The hematoma was focal and appeared to track from the mesentery posteriorly rather than originating from the retroperitoneum. We then unroofed the distal aorta at the bifurcation, the origin of the OBDULIO and the left common iliac artery. Along with that, we unroofed the left common iliac vein and distal IVC. There was no injury apparent to these structures. There was no active bleeding. The hematoma in the surrounding tissue was small at this level and appeared to track from the mesentery. There was no direct vessel injury identified nor any jejunal serosal injury at the site of the mesenteric defect. At this point, Dr. Godfrey and her team assumed further care and direction of the operation. Cesar Lawrence MD, MS Fellow, Vascular Surgery Associated attestation - Yoselyn Yip MD - 10/22/2014 2:00 PM EDT Attestation: Case Date: 10/22/2014 I was present and scrubbed for this portion of the surgery and agree with findings below. Yoselyn Yip MD 10/22/2014 documented in this encounter Plan of Treatment Not on filedocumented as of this encounter Procedures Procedure Name Priority Date/Time Associated Comments Diagnosis THRASHER FEEDER SCAN 10/25/2014 12:00 AM EDT HEMOGRAM Timed 10/24/2014 12:20 Results for this PM EDT procedure are i n the results section. HEMOGRAM Routine 10/24/2014 3:21 Results for this AM EDT procedure are i n the results section. MAGNESIUM Routine 10/24/2014 3:21 Results for this AM EDT procedure are i n the results section. BASIC METABOLIC PANEL Routine 10/24/2014 3:21 Res ults for this (NON-FASTING) AM EDT procedure are in the results section. HEMOGRAM Routine 10/23/2014 3:54 Results for this PM EDT procedure are i n the results section. HEMOGRAM Routine 10/23/2014 3:33 Results for this AM EDT procedure are i n the results section. MAGNESIUM Routine 10/23/2014 3:33 Results for this AM EDT procedure are i n the results section. BASIC METABOLIC PANEL Routine 10/23/2014 3:33 Res ults for this (NON-FASTING) AM EDT procedure are in the results section. HEMOGRAM Routine 10/22/2014 1:45 Results for this PM EDT procedure are i n the results section. DIFFERENTIAL, AUTOMATED Routine 10/22/2014 1:45 R esults for this PM EDT procedure are i n the results section. CBC (WITH DIFF) Routine 10/22/2014 1:45 PM EDT XR ABDOMEN 1 VIEW Routine 10/22/2014 11:46 Result s for this AM EDT procedure are i n the results section. BLOOD GAS 2 ARTERIAL Routine 10/22/2014 10:45 Res ults for this AM EDT procedure are i n the results section. BLOOD GAS 2 ARTERIAL Routine 10/22/2014 9:34 Resu lts for this AM EDT procedure are i n the results section. FROZEN SECTION REPORT Routine 10/22/2014 9:08 Res ults for this AM EDT procedure are i n the results section. PATHOLOGY ADDENDUM Routine 10/22/2014 9:08 Result s for this REPORT AM EDT procedure are i n the results section. SURGICAL PATHOLOGY Routine 10/22/2014 9:08 Result s for this REPORT AM EDT procedure are i n the results section. SPECIMEN TO PATHOLOGY STAT 10/22/2014 9:08 Res ults for this AM EDT procedure are i n the results section. @EXPLORATION 10/22/2014 7:37 endometrial cancer RETROPERITONEAL W OR AM EDT W\O BIOPSY (WRVU 16.06) MODIFIER ROBOT,CHRISTINE 10/22/2014 7:37 endometrial can cer XI AM EDT LAPAROSCOPY,TOTAL HYST, 10/22/2014 7:37 endometrial ca ncer UTERUS<250GM, REM TUBE AM EDT &/OR OVARY, ROBOTIC ASSIST (WRVU 15) documented in this encounter Results SCAN DOC: THRASHER FEEDER (10/25/2014 12:00 AM EDT) Narrative This result has an attachment that is no t available. Scanning Provider MEDIA MGR SCAN EXT ORDR/RSLT (ABNORMAL) Hemogram (10/24/2014 12:20 PM EDT) P athologist Signature WBC 8.0 4.0 - 10.0 CERNER x10(3)/mcL MILLENNIUM RBC 3.15 (L) 3.93 - CERNER 5.22 MILLENNIUM x10(6)/mcL Hemoglobin 9.4 (L) 11.2 - CERNER 15.7 gm/dL MILLENNIUM Hematocrit 28.5 (L) 34.0 - CERNER 45.0 % MILLENNIUM MCV 90.5 79.0 - CERNER 94.0 fL [facility]ILLENNIUM MCH 29.8 26.6 - CERNER 32.2 pg MILLENNIUM MCHC 33.0 32.0 - CERNER 36.5 gm/dL MILLENNIUM Platelets 220 145 - 370 CERNER x10(3)/mcL MILLENNIUM RDWSD 41.9 35.0 - CERNER 46.0 fL [facility] RDWCV 12.8 10.9 - CERNER 14.4 % [facility]ILLENNI[facility] MPV 9.6 9.0 - 12.0 [facility]ERNER fL [facility] Specimen Anatomical Collection Method Collection Time Receive d Time (Source) Location / / Volume Laterality Blood specimen 10/24/2014 12:20 5 (specimen) PM EDT 12:29 PM EDT Resulting Agency Comment Spec In Lab Marcela Godfrey MD HEMATOLOGY ORDERABLES Performing Organization Address City/[facility]/ZIP Code Phon e Number [address] [facility] Magnesium (10/24/2014 3:21 AM EDT) P athologist Signature Magnesium 0.87 0.69 - 1.07 CERNER mmol/L [facility] Specimen Anatomical Collection Method Collection Time Receive d Time (Source) Location / / Volume Laterality Blood specimen 10/24/2014 3:21 AM 015 3:54 (specimen) EDT AM EDT Resulting Agency Comment Spec In Lab Marcela Godfrey MD CHEMISTRY ORDERABLES Performing Organization Address City/[facility] [place] [address] [facility] (ABNORMAL) Basic Metabolic Panel (non-fasting) (10/24/2014 3:21 AM EDT) athologist Signature Glucose Lvl 104 65 - 199 CERNER mg/dL MILLENNIUM Comment: Diabetes: >=200 mg/dL plus symp toms BUN 12 8 - 18 mg/dL CERNER MILLENNIUM Creatinine 0.93 0.70 - 1.20 mg/dL CERNER MILL ENNIUM Comment: Please note that the pediatric reference intervals supplied above were not validated at [facility] [place]. Results from pediatri c patients should be interpreted in conjunction to the patient's age, height and muscle mass. Sodium 141 135 - 145 mmol/L CERNER JOSR NIUM Potassium 3.6 3.5 - 5.0 mmol/L CERNER JOSR NIUM Comment: Please note: ??Patients with WBC >100,00 0 may have falsely elevated Potassium levels. ??For accurate Potassium quantif ication in these patients send serum separator tube (gold top) for subsequent determinations. ??Contact the Clinical Chemistry Laboratory if there are any qu estions. Chloride 104 98 - 107 mmol/L CERNER MILLENN IUM CO2 26 22 - 31 mmol/L CERNER MILLENNI UM Anion Gap 11 5 - 15 mmol/L CERNER MILLENNIU M Calcium 8.4 (L) 8.5 - 10.5 mg/dL CERNER JOSR NIUM Estimated GFR >60 >=60 CERNER MILLENNIU M Comment: This estimated GFR (eGFR) value was calc ulated using the MDRD equation which has been validated on patients between t he ages of 18 and 70. The MDRD should not be used to assess kidney function in patients < 18 years of age or in patients with extremes of body mass, or in patients with acute kidney failure. This value should be multiplied by 1.2 f or patients. For further information please copy and past e the following links into your internet browser. [email or web address] Specimen Anatomical Collection Method Collection Time Receive d Time (Source) Location / / Volume Laterality Blood specimen 10/24/2014 3:21 AM 015 3:54 (specimen) EDT AM EDT Resulting Agency Comment Spec In Lab Marcela Godfrey MD CHEMISTRY ORDERABLES Performing Organization Address City/State/[place] [address] CERNER MILLENNIUM (ABNORMAL) Hemogram (10/24/2014 3:21 AM EDT) P athologist Signature WBC 8.2 4.0 - 10.0 CERNER x10(3)/mcL MILLENNIUM RBC 2.87 (L) 3.93 - CERNER 5.22 MILLENNIUM x10(6)/mcL Hemoglobin 8.5 (L) 11.2 - CERNER 15.7 gm/dL MILLENNIUM Hematocrit 25.8 (L) 34.0 - CERNER 45.0 % MILLENNIUM MCV 89.9 79.0 - CERNER 94.0 fL MILLENNIUM MCH 29.6 26.6 - CERNER 32.2 pg MILLENNIUM MCHC 32.9 32.0 - CERNER 36.5 gm/dL MILLENNIUM Platelets 200 145 - 370 CERNER x10(3)/mcL MILLENNIUM RDWSD 41.4 35.0 - CERNER 46.0 fL MILLENNIUM RDWCV 12.7 10.9 - CERNER 14.4 % MILLENNIUM MPV 9.8 9.0 - 12.0 CERNER fL MILLENNIUM Specimen Anatomical Collection Method Collection Time Receive d Time (Source) Location / / Volume Laterality Blood specimen 10/24/2014 3:21 AM 015 3:54 (specimen) EDT AM EDT Resulting Agency Comment Spec In Lab Marcela Godfrey MD HEMATOLOGY ORDERABLES Performing Organization Address City/State/[place] [address] CERNER MILLENNIUM (ABNORMAL) Hemogram (10/23/2014 3:54 PM EDT) P athologist Signature WBC 10.1 (H) 4.0 - 10.0 CERNER x10(3)/mcL MILLENNIUM RBC 3.22 (L) 3.93 - CERNER 5.22 MILLENNIUM x10(6)/mcL Hemoglobin 9.5 (L) 11.2 - CERNER 15.7 gm/dL MILLENNIUM Hematocrit 28.7 (L) 34.0 - CERNER 45.0 % MILLENNIUM MCV 89.1 79.0 - CERNER 94.0 fL [facility] MCH 29.5 26.6 - CERNER 32.2 pg [facility] MCHC 33.1 32.0 - CERNER 36.5 gm/dL [facility] Platelets 242 145 - 370 CERNER x10(3)/mcL [facility] RDWSD 41.0 35.0 - CERNER 46.0 fL [facility] RDWCV 12.6 10.9 - CERNER 14.4 % [facility] MPV 9.8 9.0 - 12.0 CERNER fL [facility] Specimen Anatomical Collection Method Collection Time Receive d Time (Source) Location / / Volume Laterality Blood specimen 10/23/2014 3:54 PM 015 4:26 (specimen) EDT PM EDT Resulting Agency Comment Spec In Lab Marcela Godfrey MD HEMATOLOGY ORDERABLES Performing Organization Address City/[facility]/ZIP [facility] Phon e Number [address] [facility] ([facility] Magnesium (10/23/2014 3:33 AM EDT) athologist Signature Magnesium 0.68 (L) 0.69 - 1.07 CERNER mmol/L [facility] Specimen Anatomical Collection Method Collection Time Receive d Time (Source) Location / / Volume Laterality Blood specimen 10/23/2014 3:33 AM 015 3:58 (specimen) EDT AM EDT Resulting Agency Comment Spec In Lab Marcela Godfrey MD CHEMISTRY ORDERABLES Performing Organization Address City/[facility] Phon e Number [address] [facility] MILLENNIUM (ABNORMAL) Basic Metabolic Panel (non-fasting) (10/23/2014 3:33 AM EDT) athologist Signature Glucose Lvl 131 65 - 199 CERNER mg/dL [facility] Comment: Diabetes: >=200 mg/dL plus symp toms BUN 12 8 - 18 mg/dL [facility] Creatinine 0.79 0.70 - 1.20 mg/dL CERNER MILL ENNIUM Comment: Please note that the pediatric reference intervals supplied above were not validated at [facility]. Results from pediatri c patients should be interpreted in conjunction to the patient's age, height and muscle mass. Sodium 137 135 - 145 mmol/L CERNER JOSR NIUM Potassium 4.0 3.5 - 5.0 mmol/L CERNER JOSR NIUM Comment: Please note: ??Patients with WBC >100,00 0 may have falsely elevated Potassium levels. ??For accurate Potassium quantif ication in these patients send serum separator tube (gold top) for subsequent determinations. ??Contact the Clinical Chemistry Laboratory if there are any qu estions. Chloride 100 98 - 107 mmol/L CERNER MILLENN IUM CO2 25 22 - 31 mmol/L CERNER MILLENNI UM Anion Gap 12 5 - 15 mmol/L CERNER MILLENNIU M Calcium 8.1 (L) 8.5 - 10.5 mg/dL CERNER JOSR NIUM Estimated GFR >60 >=60 CERNER MILLENNIU M Comment: This estimated GFR (eGFR) value was calc ulated using the MDRD equation which has been validated on patients between t he ages of 18 and 70. The MDRD should not be used to assess kidney function in patients < 18 years of age or in patients with extremes of body mass, or in patients with acute kidney failure. This value should be multiplied by 1.2 f or patients. For further information please copy and past e the following links into your internet browser. [email or web address] Specimen Anatomical Collection Method Collection Time Receive d Time (Source) Location / / Volume Laterality Blood specimen 10/23/2014 3:33 AM 015 3:58 (specimen) EDT AM EDT Resulting Agency Comment Spec In Lab Marcela Godfrey MD CHEMISTRY ORDERABLES Performing Organization Address City/State/[place] [address] CERNER MILLENNIUM (ABNORMAL) Hemogram (10/23/2014 3:33 AM EDT) P athologist Signature WBC 10.5 (H) 4.0 - 10.0 CERNER x10(3)/mcL MILLENNIUM RBC 3.38 (L) 3.93 - CERNER 5.22 MILLENNIUM x10(6)/mcL Hemoglobin 10.0 (L) 11.2 - CERNER 15.7 gm/dL MILLENNIUM Hematocrit 29.6 (L) 34.0 - CERNER 45.0 % MILLENNIUM MCV 87.6 79.0 - CERNER 94.0 fL MILLENNIUM MCH 29.6 26.6 - CERNER 32.2 pg MILLENNIUM MCHC 33.8 32.0 - CERNER 36.5 gm/dL MILLENNIUM Platelets 238 145 - 370 CERNER x10(3)/mcL MILLENNIUM RDWSD 39.3 35.0 - CERNER 46.0 fL MILLENNIUM RDWCV 12.2 10.9 - CERNER 14.4 % MILLENNIUM MPV 9.6 9.0 - 12.0 CERNER fL MILLENNIUM Specimen Anatomical Collection Method Collection Time Receive d Time (Source) Location / / Volume Laterality Blood specimen 10/23/2014 3:33 AM 015 3:58 (specimen) EDT AM EDT Resulting Agency Comment Spec In Lab Marcela Godfrey MD HEMATOLOGY ORDERABLES Performing Organization Address City/State/ZIP Code Phon e Number [place] [phone] CERNER MILLENNIUM (ABNORMAL) Differential, Automated (10/22/2014 1:45 PM EDT) [facility] Method Time Signature Neutrophils % 88.9 % CERNER MILLENNIUM Neutr Abs (ANC) 9.81 (H) 1.50 - CERNER 6.30 MILLENNIUM x10(3)/mc L Lymphocytes % 7.4 % CERNER MILLENNIUM Lymphocytes Abs 0.8 (L) 1.0 - 3.6 CERNER x10(3)/mc MILLENNIUM L Monocytes % 3.3 % CERNER MILLENNIUM Monocyte Abs 0.4 0.2 - 1.0 CERNER x10(3)/mc MILLENNIUM L Eosinophils % 0.0 % CERNER MILLENNIUM Eosinophils Abs 0.0 0.0 - 0.5 CERNER x10(3)/mc MILLENNIUM L Basophils % 0.1 % CERNER MILLENNIUM Basophils Abs 0.0 0.0 - 0.2 CERNER x10(3)/mc MILLENNIUM L Immature Gran % 0.30 % CERNER MILLENNIUM Comment: Immature granulocytes(IG's)percentage an d absolute count will include metamyelocytes, myelocytes, and promyelo cytes. Blood smears from CBCs yielding IG's will be scanned manually for concor dance. If this scan disagrees with the automated IG or if promyelocytes are not ed, a manual differential will be performed. Ayala Gran Abs 0.03 0.00 - 0.05 x10(3)/mcL CER NER MILLENNIUM Specimen Anatomical Collection Method Collection Time Receive d Time (Source) Location / / Volume Laterality Blood specimen 10/22/2014 1:45 PM 015 1:52 (specimen) EDT PM EDT Resulting Agency Comment Spec In Lab Lula Chang MD HEMATOLOGY ORDERABLES Performing Organization Address City/State/ZIP Code Phon e Number [place] [phone] CERNER MILLENNIUM (ABNORMAL) Hemogram (10/22/2014 1:45 PM EDT) P athologist Signature WBC 11.0 (H) 4.0 - 10.0 CERNER x10(3)/mcL MILLENNIUM RBC 4.08 3.93 - CERNER 5.22 MILLENNIUM x10(6)/mcL Hemoglobin 12.3 11.2 - CERNER 15.7 gm/dL MILLENNIUM Hematocrit 36.1 34.0 - CERNER 45.0 % MILLENNIUM MCV 88.5 79.0 - CERNER 94.0 fL MILLENNIUM MCH 30.1 26.6 - CERNER 32.2 pg MILLENNIUM MCHC 34.1 32.0 - CERNER 36.5 gm/dL MILLENNIUM Platelets 243 145 - 370 CERNER x10(3)/mcL MILLENNIUM RDWSD 39.1 35.0 - CERNER 46.0 fL MILLENNIUM RDWCV 12.1 10.9 - CERNER 14.4 % MILLENNIUM MPV 9.7 9.0 - 12.0 CERNER fL MILLENNIUM Specimen Anatomical Collection Method Collection Time Receive d Time (Source) Location / / Volume Laterality Blood specimen 10/22/2014 1:45 PM 015 1:52 (specimen) EDT PM EDT Resulting Agency Comment Spec In Lab Lula Chang MD HEMATOLOGY ORDERABLES Performing Organization Address City/State/[place] [address] CERNER ConcuityENNIUM XR abdomen 1 view (10/22/2014 11:46 AM EDT) Anatomical Region Laterality Modality Abdomen N/A Radiographic Imaging Specimen (Source) Anatomical Collection Method Collection Time Re ceived Time Location / / Volume Laterality 10/22/2014 11:46 AM EDT Impressions 10/22/2014 12:21 PM EDT IMPRESSION: No radiopaque retained foreign body iden tified. Results telephoned to the operating room at 11:50 AM. Narrative 10/22/2014 12:21 PM EDT EXAMINATION: ABDOMEN SINGLE VIEW/XPORT CLINICAL HISTORY: count verification Oth er pertinent information: emergent open abd PLEASE CALL OR 9 WITH RESULTS AT 3-3 109 TECHNIQUE: Supine abdomen portable in OR at 1130 hours. Retained object call [phone] COMPARISON: None FINDINGS: No radiopaque retained foreign body iden tified. Surgical skin kelsie, nasogastric tube overlying the left upper abdomen and metallic device overlying the lower left chest (arterial line on top of patient as per tech) are noted. Procedure Note Rosario Lee MD - 5 EXAMINATION: ABDOMEN SINGLE VIEW/XPORT CLINICAL HISTORY: count verification Oth er pertinent information: emergent open abd PLEASE CALL OR 9 WITH RESULTS AT 3-3 109 TECHNIQUE: Supine abdomen portable in OR at 1130 hours. Retained object call [phone] COMPARISON: None FINDINGS: No radiopaque retained foreign body iden tified. Surgical skin kelsie, nasogastric tube overlying the left upper abdomen and metallic device overlying the lower left chest (arterial line on top of patient as per tech) are noted. IMPRESSION IMPRESSION: No radiopaque retained foreign body iden tified. Results telephoned to the operating room at 11:50 AM. Marcela Godfrey MD IMG DX ORDERABLES (ABNORMAL) BLOOD GAS 2 ARTERIAL (10/22/2014 10:45 AM EDT) Analysis Performed At Patho logist Time Signature pH Art 7.35 (L) CERNER MILLENNIUM pCO2 Art 37 mmHg CERNER MILLENNIUM pO2 Art 146 (H) mmHg CERNER MILLENNIUM HCO3 Art 20.1 mmol/L CERNER MILLENNIUM BE Art -5.5 (L) mmol/L CERNER MILLENNIUM Hgb Blood Gas 12.5 gm/dL CERNER MILLENNIUM O2HB Art 97.7 (H) % CERNER MILLENNIUM COHB Art 0.9 % CERNER MILLENNIUM Comment: Nonsmokers: 0.5-1.5% COHB Smokers: Variable, but usually less than 10% Toxic: 20-30% COHB Lethal: Greater than 60% COHB METHB Art 0.1 % CERNER MILLENNIUM Na Whole Blood 134 (L) mmol/L CERNER MILLENNI UM K Whole Blood 3.5 mmol/L CERNER MILLENNIU M Comment: Please note: Patients with WBC >100,000 may have falsely elevated Potassium levels. Contact the Clinical Chemistry L aboratory if there are any questions. ICa Whole Blood 1.13 (L) mmol/L CERNER MILLENN IUM Comment: Note: ??Total bilirubin higher than 20 m g/dL may lead to falsely low ionized calcium. CL Whole Blood 107 mmol/L CERNER MILLENNI UM Gluc Whole Bld 172 mg/dL CERNER MILLENNI UM Comment: Diabetes: >=200 mg/dL plus symp toms. Specimen Anatomical Collection Method Collection Time Receive d Time (Source) Location / / Volume Laterality Blood specimen 10/22/2014 10:45 5 (specimen) AM EDT 10:45 AM EDT Marcela Godfrey MD CHEMISTRY ORDERABLES Performing Organization Address City/State/[place] [address] CERNER MILLENNIUM (ABNORMAL) BLOOD GAS 2 ARTERIAL (10/22/2014 9:34 AM EDT) Analysis Performed At Patho logist Time Signature pH Art 7.45 7.35 - CERNER 7.45 MILLENNIUM pCO2 Art 34 (L) 35 - 45 CERNER mmHg MILLENNIUM pO2 Art 463 (H) 85 - 104 CERNER mmHg MILLENNIUM HCO3 Art 23.4 20.0 - CERNER 26.0 MILLENNIUM mmol/L BE Art -0.5 -3.0 - 3.0 CERNER mmol/L [facility] Hgb Blood Gas 11.6 11.2 - CERNER 15.7 gm/dL [facility] O2HB Art 98.8 (H) 94.0 - CERNER 97.0 % MILLENNIUM COHB Art 0.4 % CERNER [facility] Comment: Nonsmokers: 0.5-1.5% COHB Smokers: Variable, but usually less than 10% Toxic: 20-30% COHB Lethal: Greater than 60% COHB METHB Art 0.2 <=1.5 % CERNER [facility] Na Whole Blood 136 135 - 145 mmol/L CERNER M ILLENNIUM K Whole Blood 3.5 3.5 - 5.0 mmol/L CERNER PR LLENNIUM Comment: Please note: Patients with WBC >100,000 may have falsely elevated Potassium levels. Contact the Clinical Chemistry L aboratory if there are any questions. ICa Whole Blood 1.15 1.15 - 1.33 mmol/L CERNE R MILLENNIUM Comment: Note: ??Total bilirubin higher than 20 m g/dL may lead to falsely low ionized calcium. CL Whole Blood 106 98 - 107 mmol/L [facility] LLENNIUM Gluc Whole Bld 157 65 - 199 mg/dL [facility] MIL LENNIUM Comment: Diabetes: >=200 mg/dL plus symp toms. Specimen Anatomical Collection Method Collection Time Receive d Time (Source) Location / / Volume Laterality Blood specimen Arterial Draw / 10/22/2014 9:34 AM 10/07 (specimen) Unknown EDT 11:23 AM EDT Resulting Agency Comment Spec In Lab Marcela Godfrey MD CHEMISTRY ORDERABLES Performing Organization Address City/State/[place] [address] [facility] Pathology Addendum Report (10/22/2014 9:08 AM EDT) [facility] gist Method Time Signature Addendum [facility] Report ? [facility] ? Provider: ?? MARCELA GODFREY ?? Pt. Name: ?? GOODWI N, ELVIA T ? Acc #: ?[id number] ?Pt. MRN: ?[id number] ? Col Date: ?? 5 ? /Sex: ?1960,(54 years),Female ? Rec Date: ?? 10/22/2014 ? LOC: ?1WST ? ADDENDUM REPORT ? ---Addendum Discussion--- ? Block ?Antibody ?Result (Positive/Negat leandro) ? A22 ?MLH1 ?Positive, intact nu clear staining ?MSH2 ?Positive, i ntact nuclear staining ?MSH6 ?Positive, i ntact nuclear staining ?PMS2 ?Positive, i ntact nuclear staining ? Interpretation: ? Immunostains for MLH1 , MSH2, MSH6 and PMS2 reveal intact nuclear staining ? in tumor cells. ??In a very small percentage of tumors, there may still be ? an underlying heredit yola defect in these DNA mismatch repair genes despite ? intact nuclear expres maricarmen of the protein in tumor cells. Genetic counseling ? and/or additional workup is indic ated in patients with a family history ? that meets current ? criteria for HNPCC screening. ? 10/31/14 ? LJT ? 10/31/14 Verified by: ? Paul ALVARADO, Molly Oconnell ? Pathologist ? (Electronic Si gnature) ? The attending pathologist whose signature appears o n this report has ? reviewed all diagnostic slides and has edited the zo ss and/or ? microscopic portion of the report in rendering the fi nal pathologic ? diagnosis. Specimen (Source) Anatomical Collection Method Collection Time Re ceived Time Location / / Volume Laterality 10/22/2014 9:08 AM EDT Marcela Godfrey MD PATHOLOGY/CYTOLOGY ORDERABLE S Performing Organization Address City/State/[place] [address] [facility] Surgical Pathology Report (10/22/2014 9:08 AM EDT) Component Value Ref Test Analysis Performed At [facility] gist Range Method Time Signature Surgical [facility] Pathology ? [facility] Report ? Provider: ?? MARCELA GODFREY ?? Pt. Name: ?? RAYMUNDO N, ELVIA T ? Acc #: ?[id number] ?Pt. MRN: ?[id number] ? Col Date: ?? 5 ? /Sex: ?1960,(54 years),Female ? Rec Date: ?? 10/22/2014 ? LOC: ?1WST ? SURGICAL PATHOLOGY ? ---Pathologic Diagnosis--- ? Specimen type: ?Uterus, cervix, bilateral ovaries and tubes, ? hysterectomy and bilateral salpingo-oophorectomy: ? 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 Architectural grade: ?2 ? Nuclear grade: ?2 ? Tumor size: ? Approximately 4.0 cm (grossly) ? Myometrial invasion ? (no invasion, <1/2, >1/2): ??No invasion ? Myometrial lymphovascular ?space invasion: ?Not identified ? Lower uterine segment ? involvement: ?Focal hyperplasia , no carcinoma ? Cervical involvement: ? Absent ?Cervical lymphovascular ? space invasion: ? Not identified ? Other: ?1. Background of simple - complex hyperplasia. ? 2. Adenomyo sis. ? 3. Ovaries and fallopian tubes, negative for ? malignancy. ? GYNTMRBLK-ENCA: A22, A26, A34, A45 ? GYNNRL-ENCA: A53 ? TNM Staging (AJCC, 7th ed., 2009): ? Primary tumor stage: ?pT1a [IA] (Tumor limited to endometrium or ?invades less than 1/2 of myometrial ?width) ? Regional lymph nodes: ? pNX ??(Cannot be assessed ) ? [facility] ? Provider: ?? MARCELA GODFREY ?? Pt. Name: ?? RAYMUNDO N, ELVIA T ? Acc #: ?[id number] ?Pt. MRN: ?[id number] ? Col Date: ?? 5 ? /Sex: ?1960,(54 years),Female ? Rec Date: ?? 10/22/2014 ? LOC: ?1WST ? SURGICAL PATHOLOGY ? CR-0 ? 10/25/14 ? LJT ? 10/30/14 Verified by: ? Paul ALVARADO, Molly Oconnell ? Pathologist ? (Electronic Si gnature) ? The attending pathologist whose signature appears o n this report has ? reviewed all diagnostic slides and has edited the zo ss and/or ? microscopic portion of the report in rendering the fi nal pathologic ? diagnosis. ? ---Microscopic Description--- ? Slides reviewed, microscopic description not recorded . ? ---Gross Description--- ? A - Labeled/Fixative: Uterus, cervix, bilateral ovaries and tubes, fresh. ? Qty/Size/Weight: Single, 9.5 x 8.5 x 3.0 cm. ? Specimen Description: Previously opened hysterectomy and bilateral ? salpingo-oophrectomy specimen. ? ENDOMETRIAL TUMOR ? Size: No definitive lesion is identified ? Qualitative Descripti on: On the anterior surface of the fundic endometrium ? there is a darker brown discoloration with granular a nd gelatinous ? consistency. ? Location: Anterior endometrium. ? Myometrial Invasion: Less than half. ? Cervical Lymphatic or Vascular invasion: Not identifi ed. ? UTERUS ? Endometrium: 4.5 x 3. 2 x 0.1 cm, light brown with areas of granularity and ? gelatinous consistency. There is no prominent lesions within the ? endometrium. ? Myometrium: Burden-brown muscular tissue, 1.3 cm in thickness, with two burden- ? white whorly lesions each measuring 1.8 x 1.6 x 1.5 cm and 1.8 x 1.7 x 1.3 ? cm. ? Serosa: Burden-pink smooth glistening with no gross lesi ons. ? Cervix: Burden-white smooth glistening with minute foci of hemorrhage, no ? gross lesion identified. ? OVARIES AND FALLOPIAN TUBES ? Right Ovary ? Size: 1.9 x 1.5 x 0.7 cm. ? Outer Surface: Burden-white firm cerebriform with are as of purple ? discoloration suggestive of hemorrhage. ? [facility] ? Provider: ?? MARCELA GODFREY ?? Pt. Name: ?? GOODYOUSIF N, ELVIA T ? Acc #: ?[id number] ?Pt. MRN: ?[id number] ? Col Date: ?? 5 ? /Sex: ?1960,(54 years),Female ? Rec Date: ?? 10/22/2014 ? LOC: ?1WST ? SURGICAL PATHOLOGY ? Cut Surface: Burden-del rio with circular yellow l esions consistent with ? follicles and an area of hemorrhage measuring 0.5 cm in diameter. ? Right Tube: 4.8 cm in length and 0.6 cm in diameter. ? Left Ovary ? Size: 2.3 x 1.9 x 0.7 cm. ? Outer Surface: Burden -white firm cerebriform ovarian tissue with no gross ? lesions. ? Cut Surface: Burden-white ovarian tissue with no geo s lesions. ? Left Tube: 5.5 cm in length and 0.5 cm in diameter. ? SECTIONS/PROCESSING: ??(1-2) frozen section remnants from full thickness ? section of posterior endometrium; (3) frozen section remnants from ? posterior lower uteri ne segment; (4) anterior cervix; (5) posterior cervix; ? (6-8) anterior lower uterine segment, cervical side is inked black; (9-10) ? posterior lower uterine segment, cervical side is ink ed black; (11) ? wireless sales representative sectio n of left ovary; (12) wireless sales representative section of left ? fallopian tube; (13) Section Gang Worker section of right ovary; (14) ? wireless sales representative sectio n of the right fallopian tube; (15-37) full-thickness ? posterior endometrium entirely submitted for hi stology; (38-55) full- ? thickness anterior en dometrium entirely submitted for histology. ??(R55) ??ah ? ---Clinical Information--- ? Specimen Submitted: ? A - Uterus, cervix, bilateral ovaries and tubes for f rozen section ? Clinical History: ? Endometrial cancer ? Clinical Diagnosis: ? Same Specimen (Source) Anatomical Collection Method Collection Time Re ceived Time Location / / Volume Laterality 10/22/2014 9:08 AM EDT Marcela Godfrey MD PATHOLOGY/CYTOLOGY ORDERABLE S Performing Organization Address City/State/[place] [address] [facility] Frozen Section Report (10/22/2014 9:08 AM EDT) Component Value Ref Test Analysis Performed At [facility] Range Method Time Signature Frozen CERNER Section ? [facility] Report ? Provider: ?? MARCELA GODFREY ?? Pt. Name: ?? RAYMUNDO N, ELVIA T ? Acc #: ?[id number] ?Pt. MRN: ?[id number] ? Col Date: ?? 5 ? /Sex: ?1960,(54 years),Female ? Rec Date: ?? 10/22/2014 ? LOC: ?SDA ? FROZEN SECTION REPORT ? ---Frozen Section Report--- ? AFS - Uterus and cervix for frozen section: ? 1. Focal hyperplasia, no definite tumor identified on gross or ? wireless sales representative section. ? 2. Lower uterine segment is not involved. ? 10/22/14 10:19 ? 10/22/14 ??Verified by: ??Paul ALVARADO, Molly Oconnell, Pathologmukund st ? The attending [facility] gist whose electronic signature appears on this report ? has reviewed all diagnostic slides in rendering the f rozen section ? diagnosis. ? This intraoperative consultation should be interpreted as a preliminary ? diagnosis pending review of the e ntire specimen and special studies, if ? any. Specimen (Source) Anatomical Collection Method Collection Time Re ceived Time Location / / Volume Laterality 10/22/2014 9:08 AM EDT Marcela Godfrey MD PATHOLOGY/CYTOLOGY ORDERABLE S Performing Organization Address City/State/ZIP Code Phon e Number [place] [phone] [facility] Specimen to Pathology (surgical or derm) (10/22/2014 9:08 AM EDT) Specimen Anatomical Collection Method Collection Time Receive d Time (Source) Location / / Volume Laterality AP Specimen 10/22/2014 9:08 AM 5 9:08 EDT AM EDT Narrative LINDSAY FRAGOSO - 10/22/2014 9:08 AM E DT Specimen requisition ordered. ??Separate Pathology report to follow Marcela Godfrey MD PATHOLOGY/CYTOLOGY ORDERABLE S Performing Organization Address City/State/[place] [address] LINDSAY FRAGOSO documented in this encounter Visit Diagnoses Diagnosis Endometrial cancer - Primary Malignant neoplasm of corpus uteri, exce pt isthmus documented in this encounter Administered Medications Inactive Administered Medications - up to 3 most recent administrations Medication Order MAR Action Action Date Dose Rate Site acetaminophen (OFIRMEV) Given 10/22/2014 2:49 PM 1,000 mg 400 mL/hr injection 1,000 mg EDT 1,000 mg, Intravenous, at 400 mL/hr, ONCE, 1 dose, On Tue10/22/14 at 1315, Maximum dose of acetaminophen is 4000 mg from all sources in 24 hours., PACU Recovery, Routine, Is ketorolac (TORADOL) IV contraindicated? Yes, Can this patient tolerate oral medications or suppositories? No acetaminophen (TYLENOL) tablet 1,000 mg Given 10/22/2014 7:00 AM EDT 1,000 mg 1,000 mg, Oral, 30 MIN PRE-OP, 1 dose, On Tue10/22/14 at 0000, Maximum dose of acetaminophen is 4000 mg from all sources in 24 hours., Routine acetaminophen (TYLENOL) tablet 650 mg Given 10/23/2014 10:49 PM EDT 650 mg 650 mg, Oral, EVERY 6 HOURS PRN, Starting on Tue10/22/14 at 1233, Until Simran 10/24/14 at 1703, Pain, Use acetaminophen first, Routine Given 10/23/2014 5:04 PM EDT 650 mg Given 10/23/2014 8:01 AM EDT 650 mg calcium carbonate (TUMS) chewable tablet 500 Given 12:34 PM EDT 500 mg mg 500 mg, Oral, DAILY PRN, Starting on Tue10/23/14 at 1419, Until Tue10/24/14 at 1703, Heartburn, Routine Given 10/23/2014 5:07 PM EDT 500 mg esomeprazole (NexIUM) capsule 40 mg Given 10/24/2014 9:25 AM EDT 40 mg 40 mg, Oral, DAILY, First dose on Tue10/23/14 at 0900, Until Discontinued, Routine Given 10/23/2014 8:01 AM EDT 40 mg gabapentin (NEURONTIN) capsule 600 mg Given 10/22/2014 7:01 AM EDT 600 mg 600 mg, Oral, 30 MIN PRE-OP, 1 dose, On Tue10/22/14 at 0000, Routine HYDROmorphone (DILAUDID) 1 mg/mL New Syringe/Cartridge 10/22/2014 1 2:30 PM EDT DIE PRESS OPERATOR 30 mL Intravenous, DIE PRESS OPERATOR ONLY, Starting on Tue10/22/14 at 1230, Until Tue10/23/14 at 0640 HYDROmorphone (DILAUDID) syringe 0.2-0.4 mg Given 10/22/2014 12:47 PM EDT 0.4 mg 0.2-0.4 mg, Intravenous, EVERY 5 MIN PRN, Pain, Starting on Tue10/22/14 at 1107, Until Tue10/23/14 at 0640, For moderate pain (4-6) give: 0.2 mg every 5 minute prn For severe pain (7-10) give: 0.4 mg every 5 minutes prn Maximum dose: 4 mg per hour Hold for respiratory rate less than 10 per minute. Given 10/22/2014 12:26 PM EDT 0.4 mg Given 10/22/2014 12:19 PM EDT 0.4 mg ibuprofen (ADVIL;MOTRIN) tablet 600 mg Given 10/24/2014 12:34 PM EDT 600 mg 600 mg, Oral, EVERY 6 HOURS, First dose on Tue10/23/14 at 1715, Until Discontinued, Administer orally with milk or food to minimize GI irritation, Routine Given 10/24/2014 5:28 AM EDT 600 mg Given 10/23/2014 10:49 PM EDT 600 mg lactated ringers infusion 1,000 New Bag 10/22/2014 11:30 AM ED T 1,000 mLs 100 mL/hr mL 1,000 mL, at 100 mL/hr, Intravenous, CONTINUOUS, Starting on Tue10/22/14 at 1130, Until Tue10/22/14 at 1826 lactated ringers infusion 1,000 New Bag 10/22/2014 7:15 AM EDT 1,000 mLs 100 mL/hr mL 1,000 mL, at 100 mL/hr, Intravenous, CONTINUOUS, Starting on Tue10/22/14 at 0715, Until Tue10/22/14 at 1451, Day of Surgery (Day of Procedure) lactated ringers infusion 1,000 New Bag 10/23/2014 5:50 AM EDT 1,000 mLs 100 mL/hr mL 1,000 mL, at 100 mL/hr, Intravenous, CONTINUOUS, Starting on Tue10/22/14 at 1230, Until Tue10/23/14 at 0743 New Bag 10/22/2014 9:27 PM EDT 1,000 mLs 100 mL/hr New Bag 10/22/2014 12:25 PM EDT 1,000 mLs 100 mL/hr levothyroxine (SYNTHROID) tablet 75 mcg Given 10/23/2014 7:14 AM EDT 75 mcg 75 mcg, Oral, DAILY, First dose on Tue10/23/14 at 0900, Until Discontinued, Routine levothyroxine (SYNTHROID) tablet 75 mcg Given 10/24/2014 5:29 AM EDT 75 mcg 75 mcg, Oral, DAILY, First dose (after last modification) on Tue10/23/14 at 0815, Until Discontinued, Routine magnesium sulfate 2 g in sterile water 50 Given 10/23/2014 8 :03 AM EDT 2 g 25 mL/hr mL 2 g, Intravenous, ONCE, 1 dose, On Tue10/23/14 at 0645, Administer over 120 Minutes meTOPROLOL tartrate (LOPRESSOR) tablet 2 5 mg Given 10/24/2014 9:24 AM EDT 25 mg 25 mg, Oral, EVERY 12 HOURS SCHEDULED (2 times per day), First dose on Tue10/22/14 at 2100, Until Discontinued, Hold for systolic blood pressure <100, diastolic blood pressure <40, Heart rate <50, Routine Given 10/23/2014 8:33 PM EDT 25 mg Given 10/23/2014 8:01 AM EDT 25 mg oxyCODONE (ROXICODONE) immediate release Given 10/23/2014 12:55 PM EDT 10 mg tablet 5-10 mg 5-10 mg, Oral, EVERY 4 HOURS PRN, Starting on Tue10/23/14 at 0639, Until Simran 10/24/14 at 1703, Pain, give 5mg for pain scale 4-6/10 and 10mg for pain scale >6/10, Routine Given 10/23/2014 8:02 AM EDT 5 mg scopolamine (TRANSDERM-SCOP) 1.5 mg patch 1 Given 10/07 7:15 AM EDT 1 patch patch 1 patch, Transdermal, ONCE, 1 dose, On Tue10/22/14 at 0715, Recovery (Recovery-Hospital Unit), Routine senna-docusate (PERICOLACE) 8.6-50 mg per Given 2014 9:25 AM EDT 2 tablets tablet 2 tablet 2 tablet, Oral, 2 TIMES DAILY, First dose on Tue10/22/14 at 2100, Until Discontinued, Routine Given 10/23/2014 8:35 PM EDT 2 tablets Given 10/23/2014 8:02 AM EDT 2 tablets sodium chloride 0.9 % flush 5 mL Given 10/22/2014 12:27 PM EDT 5 mLs 5 mL, Intravenous, EVERY 12 HOURS, First dose on Tue10/22/14 at 0715, Until Discontinued, Day of Surgery (Day of Procedure), Routine sodium chloride 0.9 % flush 5 mL Given 10/24/2014 9:25 AM EDT 5 mLs 5 mL, Intravenous, 2 TIMES DAILY, First dose on Tue10/22/14 at 2100, Until Discontinued, Routine Given 10/23/2014 9:00 PM EDT 5 mLs Given 10/23/2014 8:02 AM EDT 5 mLs documented in this encounter Active and Recently Administered Medications Times are shown in EDT. Scheduled Medication Order 10/22/2014 10/23/2014 10/24/2014 acetaminophen (OFIRMEV) injection 1,000 mg (CANCELED) 1449 (Given - Provider: Latonya Ruvalcaba RN - Comment: given in OR at 0700) 1,000 mg, Intravenous, at 400 mL/hr, ONC E, 1 dose, Tue10/22/14 at 1315, Maximum dose of acetaminophen is 4000 mg from all sources in 24 hours., PACU Recovery, Routine acetaminophen (TYLENOL) tablet 1,000 mg (COMPLETED) 00 00 (Due)0700 (Given - Provider: Hortensia Hayes RN) 1,000 mg, Oral, 30 MIN PRE-OP, 1 dose, T ue 10/22/14 at 0000, Maximum dose of acetaminophen is 4000 mg from all sources in 24 hours., Routine esomeprazole (NexIUM) capsule 40 mg (CANCELED) 08 (Given - Provider: Julissa Cruz RN) 0925 (Given - Provider: Opal Pena RN) 40 mg, Oral, DAILY, First dose on Tue at 0900, Until Discontinued, Routine gabapentin (NEURONTIN) capsule 600 mg (COMPLETED) 0000 (Due)07 (Given - Provider: Hortensia Hayes RN) 600 mg, Oral, 30 MIN PRE-OP, 1 dose, 10/22/14 at 0000, Routin e heparin (porcine) subcutaneous injection 5,000 Units ( COMPLETED) 817 (Given - Provider: Leonard Baer MD - Comment: left deltoid) 5,000 Units, Subcutaneous, ONCE, 1 dose, Tue10/22/14 at 0715, Day of Surgery (Day of Procedure), Routine ibuprofen (ADVIL;MOTRIN) tablet 600 mg 1 707 (Given - Provider: Julissa Cruz RN)2249 (Given - Provider: Adali Spears RN) 0528 (Given - Provider: Adali Spears, ASHLEE)1234 (Given - Provider: Opal Pena, ASHLEE) 600 mg, Oral, EVERY 6 HOURS, First dose on Tue10/23/14 at 1715, Until Discontinued, Administer orally with milk or food to minimize GI irritation, Routine levothyroxine (SYNTHROID) tablet 75 mcg (CANCELED) 0714 (Given - Provider: Lakisha Leo RN)0900 (Canceled Entry - Provider: Lakisha Leo RN - Reason: See comment - Comment: given at 0715.) 75 mcg, Oral, DAILY, First dose on Tue at 0900, Until Discontinued, Routine levothyroxine (SYNTHROID) tablet 75 mcg (CANCELED) 0815 (Not Given - Provider: Julissa Cruz RN - Reason: See comment - Comment: order already given) 05 (Given - Provider: Adali Spears, ASHLEE) 75 mcg, Oral, DAILY, First dose on Tue at 0815, Until Discontinued, Routine magnesium sulfate 2 g in sterile water 50 mL (COMPLETED) 802 (Given - Provider: Julissa Cruz, RN) 2 g, Intravenous, ONCE, 1 dose, Tue10/23/14 at 0645, for 120 Min utes meTOPROLOL tartrate (LOPRESSOR) tablet 25 mg (CANCELED ) 2025 (Not Given - Provider: Melinda Perez, ASHLEE - Reason: Contraindicated - Comment: SBP 98, HR 85. MD aware and med held per verbal order) 800 (Given - Provider: Julissa Cruz, ASHLEE)2032 (Given - Provider: Adali Spears, ASHLEE) 923 (Given - Provider: Opal Pena, RN) 25 mg, Oral, EVERY 12 HOURS SCHEDULED (2 times per day), First dose on Tue10/22/14 at 2100, Until Discontinued, Hold for systolic blood pressure <100, diastolic blood pressure <40, Heart rate <50, Routine scopolamine (TRANSDERM-SCOP) 1.5 mg patch 1 patch (COM PLETED) 714 (Given - Provider: Hortensia Hayes, ASHLEE) 1 patch, Transdermal, ONCE, 1 dose, Tue10/22/14 at 0715, Recovery (Recovery- Hospital Unit), Routine senna-docusate (PERICOLACE) 8.6-50 mg per tablet 2 tab let 2028 (Given - Provider: Melinda Perez, ASHLEE) 801 (Given - Provider: Julissa Cruz, ASHLEE)2034 (Given - Provider: Adali Spears, ASHLEE) 09 (Given - Provider: Opal Pena, ASHLEE) 2 tablet, Oral, 2 TIMES DAILY, First dos e on Tue10/22/14 at 2100, Until Discontinued, Routine sodium chloride 0.9 % flush 5 mL (CANCELED) 1226 (Give n - Provider: Latonya Ruvalcaba, ASHLEE) 5 mL, Intravenous, EVERY 12 HOURS, First dose on Tue10/22/14 at 0715, Until Discontinued, Day of Surgery (Day of Procedure), Routine sodium chloride 0.9 % flush 5 mL (CANCELED) 2030 (Give n - Provider: Melinda Perez, RN) 0802 (Given - Provider: Julissa Cruz, RN)2100 (Given - Provider: Adali Spears, ASHLEE) 0925 (Given - Provider: Opal Pena, RN) 5 mL, Intravenous, 2 TIMES DAILY, First dose on 10/22/14 at 2100, Until Discontinued, Routine Continuous Medication Order 10/22/2014 10/23/2014 10/24/2014 HYDROmorphone (DILAUDID) 1 mg/mL DIE PRESS OPERATOR 30 mL (CANCELED) 1230 (New Syringe/Cartridge - Provider: Latonya Ruvalcaba, RN) 0951 (Stopped - Provider: Julissa Cruz, RN) Intravenous, DIE PRESS OPERATOR ONLY, Starting 10/22/14 at 1230, Until W ed 10/23/14 at 0640 lactated ringers infusion 1,000 mL (CANCELED) 1130 (Ne w Bag - Provider: Latonya Ruvalcaba RN) 1,000 mL, at 100 mL/hr, Intravenous, CON TINUOUS, Starting 10/22/14 at 1130, Until 10/22/14 at 1826 lactated ringers infusion 1,000 mL (CANCELED) 0715 (Ne w Bag - Provider: Hortensia Hayes RN) 1,000 mL, at 100 mL/hr, Intravenous, CON TINUOUS, Starting 10/22/14 at 0715, Until 10/22/14 at 1451, Day of Surgery (Day of Procedure) lactated ringers infusion 1,000 mL (CANCELED) 1225 (Ne w Bag - Provider: Latonya Ruvalcaba RN)2127 (New Bag - Provider: Melinda Perez, RN) 0550 (New Bag - Provider: Melinda Perez, RN) 1,000 mL, at 100 mL/hr, Intravenous, CON TINUOUS, Starting 10/22/14 at 1230, Until 10/23/14 at 0743 PRN Medication Order 10/22/2014 10/23/2014 10/24/2014 acetaminophen (TYLENOL) tablet 650 mg (CANCELED) 2028 (Given - Provider: Melinda Perez, ASHLEE) 0801 (Given - Provider: Julissa Cruz RN)1704 (Given - Provider: Julissa Cruz, RN)2249 (Given - Provider: Adali Spears, ASHLEE) 650 mg, Oral, EVERY 6 HOURS PRN, Startin g Tue10/22/14 at 1233, Until Tue10/24/14 at 1703, Pain, Use acetaminophen first, Routine BUpivacaine (PF) (MARCAINE) 0.5 % (5 mg/mL) injection (CANCELED) 0903 (Given - Provider: Marcela Godfrey MD) ONCE PRN, Starting Tue10/22/14 at 0903, Until Tue10/22/14 at 1451, Intra- Operative (Intra-Procedure), Routine calcium carbonate (TUMS) chewable tablet 500 mg (CANCELED) 1707 (Given - Provider: Julissa Cruz RN) 1234 (Given - Provider: Opal Pena, ASHLEE) 500 mg, Oral, DAILY PRN, Starting Tue at 1419, Until Tue10/24/14 at 1703, Heartburn, Routine HYDROmorphone (DILAUDID) syringe 0.2-0.4 mg (CANCELED) 1219 (Given - Provider: Alex Marcus RN)1226 (Given - Provider: Latonya Ruvalcaba, ASHLEE)1247 (Given - Provider: Latonya Ruvalcaba RN) 0.2-0.4 mg, Intravenous, EVERY 5 MIN PRN , Starting Tue10/22/14 at 1107, Until Tue10/23/14 at 0640, Pain, For moderate pain (4-6) give: 0.2 mg every 5 minute prn For severe pain (7-10) give: 0.4 mg every 5 minutes prn Maximum dose: 4 mg per ho ur Hold for respiratory rate less than 10 per minute., Routine oxyCODONE (ROXICODONE) immediate release tablet 5-10 mg 0802 (Given - Provider: Julissa Cruz RN)1255 (Given - Provider: Julissa Cruz RN) 5-10 mg, Oral, EVERY 4 HOURS PRN, Starti ng Tue10/23/14 at 0639, Until Tue10/24/14 at 1703, Pain, give 5mg for pain scale 4-6/10 and 10mg for pain scale >6/10, Routine documented in this encounter Care Teams Label Pinker Relationship Specialty Start Date End Date None PCP - General 03/07/14 06/23/16 None documented as of this encounter
--- OUTSIDE RECORDS SUMMARY | 2022-02-19 02:04 | XMS_ITS | Encounter Summary ---
:1960 Author Organization [facility] [address] Care Team Providers Name Role Phone Arleth Cueva APRN Primary Care Provider Encounter Details Date Type Department Care Team Description 11/03/2017 Ancillary Procedure Radiology Library at Arleth Cueva APRN [facility] [id number] [place] [address] (Wo rk) [phone] Social History Tobacco Use Types Packs/Day Years [...] Name Priority Date/Time Associated Diagnosis Comme nts FILM LIBRARY Routine 11/03/2017 12:00 AM Results for this STORAGE ONLY MAMMO EDT procedure are in the results section. documented in this encounter Results Film Library- Storage Only Mammo (11/03/2017 12:00 AM EDT) Specimen (Source) Anatomical Location Collection Method / Collectio n Time Received Time / Laterality Volume Narrative [facility] - 05/26/2021 9:21 AM EST This exam is auto-finalizing. It's purpo se is for storage only. Arleth Cueva APRN IMG FILM LIBRARY ORDERABLES Performing Organization Address City/State/ZIP Code Phon e Number RAD [place], [place] documented in this encounter Visit Diagnoses Not on filedocumented in this encounter Care Teams Stone Driller Helper Relationship Specialty Start Date End Date Arleth Cueva APRN PCP - General Family Medicine 06/24/[address] [place] [address] documented as of this encounter
--- OUTSIDE RECORDS SUMMARY | 2022-02-19 02:04 | XMS_ITS | Encounter Summary ---
:1960 Author Organization [facility] [place] [address] Care Team Providers Name Role Phone None Primary Care Provider Unavailable Encounter Details Date Type Department Care Team Description 10/30/2014 Multidisciplinary Care Gynecology Oncology [place], [place] [facility] [place] Hien Vines APRN [facility] [address], [place] [id number] [phone] Social History Tobacco Use Types Packs/Day Years [...] documented as of this encounter Progress Notes Hien Joe, YUVAL - 10/30/2014 5:43 PM EDT [facility] On[facility] - Tumor Board Note Date Presented: 10/30/2014 Presenting Physician: Dr. Godfrey Diagnosis/Tumor Site:endometrium Synopsis of History/HPI: History of abnormal uterine bleeding. PCP referred for pelvic ultrasound which showed endometrium is ill defined and heterogeneous in appearance. 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 Problem List (Comorbidities): Patient Active Problem List Diagnosis Code ??? Breast mass 611.72 ??? Near syncope 780.2 ??? SVT (supraventricular tachycardia) 427.89 ??? Hyperlipemia 272.4 ??? Migraine headache 346.90 ??? Hypothyroidism 244.9 ??? Endometrial cancer 182.0 Imagin09/02/14 Ultrasound - Transvaginal - Summary 1. Normal thickness endometrium for a menstruating woman, no associated vascularity, however endometrium is ill defined and heterogeneous in appearance. In the clinical setting of abnormal bleeding, consider gynecologic consultation. 2. Diffusely heterogeneous myometrial echogenicity suggestive of adenomyosis, which could be better characterized by MR. One discrete measurable fibroid identified, measuring approximately 3 cm. 3. Normal ovaries. Pathology: Endometrioid endometrial carcinoma Stage 1a, grade 2 Clinical Data (Exams, Labs, etc.):09/16/14 endometrial biopsy Endometrial carcinoma, endometrioid type, FIGO II, with extensive squamous differentiation. Clinical Trial Availability: none Recommendations: Observation only DISCLAIMER: The patient was discussed and the tumor board made recommendations but it is ultimately up to the treatment provider(s) and the patient to determine the patient???s care. documented in this encounter Plan of Treatment Not on filedocumented as of this encounter Visit Diagnoses Not on filedocumented in this encounter Care Teams Technician Relationship Specialty Start Date End Date None PCP - General 03/07/14 06/23/16 None documented as of this encounter
--- OUTSIDE RECORDS SUMMARY | 2022-02-19 02:04 | XMS_ITS | Encounter Summary ---
:1960 Author Organization [facility] [place] [address] Care Team Providers Name Role Phone None Primary Care Provider Unavailable Reason for Visit Reason Comments Psoriasis Encounter Details Date Type Department Care Team Description 03/21/2015 [facility] [address] [place] [address] [facility] [place], [place] [address] Social History Tobacco Use Types [...] documented as of this encounter Progress Notes Aamir Arcos LPN - 03/21/2015 10:45 AM EST Chief Complaint: Psoriasis History of Present Illness Usha Huizar is a 54 y.o. female. History of psoriasis for approximately 30 years. She was well controlled up until a few months ago when she started to flare all over. Severe pruritus and spreading rash. Started soon after hysterectomy for uterine cancer in Oct 2014. Currently using OTC moisturizers. Previously treated with triamcinolone, clobetasol - says they didn't work - and has used tanning beds a few times a year for control in the past. No new medications in the last few months. Never been biopsied. ? Denies Skin Cancer History No personal history of skin cancer. No family history of skin cancer. Allergies Allergies Allergen Reactions ??? Shellfish Containing Products Angioedema ??? Pollen Extracts Stuffy head headache. Medications ibuprofen (ADVIL;MOTRIN) 600 mg Tablet; senna-docusate (PERICOLACE) 8.6-50 mg Tablet; meTOPROLOL tartrate (LOPRESSOR) 25 mg Tablet; ferrous sulfate 325 mg (65 mg iron) Tablet, Delayed Release (E.C.); acetaminophen (TYLENOL) 325 mg Tablet; hydrochlorothiazide (HYDRODIURIL) 25 mg tablet; simvastatin (ZOCOR) 20 mg tablet; levothyroxine (SYNTHROID) 75 mcg tablet Review of Systems Significant for no fevers, chills, night sweats, or fatigue and no other pertinent and acute changesin constitutional, other skin, HEENT, gastrointestinal, respiratory, cardiovascular, genitourinary, lymphatic, musculoskeletal, endocrine, neurologic, psychiatric, allergy/immunology systems upon specific queries. Past Medical History Hypertension Hypothyroid High cholesterol Uterine cancer s/p hysterectomy October 2014 Past Surgical History Hysterectomy Ablation Loop recorder Family Medical History Hypertension High cholesterol Diabetes Stroke Heart disease Social History Marital Status: Children: 2 Occupation: Unemplyoed Tobacco: Former smoker (1987) Alcohol: Occasionally Examination Standby: AAMIR ARCOS LPN Pain 0/10. Mood is appropriate. Well developed, well-nourished in no apparent distress, alert and oriented to time, person, place and situation. Skin Type: II. Examination of the head - including the scalp face, ears, nose, lips - neck, chest, abdomen, back, axillae, upper and lower extremities, including the nail plates, significant for the following: - multiple guttate >1 to 3cm red silvery scaly plaques -some eroded- on the chest, back, trunk, extremities; red well demarcated silvery scaly 3-5cm plaques on the lower extremities and elbows; pinkscaly 3-5cm patches on the palms. No nail involvement. Total BSA 3-4%. Assessment and Plan Psoriasis Total BSA: 3-4%. No joint symptoms. Guttate and small plaques make treatment difficult with topical therapy alone. Clobetasol, she thinks, did not work. Extensively Counseled (2530min appointment): psoriasis, etiologies, noncutaneous associations (including CVD with increased mortality, arthritis, etc???), triggers (including tobacco, alcohol, stress),treatment options, as well as risks and benefits of topical and intralesional steroids, phototherapy, and systemics. Answered all questions. Patient very concerned about cancer risks a/w systemic anti-inflammatories and side effects a/w systemics and the costs a/w light therapy three times a week. However, she is also seeking fast relief. ?? Recommend phototherapy with NBUVB 3 times per week. Counseled: risks and benefits of NBUVB. Will refer to Dr. Damon in [place]. Patient to consider.Discussed use of tanning salons extensively. ?? Start betamethasone cream 60g to large plaques for now. Counseled: risks of topical steroids, including but not limited to atrophy, dyspigmentation. Consider punch biopsy in the future. Follow-up: in 8 weeks or sooner as needed for worsening or new dermatitis. I am documenting this encounter acting as the scribe for and in the presence of Dr. Santos: AAMIR ARCOS LPN I performed the above scribed service and agree with the accuracy of the documentation in this encounter. Barrie Santos MD [facility] Section of Dermatology [facility] documented in this encounter Plan of Treatment Not on filedocumented as of this encounter Visit Diagnoses Diagnosis Psoriasis - Primary Other psoriasis documented in this encounter Care Teams Slip Injector And Applicator Relationship Specialty Start Date End Date None PCP - General 03/07/14 06/23/16 None documented as of this encounter
--- OUTSIDE RECORDS SUMMARY | 2022-02-19 02:04 | XMS_ITS | Encounter Summary ---
:1960 Author Organization [place] [address] Care Team Providers Name Role Phone None Primary Care Provider Unavailable Reason for Visit Auth/Cert Specialty Diagnoses / Procedures Referred By Contact Refer red To Contact Diagnoses svt Procedures PRO ELECTROPHYS EV, R A-V PACE/REC, W/O INDUCT ELECTROPHYSIOLOGY PROCEDURE Referral ID Status Reason Start Date Expiration Date Visits Requ ested Visits Authorized [id number] 1 1 Encounter Details Date Type Department Care Team Description 10/15/2015 Hospital Encounter Same Day Program at [facility] [address] [place] [address] [place] [address] [phone] (Wo rk) Social History Tobacco Use Types [...] Sign Reading Time Taken Comments Blood Pressure 128/74 10/15/2015 8:36 AM EDT Pulse 59 10/15/2015 8:36 AM EDT Temperature 36.4 ??C (97.5 ??F) 10/15/2015 8:36 AM EDT Respiratory Rate 16 10/15/2015 8:36 AM EDT Oxygen Saturation 99% 10/15/2015 8:36 AM EDT Inhaled Oxygen Concentration - - Weight 109.3 kg (241 lb) 10/15/2015 6:09 AM EDT Height 167.6 cm (5' 6) 10/15/2015 6:09 AM EDT Body Mass Index 38.9 10/15/2015 6:09 AM EDT documented in this encounter Discharge Instructions Patient InstructionsJulieth Campos MD - 10/15/2015 8:39 AM EDT WOUND CARE Your wound will usually heal in 7-10 days. Your wound may be tender, it may appear slightly red and bumpy and there may be dry, crusty scabbing. These are all normal. Follow the instructions that follow to care for your wound. ?? Either you or someone with you needs to look at the wound everyday. ?? Inspect the wound for signs of infection which can be drainage, swelling, warmth or increased pain or redness. ?? Notify your doctor if your temperature is 99 degrees or higher. ?? If you are concerned about an infection in your wound or if the edges of the wound separate, callyour doctor. ?? A needle should not be put into the wound area because this can damage the pacemaker lead. You may need to remind your health-care provider of this concern. ?? The sutures will dissolve on their own. ?? Do not scratch or rub the wound. ?? Do not apply any creams, lotions or ointments on the wound until it is completely healed. ?? You have a special dressing on the wound (Mepilex or Acticoat), this should stay in place for 1 week (if the dressing falls off before then, you should not worry). You may cover the wound with gauzeif it rubs on clothing and causes you discomfort, but please change the gauze daily. ?? Do not shower for 48 hours after implant. ?? While in the shower, turn your back to the water nozzle so you avoid direct water pressure on thewound. You should continue this for 7 - 10 days. ?? You may take a tub bath, but keep the wound above the water level in the tub until the scab is gone. This usually takes 7 - 10 days. Avoid swimming until the same occurs ?? Medical adhesive (glue) was used on the wound, do not wash the wound with soap for 7 days. How to Care for Your Wound After It???s Treated With DERMABOND?? Topical Skin Adhesive DERMABOND?? Topical Skin Adhesive (2-octyl cyanoacrylate) is a sterile, liquid skin adhesive that holds wound edges together. The film will usually remain in place for 5 to 10 days, then naturally sloughs (fall) off your skin. The following will answer some of your questions and provide instructions for proper care for your wound while it is healing: CHECK WOUND APPEARANCE ?? Some swelling, redness, and pain are common with all wounds and normally will go away as the wound heals. If swelling, redness, or pain increases or if the wound feels warm to the touch, contact a doctor. Also contact a doctor if the wound edges reopen or separate. BANDAGING ?? If your wound is bandaged, keep the bandage dry. ?? Replace the dressing daily until the adhesive film has fallen off or if the bandage should becomewet, unless otherwise instructed by your physician. ?? When changing the dressing, do not place tape directly over the DERMABOND?? adhesive film, because removing the tape later may also remove the film. AVOID TOPICAL MEDICATIONS ?? Do not apply liquid or ointment medications or any other product to your wound while the DERMABOND?? adhesive film is in place. These may loosen the film before your wound is healed. KEEP WOUND DRY AND PROTECTED ?? You may occasionally and briefly wet your wound in the shower or bath. Do not soak or scrub your wound, do not swim, and avoid periods of heavy perspiration until the DERMABOND?? adhesive has naturally fallen off. After showering or bathing, gently blot your wound dry with a soft towel. If a protective dressing is being used, apply a fresh, dry bandage, being sure to keep the tape off the DERMABOND?? adhesive film. ?? Apply a clean, dry bandage over the wound if necessary to protect it. ?? Protect your wound from injury until the skin has had sufficient time to heal. ?? Do not scratch, rub, or pick at the DERMABOND?? adhesive film. This may loosen the film before your wound is healed. ?? Protect the wound from prolonged exposure to sunlight or tanning lamps while the film is in place. If you have any questions or concerns about this product, please consult your doctor. documented in this encounter Medications at Time [...] by 0 tablet mouth nightly. levothyroxine (SYNTHROID) Take 75 mcg by 0 75 mcg tablet mouth daily. ibuprofen (ADVIL;MOTRIN) Take 1 tablet by 50 tablet 0 10/24 600 mg Tablet mouth every 6 hours as needed for Pain. folic acid (FOLVITE) 1 mg Take 1 mg by mouth 0 06/24/2016 Tablet daily. methotrexate 2.5 mg Tablet Take by mouth once 0 03/22/2016 a week. calcipotriene (DOVONEX) Apply topically to 120 g 0 06/0904/27/2016 0.005 % CreamIndications: trunk and Psoriasis extremities twice a day as needed, Tuesday - Tuesday betamethasone dipropionate Apply topically to 90 g 1 0 06/26/2015 04/27/2016 (DIPROLENE) 0.05 % affected areas on CreamIndications: Psoriasis the trunk and extremities twice daily as needed, Tuesday and Tuesday documented as of this encounter H&P Notes Julieth Campos MD - 10/15/2015 7:21 AM EDT H&P Update Reviewed the office note from 09/25/15, today's vitals and lab data and examined Usha Huizar. No changes to the original note. Risks, benefits and postoperative care has been discussed to the patient's understanding. JULIETH CAMPOS MD documented in this encounter Plan of Treatment Not on filedocumented as of this encounter Visit Diagnoses Not on filedocumented in this encounter Administered Medications Inactive Administered Medications - up to 3 most recent administrations Medication Order MAR Action Action Date Dose Rate Site BUpivacaine (PF) (MARCAINE) 0.5 % Given 10/15/2015 8:06 AM EDT 1 50 mg (5 mg/mL) injection 150 mg 150 mg (30 mL), Subcutaneous, ONCE, 1 dose, On Tue10/15/15 at 0815, For use in the electrophysiology lab (EP lab) only for procedural sedation with direct provider supervision and verbal order., EP (Intra-Procedure), Routine lidocaine (XYLOCAINE) 20 mg/mL (2 %) Given 10/15/2015 8:06 AM ED T 400 mg injection 400 mg 400 mg (20 mL), Subcutaneous, ONCE, 1 dose, On Tue10/15/15 at 0815, For use in the electrophysiology lab (EP lab) only for procedural sedation with direct provider supervision and verbal order., EP (Intra-Procedure), Routine neomycin-polymyxin B (NEOSPORIN) irrigation Given 10/15/2015 8:0 8 AM EDT solution Irrigation, ONCE, On Tue10/15/15 at 0815, 1 dose, For use in the electrophysiology lab (EP lab) only for procedural sedation with direct provider supervision and verbal order., EP (Intra-Procedure) documented in this encounter Active and Recently Administered Medications Times are shown in EDT. Scheduled Medication Order 10/13/2015 10/14/2015 10/15/2015 BUpivacaine (PF) (MARCAINE) 0.5 % (5 mg/mL) injection 150 mg (CO MPLETED) 805 (Given - Provider: Genoveva Giles RN)0815 (Due) 150 mg (30 mL), Subcutaneous, ONCE, 1 do se, Tue10/15/15 at 0815, For use in the electrophysiology lab (EP lab) only for procedural sedation with direct provider supervision and verbal order., EP (Intra-Procedure), Routine lidocaine (XYLOCAINE) 20 mg/mL (2 %) injection 400 mg (COMPLETED ) 805 (Given - Provider: Genoveva Giles RN) 400 mg (20 mL), Subcutaneous, ONCE, 1 do se, Tue10/15/15 at 0815, For use in the electrophysiology lab (EP lab) only for procedural sedation with direct provider supervision and verbal order., EP (Intra-Procedure), Routine neomycin-polymyxin B (NEOSPORIN) irrigation solution (COMPLETED) 807 (Given - Provider: Genoveva Giles RN) Irrigation, ONCE, Tue10/15/15 at 0815, Fo r 1 dose, For use in the electrophysiology lab (EP lab) only for procedural sedation with direct provider supervision and verbal order., EP (Intra-Procedure) PRN Medication Order 10/13/2015 10/14/2015 10/15/2015 acetaminophen (TYLENOL) tablet 650 mg 650 mg, Oral, EVERY 4 HOURS PRN, Startin g Tue10/15/15 at 0840, Until Tue10/15/15 at 1047, Pain, Fever, Mild to moderate pain, Administer for mild to moderate pain. (maximum daily dose 4 gm), Recovery (Recovery-Hospital Unit), Routine documented in this encounter Care Teams Woodyard Crane Operator Relationship Specialty Start Date End Date None PCP - General 03/07/14 06/23/16 None documented as of this encounter
--- OUTSIDE RECORDS SUMMARY | 2022-02-19 02:04 | XMS_ITS | Encounter Summary ---
:1960 Author Organization [facility] Address [facility] [place] [address] Care Team Providers Name Role Phone Arleth Cueva APRN Primary Care Provider Reason for Visit Reason Comments Established Annual Exam Encounter Details Date Type Department Care Team Description 09/12/2017 Office Visit Gynecology Oncology Hien Joe Sta ge 1A Grade II [facility] [place] Endometrial cancer, [facility] s/p robotic hyst/ BSO [address] DR complicated by lorena Sotelo, [place] [id number] 6 trocar injury 10/22/14 [id number] [phone] Social History Tobacco Use Types Packs/Day Years [...] Sign Reading Time Taken Comments Blood Pressure 131/73 09/12/2017 1:28 PM EDT Pulse 72 09/12/2017 1:28 PM EDT Temperature 36.1 ??C (97 ??F) 09/12/2017 1:28 PM EDT Respiratory Rate 16 09/12/2017 1:28 PM EDT Oxygen Saturation 99% 09/12/2017 1:28 PM EDT Inhaled Oxygen Concentration - - Weight 118 kg (260 lb 2.3 oz) 09/12/2017 1:28 PM EDT Height 165 cm (5' 4.96) 09/12/2017 1:28 PM EDT Body Mass Index 43.34 09/12/2017 1:28 PM EDT documented in this encounter Progress Notes Hien Joe, PRISONER CLASSIFICATION INTERVIEWER - 09/12/2017 1:30 PM EDT Division of Gynecologic Oncology [place] [phone] Reason For Visit: Post Treatment Surveillance Exam History of Present Illness: Usha Huizar is a 56 y.o. woman who presents today for surveillance exam. She has a hx of Stage 1A Grade II Endometrioid Adenocarcinoma. On 10/22/14 she underwent a robotic hysterectomy and BSO that was complicated by a mesenteric trochar injury.?? She was converted to laparotomy and vascular surgery was called in, no major vascular injury was discovered. Interim Health: Feeling overall alright, though her sciatica seems to be worsening and is now interfering with her ability to do things. Otherwise, no new medical issues, surgeries or hospitalizations.No HOUSEKEEPER HEAD questions/concerns today. ROS: No Fever, chills, nausea, vomiting, diarrhea No Pelvic/abdominal pain or bloating. No Bowel/bladder concerns or changes. Energy level is lower No Vaginal bleeding or discharge No lower extremity edema, though tends to have some swelling with the heat. Weight is up Reports appetite is good No cough or chest pain. Occasional SOB with exertion which she attributes to d/t deconditioning and weight gain Sexual function: Sexually active without problems. Advanced Directives: reviewed, given booklet and recommended to complete and return Health Habits: Tobacco: Non-smoker ETOH: none Exercise: nothing formal, tries to do sciatic stretches/exercise, but otherwise limited d/t sciatic nerve pain. Health Maintenance: Mammogram: due to schedule, done 2016. Colonoscopy: Done 03/2016 at [facility] Social History: Lives with her . They [...] I10 ??? Sciatica of right side M54.31 Past Surgical History: Procedure Laterality Date ??? ABLATION OF DYSRHYTHMIC FOCUS ??? FINGER SURGERY ??? HYSTERECTOMY ??? ORTHOPEDIC SURGERY cyst removed from bone in pelvis ??? PRO EXPLORATORY RETROPERITONEAL N/A 10/22/2014 @EXPLORATION RETROPERITONEAL W OR W\O BIOPSY performed by Yoselyn Yip MD at [facility] ? ? PRO LAPAROSCOPY W TOT HYSTERECTUTERUS <=250 GRAM W TUBE/OVARY N/A 10/22/2014 LAPAROSCOPY,TOTAL HYST, UTERUS<250GM, DERRICK TYBE &/OR OVARY, ROBOTIC ASSIST performed by Marsha Godfrey MD at [facility] ??? PRO SLING OPER STRES INCONTINENCE 09/20/2012 URETHRAL SUSPENSION, SLING\FASCIA OR SYNTHETIC performed by Jozef Kent MD at [facility] Allergies Allergen Reactions ??? Shellfish Containing Products Angioedema ??? Pollen Extracts Stuffy head headache. Current Outpatient Prescriptions on File Prior to Visit Medication Sig Dispense Refill ??? naproxen (NAPROSYN) 250 mg Tablet TAKE ONE TABLET BY MOUTH FOUR TIMES A DAY 1 ??? clindamycin (CLEOCIN T) 1 % Solution Apply to upper chest twice daily after washing 60 mL 3 ??? betamethasone dipropionate (DIPROLENE) 0.05 % Cream Apply to psoriasis twice daily, prn back andelbows 45 g 5 ??? tiZANidine (ZANAFLEX) 2 mg Tablet Take 1 tablet by mouth as needed. 0 ??? acetaminophen-codeine (TYLENOL #3) 300-30 mg Tablet Take 1 tablet by mouth as needed. 1 ??? methotrexate 2.5 mg Tablet Take 6 tablets by mouth once a week (15 mg) 78 tablet 0 ??? folic acid (FOLVITE) 1 mg Tablet Take one tablet every day except day of Methotrexate dosing. 90tablet 3 ??? aspirin 81 mg Tablet, Chewable Take 81 mg by mouth daily. ??? ibuprofen (ADVIL;MOTRIN) 600 mg Tablet Take [...] file prior to visit. Vital Signs: BP 131/73 (Patient Position: Standing) Pulse 72 Temp 36.1 ??C (97 ??F) (Tympanic) Resp 16 Ht 165 cm (5' 4.96) Wt 118 kg (260 lb 2.3 oz) LMP 10/20/2014 SpO2 99% BMI 43.34 kg/m2 PHYSICAL EXAM: Gen: Pleasant, NAD, Alert, appears well HEENT: No clavicular adenopathy or thyromegaly. Lungs: [...] No appreciable masses, nodularity or tenderness. Rectovaginal exam: limited secondary to large amount of stool in vault. No appreciable masses or tenderness. ASSESSMENT/PLAN: Usha Huizar is a 56 y.o. woman who is post treatment of stage 1A Grade II endometrioid adenocarcinoma. She has no evidence of recurrent disease. We reviewed signs and symptoms of recurrent disease.Reviewed SGO surveillance guidelines, she will RTC 1 year for surveillance exam, she will call/rtc sooner prn with questions/concerns. She will schedule mammogram locally. Hien Joe APRN documented in this encounter Plan of Treatment Not on filedocumented as of this encounter Visit Diagnoses Diagnosis Stage 1A Grade II Endometrial cancer, s/ p robotic hyst/ BSO complicated by a trocar injury 10/22/14 Malignant neoplasm of corpus uteri, exce pt isthmus documented in this encounter Care Teams Head Of Visual Merchandising Relationship Specialty Start Date End Date Arleth Cueva APRN PCP - General Family Medicine 06/24/[address] [place] [address] [address] [place] [address] documented as of this encounter
--- OUTSIDE RECORDS SUMMARY | 2022-02-19 02:04 | XMS_ITS | Encounter Summary ---
:1960 Author Organization [facility] [place] [address] Care Team Providers Name Role Phone None Primary Care Provider Unavailable Reason for Visit Reason Comments Follow-up Encounter Details Date Type Department Care Team Description 09/01/2015 Office Visit Dermatology at [facility] Kp Damon MD Psoriasis [address] [facility] [address] [place] [address] DERMATOLOGY [phone] [place], [place] [address] (Wo rk) Social History [...] encounter Progress Notes Kp Damon MD - 09/01/2015 11:01 AM EDT Problem: Followup psoriasis, status post one month of methotrexate. Usha follows up and has seen early improvement. She has been tolerating the methotrexate reasonably well but feels wiped out the day after her Tuesday dosing, namely Mondays. She has not yet had labs done. Physical examination today reveals a pleasant 54-year-old woman who still has thin plaques of psoriasis, quarter-size in diameter, present widely over her back. She has thinning patches on the elbows and knees, over her dorsal arms, forearms. She has some on her shins. She has no pitting of her nails. Assessment and Plan: Psoriasis, widespread, in a 54-year-old woman with slow early improvement, status post one month of therapy. a. Recommend that we continue methotrexate at current dosing. Discussed the fact that she should acclimate to this and that I think that the feeling wiped out issue will improve. Dispensed #78 for a three-month supply with zero refills. b. Continue folate 1 mg p.o. q.day every day of the week except for Sundays, her methotrexate dosing day. c. Check labs today. Return to clinic in another three months for repeat check. d. Note: Hope to be able to taper the patient down and off of methotrexate once her skin is clear. COPY: Jackie Gee M.D. documented in this encounter Plan of Treatment Not on filedocumented as of this encounter Visit Diagnoses Diagnosis Psoriasis Other psoriasis documented in this encounter Care Teams Manual Winder Relationship Specialty Start Date End Date None PCP - General 03/07/14 06/23/16 None documented as of this encounter
--- OUTSIDE RECORDS SUMMARY | 2022-02-19 02:04 | XMS_ITS | Encounter Summary ---
:1960 Author Organization [place] [address] Care Team Providers Name Role Phone None Primary Care Provider Unavailable Encounter Details Date Type Department Care Team Description 11/19/2015 External Results Cardiology at [facility] Jackie Gee MD [facility] [address] [place] [address] [place], [place] [phone] [id number] (Wo rk) Social History Tobacco Use Types [...] Name Priority Date/Time Associated Diagnosis Comme nts EP DEVICE SCAN Routine 08/31/2015 documented in this encounter Results Scan Doc: EP Device (08/31/2015) Anatomical Region Laterality Modality Other Narrative This result has an attachment that is no t available. Jackie Gee MD MEDIA MGR SCAN EXT ORDR/RSLT documented in this encounter Visit Diagnoses Not on filedocumented in this encounter Care Teams Griddle Attendant Relationship Specialty Start Date End Date None PCP - General 03/07/14 06/23/16 None documented as of this encounter
--- OUTSIDE RECORDS SUMMARY | 2022-02-19 02:04 | XMS_ITS | Encounter Summary ---
:1960 Author Organization [place] [address] Care Team Providers Name Role Phone None Primary Care Provider Unavailable Reason for Visit Reason Comments Post Hospital Discharge Encounter Details Date Type Department Care Team Description 11/13/2014 Office Visit Gynecology Oncology at [facility] God[facility], Endomet[place] [facility] [place] [address] GYNECOLOGY ONCOLOGY [phone] [place] [id number] (Wo rk) Social History Tobacco Use Types [...] Sign Reading Time Taken Comments Blood Pressure 120/64 11/13/2014 2:05 PM EDT Pulse 66 11/13/2014 2:05 PM EDT Temperature 36.8 ??C (98.2 ??F) 11/13/2014 2:05 PM EDT Respiratory Rate 18 11/13/2014 2:05 PM EDT Oxygen Saturation 98% 11/13/2014 2:05 PM EDT Inhaled Oxygen Concentration - - Weight 107 kg (235 lb 14.3 oz) 11/13/2014 2:05 PM EDT Height - - Body Mass Index 38.07 10/22/2014 7:09 AM EDT documented in this encounter Progress Notes Zandra Rehman MD - 11/13/2014 2:25 PM EDT Division of [place] [address] Postoperative Visit: Patient Active Problem List Diagnosis Code ??? Breast mass 611.72 ??? Near syncope 780.2 ??? SVT (supraventricular tachycardia) 427.89 ??? Hyperlipemia 272.4 ??? Migraine headache 346.90 ??? Hypothyroidism 244.9 ??? Stage 1A Grade II Endometrial cancer 182.0 Subjective: Usha Huizar returns to the office today for her postoperative visit. On 10/22 she underwent a robotic hysterectomy and BSO that was complicated by a mesenteric trochar injury. She had to have a laparotomy and vascular surgery was called in, there was ultimately determined to be no major vascular injury after further investigation. She reports that since her surgery she has had significant diarrhea. she is taking 3 Courtney-Colace a day. She describes it as small amounts of watery diarrhea. She continues to have pain in her left side, but is no longer taking any pain medicine. She only notices the pain immediately prior to defecating. The pain is worse prior to having a bowel movement, and is relieved after. She has never had anything like this before. Her energy level is improving, but is not backto normal. She is eating well. She is reporting hot flash. She denies fevers, chills, dysuria, incisional concerns, vaginal bleeding, nausea or vomiting. Objective: Filed Vitals: 11/13/14 1405 BP: 120/64 Pulse: 66 Temp: 36.8 ??C (98.2 ??F) Resp: 18 Physical Exam Constitutional: She appears well-nourished. Cardiovascular: Normal rate and regular rhythm. Exam reveals no gallop and no friction rub. No murmur heard. Pulmonary/Chest: Effort normal. She has no wheezes. Abdominal: Soft. Bowel sounds are normal. All of her incisions are healing well without evidence of infection or hernia. Vitals reviewed. Surgical Pathology: ---Pathologic Diagnosis--- (10/22/14) Specimen type: Uterus, cervix, bilateral ovaries and tubes, hysterectomy and bilateral salpingo-oophorectomy: Histologic type: Endometrioid adenocarcinoma associated with hyperplasia FIGO grade: II Architectural grade: 2 Nuclear grade: 2 Tumor size: Approximately 4.0 cm (grossly) Myometrial invasion (no invasion, <1/2, >1/2): No invasion Myometrial lymphovascular space invasion: Not identified Lower uterine segment involvement: Focal hyperplasia, no carcinoma Cervical involvement: Absent Cervical lymphovascularspace invasion: Not identified Other: 1. Background of simple - complex hyperplasia. 2. Adenomyosis. 3. Ovaries and fallopian tubes, negative for malignancy. Assessment and Plan: Usha Huizar is a 54 y.o. year old with Stage 1A Grade II Endometrioid Adenocarcinoma. She is doing well postoperatively and is advised that she may resume full activities at 6 weeks postoperatively. We discussed that she should discontinue the use of Pericolace. If she continues to have loose stools, will have her drop off a stool sample. I have reviewed her pathology report with her and given her copies of her pathology report and operative note for her records. Given her diagnosis of [id number] Grade II Endometrioid Adenocarcinoma we discussed future recommendations. Due to the absent invasion of the myometrium and patient's age, she has minimal risk factors forrecurrence. I estimated her recurrence risk is approximately 2-5%. She needs no adjuvant therapy. In accordance with current SGO surveillance guidelines, we recommended post- treatment surveillance. Specifically, she is been counseled today on symptoms typical of recurrent endometrial cancer, such as vaginal bleeding, vaginal discharge, increasing pelvic pain, changes in her bowel or bladder function, etc. She voiced understanding of these symptoms. She needs no interval imaging or vaginal cuff cytology testing. Such testing is reserved for concern for recurrence, such as worrisome symptoms or clinical finding. However she should have: a pelvic exam with visualization of the upper vagina, bimanual exam and rectovaginal exam every 6 months for the first year, then annually thereafter, to complete a total of 5 years of surveillance. This plan is outlined for her, and she voiced an understanding. Since she doesn't identify a local project manager finance, she prefers to return for exams with our clinic and will be followed by our nurse practitioner. -Discontinue Pericolace, if diarrhea continues will drop off a stool sample -No further treatment necessary -Surveillance visits with her referring provider as above -No future pap smears are necessary unless she is symptomatic -Counseled on weight loss and dietary change -Post operative anemia: post op hgb 9.4 gm/dL, will f/u hemogram today Zandra Rehman MD PGY3 11/13/2014 Usha was discussed and the management plan was made with Dr. Marsha Godfrey MD I have seen and examined the patient and reviewed and edited the resident's above history and I agree with the details as written. The assessment and plan were formulated in discussion with me and I agree with them as documented. Marsha Godfrey MD documented in this encounter Plan of Treatment Not on filedocumented as of this encounter Procedures Procedure Name Priority Date/Time Associated Diagnosis Comme nts HEMOGRAM Routine 11/13/2014 3:46 PM Endometrial cancer Res ults for this EDT procedure are i n the results section. DIFFERENTIAL, Routine 11/13/2014 3:46 PM Endometrial cancer Re sults for this AUTOMATED EDT procedure are i n the results section. CBC (WITH DIFF) Routine 11/13/2014 3:46 PM Endometrial cancer EDT documented in this encounter Results Differential, Automated (11/13/2014 3:46 PM EDT) P athologist Signature Neutrophils % 47.9 % CERNER MILLENNIUM Neutr Abs (ANC) 3.53 1.50 - CERNER 6.30 MILLENNIUM x10(3)/mcL Lymphocytes % 41.8 % CERNER MILLENNIUM Lymphocytes Abs 3.1 1.0 - 3.6 CERNER x10(3)/mcL MILLENNIUM Monocytes % 6.1 % CERNER MILLENNIUM Monocyte Abs 0.4 0.2 - 1.0 CERNER x10(3)/mcL MILLENNIUM Eosinophils % 3.4 % CERNER MILLENNIUM Eosinophils Abs 0.2 0.0 - 0.5 CERNER x10(3)/mcL MILLENNIUM Basophils % 0.5 % CERNER MILLENNIUM Basophils Abs 0.0 0.0 - 0.2 CERNER x10(3)/mcL MILLENNIUM Immature Gran % 0.30 % CERNER MILLENNIUM Comment: Immature granulocytes(IG's)percentage an d absolute count will include metamyelocytes, myelocytes, and promyelo cytes. Blood smears from CBCs yielding IG's will be scanned manually for concor dance. If this scan disagrees with the automated IG or if promyelocytes are not ed, a manual differential will be performed. Ayala Gran Abs 0.02 0.00 - 0.05 x10(3)/mcL CER NER MILLENNIUM Specimen Anatomical Collection Method Collection Time Receive d Time (Source) Location / / Volume Laterality Blood specimen 11/13/2014 3:46 PM 015 3:54 (specimen) EDT PM EDT Resulting Agency Comment Spec In Lab Marsha Godfrey MD HEMATOLOGY ORDERABLES Performing Organization Address City/State/[place] [address] CERNER MILLENNIUM Hemogram (11/13/2014 3:46 PM EDT) P athologist Signature WBC 7.4 4.0 - 10.0 CERNER x10(3)/mcL MILLENNIUM RBC 4.27 3.93 - 5.22 CERNER x10(6)/mcL MILLENNIUM Hemoglobin 12.9 11.2 - 15.7 CERNER gm/dL MILLENNIUM Hematocrit 37.9 34.0 - 45.0 CERNER % MILLENNIUM MCV 88.8 79.0 - 94.0 CERNER fL MILLENNIUM MCH 30.2 26.6 - 32.2 CERNER pg MILLENNIUM MCHC 34.0 32.0 - 36.5 CERNER gm/dL MILLENNIUM Platelets 362 145 - 370 CERNER x10(3)/mcL MILLENNIUM RDWSD 40.7 35.0 - 46.0 CERNER fL MILLENNIUM RDWCV 12.8 10.9 - 14.4 CERNER % MILLENNIUM MPV 9.9 9.0 - 12.0 CERNER fL MILLENNIUM Specimen Anatomical Collection Method Collection Time Receive d Time (Source) Location / / Volume Laterality Blood specimen 11/13/2014 3:46 PM 015 3:54 (specimen) EDT PM EDT Resulting Agency Comment Spec In Lab Marsha Godfrey MD HEMATOLOGY ORDERABLES Performing Organization Address City/State/[place] [address] [facility] documented in this encounter Visit Diagnoses Diagnosis Endometrial cancer Malignant neoplasm of corpus uteri, exce pt isthmus documented in this encounter Care Teams Eye Specialist Relationship Specialty Start Date End Date None PCP - General 03/07/14 06/23/16 None documented as of this encounter
--- OUTSIDE RECORDS SUMMARY | 2022-02-19 02:04 | XMS_ITS | Encounter Summary ---
:1960 Author Organization [facility] [place] [address] Care Team Providers Name Role Phone Arleth Cueva APRN Primary Care Provider Encounter Details Date Type Department Care Team Description 10/05/2016 Refill Dermatology at [facility] Caryn Torres, EARLY CHILDHOOD WORKER [address] [place] [address] Social History Tobacco Use Types Packs/Day Years [...] on filedocumented in this encounter Care Teams Solar Installation Supervisor Relationship Specialty Start Date End Date Arleth Cueva APRN PCP - General Family Medicine 06/24/[address] [place] [address] documented as of this encounter
--- OUTSIDE RECORDS SUMMARY | 2022-02-19 02:04 | XMS_ITS | Encounter Summary ---
:1960 Author Organization [facility] Address [address] [address] Care Team Providers Name Role Phone None Primary Care Provider Unavailable Reason for Visit Reason Comments Established 6 month check Encounter Details Date Type Department Care Team Description 04/27/2016 Office Visit Gynecology Oncology [place] 1A Grade II [facility] [place], AIR BREAKER OPERATOR Endometrial cancer, [facility] s/p robotic hyst/ BSO Drive DR complicated by lorena [place], [place] [id number] 6 trocar injury 10/22/14 [id number] [phone] Social History Tobacco Use Types Packs/Day Years [...] Sign Reading Time Taken Comments Blood Pressure 135/74 04/27/2016 9:38 AM EST Pulse 52 04/27/2016 9:38 AM EST Temperature 36.7 ??C (98.1 ??F) 04/27/2016 9:38 AM EST Respiratory Rate 18 04/27/2016 9:38 AM EST Oxygen Saturation 100% 04/27/2016 9:38 AM EST Inhaled Oxygen Concentration - - Weight 105.6 kg (232 lb 12.9 oz) 04/27/2016 9:38 AM EST Height 166 cm (5' 5.35) 04/27/2016 9:38 AM EST Body Mass Index 38.32 04/27/2016 9:38 AM EST documented in this encounter Progress Notes Hien Joe, AIR BREAKER OPERATOR - 04/27/2016 10:00 AM EST Division [place] [address] Reason For Visit: Post Treatment Surveillance Exam History of Present Illness: Usha Huizar is a 55 y.o. woman who presents today for surveillance exam. She has a hx of Stage 1A Grade II Endometrioid Adenocarcinoma. On 10/22/14 she underwent a robotic hysterectomy and BSO that was complicated by a mesenteric trochar injury.?? She had to have a laparotomy and vascular surgery was called in, there was ultimately determined to be no major vascular injury after further investigation. Interim Health: Feeling fine. Health has been good. No new medical issues, surgeries or hospitalizations. No questions/concerns today. ROS: No Fever, chills, nausea, vomiting, diarrhea No Pelvic/abdominal pain. No Bowel/bladder concerns or changes. Occasional bloating which is off/on and tends to be diet related. Energy level has improved, but is lower than her norm d/t methotrexate No Vaginal bleeding or discharge No lower extremity edema Weight is down almost 10 lbs. Reports appetite is good No cough or chest pain. Occasional CURRY with hiking up hills. No SOB with rest or mild exercise. Sexual function: Sexually active without problems. Advanced Directives:Usha Huizar does not have any advance directives on file. She does have the paper work at home that needs to be completed. Health Habits: Tobacco: Non-smoker ETOH: none Exercise: Likes to hike, walk, snow shoe in the winter. Enjoys bow hunting. Health Maintenance: Mammogram:03/2015, scheduled 05/2016. Colonoscopy: Done 03/2016 at [facility] Social History: Lives with her . They have 2 adult children. 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 Patient Active Problem List Diagnosis Code ??? Near syncope R55 ??? SVT (supraventricular tachycardia) I47.1 ??? Hyperlipemia E78.5 ??? Migraine headache G43.909 ??? Hypothyroidism E03.9 ??? Stage 1A Grade II Endometrial cancer, s/p robotic hyst/ BSO complicated by a trocar injury 10/22/14 C54.1 ??? Psoriasis L40.9 ??? Hypertension I10 Past Surgical History Procedure Laterality Date ??? Orthopedic surgery cyst removed from bone in pelvis ??? Finger surgery ??? Pro sling oper stres incontinence 09/20/2012 URETHRAL SUSPENSION, SLING\FASCIA OR SYNTHETIC performed by Jozef Kent MD at [facility] MAIN OR ??? Ablation of dysrhythmic focus ? ? Pro laparoscopy w tot hysterectuterus <=250 gram w tube/ovary N/A 10/22/2014 LAPAROSCOPY,TOTAL HYST, UTERUS<250GM, DERRICK TYBE &/OR OVARY, ROBOTIC ASSIST performed by Marsha Godfrey MD at [facility] MAIN OR ??? Pro exploratory retroperitoneal N/A 10/22/2014 @EXPLORATION RETROPERITONEAL W OR W\O BIOPSY performed by Yoselyn Yip MD at [facility] MAIN OR ??? Hysterectomy Allergies Allergen Reactions ??? Shellfish Containing Products Angioedema ??? Pollen Extracts Stuffy head headache. Current Outpatient Prescriptions on File Prior to Visit Medication Sig Dispense Refill ??? methotrexate 2.5 mg Tablet Take 6 tablets every week (15 mg) 78 tablet 0 ??? folic acid (FOLVITE) 1 mg Tablet Take 1 mg by mouth daily. ??? calcipotriene (DOVONEX) 0.005 % Cream Apply [...] file prior to visit. Vital Signs: BP 135/74 Pulse 52 Temp 36.7 ??C (98.1 ??F) Resp 18 Ht 166 cm (5' 5.35) Wt (!) 105.6 kg (232 lb 12.9 oz) LMP 10/20/2014 SpO2 100% BMI 38.32 kg/m2 PHYSICAL EXAM: Gen: Pleasant, NAD, Alert, appears well HEENT: No clavicular adenopathy or thyromegaly Lungs: clear to auscultation Cor: heart RRR [...] appreciable masses, nodularity or tenderness. Rectovaginal exam: no appreciable masses or tenderness. ASSESSMENT/PLAN: Usha Huizar is a 55 y.o. woman who is post treatment of stage 1A Grade II endometrioid adenocarcinoma. She has no evidence of recurrent disease. We reviewed signs and symptoms of recurrent disease.She will RTC in 6 months, sooner prn with questions/concerns. Hien Joe APRN documented in this encounter Plan of Treatment Not on filedocumented as of this encounter Visit Diagnoses Diagnosis Stage 1A Grade II Endometrial cancer, s/ p robotic hyst/ BSO complicated by a trocar injury 10/22/14 Malignant neoplasm of corpus uteri, exce pt isthmus documented in this encounter Care Teams Blanket Cutting Machine Operator Relationship Specialty Start Date End Date None PCP - General 03/07/14 06/23/16 None documented as of this encounter
--- OUTSIDE RECORDS SUMMARY | 2022-02-19 02:04 | XMS_ITS | Encounter Summary ---
:1960 Author Organization [facility] Address [address] [place] [address] Care Team Providers Name Role Phone None Primary Care Provider Unavailable Encounter Details Date Type Department Care Team Description 04/02/2015 Hospital En[facility] [place] [facility] Visit for screening [facility] MD [address]ogram [address], [phone] [place] [id number] Social History Tobacco Use Types Packs/Day Years [...] every 6 hours as needed for Pain. betamethasone dipropionate Apply topically to 60 g 1 1 05/21/2014 04/25/2015 (DIPROLENE) 0.05 % affected areas on CreamIndications: Psoriasis the trunk and extremities twice daily. documented as of this encounter Plan of Treatment Not on filedocumented as of this encounter Procedures Procedure Name Priority Date/Time Associated Diagnosis Comme nts MAMMO SCREENING CAD Routine 04/02/2015 1:40 PM Visit for madison lópez Results for this BILATERAL EST mammogram procedure are i n the results section. documented in this encounter Results Mammo Digital Bilateral Screening With Cad (04/02/2015 1:40 PM EST) Anatomical Region Laterality Modality Breast Bilateral Mammography Specimen (Source) Anatomical Location Collection Method / Collectio n Time Received Time / Laterality Volume Narrative 04/02/2015 3:57 PM EST REASON FOR EXAM: Screening TECHNIQUE: CC and MLO views were obtaine d of the bilateral breast(s). Computer aided detection was used. 3D tomosynthes is images were obtained in addition to 2D images. Comparison:Compared with prior images. FINDINGS: Breast density:The breasts are almost en tirely fatty. There are no suspicious microcalcificati ons, masses, or areas of distortion. Incidental note is made o a cardiac loop recorder in the left medial posterior breast.. CONCLUSION: No mammographic evidence of malignancy. RECOMMENDATION:Routine screening. A result letter has been sent to this ailyn reilly by [facility]. BIRADS CATEGORY 2: BENIGN FINDINGS * ??The [employer] an d The Society of Breast Imaging recommend annual screening beginning at age 40 for the general female population. * ??Screening should continue as long as a woman is in good health and is expected to live 10 more years or longer . * ??All women?should be familiar with th e known benefits, limitations, and potential harms linked to breast cancer screening. They also should know how their breasts normally look and feel and report any breast changes to a health care provider right away. * ??Some women, because of their family history, a genetic tendency, or certain other factors, should be screened with M RIs along with mammograms. (The number of women who fall into this category is very small.) The patient and health care provider should discuss the patient hist ory and decide if earlier screening and breast MRI are appropriate. Jackie Gee MD IMG MAMMO ORDERABLES documented in this encounter Visit Diagnoses Diagnosis Visit for screening mammogram Other screening mammogram documented in this encounter Care Teams Network And Threat Support Specialist Relationship Specialty Start Date End Date None PCP - General 03/07/14 06/23/16 None documented as of this encounter
--- OUTSIDE RECORDS SUMMARY | 2022-02-19 02:04 | XMS_ITS | Encounter Summary ---
:1960 Author Organization [facility] [place] [address] Care Team Providers Name Role Phone None Primary Care Provider Unavailable Reason for Visit Reason Comments Psoriasis Encounter Details Date Type Department Care Team Description 08/01/2015 Office Visit Dermatology at [facility] karissa Damon, Kp Oconnell MD Psoriasis [address] [facility] [address] [place] [address] DERMATOLOGY [phone] [place], [place] [address] (Wo rk) Social History [...] on file documented as of this encounter Patient Instructions Patient InstructionsMakayla Aguila LPN - 08/01/2015 1:56 PM EDT Images from the original note were not included. [facility] Psoriasis: After Your Visit Your Care Instructions Psoriasis (say ywq-TO-bg-vijay) is a long-term skin problem that causes thick, white, silvery, or red patches on the skin. The patches may be small or large, and they occur most often on the knees, elbows, scalp, hands, feet, or lower back. The skin may be scaly. If the condition is severe, your skin can become itchy and tender. Psoriasis also can be embarrassing if the patches are on visible areas. You can treat psoriasis with good care at home and with medicine from your doctor. You may put medicine on your skin and take pills or have shots to stop the redness and swelling. Your doctor also may suggest ultraviolet light treatments. Follow-up care is a weaver part of your treatment and safety. Be sure to make and go to all appointments, and call your doctor if you are having problems. It???s also a good idea to know your test resultsand keep a list of the medicines you take. How can you care for yourself at home? ?? If your doctor prescribes medicine, use it exactly as prescribed. Call your doctor if you think you are having a problem with your medicine. ?? Keep your skin moist. After bathing, put an ointment, cream, or lotion on your skin while it is still damp. This seals in moisture. Use xoha-too-wfqzbpn products that your doctor suggests. These mayinclude Cetaphil, Lubriderm, or Eucerin. Petroleum jelly (such as Vaseline) and vegetable shortening(such as Crisco) also work. ?? If you have psoriasis on your scalp, use a mild tar shampoo, such as Neutrogena T/Gel, Polytar, or Zetar. Other scalp lotions, such as Dritho-Scalp, can be applied for several hours and then washed out. Shampoos that contain zinc pyrithione (such as Danex or Head & Shoulders), or selenium sulfide (such as Exsel or Selsun) may also help. ?? Gently soften and remove skin crusts. Put cream on the crusts and then peel off loose crusts. Removing crusts may help creams and lotions get into the skin. However, peel off crusts carefully so that you do not irritate your skin. ?? Follow your doctor's advice for sunlight or ultraviolet light treatment. ?? Avoid harsh skin products, such as those that contain alcohol. ?? Cover your skin in cold weather. ?? Try to prevent sunburn. Although short periods of sun exposure reduce psoriasis in most people, too much sun can damage the skin and cause skin cancer. In addition, sunburns can trigger psoriasis. Use sunscreen on areas of your skin that do not have psoriasis. Make sure the sunscreen blocks ultraviolet rays (both UVA and UVB) and has a sun protection factor (SPF) of at least 15. Use it every day, even when it is cloudy. Some doctors may recommend a higher SPF, such as 30. ?? Take care to avoid accidents such as cutting or scraping your skin. An injury to the skin can cause psoriasis patches to form anywhere on the body, including the area of the injury. ?? Avoid tight shoes, clothing, watchbands, and hats. These may irritate your skin. ?? Try to control stress and anxiety. They may cause psoriasis to appear suddenly or can make symptoms worse. ?? Use a vaporizer or humidifier to add moisture to your bedroom. Follow the directions for cleaningthe machine. ?? Seek support from family and friends. Talk to a counselor or other professional if you feel sad about your condition and need more help. When should you call for help? Call your doctor now or seek immediate medical care if: ?? You have signs of infection, such as: ?? Increased pain, swelling, warmth, or redness. ?? Red streaks leading from the area. ?? Pus draining from the area. ?? A fever. Watch closely for changes in your health, and be sure to contact your doctor if: ?? Your skin is more red and irritated than usual, especially if you also have another illness. ?? You need to talk to someone about how you are coping with the illness. Where can you learn more? Visit our health information library at [email or web address] You can also view health information on [employer], your personal patient account. Log in or sign up today. Enter U759 in the search box to learn more about Psoriasis: After Your Visit. ?? [id number] [employer]. Care instructions adapted under license by [facility]. This care instruction is for use with your licensed healthcare professional. If you have questionsabout a medical condition or this instruction, always ask your healthcare professional. [employer] disclaims any warranty or liability for your use of this information. Content Version: 10.4.205529; Current as of: July 18, 2013 documented in this encounter Progress Notes pK Damon MD - 08/01/2015 2:47 PM EDT Problem: Psoriasis. Usha is a 54-year-old woman who is referred today by Dr. Santos regarding the option of phototherapy for this patient's psoriasis. She has had psoriasis for about 30 years, but over the last year it has really flared, particularly since the fall. She has been through a lot of stress with her diagnosis of uterine cancer herself this summer status post surgery, and her has been through bypass surgery. 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 She also has some ocular issues, and that needed to be surgically corrected. She is currently not working as she does not have her CDL. She states that she drinks maybe little to no alcohol during the course of the winter, maybe a beer or two on the weekends in the summer. She otherwise feels she is in good health. While speaking with Dr. Santos, she expressed her desire not to use any medicine that would increase her risk of cancer. The patient states that she has been using betamethasone dipropionate and Dovonex creams now for a number of months but without benefit. Physical examination reveals a pleasant 54-year-old woman whose apparently previously stable minimal psoriasis is now quite widespread in medium to moderate-size patches over the knees, elbows, over the shins, thighs, arms. She has no pitting of her nails. She does complain of stiffness in her neck, which is new also. She has areas of patches of involvement over her back and abdomen and chest as well. Assessment and Plan: Psoriasis, widespread in a 54-year-old woman who previously only had very stable psoriasis times 30 years. a. Patient was referred to my office for phototherapy, but she is concerned that this might not be a good option. Because of her hydrochlorothiazide, if she is out in the sun for very long she mello easily. As a teenager she would burden easily. b. She has seen that the topicals really have not brought much improvement for her since she was [place] [facility]. c. Discussed the option of methotrexate. Discussed benefits, side effects, and relatively good safety profile. Discussed also in passing the biologics and explained that their increased risk of cancer is primarily lymphomas, and particularly this is seen in patients who are treated with biologics who have rheumatoid arthritis. d. Patient and I, after careful consideration, have decided to begin methotrexate, taking six of the 2.5 mg tablets p.o. q.week on a Tuesday or Tuesday. #30 dispensed with one refill. e. Every other day of the week take a dose of folate, 1 mg. Do not take on the day she takes methotrexate. #90 dispensed for a three-month supply with three refills. f. Return to clinic in one month for repeat check. We will check labs at that time. If doing well, we will then go for another three months of therapy. Our plan will be to try and taper down and off of the medication this summer, as her psoriasis allows. Discussed the possible need to continue methotrexate to maintain her control if necessary. COPY: Barrie Santos M.D. Jackie Gee M.D. documented in this encounter Plan of Treatment Not on filedocumented as of this encounter Visit Diagnoses Diagnosis Psoriasis Other psoriasis documented in this encounter Care Teams Able Seaman Relationship Specialty Start Date End Date None PCP - General 03/07/14 06/23/16 None documented as of this encounter
--- OUTSIDE RECORDS SUMMARY | 2022-02-19 02:04 | XMS_ITS | Encounter Summary ---
:1960 Author Organization [facility] [place] [address] Care Team Providers Name Role Phone None Primary Care Provider Unavailable Reason for Visit Reason Comments Follow-up Psoriasis Encounter Details Date Type Department Care Team Description 03/22/2016 Office Visit Dermatology at [facility] Kp Damon MD Psoriasis [address] [facility] [address] [place] [address] DERMATOLOGY [phone] [place], [place] [address] (Wo rk) Social History [...] encounter Progress Notes Kp Damon MD - 03/22/2016 3:45 PM EST PROBLEM: Followup psoriasis and methotrexate. Usha follows up and is doing well. She is tolerating methotrexate well, but does have some nausea intermittently without regard to her methotrexate dosing. She thinks it may be because her immune system is lowered. Her psoriasis, however, remains clear under good control and she is really enjoying that. She is taking the Roger dose. She has not had any labs done prior to today's visit. PHYSICAL EXAMINATION: Reveals that she still has some thin patches on the posterior calves. The elbows are clear. She has a few almost guttate like sized lesions of the upper central back, but otherwise her back is clear. Her knees are clear. ASSESSMENT AND PLAN: Psoriasis responding well to methotrexate. a. Reassured patient about her couple episodes of feeling sick/nauseated. b. Continue to try to take methotrexate on a full stomach Tuesday evenings after dinner. c. Labs thus far have been fine. Repeat again today. Return to clinic in 3 months for repeat check. Continue current dosing methotrexate taking 6 of the 2.5 mg tablets p.o. once weekly for a 15 mg dose. Dispense #78 for a 3 month supply. This will be called into the [facility] in [place] with zero refills. d. Continue folate 1 mg p.o. daily every day of the week except for Sundays, when she takes the methotrexate dose. She has a 1 year supply from 07/2015. e. Return to clinic in another 3 months for a repeat check. documented in this encounter Plan of Treatment Not on filedocumented as of this encounter Visit Diagnoses Diagnosis Psoriasis Other psoriasis documented in this encounter Care Teams Smelting Engineer Relationship Specialty Start Date End Date None PCP - General 03/07/14 06/23/16 None documented as of this encounter
--- OUTSIDE RECORDS SUMMARY | 2022-02-19 02:04 | XMS_ITS | Encounter Summary ---
:1960 Author Organization [facility] [place] [address] Care Team Providers Name Role Phone None Primary Care Provider Unavailable Encounter Details Date Type Department Care Team Description 05/20/2016 Ancillary Procedure Radiology Library at Arleth Cueva APRN [facility] [id number] [place] [address] (Wo rk) [phone] Social History Tobacco Use Types Packs/Day Years [...] Associated Diagnosis Comme nts FILM LIBRARY Routine 05/20/2016 12:00 AM Results for this STORAGE ONLY MAMMO EST procedure are in the results section. documented in this encounter Results Film Library- Storage Only Mammo (05/20/2016 12:00 AM EST) Specimen (Source) Anatomical Location Collection Method / Collectio n Time Received Time / Laterality Volume Narrative [facility] - 05/26/2021 9:22 AM EST This exam is auto-finalizing. It's purpo se is for storage only. Arleth Cueva APRN IMG FILM LIBRARY ORDERABLES Performing Organization Address City/State/ZIP Code Phon e Number RAD [place], [place] documented in this encounter Visit Diagnoses Not on filedocumented in this encounter Care Teams Speech Clinician Relationship Specialty Start Date End Date None PCP - General 03/07/14 06/23/16 None documented as of this encounter
--- OUTSIDE RECORDS SUMMARY | 2022-02-19 02:04 | XMS_ITS | Encounter Summary ---
:1960 Author Organization [facility] Address [address] [place] [address] Care Team Providers Name Role Phone None Primary Care Provider Unavailable Reason for Visit Reason Comments Follow-up Encounter Details Date Type Department Care Team Description 09/02/2015 Office Visit Gynecology Oncology Hien Joe Sta ge 1A Grade II at [facility] M, CLERICAL AIDE Endometrial cancer, [facility] s/p robotic hyst/ BSO Drive DR complicated by lorena [place], [place], [place] [address] trocar injury 10/22/14 [id number] [phone] Social History Tobacco Use Types Packs/Day Years [...] Sign Reading Time Taken Comments Blood Pressure 129/68 09/02/2015 8:52 AM EDT Pulse 60 09/02/2015 8:52 AM EDT Temperature 36.4 ??C (97.5 ??F) 09/02/2015 8:52 AM EDT Respiratory Rate 18 09/02/2015 8:52 AM EDT Oxygen Saturation 100% 09/02/2015 8:52 AM EDT Inhaled Oxygen Concentration - - Weight 113.6 kg (250 lb 7.1 oz) 09/02/2015 8:52 AM EDT Height - - Body Mass Index 40.42 10/22/2014 7:09 AM EDT documented in this encounter Progress Notes Hien Joe, CLERICAL AIDE - 09/02/2015 8:55 AM EDT Division [place] [address] Reason For Visit: Post Treatment Surveillance Exam History of Present Illness: Usha Huizar is a 54 y.o. woman who presents today for surveillance [...] after further investigation. Interim Health: Feeling fine. Psoriasis is flaring and she is on methotrexate and folic acid which seems to be helping. Otherwise no new medical issues, surgeries or hospitalizations. ROS: No Fever, chills, nausea, vomiting, diarrhea No Pelvic/abdominal pain. Occasional bloating which is off/on and tends to be diet related. No Bowel/bladder concerns or changes. Energy level is lower than her norm which is new since starting the methotrexate No Vaginal bleeding or discharge No lower extremity edema Weight is up 10lbs Reports appetite is good No cough or chest pain, + CURRY. Sexual function: Sexually active without problems. Advanced Directives:Usha Huizar does not have any advance directives on file. The purpose of advance directives were reviewed with her and she was provided with the state-specific booklet to complete these. I have asked that she bring a copy of her completed advance directives to her next visit sothat it may be scanned into our electronic medical record. Health Habits: Tobacco: Non-smoker ETOH: not currently d/t methotrexate. Exercise: No regular/formalexercise but does enjoy working outside, kayaking, hiking. Health Maintenance: Mammogram:03/2015 Colonoscopy: Overdue for baseline, waiting for an appointment to be scheduled. Social History: Lives with her . Recently their 2 adult children just moved back home. 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 Patient Active Problem List Diagnosis Code ??? Breast mass N63 ??? Near syncope R55 ??? SVT (supraventricular tachycardia) I47.1 ??? Hyperlipemia E78.5 ??? Migraine headache G43.909 ??? Hypothyroidism E03.9 ??? Stage 1A Grade II Endometrial cancer, s/p robotic hyst/ BSO complicated by a trocar injury 10/22/14 C54.1 ??? Psoriasis L40.9 Past Surgical History Procedure Laterality Date ??? Orthopedic surgery cyst removed from bone in pelvis ??? Finger surgery ??? Pro sling oper stres incontinence 09/20/2012 URETHRAL SUSPENSION, SLING\FASCIA OR SYNTHETIC performed by Jozef Kent MD at [facility] ??? Ablation of dysrhythmic focus ? ? Pro laparoscopy w tot hysterectuterus <=250 gram w tube/ovary N/A 10/22/2014 LAPAROSCOPY,TOTAL HYST, UTERUS<250GM, DERRICK TYBE &/OR OVARY, ROBOTIC ASSIST performed by Marsha Godfrey MD at [facility] ??? Pro exploratory retroperitoneal N/A 10/22/2014 @EXPLORATION RETROPERITONEAL W OR W\O BIOPSY performed by Yoselyn Yip MD at [facility] ??? Hysterectomy Allergies Allergen Reactions ??? Shellfish Containing Products Angioedema ??? Pollen Extracts Stuffy head headache. Current Outpatient Prescriptions on File Prior to Visit Medication Sig Dispense Refill ??? calcipotriene (DOVONEX) 0.005 % Cream Apply [...] file prior to visit. Vital Signs: BP 129/68 mmHg Pulse 60 Temp(Src) 36.4 ??C (97.5 ??F) (Oral) Resp 18 Wt 113.6 kg (250 lb 7.1 oz) SpO2 100% LMP 10/20/2014 PHYSICAL EXAM: Gen: Pleasant, NAD, Alert, appears well HEENT: No clavicular adenopathy or thyromegaly Lungs: clear to auscultation Cor: heart RRR without appreciable murmurs. Abdomen: soft, non- distended, non-tender, no appreciable masses or inguinal adenopathy Lower Extremities: without edema Pelvic exam: atrophic external female genitalia; vulva, urethral meatus, and perineum are without lesions. Speculum exam: Vagina with atrophic changes, intact vaginal cuff, no visible lesions. Bimanualexam: exam is limited secondary to body habitus. Uterus and adnexae surgically absent. No appreciable masses, nodularity or tenderness. Rectovaginal exam: no appreciable masses or tenderness. ASSESSMENT/PLAN: Usha Huizar is a 54 y.o. woman who is post treatment of stage 1A Grade II endometrioid adenocarcinoma. She has no evidence of recurrent disease. We reviewed signs and symptoms of recurrent disease.She will RTC in 6 months, sooner prn with questions/concerns. Discussed below treatment summary and survivorship care plan, a copy was provided to the patient forher review/records. [facility] Division of [place] [address] Endometrial/Uterine Cancer Treatment Summary and Survivorship Care Plan Patient Name: Usha Huizar : 1960 MR Number: [id number] ONCOLOGY TREATMENT SUMMARY Endometrial Cancer Notes Histologic Type Endometrioid adenocarcinoma associated with hyperplasia Age at Diagnosis 54 Type of surgical procudure performed robotic hysterectomy and BSO that was complicated by a mesenteric trochar injury Date of primary surgery 10/22/2014 FIGO Grade 2 Tumor size 4 cm LVSI none Lower uterine segment involvement Focal hyperplasia, no carcinoma Treatment Team: FALSEWORK BUILDER/Oncologist: Dr. Godfrey Nurse Practitioner: Hien Joe APRN RN: Latonya Chacko RN and Denisse Olivas, ASHLEE Clinical Real Estate Loan Processor: Tiffanie Marie and Hamida Koch RECOMMENDATIONS FOR FOLLOW UP OF UTERINE/ENDOMETRIAL CANCER It is recommended that you have a medical history and physical exam that is focused on detecting signs of cancer recurrence or of new cancers. This would include a detailed pelvic exam (speculum, pelvic and rectal exams); however, because you have had your cervix and uterus removed, a routine Pap Testis not indicated/recommended for you as part of routine cancer follow up. If you had uterine/endometrial cancer once, there is a chance that it may return or spread to other parts of your body. The risk is highest in the first two to three years after treatment, but continues for at least five years. Your Recommended Surveillance Plan is every 6 months for the first 1 year, and then yearly for an additional 4 years for surveillance, in accordance with current SGO surveillance guidelines,?? (CurrentSociety of Gynecologic Oncologists (SGO) Surveillance Guidelines:?? Posttreatment surveillance and d iagnosis of recurrence in women with gynecologic malignancies: Society of Gynecologic Oncologists recommendations (Leana, et al; AJOG, October 2010).?? After five years, it is recommended that you have a careful history and physical including pelvic exam (check-up) every 12 months for the rest of your life, which can be done by your local technical marketing consultant. After cancer treatment, if you feel that something is not right with your body, see your regular doctor, physician assistant front end manager or nurse practitioner. Symptoms to report: ?? Vaginal bleeding ?? Rectal bleeding ?? Weight loss without effort ?? New and persistent pain ?? New and persistent fatigue ?? New leg swelling ?? New masses (i.e., bumps in your neck or groin) ?? New and persistent cough ?? New and persistent nausea and vomiting If what you are feeling is urgent, and you cannot get an appointment with your regular health care provider, go to an Urgent Care or Medical Walk-In Clinic. Tell the medical provider you had cancer. Show them a copy of your cancer treatment summary. SELF CARE PLAN: What You Can Do to Stay Healthy after Treatment for Cancer Cancer treatments may increase your chance of developing other health problems years after you have completed treatment. The purpose of this self care plan is to inform you about what steps you can take to maintain good health after cancer treatment. Keep in mind that every person treated for cancer is different and that these recommendations are not intended to be a substitute for the advice of a doctor or other health congregational care pastor. Please follow up with your health care provider if you have questions or concerns about these recommendations. HEALTH HABITS: Nutrition: Follow the [place] [employer] Guidelines that include the following: Choose fish andchicken and limit red meat and processed meats; eat at least 2.5 cups of vegetables and fruits daily; choose whole grains instead of refined grain products. High fiber and low fat diet is advised. Drink more water, less soda and juice. For more information check out the [place] [employer] web-site at http://www.cancer.org/healthy/eathealthygetactive/acsguidelinesonnutritionphysic alactivityforcancerprevention/ Health Weight: For many people reaching their ideal weight can be a challenge; however, losing even 5 to 10 pounds can lower blood pressure, blood sugar and cholesterol levels. Being overweight can increase your chance of your cancer coming back. Maintaining a healthy weight, physical activity and eating a healthy diet are all important in cancer prevention. Being overweight can increase your chance of having high blood pressure, high blood sugar and/or high cholesterol, which can lead to heart disease, diabetes and stroke. Heart disease is the No. 1 cause of in women in the [place] taking the life of 1 in 3 women each year. If you would like more information about your blood sugar, cholesterol or blood pressure, talk with your primary care provider. BMI: body mass index is an estimate of body fat. Individuals with a BMI of 25.0- 29.9 are considered overweight. BMI >30 is considered obese. BMI >40 is considered morbidly obese. Your Body mass index is 40.44 kg/(m^2). For more information check out the society of gynecologic oncology (SGO) web- site at https://www.sgo.org/obesity/ for more information. Exercise: Engage in at least 20-30 minutes of moderate intensity activity most days of the week. Include strength training exercises at least two days a week. Research shows that exercise can help you control your weight, improve your energy level, and help you sleep at night. The weaver is to find a physical activity you enjoy such as walking, dancing or gardening and do it regularly. If you have been inactive for a while, start out slowly. You can start out by exercising 10 minutes a day several daysa week. If you feel dizzy, short of breath, or have chest pain during exercise, stop exercising and talk with your primary care doctor/provider. Smoking If you use tobacco, quit as soon as possible. Smoking increases your risk for many types of cancer and is the most preventable cause of in the [place] If you would like more information, askyour doctor or you can call a national hotline at 7(781)-QUIT-NOW. Alcohol: Minimize alcohol intake to one drink per day for women and two drinks per day for men. (1.5oz. hard alcohol, 5 oz. wine, 12 oz. beer). ROUTINE HEALTH MAINTENCANCE: Health monitoring by PCP: Keep up-to-date on general health screening tests, including cholesterol, blood pressure and glucose (blood sugar) levels, immunizations. Eye exam: You are at increased risk of cataracts as a result of your cancer treatment. Yearly eye exams are recommended. Bone health: Certain cancer treatments, such as chemotherapy or hormonal therapy, can cause bone loss. In addition, after menopause, women can lose up to 20 percent of their bone density. The good newsis that women can maximize their bone density by eating healthy, getting enough calcium and vitamin D, and exercising regularly. Women ages 19-49 are recommended to have 1000 mg calcium/day;600 u vitamin D/day, > 50 years old should have 1200mg calcium/day; 800 u vitamin D/day. Ask your primary care provider about screening for osteoporosis beginning at age 65 or at a younger age if your bone fracture risk is increased. Dental Care: In general, the standard recommendation is to visit your dentist twice a year for checkups and cleanings. Immunization/Vaccines: Flu vaccine: Immunization of inactivated vaccine is recommended for cancer survivors. Additional CDC guidelines for immunizations: A. Pneumococcal vaccines: Pneumococcal conjugate vaccine (PCV13) is recommended for all children younger than 5 years old, all adults 65 years or older, and people 6 years or older with certain risk factors. Pneumococcal polysaccharide vaccine (PPSV23) is recommended for all adults 65 years or older. People 2 through 64 years old who are at high risk of pneumococcal disease should also receive PPSV23. B. Shingles vaccine should be avoided if you are immunocompromised because it is a live vaccine. C. Hepatitis B--A cancer survivor needs to wait at least 6 months after chemotherapy before being given Hepatitis B. D. Measles/mumps/rubella vaccine--Although measles, mumps, and rubella vaccine has been given safelythree months after completion of chemotherapy, data on the safety, immunogenicity, and efficacy of varicella or zoster vaccine after completion of chemotherapy are not available. GENERAL CANCER SCREENINGS: Cancer screening tests are designed to find cancer or pre-cancerous areas before there are any symptoms and, generally, when treatments are most successful. Various organizations have developed guidelines for cancer screening for women. While these guidelines vary slightly between different organizations, they cover the same basic screening tests for breast, cervical and colorectal cancers. Mammogram: Yearly mammograms starting at age 40, and continuing for as long as a woman is in good health. Clinical breast exam (CBE), performed by a health congregational care pastor, every three years for women in their 20s and 30s, and every year for women 40 and over. A monthly breast self-exam (BSE) is a good way to monitor breast health. Women should know how their breasts normally look and feel, and report any change promptly to their health care provider. Individuals at higher risk may need to have screening earlier and/or more frequent. Dermatology evaluation: If you notice skin changes (including changing moles, sores that do not healor that bleed, skin changes- size or color)--please discuss this with your primary care provider forevaluation by a college sports coach. Use sunscreen with SPF/UVA and UVB whenever you are out in the sun for more than 15 minutes. Use protective clothing such as hats, and long sleeves. Colonoscopy: Screening should begin at age 50 using one of the following testing schedules: (If any of these tests are positive, a colonoscopy should be done.) ??? Flexible sigmoidoscopy every five years, or ??? Colonoscopy every 10 years, or ??? Double-contrast barium enema every five years, or ??? CT colonography (virtual colonoscopy) every five years Individuals at higher risk of colon cancer should have screening earlier and potentially more frequently. Pap testing: You no longer need pap testing. CANCER TREATMENT SIDE EFFECTS: It is important to recognize that not every woman experiences the following side effects after treatment. You may have some, many or none of these issues. If you have symptoms that interfere with your quality of life, please follow up with your health care provider. Lymphedema: Minimal to significant lower leg swelling can occur after surgery and treatment. Symptomcontrol with compression hose/stockings, lymphedema massage or specialized physical therapy can be ordered. If this occurs a referral can be made for you to see a physical therapist. Manual lymphatic dr margie and /or compression can help. Mood changes- Anxiety and/or depression: Cancer survivors are at high risk for anxiety and depression due to multiple stressors, feeling vulnerable and the many challenges that you have faced and continue to face. Fear of recurrence is normal. Let your providers know if you have any of these symptoms--frequent feelings of being nervous, restless or worried or fearful, trouble sleeping, difficulty concentrating, less interest or enjoyment of usual activities, feeling sad or depressed, difficulty performing your usual activities. There is help available. Fatigue: Cancer related fatigue can be distressing. You may experience physical, emotional, and/or cognitive tiredness or exhaustion related to cancer or cancer treatment. Sometimes the amount of fatigue that you feel is not proportional to your recent activity, and it can interfere with your ability to function. This can be a common issue for individuals undergoing cancer treatment and for cancer survivors sometimes for months and years following diagnosis and treatment. The time course of fatigue is unique to each person. In most cases mild to moderate fatigue will resolve within a year. If it persists longer than this time or if fatigue worsens discuss this issue with your cancer team for further evaluation. Pain: Discuss any problems with persistent pain with your cancer team. Sexual function: Cancer diagnosis and it???s treatment can interfere with sexual function. You are encouraged to discuss this with your cancer care team. There are no restrictions in being sexually active. Water, oil or silicone-based lubricants or vaginal moisturizers can help with vaginal dryness. Different sexual positions may be more comfortable. Topical lidocaine can be useful in the event of pain with intercourse. If you were treated with pelvic radiation therapy you are at risk of adhesions(scar tissue) involving your vagina. You are encouraged to use your vaginal dilator at least twice a week. Ongoing discussion of sexual concerns or discomfort with your partner is important. Sleep disorder--If you are having difficulty with sleep please speak to a member of your cancer careteam or your primary care provider for further evaluation and treatment. Menopausal symptoms: Hot flashes, night sweats and vaginal dryness may occur. Some lifestyle modifications that might help include: Maintaining cool environment, layer clothes, having a healthy BMI (weight), quitting smoking, relaxation, and acupuncture. See your health intensive care medicine specialist about other r ecommendations and medication-based treatment. ADDITIONAL RESOURCES: Society of Gynecologic Oncology: https://www.sgo.org/ldizihls-glnhdsosug-hvexnyhpt/ [place] [employer]: http://www.cancer.org/ [facility]: http://cancer.[facility]/ documented in this encounter Miscellaneous Notes Advance Care Plan Note - Hien Joe APRN - 09/02/2015 9:41 AM EDT Advanced Directives:Usha Huizar does not have any advance directives on file. The purpose of advance directives were reviewed with her and she was provided with the state-specific booklet to complete these. I have asked that she bring a copy of her completed advance directives to her next visit sothat it may be scanned into our electronic medical record. In the meantime, she states that if she were unable to make medical decisions, she identifies the following person to make decisions on her behalf: Name: Ron Huizar Relationship: documented in this encounter Plan of Treatment Not on filedocumented as of this encounter Visit Diagnoses Diagnosis Stage 1A Grade II Endometrial cancer, s/ p robotic hyst/ BSO complicated by a trocar injury 10/22/14 Malignant neoplasm of corpus uteri, exce pt isthmus documented in this encounter Care Teams Family Caseworker Relationship Specialty Start Date End Date None PCP - General 03/07/14 06/23/16 None documented as of this encounter
--- OUTSIDE RECORDS SUMMARY | 2022-02-19 02:04 | XMS_ITS | Encounter Summary ---
:1960 Author Organization [place] [address] Care Team Providers Name Role Phone None Primary Care Provider Unavailable Encounter Details Date Type Department Care Team Description 04/24/2015 Telephone Dermatology at [facility], Barrie Chester MD [address] [place] [id number] [facility] [phone] [place], [place] [address] (Wo rk) Social History Tobacco [...] this encounter Miscellaneous Notes Telephone Encounter - Homer Rutledge - 04/24/2015 2:18 PM EST PT called looking for a refill of her betamethasone dipropionate (DIPROLENE) 0.05 % Cream. He preferred pharmacy is [facility] in [facility]. You can reach her at [phone] Thanks! documented in this encounter Plan of Treatment Not on filedocumented as of this encounter Visit Diagnoses Diagnosis Psoriasis Other psoriasis documented in this encounter Care Teams V Belt Builder Relationship Specialty Start Date End Date None PCP - General 03/07/14 06/23/16 None documented as of this encounter
--- OUTSIDE RECORDS SUMMARY | 2022-02-19 02:04 | XMS_ITS | Encounter Summary ---
:1960 Author Organization [facility] [place] [address] Care Team Providers Name Role Phone Arleth Cueva APRN Primary Care Provider Reason for Referral Diagnostic Test (Routine) - Closed Specialty Diagnoses / Procedures Referred By Contact Refer red To Contact Radiology Diagnoses Lumbar back pain with radiculopathy affecting right lower extremity Arleth Cueva APRN [facility] Rad Mri Procedures MRI Lumbar Spine wo Contrast (Generic) [address] [place], [place] [address] [place] [address] Phone: Referral ID Status Reason Start Date Expiration Date Visits V isits Requested Authorized [id number] Closed Specialty 08/30/2016 11/28/2016 1 1 Service Requested Reason for Visit Diagnostic Test (Routine) - Closed Specialty Diagnoses / Procedures Referred By Contact Refer red To Contact Radiology Diagnoses Lumbar back pain with radiculopathy affecting right lower extremity Arleth Cueva APRN [facility] Rad Mri Procedures MRI Lumbar Spine wo Contrast (Generic) [address] [place] [address] [place] [address] Phone: Referral ID Status Reason Start Date Expiration Date Visits V isits Requested Authorized [id number] Closed Specialty 08/30/2016 11/28/2016 1 1 Service Requested Encounter Details Date Type Department Care Team Description 09/16/2016 Hospital MRI at [facility] Arleth Cueva, Lumbar back pain with Encounter [facility] ALLOPATHIC DOCTOR radiculopathy Drive [address] affecting right lower [place] [place] [address] extremity [address] DEVANTE ALDANA [phone] [id number] Social History Tobacco Use Types Packs/Day Years [...] Tablet mouth 2 times daily. acetaminophen (TYLENOL) Take 650 mg by 0 325 mg Tablet mouth every 4 hours as needed for Pain. hydrochlorothiazide Take 25 mg by mouth 0 (HYDRODIURIL) 25 mg tablet daily. simvastatin (ZOCOR) 20 mg Take 20 mg by mouth 0 tablet nightly. levothyroxine (SYNTHROID) Take 75 mcg by 0 75 mcg tablet mouth daily. ibuprofen (ADVIL;MOTRIN) Take 1 tablet by 50 tablet 0 10/24 600 mg Tablet mouth every 6 hours as needed for Pain. naproxen (NAPROSYN) 250 mg TAKE ONE TABLET BY 1 0 09/15/2016 09/12/2017 Tablet MOUTH FOUR TIMES A DAY tiZANidine (ZANAFLEX) 2 mg Take 1 tablet by 0 02/201709/12/2017 Tablet mouth as needed. acetaminophen-codeine Take 1 tablet by 1 08/17/19 17 09/12/2017 (TYLENOL #3) 300-30 mg mouth as needed. Tablet clindamycin (CLEOCIN T) 1 Apply to upper 60 mL 3 201610/05/2016 % Solution chest twice daily after washing methotrexate 2.5 mg Tablet Take 6 tablets by 78 tablet 0 08/28/2018 mouth once a week (15 mg) folic acid (FOLVITE) 1 mg Take one tablet 90 tablet 3 06/2409/12/2017 Tablet every day except day of Methotrexate dosing. aspirin 81 mg Tablet, Take 81 mg by mouth 0 09/12/2017 Chewable daily. documented as of this encounter Plan of Treatment Not on filedocumented as of this encounter Procedures Procedure Name Priority Date/Time Associated Diagnosis Comme nts MRI LUMBAR SPINE Routine 09/16/2016 3:51 PM Lumbar back pain w ith Results for this WITHOUT CONTRAST EDT radiculopathy procedure are in affecting right lower the re sults extremity section. documented in this encounter Results MRI Lumbar Spine wo Contrast (Generic) (09/16/2016 3:51 PM EDT) Anatomical Region Laterality Modality L-spine Magnetic Resonance Specimen (Source) Anatomical Location Collection Method / Collectio n Time Received Time / Laterality Volume Impressions 09/16/2016 4:03 PM EDT Lumbar spondylosis as described in detail above. Comment: The following findings are so c ommon in people without low back pain that while we report their presence, the y must be interpreted with caution and in context of the clinical situation (Re sarika Chen et al, Spine 2001). Findings: (Prevalence in patients withou t low back pain), disc degeneration (decreased T2 signal, height loss, bulge ) (91%), disc T2-signal loss (83%), disc height loss (56%), disc bulge (64%), dis c protrusion (32%), annular fissure (38%). Narrative 09/16/2016 4:03 PM EDT EXAMINATION: MRI LUMBAR SPINE WO CONTRAST (GENERIC) CLINICAL HISTORY: Lumbar back pain w/ ra diculopathy affecting right lower extremity TECHNIQUE: MRI acquired of the lumbar sp ine without contrast COMPARISON: None FINDINGS: 5 nonrib-bearing lumbar-type v ertebral segments. Mild retrolisthesis of L1 with respect to L2, L2 with respec t to L3, L3 with respect to L4 on a degenerative basis. Trace anterolisthesi s of L4 respect L5 and L5 with respect to S1 on a degenerative basis. Heterogen eous endplate marrow fatty change related to degeneration. Intraosseous ve rtebral body hemangiomas noted at L3 and L5. The conus is normal in signal and te rminates at L1. T12-L1: No significant stenosis. L1-2: Disc bulge and facet arthropathy c ontributes to mild central canal and left subarticular recess stenosis. Mild left foraminal stenosis. L2-3: Disc bulge with superimposed right foraminal disc protrusion and facet arthropathy contributes to mild central canal and mild right greater than left neural foraminal stenosis. The disc prot rusion impinges on the exiting right L2 nerve root. L3-4: Disc bulge and facet arthropathy c ontributes to mild central canal and mild left and moderate right neural fora agnieszka stenosis. L4-5: Disc bulge and pronounced facet ar thropathy contributes to mild central canal and moderate bilateral neural fora agnieszka stenosis. L5-S1: Disc bulge and pronounced facet a rthropathy contributes to moderate bilateral neural foraminal stenosis. Procedure Note Jim Donovan MD - 09/16/2016Formatt ing of this note might be different from the original. EXAMINATION: MRI LUMBAR SPINE WO CONTRAS T (GENERIC) CLINICAL HISTORY: Lumbar back pain w/ ra diculopathy affecting right lower extremity TECHNIQUE: MRI acquired of the lumbar sp ine without contrast COMPARISON: None FINDINGS: 5 nonrib-bearing lumbar-type v ertebral segments. Mild retrolisthesis of L1 with respect to L2, L2 with respec t to L3, L3 with respect to L4 on a degenerative basis. Trace anterolisthesi s of L4 respect L5 and L5 with respect to S1 on a degenerative basis. Heterogen eous endplate marrow fatty change related to degeneration. Intraosseous ve rtebral body hemangiomas noted at L3 and L5. The conus is normal in signal and te rminates at L1. T12-L1: No significant stenosis. L1-2: Disc bulge and facet arthropathy c ontributes to mild central canal and left subarticular recess stenosis. Mild left foraminal stenosis. L2-3: Disc bulge with superimposed right foraminal disc protrusion and facet arthropathy contributes to mild central canal and mild right greater than left neural foraminal stenosis. The disc prot rusion impinges on the exiting right L2 nerve root. L3-4: Disc bulge and facet arthropathy c ontributes to mild central canal and mild left and moderate right neural fora agnieszka stenosis. L4-5: Disc bulge and pronounced facet ar thropathy contributes to mild central canal and moderate bilateral neural fora agnieszka stenosis. L5-S1: Disc bulge and pronounced facet a rthropathy contributes to moderate bilateral neural foraminal stenosis. IMPRESSION Lumbar spondylosis as described in cristiano l above. Comment: The following findings are so c ommon in people without low back pain that while we report their presence, the y must be interpreted with caution and in context of the clinical situation (Re pedro- Catalinok et al, Spine 2001). Findings: (Prevalence in patients withou t low back pain), disc degeneration (decreased T2 signal, height loss, bulge ) (91%), disc T2-signal loss (83%), disc height loss (56%), disc bulge (64%), dis c protrusion (32%), annular fissure (38%). Arleth Cueva APRN IMG MRI ORDERABLES documented in this encounter Visit Diagnoses Diagnosis Lumbar back pain with radiculopathy affe cting right lower extremity documented in this encounter Care Teams Contact Centre Supervisor Relationship Specialty Start Date End Date Arleth Cueva APRN PCP - General Family Medicine 06/24/16 [address] [place] [address] documented as of this encounter
--- OUTSIDE RECORDS SUMMARY | 2022-02-19 02:04 | XMS_ITS | Encounter Summary ---
:1960 Author Organization [facility] [place] [address] Care Team Providers Name Role Phone None Primary Care Provider Unavailable Reason for Visit Reason Comments Suture / Staple Removal Encounter Details Date Type Department Care Team Description 11/01/2014 Office Visit Gynecology Oncology at [facility], DR JON Colon counter for staple [facility] Refining Equipment Operator, [place] [address] Social History Tobacco Use Types Packs/Day [...] Sign Reading Time Taken Comments Blood Pressure 134/70 11/01/2014 2:37 PM EDT Pulse 64 11/01/2014 2:37 PM EDT Temperature 36.9 ??C (98.4 ??F) 11/01/2014 2:37 PM EDT Respiratory Rate 18 11/01/2014 2:37 PM EDT Oxygen Saturation 100% 11/01/2014 2:37 PM EDT Inhaled Oxygen Concentration - - Weight 107.2 kg (236 lb 5.3 oz) 11/01/2014 2:37 PM EDT Height - - Body Mass Index 38.15 10/22/2014 7:09 AM EDT documented in this encounter Progress Notes Denisse Olivas RN - 11/01/2014 3:48 PM EDT Usha presented for staple removal s/p total abdominal hysterectomy with bilateral salpingo-oophorectomy 10 days ago. States postop course at home is uneventful. She reports she is eating well, drinking without difficulty and walking. Usha was independent to the exam table. Midline vertical abdominal incision with 19 kelsie intact.Incision well approximated and no redness or drainage. Removed each of the 19 kelsie, one by one, in an alternating pattern, removing one from the upper aspect of the incision, and then one from the lower end of the incision. Removed every other staple and applied steristrips to the skin that had been prepped with mastisol and then removed the remaining kelsie in the same pattern and applied steristrips. Counted 19 kelsie removed from incision. Usha tolerated staple removal well. Instructed pt to call the clinic if fever >101, any drainage from incision, if redness develops or for any questions/concerns. documented in this encounter Plan of Treatment Not on filedocumented as of this encounter Visit Diagnoses Diagnosis Encounter for staple removal Encounter for removal of sutures documented in this encounter Care Teams Scrap Carrier Relationship Specialty Start Date End Date None PCP - General 03/07/14 06/23/16 None documented as of this encounter
--- OUTSIDE RECORDS SUMMARY | 2022-02-19 02:04 | XMS_ITS | Encounter Summary ---
:1960 Author Organization [facility] [place] [address] Care Team Providers Name Role Phone None Primary Care Provider Unavailable Reason for Visit Reason Onset Date Comments Results 11/13/2014 Encounter Details Date Type Department Care Team Description 11/13/2014 Telephone Gynecology Oncology at [facility] [place] [address] Social History Tobacco Use Types Packs/Day [...] this encounter Miscellaneous Notes Telephone Encounter - Ashley Chacko RN - 11/13/2014 6:00 PM EDT Per instruction from Dr. Godfrey: Call to Usha Huizar to let her know she can stop her iron supplements as she is no longer anemic. Usha stated understanding. documented in this encounter Plan of Treatment Not on filedocumented as of this encounter Visit Diagnoses Not on filedocumented in this encounter Care Teams Digital Performance Analyst Relationship Specialty Start Date End Date None PCP - General 03/07/14 06/23/16 None documented as of this encounter
--- OUTSIDE RECORDS SUMMARY | 2022-02-19 02:04 | XMS_ITS | Encounter Summary ---
:1960 Author Organization [facility] [place] [address] Care Team Providers Name Role Phone Arleth Cueva APRN Primary Care Provider Encounter Details Date Type Department Care Team Description 06/24/2016 Refill Dermatology at [facility] allie Caryn Torres, SALES ENGAGEMENT MANAGER [address] [facility] [place] [address] Social History Tobacco Use [...] on filedocumented in this encounter Care Teams Loom Blower Relationship Specialty Start Date End Date Arleth Cueva APRN PCP - General Family Medicine 06/24/[address] [place] [address] documented as of this encounter
--- OUTSIDE RECORDS SUMMARY | 2022-02-19 02:04 | XMS_ITS | Encounter Summary ---
:1960 Author Organization [facility] [place] [address] Care Team Providers Name Role Phone None Primary Care Provider Unavailable Encounter Details Date Type Department Care Team Description 06/26/2015 [facility] [address] [facility] [place] [address] [facility] [phone] [place] [id number] (Wo rk) Social History Tobacco Use Types [...] psoriasis documented in this encounter Care Teams Dismantler Relationship Specialty Start Date End Date None PCP - General 03/07/14 06/23/16 None documented as of this encounter
--- OUTSIDE RECORDS SUMMARY | 2022-02-19 02:04 | XMS_ITS | Encounter Summary ---
:1960 [place] [address] Care Team Providers Name Role Phone None Primary Care Provider Unavailable Reason for Visit Reason Onset Date Comments Vaginal Bleeding 12/09/2014 Encounter Details Date Type Department Care Team Description 12/09/2014 Telephone Gynecology Oncology at Denisse [place] [address] Social History Tobacco Use Types Packs/Day [...] this encounter Miscellaneous Notes Telephone Encounter - Denisse Olivas RN - 12/09/2014 8:32 AM EDT Caller: kary Learning Needs Assessment Reviewed: yes Subjective Patient presents with: Vaginal Bleeding Objective/Assessment Symptom onset: yesterday Location: vaginal Duration: one day Characteristics: vaginal spotting Aggravating factors: n/a Relieving factors: n/a Timing: n/a Severity: n/a Pertinent Past Medical History: s/p RODRICK BSO 10/22/14 noted some vaginal spotting that started yesterday. not much, just when I wipe. Pt states she is starting to be more active in the form of cleaningher house over the weekend. Plan Intervention/Plan/ Follow Up: Kary will continue to monitor and call if bleeding worsens or persists over the next couple of weeks. She will call immediately for temp over 101 or any foul smelling drainage. documented in this encounter Plan of Treatment Not on filedocumented as of this encounter Visit Diagnoses Not on filedocumented in this encounter Care Teams Oven Dumper Relationship Specialty Start Date End Date None PCP - General 03/07/14 06/23/16 None documented as of this encounter
--- OUTSIDE RECORDS SUMMARY | 2022-02-19 02:04 | XMS_ITS | Encounter Summary ---
:1960 Author Organization [facility] [address] Care Team Providers Name Role Phone None Primary Care Provider Unavailable Reason for Visit Auth/Cert Specialty Diagnoses / Procedures Referred By Contact Refer red To Contact Diagnoses svt Procedures PRO ELECTROPHYS EV, R A-V PACE/REC, W/O INDUCT ELECTROPHYSIOLOGY PROCEDURE Referral ID Status Reason Start Date Expiration Date Visits Requ ested Visits Authorized [id number] 1 1 Encounter Details Date Type Department Care Team Description 10/15/2015 Surgery Electrophysiology Lab at [facility] ELECTROPHYSIOLOGY [facility] MD Tiffanie PROCEDURE [facility] [place] [address] CENTER [phone] [place] [address] Social History Tobacco Use Types Packs/Day Years [...] Sign Reading Time Taken Comments Blood Pressure 126/85 10/15/2015 6:09 AM EDT Pulse 52 10/15/2015 6:09 AM EDT Temperature - - Respiratory Rate 18 10/15/2015 6:09 AM EDT Oxygen Saturation 99% 10/15/2015 6:09 AM EDT Inhaled Oxygen Concentration - - [...] as of this encounter Visit Diagnoses Diagnosis SVT (supraventricular tachycardia) Other specified cardiac dysrhythmias documented in this encounter Administered Medications Inactive [...] mg (CO MPLETED) 805 (Given - Provider: Gneoveva Giles RN)0815 (Due) 150 mg (30 mL), [...] Routine neomycin-polymyxin B (NEOSPORIN) irrigation solution (COMPLETED) 08 (Given - Provider: Genoveva Giles, ASHLEE) Irrigation, ONCE, Tue10/15/15 at 0815, Fo r [...] Routine documented in this encounter Care Teams Fisher Diver Net Relationship Specialty Start Date End Date None PCP - General 03/07/14 06/23/16 None documented as of this encounter
--- OUTSIDE RECORDS SUMMARY | 2022-02-19 02:04 | XMS_ITS | Encounter Summary ---
:1960 Author Organization [facility] [place] [address] Care Team Providers Name Role Phone None Primary Care Provider Unavailable Reason for Visit Reason Comments Psoriasis Encounter Details Date Type Department Care Team Description 12/19/2015 [facility] Psoriasis [address] [facility] [address] [place] [address] DERMATOLOGY [phone] [place], [place] [address] (Wo rk) Social History [...] encounter Progress Notes Kp Damon MD - 12/19/2015 9:00 AM EDT PROBLEM: Follow up psoriasis, on methotrexate. Usha follows up and is doing well. Her psoriasis is all but cleared. She has a little bit on her back. She has been taking 15 mg weekly and no longer feels tired or wiped out the day after her Tuesday doses. She has not had rheumatoid labs done yet. She ran out 3 weeks ago, and she has been starting to have a little bit come back on her legs. PHYSICAL EXAMINATION: Reveals erythematous papules on the posterior calves consistent with recurrent psoriasis. She has some thinning patches on her mid back. Otherwise, her arms and legs are clear, and the elbows and knees are clear. A/P: Psoriasis, responding well to methotrexate, but not totally clearing on back. A. After discussion with patient about her expectations and treatment, we both decided that she is doing very well and we should continue with the current therapy. She can tolerate the little bit of psoriasis on her back. B. Continue the current dosing taking 6 of the 2.5 mg p.o. once weekly, #78 for a 3-month supply will be called in to her [employer] [facility] in [place], [place], with 0 refills. Tuesday is her dosing day. C. Continue folate 1 mg every other day of the week except for Sundays. She has a 1-year supply from July of 2015. D. Check labs today. Return to clinic in 3 months for repeat check. E. Would not recommend taper of methotrexate for some time given her early recurrence now, after only 3 weeks off of methotrexate therapy. She knows she can call us in the future if she runs out so that we can call in extra meds to tide her over until the next visit. CC: Jackie Gee MD documented in this encounter Plan of Treatment Not on filedocumented as of this encounter Visit Diagnoses Diagnosis Psoriasis Other psoriasis documented in this encounter Care Teams Call Center Assistant Relationship Specialty Start Date End Date None PCP - General 03/07/14 06/23/16 None documented as of this encounter
--- OUTSIDE RECORDS SUMMARY | 2022-02-19 02:04 | XMS_ITS | Encounter Summary ---
:1960 Author Organization [facility] Address [facility] [address] [place] [address] Care Team Providers Name Role Phone Arleth Cueva APRN Primary Care Provider Reason for Visit Reason Comments Established 6 month check Encounter Details Date Type Department Care Team Description 09/03/2016 Office Visit Gynecology Oncology Hien Joe Sta ge 1A Grade II at [facility] Endometrial cancer, [facility] s/p robotic hyst/ BSO Drive DR complicated by lorena [place], [place] [address] 6 trocar injury 10/22/14 [id number] [phone] Social History Tobacco Use Types Packs/Day Years [...] Sign Reading Time Taken Comments Blood Pressure 132/66 09/03/2016 12:47 PM EDT Pulse 58 09/03/2016 12:47 PM EDT Temperature 36.6 ??C (97.9 ??F) 09/03/2016 12:47 PM EDT Respiratory Rate 18 09/03/2016 12:47 PM EDT Oxygen Saturation 100% 09/03/2016 12:47 PM EDT Inhaled Oxygen Concentration - - Weight 113.5 kg (250 lb 3.6 oz) 09/03/2016 12:47 PM EDT Height - - Body Mass Index 41.19 04/27/2016 9:38 AM EST documented in this encounter Progress Notes Hien Joe, ORTHO RN - 09/03/2016 12:30 PM EDT Division [place] [address] Reason For Visit: Post Treatment Surveillance Exam [...] injury after further investigation. Interim Health: Feeling not bad, though sciatic nerve has been flaring, she has been following with her PCP. Going to PT and acupuncture with some temporary relief. She has an MRI scheduled in a few weeks for further evaluation. She also notes dry mouth with a lump in her left jaw which comes/goes, and is occasionally tender. Otherwise, no new medical issues, surgeries or hospitalizations. No PRODUCTIVITY ENGINEER questions/concerns today. ROS: No Fever, chills, nausea, vomiting, diarrhea No Pelvic/abdominal pain or bloating. No Bowel/bladder concerns or changes. Energy level is lower than normal d/t sciatic nerve discomfort. No Vaginal bleeding or discharge No lower extremity edema Weight is up- limited with activity Reports appetite is good No cough or chest pain. Occasional SOB with exertion which she attributes to d/t deconditioning and weight gain Sexual function: Sexually active without problems. Advanced Directives: reviewed, has not completed. Health Habits: Tobacco: Non-smoker ETOH: none Exercise: Limited d/t sciatic nerve pain. Health Maintenance: Mammogram: up to date, done 2016. Colonoscopy: Done 03/2016 at [facility] Social History: Lives with her . [...] Psoriasis L40.9 ??? Hypertension I10 Past Surgical History: Procedure Laterality Date ??? ABLATION OF DYSRHYTHMIC FOCUS ??? FINGER SURGERY ??? HYSTERECTOMY ??? ORTHOPEDIC SURGERY cyst removed from bone in pelvis ??? PRO EXPLORATORY RETROPERITONEAL N/A 10/22/2014 @EXPLORATION RETROPERITONEAL W OR W\O BIOPSY performed by Yoselyn Yip MD at [facility] MAIN OR ? ? PRO LAPAROSCOPY W TOT HYSTERECTUTERUS <=250 GRAM W TUBE/OVARY N/A 10/22/2014 LAPAROSCOPY,TOTAL HYST, UTERUS<250GM, DERRICK TYBE &/OR OVARY, ROBOTIC ASSIST performed by Marsha Godfrey MD at [facility] MAIN OR ??? PRO SLING OPER STRES INCONTINENCE 09/20/2012 URETHRAL SUSPENSION, SLING\FASCIA OR SYNTHETIC performed by Jozef Kent MD at [facility] MAIN OR Allergies Allergen Reactions ??? Shellfish Containing Products Angioedema ??? Pollen Extracts Stuffy head headache. Current Outpatient Prescriptions on File Prior to Visit Medication Sig Dispense Refill ??? clindamycin (CLEOCIN T) 1 % Solution Apply to upper chest twice daily after washing 60 mL 3 ??? methotrexate 2.5 mg Tablet Take 6 [...] file prior to visit. Vital Signs: BP 132/66 Pulse 58 Temp 36.6 ??C (97.9 ??F) Resp 18 Wt (!) 113.5 kg (250 lb 3.6oz) LMP 10/20/2014 SpO2 100% BMI 41.19 kg/m2 PHYSICAL EXAM: Gen: Pleasant, NAD, Alert, appears well HEENT: No clavicular adenopathy or thyromegaly. L submandibular gland is more prominent than R, non-tender. Lungs: clear to auscultation Cor: heart RRR [...] she will call/rtc sooner prn with questions/concerns. Dry mouth, prominent L submandibular gland- she will f/u with her PCP re: further evaluation/management. Hien Joe APRN documented in this encounter Plan of Treatment Not on filedocumented as of this encounter Visit Diagnoses Diagnosis Stage 1A Grade II Endometrial cancer, s/ p robotic hyst/ BSO complicated by a trocar injury 10/22/14 Malignant neoplasm of corpus uteri, exce pt isthmus documented in this encounter Care Teams Drain Tile Machine Operator Relationship Specialty Start Date End Date Arleth Cueva, ORTHO RN PCP - General Family Medicine 06/24/[address] [place] [address] documented as of this encounter
--- OUTSIDE RECORDS SUMMARY | 2022-02-19 02:04 | XMS_ITS | Encounter Summary ---
:1960 Author Organization [facility] [place] [address] Care Team Providers Name Role Phone Arleth Cueva APRN Primary Care Provider Encounter Details Date Type Department Care Team Description 06/01/2018 Telephone Neurosurgery [place] [facility] [place] [address] Social History Tobacco Use Types Packs/Day [...] this encounter Miscellaneous Notes Telephone Encounter - Cherri Hernandez - 06/02/2018 1:05 PM EST Pt called back scheduled appts on 07/10, mailing appt card. Telephone Encounter - Joann Monaco - 06/02/2018 11:33 AM EST Called and LM on identified VM for pt to call back to schedule appt Telephone Encounter - Opal Molina - 06/01/2018 5:31 PM EST Patient needs f/u appointment(s): With TCR on/around next available next available OV, surgical consult - Chronic bilat. back pain, sciatica, MRI and Xray to be scheduled proir Telephone Encounter - Opal Molina - 06/01/2018 5:30 PM EST Hamida Pedro APRN Sent: Simran June 01, 2018 ??4:22 PM To: Guillermo Carrillo Neurosurgery Jenkins Usha Huizar ( ) : 1960> ?? Follow-up and Dispositions Check-out Note: Trial of low dose gabapentin. Referral to [...] on filedocumented in this encounter Care Teams Engineer And Geologist Relationship Specialty Start Date End Date Arleth Cueva APRN PCP - General Family Medicine 06/24/[address] [place] [address] documented as of this encounter
--- OUTSIDE RECORDS SUMMARY | 2022-02-19 02:04 | XMS_ITS | Encounter Summary ---
:1960 Author Organization [facility] [place] [address] Care Team Providers Name Role Phone None Primary Care Provider Unavailable Reason for Visit Reason Onset Date Comments Medication Refill 06/24/2015 Encounter Details Date Type Department Care Team Description 06/24/2015 Refill Dermatology at [facility] Barrie Gregory MD [address] [facility] [place] [address] [facility] [phone] [place], [place] [address] (Wo rk) Social History Tobacco [...] this encounter Miscellaneous Notes Telephone Encounter - Usha GilletteNOEL - 06/26/2015 8:51 AM EST Patients call returned by Dr. Napier, use of Dovonex and Diprolene reviewed. Dovonex cream refilled 90 g tube with PRN refills and Diprolene cream 90 g tube with 1 refill. Patient will follow up withDr. Santos in August as scheduled. Telephone Encounter - Jaimie Ware - 06/24/2015 3:14 PM EST Usha Moreno Gaye last seen 05/16/15 is looking for a refill of her medications. She said she stopped using the Dovanex - pt mentioned something about it getting into her blood steam? She would like the diprolene and wanted more of it since she's using it so much - she said she's going through a tube in 2weeks. I let her know the nurse may call her to disucss this further with her. She understands dr. Santos is on vacation. She would like a call back at [phone] documented in this encounter Plan of Treatment Not on filedocumented as of this encounter Visit Diagnoses Not on filedocumented in this encounter Care Teams Oem Sales Manager Relationship Specialty Start Date End Date None PCP - General 03/07/14 06/23/16 None documented as of this encounter
--- OUTSIDE RECORDS SUMMARY | 2022-02-19 02:04 | XMS_ITS | Encounter Summary ---
:1960 Author Organization [facility] [place] [address] Care Team Providers Name Role Phone Arleth Cueva APRN Primary Care Provider Reason for Visit Reason Onset Date Comments Hematuria 11/05/2016 Encounter Details Date Type Department Care Team Description 11/05/2016 Telephone Hematology and Oncol ogy at [facility] [place] [address] Social History Tobacco Use Types Packs/Day [...] Telephone Encounter - Denisse Olivas RN - 11/05/2016 2:37 PM EDT Usha calls to c/o bleeding with urination. States she has to go all the time. Notes a very uncomfortable pressure when she voids. Pt instructed to call her PCP for advise. Pt agrees. documented in this encounter Plan of Treatment Not on filedocumented as of this encounter Visit Diagnoses Not on filedocumented in this encounter Care Teams Lead Scientist Relationship Specialty Start Date End Date Arleth Cueva APRN PCP - General Family Medicine 06/24/[address] [place] [address] documented as of this encounter
--- OUTSIDE RECORDS SUMMARY | 2022-02-19 02:04 | XMS_ITS | Encounter Summary ---
:1960 Author Organization [facility] [place] [address] Care Team Providers Name Role Phone None Primary Care Provider Unavailable Encounter Details Date Type Department Care Team Description 08/31/2015 [place] [address] Social History Tobacco Use Types Packs/Day [...] Name Priority Date/Time Associated Diagnosis Comme nts CARDIAC DEVICE Routine 08/31/2015 4:05 AM Results for this CHECK - REMOTE EDT procedure are in the results section. documented in this encounter Results Cardiac device check - Remote (08/31/2015 4:05 AM EDT) Component Value Ref Test Analysis Performed Pathologis t Range Method Time At Signature Date Time [id number] IDCO Interrogation Session Implantable Medtronic IDCO Pulse Generator Belt Builder Implantable [id number] IDCO Pulse Generator Model Implantable [id number] IDCO Pulse Generator Serial Number Type Remote IDCO Interrogation Session Implantable Implantable IDCO Pulse Generator Diagnostic Type Monitor Implantable [id number] IDCO Pulse Generator Implant Date Zone Setting AT/AF IDCO Type Category Zone Setting VF IDCO Type Category Zone Setting VT IDCO Type Category Battery Date 80302547975774 IDCO Time of Measurements Battery Status Recommended IDCO Replacement Time Atrial Tachy 66638513562601 IDCO Statistic Date Time Start Atrial Tachy 90985805064094 IDCO Statistic Date Time End Atrial Tachy 0 % IDCO Statistic AT/AF Stateline Percent Episode 2 IDCO Statistic Recent Count Episode 2 IDCO Statistic Recent Count Episode 0 IDCO Statistic Recent Count Episode 0 IDCO Statistic Recent Count Episode Patient Activated IDCO Statistic Type Category Episode 0 IDCO Statistic Recent Count Episode AT/AF IDCO Statistic Type Category Episode 31 IDCO Statistic Recent Count Episode [id number] IDCO Statistic Recent Date Time Start Episode [id number] IDCO Statistic Recent Date Time End Episode 40482457544574 IDCO Statistic Recent Date Time Start Episode 32997547562049 IDCO Statistic Recent Date Time End Episode 08170361325622 IDCO Statistic Recent Date Time Start Episode 15386883530366 IDCO Statistic Recent Date Time End Episode [id number] IDCO Statistic Recent Date Time Start Episode 53490757133571 IDCO Statistic Recent Date Time End Episode 10776021305988 IDCO Statistic Recent Date Time Start Episode [id number] IDCO Statistic Recent Date Time End Episode 70190664016609 IDCO Statistic Recent Date Time Start Episode 24590819738145 IDCO Statistic Recent Date Time End Episode 39 IDCO Statistic Total Count Episode 2 IDCO Statistic Total Count Episode 2 IDCO Statistic Total Count Episode 0 IDCO Statistic Total Count Episode 3 IDCO Statistic Total Count Episode Patient Activated IDCO Statistic Type Category Episode 0 IDCO Statistic Total Count Episode AT/AF IDCO Statistic Type Category Episode [id number] IDCO Statistic Total Date Time Start Episode 35328835010235 IDCO Statistic Total Date Time End Episode 17649642124785 IDCO Statistic Total Date Time Start Episode 19545144151669 IDCO Statistic Total Date Time End Episode 69895016910915 IDCO Statistic Total Date Time Start Episode 08739991433479 IDCO Statistic Total Date Time End Episode 26673118031398 IDCO Statistic Total Date Time Start Episode 61812210191579 IDCO Statistic Total Date Time End Episode 62384623993334 IDCO Statistic Total Date Time Start Episode 47445591831340 IDCO Statistic Total Date Time End Episode 82550042999887 IDCO Statistic Total Date Time Start Episode 11521431223858 IDCO Statistic Total Date Time End Anatomical Region Laterality Modality Other Specimen (Source) Anatomical Collection Method Collection Time Re ceived Time Location / / Volume Laterality 08/31/2015 4:05 AM EDT Physician Cardiology MD IMPLANTABLE CARDIAC DEVICE documented in this encounter Visit Diagnoses Not on filedocumented in this encounter Care Teams Brake Repairer Air Relationship Specialty Start Date End Date None PCP - General 03/07/14 06/23/16 None documented as of this encounter
--- OUTSIDE RECORDS SUMMARY | 2022-02-19 02:04 | XMS_ITS | Encounter Summary ---
:1960 Author Organization [facility] [place] [address] Care Team Providers Name Role Phone None Primary Care Provider Unavailable Encounter Details Date Type Department Care Team Description 03/22[facility]2016 [facility] Caryn Vines, GRINDER MACHINE SETTER [address] [place] [address] Social History Tobacco Use Types Packs/Day [...] on filedocumented in this encounter Care Teams Plumbing Instructor Relationship Specialty Start Date End Date None PCP - General 03/07/14 06/23/16 None documented as of this encounter
--- OUTSIDE RECORDS SUMMARY | 2022-02-19 02:04 | XMS_ITS | Encounter Summary ---
:1960 Author Organization [facility] [place] [address] Care Team Providers Name Role Phone None Primary Care Provider Unavailable Reason for Visit Reason Comments Palpitations ILR Encounter Details Date Type Department Care Team Description 04/16/2015 Office Visit Cardiology at [facility] [place] SVT (supraventricular [facility] B, R D ENGINEER tachycardia) [place] [address] CARDIOLOGY DEPT. [phone] [place], [place] [address] Social History Tobacco Use Types [...] Sign Reading Time Taken Comments Blood Pressure 126/70 04/16/2015 12:38 PM EST Pulse 71 04/16/2015 12:38 PM EST Temperature - - Respiratory Rate - - Oxygen Saturation 98% 04/16/2015 12:38 PM EST Inhaled Oxygen Concentration - - Weight 108.9 kg (240 lb) 04/16/2015 12:38 PM EST Height - - Body Mass Index 38.74 10/22/2014 7:09 AM EDT documented in this encounter Progress Notes [place] - 04/16/2015 12:59 PM EST ILR INTERROGATION OUTPATIENT Usha Huizar is a 54 y.o. female who presents today for ILR interrogation. The ILR was implanted 12/12/2013 for presyncope and palpitations since having had an ablation for SVT. She reports no presyncope, syncope or palpitations since last being seen and having stopped Elavil. PCP: RENE GARCÍA MD Implant data: Xenex Disinfection Servicestronic Reveal Linq Model# LNQ11, Serial # [id number] Final Programming: Tachy detection: 370 ms / 162 bpm, 5 beats Asystole: 3 seconds Bradycardia: 1500 ms / 40 bpm for 8 beats Sensitivity: 0.035 MV AT/AF detection: On Current ILR programming: Same as above Underlying rhythm today: SR 67 bpm Battery status: OK R wave: 0.27 mV Activations: None Findings: 9 total episodes, all noise. Impression: Normal device function. Reprogramming: None Plan: On Care Link (cellular). RTC 6 mos No significant events Normal device function Summary 1) Normal device function 2) Routine follow up as planned [place] APRN documented in this encounter Plan of Treatment Not on filedocumented as of this encounter Visit Diagnoses Diagnosis SVT (supraventricular tachycardia) Other specified cardiac dysrhythmias documented in this encounter Care Teams Fisheries Officer Relationship Specialty Start Date End Date None PCP - General 03/07/14 06/23/16 None documented as of this encounter
--- OUTSIDE RECORDS SUMMARY | 2022-02-19 02:04 | XMS_ITS | Encounter Summary ---
:1960 Author Organization [facility] [place] [address] Care Team Providers Name Role Phone Arleth Cueva APRN Primary Care Provider Encounter Details Date Type Department Care Team Description 06/01/2018 Orders Only Neurosurgery at [facility] Hamida Pedro, [facility] [place] [address] [facility] [phone] [place], [place] [address] (Wo rk) Social History Tobacco [...] on filedocumented in this encounter Care Teams Skein Drier Relationship Specialty Start Date End Date Arleth Cueva APRN PCP - General Family Medicine 06/24/[address] [place], [place] [address] documented as of this encounter
--- OUTSIDE RECORDS SUMMARY | 2022-02-19 02:04 | XMS_ITS | Encounter Summary ---
:1960 Author Organization [facility] [place] [address] Care Team Providers Name Role Phone Arleth Cueva APRN Primary Care Provider Encounter Details Date Type Department Care Team Description 06/01/2018 Hospital Encounter XRay at [facility] Hamida Pedro of [address] Micaela APRN side [facility] [address] [place] [phone] [place] [address] Social History Tobacco Use Types Packs/Day Years [...] Priority Date/Time Associated Diagnosis Comme nts XR LUMBAR SPINE AP Routine 06/01/2018 10:45 AM Sciatica of rig ht Results for this FLEXION AND EST side procedure are i n EXTENSION ONLY the results section. documented in this encounter Results (ABNORMAL) XR Lumbar Spine AP & Flexion [...] not seen in on abdominal radiographs from 2014. This finding is o f unclear etiology [...] please contact e number below. ? Narrative 06/01/2018 11:41 [...] 10/22/2014. 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
--- OUTSIDE RECORDS SUMMARY | 2022-02-19 02:04 | XMS_ITS | Encounter Summary ---
:1960 Author Organization [facility] [place] [address] Care Team Providers Name Role Phone None Primary Care Provider Unavailable Reason for Visit Reason Comments Follow-up Psoriasis Encounter Details Date Type Department Care Team Description 05/16/2015 [facility] Dx[facility] [address] [place] [address] [facility] [place] [address] Social History Tobacco Use Types Packs/Day Years [...] encounter Progress Notes Aamir Arcos LPN - 05/16/2015 10:49 AM EST Chief Complaint: psoriaisis f/u - no change History of Present Illness Usha Huizar is a 54 y.o. female History of psoriasis currently using betamethasone cream intermittently (due to pharmacy issues) andOTC moisturizers who reports no change. She states the pharmacy which she uses does not carry betamethasone and ends up going about a week and a half with no cream. While she is able to use it, there is some improvement but then worsens when she runs out. Antecedent History: History of psoriasis for approximately 30 years. Previously treated with triamcinolone, clobetasol - says they didn't work - and has used tanning beds a few times a year for control in the past. No new medications in the last few months. Never been biopsied. Interval Changes in Medications and Medical, Surgical Family, and Social Histories Since Last Visit 03/21/2015: No significant and pertinent interval changes. Allergies Allergies Allergen Reactions ??? Shellfish Containing Products Angioedema ??? Pollen Extracts Stuffy head headache. Medications betamethasone dipropionate (DIPROLENE) 0.05 % Cream; ibuprofen (ADVIL;MOTRIN) 600 mg Tablet; meTOPROLOL tartrate (LOPRESSOR) 25 mg Tablet; acetaminophen (TYLENOL) 325 mg Tablet; hydrochlorothiazide (HYDRODIURIL) 25 mg tablet; simvastatin (ZOCOR) 20 mg tablet; levothyroxine (SYNTHROID) 75 mcg tablet Social History Tobacco: Former smoker (1987) Alcohol: Occasionally Review of Systems Significant for no fevers, chills, night sweats, or fatigue and no other pertinent and acute changesin constitutional, other skin, HEENT, gastrointestinal, cardiovascular, musculoskeletal, endocrine, allergy/immunology systems upon specific queries. Examination Standby: Alley Candelaria, Clinical Scribe Pain 0/10. Mood is appropriate. Well developed, well-nourished in no apparent distress, alert and oriented to time, person, place and situation. An examination of the face, neck, back, forearms/hands and legs significant for the followi ?? 1-5 cm red scaly plaques on the back, forearms, legs. BSA (observed) 3%. Assessment and Plan Psoriasis Betamethasone-responsive, but due to pharmacy limitations and runs out and flares. BSA: 3-4%. So scattered that phototherapy or systemic are likely more beneficial/practical over topicals. Counseled: psoriasis, etiologies, noncutaneous associations (including CVD with increased mortality,arthritis, etc???), triggers (including tobacco, alcohol, stress), treatment options, as well as risks and benefits of topical and intralesional steroids, phototherapy, and systemics. Answered all questions. Patient declines systemic medications. ?? NBUVB full body 3 times per week. Counseled: risks and benefits of NBUVB. Patient signed consent. ?? Cont betamethasone bid and 2-3 x per week with occlusion Tuesday to Tuesday [recommend that she changes pharmacy and she has identified new pharmacy] ?? Start Dovonex bid prn weekends Follow-up: in 3-4 months or sooner as needed for worsening or new dermatitis. Appointment made before exiting. Patient has been provided telephone # for Dr. Damon and will be following up on the referral. I am documenting this encounter acting as the scribe for and in the presence of Dr. Santos: AAMIR ARCOS LPN and Alley Candelaria, Clinical Scribe I performed the above scribed service and agree with the accuracy of the documentation in this encounter. Barrie Santos MD FAAD Section of Dermatology [facility] documented in this encounter Plan of Treatment Not on filedocumented as of this encounter Visit Diagnoses Diagnosis Psoriasis - Primary Other psoriasis documented in this encounter Care Teams Sustainability Executive Director Relationship Specialty Start Date End Date None PCP - General 03/07/14 06/23/16 None documented as of this encounter
--- OUTSIDE RECORDS SUMMARY | 2022-02-19 02:04 | XMS_ITS | Encounter Summary ---
:1960 Author Organization [facility] [place] [address] Care Team Providers Name Role Phone Arleth Cueva APRN Primary Care Provider Reason for Visit Reason Comments Follow-up Psoriasis Encounter Details Date Type Department Care Team Description 10/05/2016 [facility] [address] [facility] Terry [address] [place] [address] DERMATOLOGY [phone] [place], [place] [address] (Wo rk) Social History [...] encounter Progress Notes Kp Damon MD - 10/05/2016 8:45 AM EDT PROBLEM: Followup psoriasis on methotrexate. Usha follows up and is doing well. She would like to see if she could not be tapered down off the methotrexate so that she can enjoy the summer, maybe have a beer or 2. She also wonders whether she can taper down and off because previously just topical creams worked quite well for her for many years until about a year ago when she was referred to me for flaring of her psoriasis. Physical examination reveals that her psoriasis remains largely clear with just a thin patch on the elbows, minimally apparent. She does have some thin patches, however, on her back, underneath the bra strap area. A/P: Psoriasis, responding well to methotrexate. a. At patient's request, we will taper her down from the methotrexate dosing currently at 15 mg a week, decrease from 6 pills a week to 5 for a week, then 4 for a week, then 3, then 2, then 1, then off over the next month. We will call in a supply of these to her [facility] in [place]. b. Begin betamethasone diproprionate cream applying to psoriasis on a b.i.d. basis; 45 g dispensed with 5 refills. Patient in the past had also used Dovonex but this was not particularly efficacious for her. c. For chest folliculitis, prescription given for clindamycin 1% solution, apply to upper chest b.i.d. after washing; 60 mL with 3 refills also called into [facility] in [place]. d. No need for methotrexate labs today. Note, should the patient's psoriasis begin to flare, I would be happy to call in more methotrexate for her to get her started back on it and then have her follow up after 3 months of that therapy. cc: Arleth Cueva APRN documented in this encounter Plan of Treatment Not on filedocumented as of this encounter Visit Diagnoses Diagnosis Psoriasis Other psoriasis documented in this encounter Care Teams Asphalt Spreader Operator Relationship Specialty Start Date End Date Arleth Cueva APRN PCP - General Family Medicine 06/24/[address] [place] [address] documented as of this encounter
--- OUTSIDE RECORDS SUMMARY | 2022-02-19 02:05 | XMS_ITS | Encounter Summary ---
:1960 Author Organization [facility] [place] [address] Care Team Providers Name Role Phone None Primary Care Provider Unavailable Reason for Visit Reason Comments Establish Care epic endometrial cancer Encounter Details Date Type Department Care Team Description 10/03/2014 Office Visit Gynecology Oncology Marsha Godfrey, [place] [facility] [place] [facility] [place], [place] [id number] ONCOLOGY [phone] [place] [id number] Social History Tobacco Use Types Packs/Day Years [...] Sign Reading Time Taken Comments Blood Pressure 116/80 10/03/2014 10:41 AM EDT Pulse 64 10/03/2014 10:41 AM EDT Temperature 36.6 ??C (97.9 ??F) 10/03/2014 10:41 AM EDT Respiratory Rate 18 10/03/2014 10:41 AM EDT Oxygen Saturation 99% 10/03/2014 10:41 AM EDT Inhaled Oxygen Concentration - - Weight 111.6 kg (246 lb 0.5 oz) 10/03/2014 10:41 AM EDT Height 165.6 cm (5' 5.2) 10/03/2014 10:41 AM EDT Body Mass Index 40.7 10/03/2014 10:41 AM EDT documented in this encounter Progress Notes Ashley Chacko RN - 10/03/2014 3:26 PM EDT Met with Usha Lisa Huizar after Dr. Godfrey had explained plan of care to her to discuss pre-operative instructions and post operative expectations. Usha stated understanding that someone from the hospital will call her on the day before surgery to let her know the time of the surgery and what time she will need to be at the pre-surgical suite. Usha was instructed on clear liquid diet to start the day before surgery and after midnight on the morning of surgery to continue on the more restricted clear liquids diet until 2 hours prior to surgery, and then she can not have anything to eat or drink. Usha was instructed to do a bowel prep by drinking one bottle of magnesium citrate and stated understanding. She understands expected length of stay as inpatient in the hospital is one overnight. Explained pre and post op expectations that included, IVs, meyers catheter, diet restriction and advancement, incentive spirometry, intermittent compression devices, continuous pulse oximetry, frequency of vital signs and nursing assessments, advancement of activity postoperatively and goals that need to be met prior to discharge to home. xxx stated understanding. Usha was given the Gynecology Pre-Operative Instruction handout with the telephone number to call if any questions/concerns arise prior to her scheduled surgery date. Escorted Usha and her to for preadmission testing. Marsha Godfrey MD - 10/03/2014 10:59 AM EDT Division of Gynecologic Oncology Lakisha Hernández MD [facility] Marsha Godfrey MD [facility] [place] [address] New Outpatient Visit: Reason for visit :Usha Huizar is being seen in the clinic today at the request of Radha [facility] [address] [facility] [place] [address] for the evaluation of endometrial cancer. I have reviewed the available records, interviewed and examined the patient. History of Present Illness: Usha Huizar is a 54 y.o. female referred for evaluation of endometrial cancer. According to Dr. Leigh, Usha reports having irregular periods for at least a year, maybe two. She noticed that she has been skipping months at a time, with the largest period being about 6 months. When she does get her menses, they are heavier than they used to be, though she is not passing clots or symptomatic of pelvic cramping. They are about 5 days duration. She has had one episode in July when she had a period then a week later had one day of spotting. She denies dizziness, sob, cp with menses. She presentedto her PCP who ordered a transvaginal u/s, which demonstrated the following: On 09/02/14 she underwent a transvaginal ultrasound with results as below: ------ Uterus ------ Uterus: Visualized Position: Anteverted Size (cm) L: 9.6 W: 6.6 H: 5.4 Description: Diffusely heterogeneous myometrial echogenicity. One measurable fibroid visualized, listed below. ------ Myomas ------ Site L(cm) W(cm) D(cm) Location Posterior 2.8 2.5 2.1 Intramural Blood Flow RI PI Comments Endometrium Endometrium: Ill-defined, heterogeneous Thickness(mm): 8.0 ------ Cervix ------ Small nabothian cysts seen. [place] No fluid is visualized. Right Ovary Status: Visualized Size (cm) L: 2.4 W: 2.2 H: 1.5 Vol (ml): 4.1 Morphology: Normal appearance Left Ovary Status: Visualized Size (cm) L: 1.4 W: 1.9 H: 1.6 Vol (ml): 2.2 Morphology: Normal appearance Impression Ultrasound - Transvaginal - Summary 1. Normal thickness endometrium for a menstruating woman, no associated vascularity, however endometrium is ill defined and heterogeneous in appearance. In the clinical setting of abnormal bleeding, consider gynecologic consultation. 2. Diffusely heterogeneous myometrial echogenicity suggestive of adenomyosis, which could be better characterized by MR. One discrete measurable fibroid identified, measuring approximately 3 cm. 3. Normal ovaries. Given the heterogeneity in the endometrium, she then on 09/16/14 she underwent an endometrial biopsy with results as below: ---Pathologic Diagnosis--- Endometrium, biopsy: Endometrial carcinoma, endometrioid type, FIGO II, with extensive squamous differentiation. Review of Systems: Review of Systems Constitutional: Negative for activity change, appetite change, fatigue and unexpected weight change. Eyes: Negative. 2 eye surgeries scraped off the outer layer Respiratory: Positive for shortness of breath (with walking). Negative for chest tightness. Cardiovascular: Negative for chest pain, palpitations and leg swelling. Gastrointestinal: Positive for abdominal pain (burining in the pelvic region). Negative for nausea, vomiting, diarrhea and blood in stool. Genitourinary: Negative for hematuria and difficulty urinating. Occasional leakage, maybe a little Musculoskeletal: Positive for back pain. Skin: Positive for rash (psoriasis). Allergic/Immunologic: Positive for environmental allergies (to pollen). Neurological: Positive for headaches. Negative for seizures. Numbness: i get headaches a lot Hematological: Negative. Psychiatric/Behavioral: Negative. Medical History: Past Medical History Diagnosis Date ??? Psoriasis ??? Obesity ??? HTN (hypertension) ??? Hypothyroidism ??? Hyperlipidemia ??? Migraine ??? Palpitations (resolved since the ablation) started on beta lena approx one month ago Surgical History: Past Surgical History Procedure Laterality Date ??? Orthopedic surgery cyst removed from bone in pelvis ??? Finger surgery ??? Sling oper stres incontinence 09/20/2012 URETHRAL SUSPENSION, SLING\FASCIA OR SYNTHETIC performed by Jozef Kent MD at [facility] MAIN OR ??? Ablation of dysrhythmic focus Placement of a loop recorder to monitor for arrythmia Medications: Current Outpatient Prescriptions Medication Sig Dispense Refill ??? acetaminophen (TYLENOL) 325 mg Tablet Take 650 mg by mouth every 4 hours as needed for Pain. ??? metoprolol tartrate (LOPRESSOR) 25 mg tablet Take 25 mg by mouth 2 times daily. ??? hydrochlorothiazide (HYDRODIURIL) 25 mg tablet Take 25 mg by mouth daily. ??? simvastatin (ZOCOR) 20 mg tablet Take 20 mg by mouth nightly. ??? levothyroxine (SYNTHROID) 75 mcg tablet Take 75 mcg by mouth daily. No current facility-administered medications for this visit. Allergies: Allergies Allergen Reactions ??? Shellfish Containing Products Angioedema ??? Pollen Extracts Stuffy head headache. Obstetric History: . x 2. Gynecologic History/Health Maintenance: Menarche at age 5-6[age] grade. Denies menopause, though endorses hot flashes since age 35. Never used OCPs. Denies HRT use. Recent postmenopausal bleeding/spotting. Denies STDs. Has had regular Pap smear screening and they have been wnl per her. Mammograms are up to date and are wnl per the patient. Last colonoscopy = never. Family History: Family History Negative family history of: Breast Cancer, Colorectal Cancer, Ovarian Cancer Social History: reports that she quit smoking about 27 years ago. Her smoking use included Cigarettes. She has a 15pack-year smoking history. She has never used smokeless tobacco. She reports that she drinks alcohol. She reports that she uses illicit drugs. She is . She lives with her . She is unemployed. She lives in [place], [place]. Physical Exam: Filed Vitals: 10/03/14 1041 BP: 116/80 Pulse: 64 Temp: 36.6 ??C (97.9 ??F) Resp: 18 Height: 165.6 cm (5' 5.2) Weight: 111.6 kg (246 lb 0.5 oz) SpO2: 99% Body mass index is 40.7 kg/(m^2). Body surface area is 2.27 meters squared. Physical Exam Constitutional: She appears well-developed and well-nourished. No distress. Here alone. HENT: Head: Normocephalic and atraumatic. Eyes: Right eye exhibits no discharge. Left eye exhibits no discharge. No scleral icterus. Neck: Neck supple. Cardiovascular: Normal rate, regular rhythm and normal heart sounds. Exam reveals no gallop and no friction rub. No murmur heard. There is a small well-healed incision over her sternum. Pulmonary/Chest: Effort normal and breath sounds normal. No respiratory distress. She has no wheezes. Abdominal: Soft. She exhibits no distension and no mass. There is no tenderness. There is no rebound. Musculoskeletal: She exhibits no edema or tenderness. Lymphadenopathy: She has no cervical adenopathy. Right: No supraclavicular adenopathy present. Left: No supraclavicular adenopathy present. Neurological: She is alert. Coordination normal. Skin: Skin is warm and dry. No rash noted. No erythema. No pallor. Psychiatric: She has a normal mood and affect. Her behavior is normal. GOG Performance Status: 0 Impression/Plan: Usha Huizar is a 54 y.o. with a biopsy revealing endometrial adenocarcinoma, FIGO grade 2. The pathology was done here at [facility]. Based on these findings, a decision was made to proceed with surgery for definitive treatment, specifically a robotic-assisted hysterectomy and bilateral salpingo-oophorectomy and lymph node dissection. I reviewed the natural course of endometrial cancer with the patientand the role that surgery plays in determining the stage of the cancer and it's subsequent treatmentafter surgery if indicated by the stage. I reassured Usha Huizar that in the majority of endometrial cancer cases, they are diagnosed early and that the intent of therapy is curative. I reviewed the surgical approach, need for general anesthesia, and the expected postoperative recovery. The patient was informed that patient's undergoing this procedure typically are safe to go home the day after surgery. Additionally, I discussed the risks of the procedure including infection, bleeding, chronic leg swelling (lymphedema), DVT/PE, , damage to pelvic or abdominal structures such as the bowel, bladder, ureters, blood vessels, nerves, and the possibility of needing to convert to an open surgery. All of Usha Huizar questions were answered to her satisfaction and she verbalizedunderstanding of the plan of care. Surgical consent was obtained, bowel preparation reviewed and surgery will be scheduled in the near future. Thank you for referring this stephanie patient to [facility] for her cancer care. I will keep you apprised ofher progress. Marsha Godfrey MD documented in this encounter Miscellaneous Notes Advance Care Plan Note - Ashley Chacko RN - 10/03/2014 3:25 PM EDT Usha Huizar does not have any advance directives on file. The purpose of advance directives werereviewed with her and she was provided with the state- specific booklet to complete these. I have asked that she bring a copy of her completed advance directives to her next visit so that it may be scanned into our electronic medical record. In the meantime, she states that if she were unable to make medical decisions, she identifies the following person to make decisions on her behalf: Name: Ron Huizar Relationship: Spouse Contact phone: cell documented in this encounter Plan of Treatment Not on filedocumented as of this encounter Procedures Procedure Name Priority Date/Time Associated Diagnosis Comme nts HEMOGRAM Routine 10/03/2014 1:00 PM Endometrial cancer Res ults for this EDT procedure are i n the results section. DIFFERENTIAL, Routine 10/03/2014 1:00 PM Endometrial cancer Re sults for this AUTOMATED EDT procedure are i n the results section. TYPE AND SCREEN, SDP Routine 10/03/2014 1:00 PM Endometrial ca ncer (FUTURE SURGERY, EDT [facility] SAME DAY PROGRAM ONLY) CREATININE Routine 10/03/2014 1:00 PM Endometrial cancer Res ults for this EDT procedure are i n the results section. ABO/RH TYPING Routine 10/03/2014 1:00 PM Endometrial cancer Re sults for this EDT procedure are i n the results section. CBC (WITH DIFF) Routine 10/03/2014 1:00 PM Endometrial cancer EDT ANTIBODY SCREEN Routine 10/03/2014 1:00 PM Endometrial cancer Results for this EDT procedure are i n the results section. documented in this encounter Results EKG 12 Lead (10/03/2014 1:09 PM EDT) Component Value Ref Range Test Analysis Performed Pathologis t Method Time At Signature Ventricular rate 58 BPM MUSE SYSTEM Atrial Rate 58 BPM MUSE SYSTEM P-R Interval 160 ms MUSE SYSTEM QRS Duration 100 ms MUSE SYSTEM Q-T Interval 468 ms MUSE SYSTEM QTC Calculated 459 ms MUSE SYSTEM (Bezet) Calculated P [place] 61 degrees MUSE SYSTEM Calculated R [place] 25 degrees MUSE SYSTEM INTERPRETATION Sinus bradycardia MUSE SY STEM Otherwise normal ECG When compared with ECG of 02-MAR-2014 07:55, No significant change was found Confirmed by MD Del Castillo Timothy ([id number]) on 10/03/2014 7:30:36 P M Specimen Anatomical Collection Method Collection Time Receive d Time (Source) Location / / Volume Laterality 10/03/2014 1:09 PM 5 7:30 EDT PM EDT Marsha Godfrey MD ECG ORDERABLES Performing Organization Address City/State/ZIP Code Phon e Number MUSE SYSTEM Antibody screen (10/03/2014 1:00 PM EDT) Analysis Performed At Patho logist Time Signature Ab Screen Negative [facility] Expires at [id number] [facility] 505 on: [facility] Specimen Anatomical Collection Method Collection Time Receive d Time (Source) Location / / Volume Laterality Blood specimen 10/03/2014 1:00 PM 015 1:05 (specimen) EDT PM EDT Resulting Agency Comment Spec In Lab Marsha Godfrey MD BLOOD BANK ORDERABLES Performing Organization Address City/State/Z[place] [address] [facility] ABO/Rh Typing (10/03/2014 1:00 PM EDT) P athologist Signature ABORh Type B Pos [facility] Specimen Anatomical Collection Method Collection Time Receive d Time (Source) Location / / Volume Laterality Blood specimen 10/03/2014 1:00 PM 015 1:05 (specimen) EDT PM EDT Resulting Agency Comment Spec In Lab Marsha Godfrey MD BLOOD BANK ORDERABLES Performing Organization Address City/[facility]/[place] [address] CERNER MILLENNIUM Differential, Automated (10/03/2014 1:00 PM EDT) P athologist Signature Neutrophils % 55.4 % CERNER MILLENNIUM Neutr Abs (ANC) 4.13 1.50 - CERNER 6.30 MILLENNIUM x10(3)/mcL Lymphocytes % 37.0 % CERNER MILLENNIUM Lymphocytes Abs 2.8 1.0 - 3.6 CERNER x10(3)/mcL MILLENNIUM Monocytes % 4.8 % CERNER MILLENNIUM Monocyte Abs 0.4 0.2 - 1.0 CERNER x10(3)/mcL MILLENNIUM Eosinophils % 2.1 % CERNER MILLENNIUM Eosinophils Abs 0.2 0.0 - 0.5 CERNER x10(3)/mcL MILLENNIUM Basophils % 0.4 % CERNER MILLENNIUM Basophils Abs 0.0 0.0 - 0.2 CERNER x10(3)/mcL MILLENNIUM Immature Gran % 0.30 % CERNER MILLENNIUM Comment: Immature granulocytes(IG's)percentage an d absolute count will include metamyelocytes, myelocytes, and promyelo cytes. Blood smears from CBCs yielding IG's will be scanned manually for concbrannon dannini. If this scan disagrees with the automated IG or if promyelocytes are not ed, a manual differential will be performed. Ayala Gran Abs 0.02 0.00 - 0.05 x10(3)/mcL CER NER MILLENNIUM Specimen Anatomical Collection Method Collection Time Receive d Time (Source) Location / / Volume Laterality Blood specimen 10/03/2014 1:00 PM 015 1:17 (specimen) EDT PM EDT Resulting Agency Comment Spec In Lab Marsha Godfrey MD HEMATOLOGY ORDERABLES Performing Organization Address City/[facility]/[place] [address] CERNER MILLENNIUM Hemogram (10/03/2014 1:00 PM EDT) athologist Signature WBC 7.5 4.0 - 10.0 CERNER x10(3)/mcL MILLENNIUM RBC 4.50 3.93 - 5.22 CERNER x10(6)/mcL MILLENNIUM Hemoglobin 13.6 11.2 - 15.7 CERNER gm/dL MILLENNIUM Hematocrit 39.5 34.0 - 45.0 CERNER % MILLENNIUM MCV 87.8 79.0 - 94.0 CERNER fL MILLENNIUM MCH 30.2 26.6 - 32.2 CERNER pg MILLENNIUM MCHC 34.4 32.0 - 36.5 CERNER gm/dL MILLENNIUM Platelets 257 145 - 370 CERNER x10(3)/mcL MILLENNIUM RDWSD 40.0 35.0 - 46.0 CERNER fL MILLENNIUM RDWCV 12.4 10.9 - 14.4 CERNER % MILLENNIUM MPV 9.9 9.0 - 12.0 CERNER fL MILLENNIUM Specimen Anatomical Collection Method Collection Time Receive d Time (Source) Location / / Volume Laterality Blood specimen 10/03/2014 1:00 PM 015 1:17 (specimen) EDT PM EDT Resulting Agency Comment Spec In Lab Marsha Godfrey MD HEMATOLOGY ORDERABLES Performing Organization Address City/State/ZIP Code Phon e Number [address] CERBANNER MILLENNIUM Creatinine (10/03/2014 1:00 PM EDT) athologist Signature Creatinine 0.81 0.70 - 1.20 CERNER mg/dL MILLENNIUM Comment: Please note that the pediatric reference intervals supplied above were not validated at [facility]. Results from pediatri c patients should be interpreted in conjunction to the patient's age, height and muscle mass. Estimated GFR >60 >=60 CERNER MILLENNIU M [...] the following links into your internet browser. [email or web address] Specimen Anatomical Collection Method Collection Time Receive d Time (Source) Location / / Volume Laterality Blood specimen 10/03/2014 1:00 PM 015 1:17 (specimen) EDT PM EDT Resulting Agency Comment Spec In Lab Marsha Godfrey MD CHEMISTRY ORDERABLES Performing Organization Address City/State/ZIP Code Phon e Number [address] LABOR[address] [facility] documented in this encounter Visit Diagnoses Diagnosis Endometrial cancer - Primary Malignant neoplasm of corpus uteri, exce pt isthmus documented in this encounter Care Teams Hot Top Liner Helper Relationship Specialty Start Date End Date None PCP - General 03/07/14 06/23/16 None documented as of this encounter
--- OUTSIDE RECORDS SUMMARY | 2022-02-19 02:05 | XMS_ITS | Encounter Summary ---
:1960 Author Organization [facility] Address [place] [id number] Care Team Providers Name Role Phone Jackie Gee MD Primary Care Provider Encounter Details Date Type Department Care Team Description 12/12/2013 Surgery Electrophysiology Lab at [facility] CTROPHYSIOLOGY [facility] Hamida Villagomez MD PROCEDURE [facility] [place] [address] CENTER [phone] [place] [address] Social History Tobacco Use Types Packs/Day Years [...] Sign Reading Time Taken Comments Blood Pressure 132/74 12/12/2013 9:00 AM EDT Pulse 59 12/12/2013 9:00 AM EDT Temperature 36.4 ??C (97.5 ??F) 12/12/2013 9:00 AM EDT Respiratory Rate 16 12/12/2013 9:00 AM EDT Oxygen Saturation 100% 12/12/2013 9:00 AM EDT Inhaled Oxygen Concentration - - Weight 104.3 kg (230 lb) 12/12/2013 7:32 AM EDT Height 167.6 cm (5' 6) 12/12/2013 7:32 AM EDT Body Mass Index 37.12 12/12/2013 7:32 AM EDT documented in this encounter Discharge Instructions Discharge Hamida New MD - 12/12/2013 8:58 AM EDT Management of ILR monitoring and use reviewed with patient. Activator given. WOUND CARE FOR PATIENTS WITH DEVICES Your wound will usually heal in 7-10 [...] wound until it is completely healed. ?? If you have a special dressing on the wound (Mepilex), this should stay in place for 1 week (if the dressing falls off before then, you should not worry). You may cover the wound with gauze if it rubs on clothing and causes you [...] 10 days. Avoid swimming until the same occur ?? Medical adhesive (glue) was used on the wound, do not wash the wound with soap for 7 days. derma+flex?? QSTM Patient After-Care Instructions Your wound has been repaired using derma+flex?? QSTM High Viscosity topical tissue adhesive, the list below is a guide for you to understand and care for your wound following your procedure. ?? Keep the wound dry. You may occasionally and briefly wet your wound in the shower or bath at the direction of your physician, but do not soak or scrub the wound area. After showering or bathing, gently blot your wound dry with a soft towel. ?? Avoid Topical Medications. Do not apply liquid or ointment medications, lotions, creams, petroleum jelly, mineral oils or any other product to your wound while the derma+flex?? QSTM adhesive film isin place. ?? Do not rub, scratch, or pick at the wound. Doing so may compromise the integrity of the wound closure and cause scaring. ?? Protect the wound from prolonged sunlight exposure. Do not use tanning lamps while the film is inplace. ?? Check wound appearance. Some swelling, redness, and pain are common with all wounds and normally will go away as the wound heals. If swelling, redness, or pain increases or if the wound feels warm to the touch, contact your doctor. Also contact your doctor if the wound edges reopen or separate. ?? derma+flex?? QSTM will naturally slough off between 5 and 10 days after the procedure. By this time, your wound should be sufficiently healed. ??? documented in this encounter Medications at Time of Discharge Medication Sig Dispensed Refills Start Date End Date hydrochlorothiazide Take 25 mg by 0 (HYDRODIURIL) 25 mg tablet mouth daily. simvastatin (ZOCOR) 20 mg Take 20 mg by 0 tablet mouth nightly. levothyroxine (SYNTHROID) 75 Take 75 mcg by 0 mcg tablet mouth daily. amitriptyline (ELAVIL) 50 mg Take 1 tablet by 90 tablet 3 0 10/09/2013 03/29/2014 tablet mouth every evening. ibuprofen (ADVIL;MOTRIN) 600 Take 1 tablet by 30 tablet 2 0 09/20/2012 03/29/2014 mg tablet mouth every 6 hours as needed for Pain. metoprolol tartrate Take 25 mg by 0 (LOPRESSOR) 25 mg tablet mouth 2 times daily. documented as of this encounter Progress Notes Melinda Connolly RN - 12/12/2013 9:12 AM EDT REviewed written and verbal discharge instructions with patient. Tolerating sips of water. Received no sedation . Ready for discharge home. Melinad Connolly RN - 12/12/2013 7:49 AM EDT Call to Dr. Meredith to inform her that pt plans to drive home. OK, per MD, no plans for sedation during procedure. documented in this encounter H&P Notes Abdirahman Patton DO - 12/12/2013 7:09 AM EDT Patient Name: Usha Huizar Patient Age: 53 y.o. 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 She saw Dr. Pepe in the office who began the workup for the syncope. She had several subsequent episodes. She was evaluated with a 30 day monitor and had no symptoms. She was scheduled for Zio patch and this follow-up visit. Unfortunately, she had no episodes during thetwo-week period of monitoring. She has not, in fact, had a syncopal or near syncopal episode in 4-6 weeks. She is not driving currently and wishes to return to work soon. PMHX Patient Active Problem List Diagnosis Code ??? Breast mass 611.72 ??? Near syncope 780.2 ??? Palpitations 785.1 ??? Hyperlipemia 272.4 ??? Migraine headache 346.90 ??? Hypothyroidism 244.9 Past Surgical History Procedure Date ??? Orthopedic surgery cyst removed from bone in pelvis ??? Finger surgery ??? Sling oper stres incontinence 09/20/2012 URETHRAL SUSPENSION, SLING\FASCIA OR SYNTHETIC performed by Jozef Kent MD at [facility] MAIN OR No family history on file. History Social History ??? Marital Status: Spouse Name: N/A Number of Children: N/A ??? Years of Education: N/A Occupational History ??? Not on file. Social History Main Topics ??? Smoking status: Former Smoker -- 1.5 packs/day for 10 years Types: Cigarettes Quit date: 06/12/1987 ??? Smokeless tobacco: Never Used ??? Alcohol Use: Yes Comment: 2-3 a couple of times per week ??? Drug Use: No ??? Sexually Active: Comment: Deferred Other Topics Concern ??? Not on file Social History Narrative ??? No narrative on file ROS: Cardiovascular: No syncope recently, no chest pain, no sob, no palpitations All other ROS negative There were no vitals filed for this visit. Recent Results (from the past 24 hour(s)) BMP W/FASTING GLUCOSE Component Value Range Glucose Fasting 98 65 - 99 mg/dL BUN 20 (*) 8 - 18 mg/dL Creatinine 0.83 0.70 - 1.20 mg/dL Sodium 140 135 - 145 mmol/L Potassium 3.9 3.5 - 5.0 mmol/L Chloride 100 98 - 107 mmol/L CO2 29 22 - 31 mmol/L Anion Gap 11 5 - 15 mmol/L Calcium 9.6 8.5 - 10.5 mg/dL Estimated GFR >60 >=60 A/P 1.Syncope Implantable Loop Recorder to help determine syncope etiology. Follow up with Dr. Pepe as out patient Follow up with Device clinic. documented in this encounter Miscellaneous Notes Bettyecellaneous - Jose Blankenship - 12/12/2013 7:17 PM EDT Miscellaneous - Provider, Scanning - 12/12/2013 12:41 PM EDT OR Attestation - Hamida Meredith MD - 12/12/2013 8:55 AM EDT Attestation: Case Date: 12/12/2013 I performed this procedure without the involvement of a resident. HAMIDA MEREDITH MD 12/12/2013 documented in this encounter Plan of Treatment Not on filedocumented as of this encounter Procedures Procedure Name Priority Date/Time Associated Comments Diagnosis ELECTROPHYSIOLOGY Routine 12/12/2013 8:42 Results for this PROCEDURE AM EDT procedure are i n the results section. BMP W/FASTING GLUCOSE STAT 12/12/2013 6:21 Syncope Res ults for this AM EDT procedure are i n the results section. documented in this encounter Results Electrophysiology Procedure (12/12/2013 8:42 AM EDT) Anatomical Region Laterality Modality Other Specimen (Source) Anatomical Location Collection Method / Collectio n Time Received Time / Laterality Volume Narrative 12/12/2013 9:12 AM EDT Implantable Loop Recorder (ILR) Implantation Indication: ??Presyncope and palpitation s Operators: ??Hamida Meredith MD Procedure: ??The left parasternal area w as prepped and draped in the usual sterile fashion and 2% lidocaine with 0. 5 bupivicaine in a 2:3 mixture was instilled for local anesthesia. A one ce ntimeter incision was made in the 4th intercostal space and the [employer] supplied incision tool was applied to create the plane for insertion in a d iagonal direction ( \). ??The [employer] Reveal Linq Model# LNQ11, Seri al# [id number] ILR was inserted using the supplied tool and interrogated with a object oriented programmer - which demonstrated good sensing.. ?? The wound was closed with two stitches o f 3-O Monocryl. Medical adhesive (Good Pine+flex) was applied to the incision which was covered with a Mepilex dressing. Final Programming: Tachy detection: 370 ms / 162 bpm, 5 nichole ts Asystole: ??3 seconds Bradycardia: 1500 ms / 40 bpm for 8 beat s Sensitivity: 0.035 MV AT/AF detection: ??On Antibiotic: Ancef 2 grams IV at 08:20 Incision: 08:29 Estimated blood loss: < 5 cc Fluoroscopy: None The patient tolerated the procedure well . Procedure Note Hamida Meredith MD - 12/12/2013Forma tting of this note might be different from the original. Implantable Loop Recorder (ILR) Implanta tion Indication: Presyncope and palpitations Operators: Hamida Meredith MD Procedure: The left parasternal area was prepped and draped in the usual sterile fashion and 2% lidocaine with 0.5 bupivicaine in a 2:3 mixture was instilled for local anesthesia. A one centimeter incision was made in the 4th intercostal space and the [employer] supplied incision tool was applied to create the plane for insertion in a diagonal direction ( \). The [employer] Reveal Linq Model# LNQ11, Serial# [id number] ILR was inserted using the supplied tool and interrogated with a object oriented programmer - which demonstrated good sensing.. The wound was closed with two stitches o f 3-O Monocryl. Medical adhesive (Good Pine+flex) was applied to the incision which was covered with a Mepilex dressing. Final Programming: Tachy detection: 370 ms / 162 bpm, 5 nichole ts Asystole: 3 seconds Bradycardia: 1500 ms / 40 bpm for 8 beat s Sensitivity: 0.035 MV AT/AF detection: On Antibiotic: Ancef 2 grams IV at 08:20 Incision: 08:29 Estimated blood loss: < 5 cc Fluoroscopy: None The patient tolerated the procedure well . Hamida Meredith MD EP PROCEDURE ORDERABLES (ABNORMAL) BMP w/fasting Glucose (12/12/2013 6:21 AM EDT) P athologist Signature Glucose 98 65 - 99 CERNER Fasting mg/dL MILLENNIUM Comment: ?Fasting* Glucose Interpretive C riteria Normal ?65-99 mg/dL Impaired Fasting glucose ?100-125 mg/dL Consistent with Diabetes Mellitus ? >or= 126 mg/dL *Fasting is defined as no caloric intake for at least 8 hours In the absence of unequivocal hypergly cemia a plasma glucose value of >or= 126 mg/dL should be repeated on a subseq uent day. Diagnosis and Classification of Diabetes Mellitus, Position Statement from the [place] [employer]. ??Diabete s Care, Volume 33, Supplement 1, May 2009 BUN 20 (H) 8 - 18 mg/dL CERNER MILLENNIUM Creatinine 0.83 0.70 - 1.20 mg/dL CERNER MILL ENNIUM Comment: Please note that the pediatric reference intervals supplied above were not validated at [facility]. Results from pediatri c patients should be interpreted in conjunction to the patient's age, height and muscle mass. Sodium 140 135 - 145 mmol/L CERNER JOSR NIUM Potassium 3.9 3.5 - 5.0 mmol/L CERNER JOSR NIUM Comment: Please note: ??Patients with WBC >100,00 0 may have falsely elevated Potassium levels. ??For accurate Potassium quantif ication in these patients send serum separator tube (gold top) for subsequent determinations. ??Contact the Clinical Chemistry Laboratory if there are any qu estions. Chloride 100 98 - 107 mmol/L CERNER MILLENN IUM CO2 29 22 - 31 mmol/L CERNER MILLENNI UM Anion Gap 11 5 - 15 mmol/L CERNER MILLENNIU M Calcium 9.6 8.5 - 10.5 mg/dL CERNER JOSR NIUM [...] the following links into your internet browser. [email or web address] Specimen Anatomical Collection Method Collection Time Receive d Time (Source) Location / / Volume Laterality Blood specimen 12/12/2013 6:21 AM 014 6:25 (specimen) EDT AM EDT Resulting Agency Comment Spec In Lab Javed Pepe MD CHEMISTRY ORDERABLES Performing Organization Address City/State/ZIP Code [place] [address] [facility] documented in this encounter Visit Diagnoses Not on filedocumented in this encounter Administered Medications Inactive Administered Medications - up to 3 most recent administrations Medication Order MAR Action Action Date Dose Rate Site BUpivacaine (PF) (MARCAINE) 0.5 % Given 12/12/2013 8:26 AM EDT 1 50 mg (5 mg/mL) injection 150 mg 150 mg (30 mL), Subcutaneous, ONCE, 1 dose, On Tue12/12/13 at 0800, EP (Intra-Procedure), Routine ceFAZolin (ANCEF) 2g in dextrose 5% 50 m L Given 12/12/2013 8:20 AM EDT 2 g 2 g, Intravenous, ONCE, 1 dose, On Tue12/12/13 at 0800, EP (Intra-Procedure), Indication for (Active or Suspected): Prophylaxis lidocaine (XYLOCAINE) 20 mg/mL (2 %) Given 12/12/2013 8:26 AM ED T 400 mg injection 400 mg 400 mg (20 mL), Subcutaneous, ONCE, 1 dose, On Tue12/12/13 at 0800, EP (Intra-Procedure), Routine neomycin-polymyxin B (NEOSPORIN) irrigation Given 12/12/2013 8:4 0 AM EDT solution Irrigation, ONCE, On Tue12/12/13 at 0800, 1 dose, EP (Intra-Procedure) documented in this encounter Active and Recently Administered Medications Times are shown in EDT. Scheduled Medication Order 12/10/2013 12/11/2013 12/12/2013 BUpivacaine (PF) (MARCAINE) 0.5 % (5 mg/mL) injection 150 mg (CO MPLETED) 08 (Given - Provider: Genoveva Giles RN) 30 mL = 150 mg, Subcutaneous, ONCE, 1 do se, Tue12/12/13 at 0800, EP (Intra- Procedure), Routine ceFAZolin (ANCEF) 2g in dextrose 5% 50 mL (COMPLETED) 08 (Given - Provider: Genoveva Giles, ASHLEE) 2 g, Intravenous, ONCE, 1 dose, Tue at 0800, EP (Intra-Procedure), Indication for (Active or Suspected): Prophylaxis lidocaine (XYLOCAINE) 20 mg/mL (2 %) injection 400 mg (COMPLETED ) 825 (Given - Provider: Genoveva Giles, ASHLEE) 20 mL = 400 mg, Subcutaneous, ONCE, 1 do se, Tue12/12/13 at 0800, EP (Intra- Procedure), Routine neomycin-polymyxin B (NEOSPORIN) irrigation solution (COMPLETED) 839 (Given - Provider: Genoveva Giles, ASHLEE) Irrigation, ONCE, Tue12/12/13 at 0800, For 1 dose, EP (Intra-Proc edure) documented in this encounter Care Teams Subcontract Manager Relationship Specialty Start Date End Date Jackie Gee MD PCP - General 09/09/11 03/06/14 [address] [place] [address] documented as of this encounter
--- OUTSIDE RECORDS SUMMARY | 2022-02-19 02:05 | XMS_ITS | Encounter Summary ---
:1960 Author Organization [facility] Address [facility] [address] [place] [id number] Care Team Providers Name Role Phone None Primary Care Provider Unavailable Encounter Details Date Type Department Care Team Description 03/29/2014 Follow-Up Cardiology at [facility] Javed Pepe, AVNRT (AV roseanne re-entry tac hycardia); [facility] MD Near syncope; Drive [facility] Status [place] [address] CARDI[address]PT. [place] [id number] (Wo rk) Social History Tobacco Use Types [...] Sign Reading Time Taken Comments Blood Pressure 130/62 03/29/2014 11:20 AM EST Pulse 62 03/29/2014 11:20 AM EST Temperature - - Respiratory Rate - - Oxygen Saturation 98% 03/29/2014 11:20 AM EST Inhaled Oxygen Concentration - - Weight 112.5 kg (248 lb) 03/29/2014 11:20 AM EST Height 167.6 cm (5' 6) 03/29/2014 11:20 AM EST Body Mass Index 40.03 03/29/2014 11:20 AM EST documented in this encounter Progress Notes Javed Pepe MD - 03/29/2014 11:51 AM EST Images from the original note were not included. [facility] [place] [address] [address] CARDIOLOGY OUTPATIENT FOLLOW-UP NOTE Usha Stephania Huizar [id number] PCP: RENE GARCÍA MD 03/29/2014 PRIMARY CARE PROVIDER: RENE GARCÍA MD PROBLEM LIST: Patient Active Problem List Diagnosis ??? Near syncope ??? SVT (supraventricular tachycardia) ?? Echo 07/07/12 showing normal LF with EF 68%; mild MR ?? Holter 07/08/12 showing rare PACs with no runs ?? Symptoms abated after treatment for HTN with metoprolol ?? SVT noted on ILR - apparent short RP tachycardia ?? 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 Hyperlipemia ??? Migraine headache ??? Hypothyroidism ??? Breast mass MEDICATIONS: Current Outpatient Prescriptions Medication Sig Dispense Refill ??? acetaminophen (TYLENOL) 325 mg Tablet Take 650 mg by mouth every 4 hours as needed for Pain. ??? aspirin 81 mg Tablet, Delayed Release (E.C.) Take 81 mg by mouth daily. ??? metoprolol tartrate (LOPRESSOR) 25 mg tablet Take 25 mg by mouth 2 times daily. ??? hydrochlorothiazide (HYDRODIURIL) 25 mg tablet Take 25 mg by mouth daily. ??? simvastatin (ZOCOR) 20 mg tablet Take 20 mg by mouth nightly. ??? levothyroxine (SYNTHROID) 75 mcg tablet Take 75 mcg by mouth daily. No current facility-administered medications for this visit. VITAL SIGNS: BP 130/62 Pulse 62 Ht 167.6 cm (5' 6) Wt 112.492 kg (248 lb) BMI 40.05 kg/m2 SpO2 98% LMP 12/23/2013 SUBJECTIVE: This 53-year-old woman comes for follow-up visit regarding her episode of near syncope. Since her last visit with me she has received a loop recorder, was documented to have AV roseanne reentry tachycardia, and underwent successful AV roseanne cryoablation at [facility] on March 01, 2014. She has felt extremely well since her procedure. To her knowledge, she has had no further SVT. She is completely free of palpitations. She has had no further lightheadedness. 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 She describes no new symptoms. OBJECTIVE: Physical Exam: On exam she appeared in good health and spirits. Vital signs as documented. Skin warmand dry and without overt rashes. Neck without JVD. Lungs clear. Heart exam notable for regular rhythm, normal sounds and absence of murmurs, rubs or gallops. Abdomen unremarkable and without evidence of organomegaly, masses, or abdominal aortic enlargement. Extremities non-edematous. DIAGNOSES: 1. History of near syncope thought secondary to AV roseanne reentry tachycardia 2. AVNRT,/status post cryoablation DISCUSSION: Overall she seems to be doing well. It is highly likely that her near syncope was related to tachycardia associated with her AVNRT. The cryoablation thus far appears to be successful and she has had absolutely no symptoms in the last month or so. PLAN: 1. Continue current medications 2. Follow-up later today as scheduled with cardiac electrophysiology 3. General cardiology follow-up only as needed documented in this encounter Plan of Treatment Not on filedocumented as of this encounter Visit Diagnoses Diagnosis AVNRT (AV roseanne re-entry tachycardia) Other specified cardiac dysrhythmias Near syncope Syncope and collapse Status post cryoablation of arrhythmia Other postprocedural status documented in this encounter Care Teams Educational Program Assistant Relationship Specialty Start Date End Date None PCP - General 03/07/14 06/23/16 None documented as of this encounter
--- OUTSIDE RECORDS SUMMARY | 2022-02-19 02:05 | XMS_ITS | Encounter Summary ---
:1960 [place] [address] Care Team Providers Name Role Phone None Primary Care Provider Unavailable Encounter Details Date Type Department Care Team Description 10/22/2014 Surgery Main Operating Room aMrcela Godfrey, [place] PAROSCOPY,TOTAL HYST, [facility], [facility] &/OR OVARY, ROBOTIC [facility] DR DEY (WRVU 15) [facility] [place] [address] [place] [address] [phone] (Wo rk) Social History Tobacco Use Types [...] Elvia Huizar Patient Age: 54 y.o. Language: Moroccan Race: White Ethnicity: Not nor Admit date: 10/22/2014 Discharge date and time: 10/24/2014 Attending Physician: Marcela Godfrey MD Discharge Physician: Marcela Godfrey MD Follow-up Recommendations for Providers: -Staple removal 11/01/14 at 2:30PM -Follow-up with Dr. Godfrey on 11/13/14 Inpatient Provider Contact Information: Dr. Godfrey, [facility] Gynecologic Oncology, Discharge Diagnoses (Hospital Problems) and [...] no definite tumor identified on gross or guest service representative section. 2. Lower uterine segment is [...] no definite tumor identified on gross or guest service representative section. 2. Lower uterine segment is [...] ferrous sulfate 325 mg (65 mg iron) Tbe Take 1 tablet by mouth 2 times [...] PATIENT DISCHARGE INSTRUCTIONS Gynecology Oncology phone number: [phone] -Staple removal 11/01/14 at 2:30PM with Latonya [...] Provider Department Dept Phone 11/01/2014 2:30 PM Incoming Freight Clerk, Onc Nurse Gynecologic Oncology [phone] 11/13/2014 2:00 PM Marcela Godfrey MD Gynecologic Oncology [phone] 04/22/2015 12:40 PM Jhony Rodriguez RN Cardiology [phone] Joint Appt CARDIOLOGY INTAKE, NURSE ONE Cardiology [phone] Discharge References/Attachments None Provider Contact Information: RENE GARCÍA MD [phone] documented in this encounter Discharge Instructions Patient InstructionsKatia Vazquez PA - 10/23/2014 3:04 PM EDT Images from the original note were not included. PATIENT DISCHARGE INSTRUCTIONS Gynecology Oncology phone number: [phone] -Staple removal 11/01/14 at 2:30PM with Latonya [...] 11:42 AM EDT Office of Care Management Repairer [employer] Clocks RN Initial Note/DC Planning: no continuing care needs identified Reviewed record and discussed pt with Samantha DEXTER, inpt gynecological assistant-oncology team, and at interdisciplinary discharge rounds. Did [...] without problem Immediate support: lives with in [facility] Insurance/prescription coverage: [place] Medicaid Anticipated needs at DC:no VNA services/no assistive equipment P: DC to home when medically ready, no services. Repairer [employer] Clocks RN is available to assist with any identified continuing care needs until discharge. Papo Win RN Case Shop Estimator of Care Management pgr [phone] and [phone] Kelsy Longoria MD - 10/24/2014 6:35 AM EDT Incoming Freight Clerk Oncology Progress Note ID: Elvia Huizar is [...] no definite tumor identified on gross or guest service representative section. 2. Lower uterine segment is [...] Godfrey MD - 10/23/2014 7:35 AM EDT Incoming Freight Clerk Oncology Progress Note ID: Elvia Huizar is [...] Pain is controlled with tylenol and dilaudid MH TEACHER. She reports having low backpain that is [...] no definite tumor identified on gross or guest service representative section. 2. Lower uterine segment is [...] Pain well controlled on acetaminophen and dilaudid MH TEACHER. Will transition to oral pain meds today. [...] Longoria MD - 10/22/2014 6:57 PM EDT Incoming Freight Clerk Oncology Post Op Check ID: Elvia Huizar [...] well controlled with IV tylenol and dilaudid MH TEACHER. She has not yet ambulated. She has [...] no definite tumor identified on gross or guest service representative section. 2. Lower uterine segment is [...] Pain well controlled on acetaminophen and dilaudid MH TEACHER. Alert and oriented. Cardiovascular: s/p cardiac ablation. [...] MD - 10/22/2014 6:46 AM EDT Inpatient PANTS CLOSER - Admission Interval Note I have reviewed [...] Miscellaneous Notes Med Student Progress Note - RodríguezShirin reina - 10/24/2014 6:06 AM EDT General Surgery [...] today pending H&H results Pt discussed with Incoming Freight Clerk Onc Resident Team Shirin Trotter, MS3 Plan of Care - Adali Spears RN - 10/24/2014 4:19 AM EDT Problem: General Plan of Care Goal: Plan of Care Review Outcome: Ongoing (Interventions Implemented as Appropriate) 10/24/14 4204 Plan of Care Review Plan of Care [...] Ambulated numerous times today around the unit. MH TEACHER d'dinora and pain coverage withoxycodone PO with [...] Assessment Outcome: Ongoing (Interventions Implemented as Appropriate) 10/22/14170310/22/141813 Discharge Needs Assessment Concerns to be Addressed -- no discharge needs identified Living Environment Transportation Available car;family or friend will provide -- Problem: Skin Integrity Impairment, Risk/Actual (Adult, Obstetrics) Goal: Identify Signs and Symptoms and Related Risk Factors Signs and symptoms and related risk factors are identified upon initiation of Human Response Clinical Practice Guideline (CPG) Outcome: Outcome (s) achieved Date Met: 10/23/14 10/23/14134 Skin Integrity Impairment, Risk/Actual Personal Related [...] To home when appropriate Pt discussed with Incoming Freight Clerk Onc Resident Team Shirin Trotter, MS3 Plan [...] SUMMARY: Pt reporting abd pain relieved with MH TEACHER and prn acetaminophen. Also reporting back pain [...] Outcome: Ongoing (Interventions Implemented as Appropriate) 10/22/14 17010/22/141813 Discharge Needs Assessment Concerns to be Addressed [...] Godfrey MD - 10/22/2014 11:03 AM EDT [facility] [place] Patient Name: Elvia Huizar : [id number] MR#: [id number] Case Date: 10/22/2014 Surgeon: Surgeon(s) and Role: [...] catheter was inserted into the bladder. A [employer] uterine manipulator was placed. An 8-mm transverse [...] trocars and a 12-mm right upper quadrant medical support assistant port were placed in the usual [...] Operative Note Patient Name: Elvia Huizar : [id number] MR#: [id number] Case Date: 10/22/2014 Surgeon: Surgeon(s) and Role: Panel 1: * Marcela Godfrey MD - Primary * Kelsy Longoria MD Panel 2: * Yoselyn Yip MD - Primary * Cesar Lawrence MD Preoperative diagnosis: endometrial cancer Postoperative diagnosis: endometrial cancer Procedure(s): LAPAROSCOPY,TOTAL HYST, UTERUS<250GM, DERRICK TYBE &/OR OVARY, ROBOTIC ASSIST Exploratory laparotomy MODIFIER ROBOT,GIULIANOI XI @EXPLORATION RETROPERITONEAL W OR W\O BIOPSY [...] Cesar Lawrence - 10/22/2014 10:12 AM EDT [facility] [place] Patient Name: Elvia Huizar : [id number] MR#: [id number] Case Date: 10/22/2014 Surgeon: Surgeon(s) and Role: MD Cesar Rust MD Preoperative diagnosis: endometrial cancer Postoperative diagnosis: endometrial cancer Procedure(s): Intraoperative Consult Exploration of retroperitoneal zone 1 Anesthesia: General Estimated Blood Loss: 50 mL Specimens removed during surgery: none Drains: none HPI/Surgical Indications: Mrs. Huizar is a 54 yo female with endometrial cancer who presented for robotic medical support assistant hysterectomy, BSO and retroperitoneal lymph node [...] Procedure Name Priority Date/Time Associated Comments Diagnosis PLASTIC CARD GRADER CARDROOM SCAN 10/25/2014 12:00 AM EDT HEMOGRAM Timed [...] AM EDT W\O BIOPSY (WRVU 16.06) MODIFIER ROBOT,DAVINCI 10/22/2014 7:37 endometrial can cer XI AM EDT LAPAROSCOPY,TOTAL HYST, 10/22/2014 7:37 endometrial ca ncer UTERUS<250GM, REM TUBE AM EDT &/OR OVARY, ROBOTIC ASSIST (WRVU 15) documented in this encounter Results SCAN DOC: PLASTIC CARD GRADER CARDROOM (10/25/2014 12:00 AM EDT) Narrative This result has an attachment that is no t available. Scanning Provider MEDIA MGR SCAN EXT ORDR/RSLT (ABNORMAL) Hemogram (10/24/2014 12:20 PM EDT) athologist Signature WBC 8.0 4.0 - 10.0 [...] RDWSD 41.9 35.0 - CERNER 46.0 fL MILLENNIUM RDWCV 12.8 10.9 - CERNER 14.4 % MILLENNIUM MPV 9.6 9.0 - 12.0 CERNER fL MILLENNIUM Specimen Anatomical Collection Method Collection Time Receive d Time (Source) Location / / Volume Laterality Blood specimen 10/24/2014 12:20 5 (specimen) PM EDT 12:29 PM EDT Resulting Agency Comment Spec In Lab Marcela Godfrey MD HEMATOLOGY ORDERABLES Performing Organization Address City/[facility]/ZIP Code Phon e Number [address] CERNER MILLENNIUM Magnesium (10/24/2014 3:21 AM EDT) athologist Signature Magnesium 0.87 0.69 - 1.07 CERNER mmol/L [facility] Specimen Anatomical Collection Method Collection Time Receive d Time (Source) Location / / Volume Laterality Blood specimen 10/24/2014 3:21 AM 015 3:54 (specimen) EDT AM EDT Resulting Agency Comment Spec In Lab Marcela Godfrey MD CHEMISTRY ORDERABLES Performing Organization Address City/[facility]/ZIP Code Phon e Number [address] CERNER MILLENNIUM (ABNORMAL) Basic Metabolic Panel (non-fasting) (10/24/2014 3:21 AM EDT) athologist Signature Glucose Lvl 104 65 - 199 CERNER mg/dL MILLENNIUM Comment: Diabetes: >=200 mg/dL plus symp toms BUN 12 8 - 18 mg/dL CERNER MILLENNIUM Creatinine 0.93 0.70 - 1.20 mg/dL CERNER MILL ENNIUM Comment: Please note that the pediatric reference intervals supplied above were not validated at [facility]. Results from pediatri c patients should be [...] the following links into your internet browser. [email or web address] Specimen Anatomical Collection Method Collection Time Receive d Time (Source) Location / / Volume Laterality Blood specimen 10/24/2014 3:21 AM 015 3:54 (specimen) EDT AM EDT Resulting Agency Comment Spec In Lab Marcela Godfrey MD CHEMISTRY ORDERABLES Performing Organization Address City/[facility] [place] [address] CERNER MILLENNIUM (ABNORMAL) Hemogram [...] Godfrey MD HEMATOLOGY ORDERABLES Performing Organization Address City/[facility]/ZIP Code Phon e Number [address] CERNER MILLENNIUM (ABNORMAL) Hemogram (10/23/2014 3:54 PM EDT) P athologist Signature WBC 10.1 (H) 4.0 - 10.0 CERNER x10(3)/mcL MILLENNIUM RBC 3.22 (L) 3.93 - CERNER 5.22 MILLENNIUM x10(6)/mcL Hemoglobin 9.5 (L) 11.2 - CERNER 15.7 gm/dL MILLENNIUM Hematocrit 28.7 (L) 34.0 - CERNER 45.0 % MILLENNIUM MCV 89.1 79.0 - CERNER 94.0 fL MILLENNIUM MCH 29.5 26.6 - CERNER 32.2 pg MILLENNIUM MCHC 33.1 32.0 - CERNER 36.5 gm/dL [facility] Platelets 242 145 - 370 CERNER x10(3)/mcL MILLENNIUM RDWSD 41.0 35.0 - CERNER 46.0 fL [facility] RDWCV 12.6 10.9 - CERNER 14.4 % MILLENNIUM MPV 9.8 9.0 - 12.0 CERNER fL [facility] Specimen Anatomical Collection Method Collection Time Receive d Time (Source) Location / / Volume Laterality Blood specimen 10/23/2014 3:54 PM 015 4:26 (specimen) EDT PM EDT Resulting Agency Comment Spec In Lab Marcela Godfrey MD HEMATOLOGY ORDERABLES Performing Organization Address City/[facility]/ZIP Code Phon e Number [address] [facility] ([facility]NORMAL) Magnesium (10/23/2014 3:33 AM EDT) athologist Signature Magnesium 0.68 (L) 0.69 - 1.07 CERNER mmol/L [facility] Specimen Anatomical Collection Method Collection Time Receive d Time (Source) Location / / Volume Laterality Blood specimen 10/23/2014 3:33 AM 015 3:58 (specimen) EDT AM EDT Resulting Agency Comment Spec In Lab Marcela Godfrey MD CHEMISTRY ORDERABLES Performing Organization Address City/[facility]/ZIP Code Phon e Number [address] CERNER MILLENNIUM (ABNORMAL) Basic Metabolic Panel (non-fasting) (10/23/2014 3:33 AM EDT) P athologist Signature Glucose Lvl 131 65 - 199 CERNER mg/dL [facility] Comment: Diabetes: >=200 mg/dL plus symp toms BUN 12 8 - 18 mg/dL [facility] Creatinine 0.79 0.70 - 1.20 mg/dL CERNER MILL ENNIUM Comment: Please note that the pediatric reference intervals supplied above were not validated at [facility]. Results from pediatri c patients should be [...] the following links into your internet browser. [email or web address] Specimen Anatomical Collection Method Collection Time Receive d Time (Source) Location / / Volume Laterality Blood specimen 10/23/2014 3:33 AM 015 3:58 (specimen) EDT AM EDT Resulting Agency Comment Spec In Lab Marcela Godfrey MD CHEMISTRY ORDERABLES Performing Organization Address City/State/[place] [address] CERNER MILLENNIUM (ABNORMAL) Hemogram (10/23/2014 3:33 AM EDT) athologist Signature WBC 10.5 (H) 4.0 - [...] Organization Address City/State/ZIP Code Phon e Number [place] [id number] CERNER MILLENNIUM (ABNORMAL) Differential, Automated (10/22/2014 1:45 PM EDT) [facility] Method Time Signature Neutrophils % 88.9 % [...] Organization Address City/State/ZIP Code Phon e Number [place] [phone]OS[address]ITAL [address] CERNER MILLENNIUM (ABNORMAL) Hemogram [...] Organization Address City/State/ZIP [place] [address] LINDSAY Mc Kinney [employer]UM XR abdomen 1 view (10/22/2014 11:46 AM [...] OR at 1130 hours. Retained object call [phone] COMPARISON: None FINDINGS: No radiopaque retained foreign [...] OR at 1130 hours. Retained object call [phone] COMPARISON: None FINDINGS: No radiopaque retained foreign [...] (10/22/2014 10:45 AM EDT) Analysis Performed At [facility] Time Signature pH Art 7.35 (L) CERNER [...] Organization Address City/State/[place] [address] CERNER MILLENNIUM (ABNORMAL) BLOOD GAS 2 ARTERIAL (10/22/2014 9:34 AM EDT) Analysis Performed At [facility] Time Signature pH Art 7.45 7.35 - CERNER 7.45 MILLENNIUM pCO2 Art 34 (L) 35 - 45 CERNER mmHg MILLENNIUM pO2 Art 463 (H) 85 - 104 CERNER mmHg MILLENNIUM HCO3 Art 23.4 20.0 - CERNER 26.0 MILLENNIUM mmol/L BE Art -0.5 -3.0 - 3.0 CERNER mmol/L MILLENNIUM Hgb Blood Gas 11.6 11.2 - CERNER 15.7 gm/dL MILLENNIUM O2HB Art 98.8 (H) 94.0 - CERNER 97.0 % MILLENNIUM COHB Art 0.4 % [facility] Comment: Nonsmokers: 0.5-1.5% COHB Smokers: Variable, but usually less than 10% Toxic: 20-30% COHB Lethal: Greater than 60% COHB METHB Art 0.2 <=1.5 % [facility] Na Whole Blood 136 135 - 145 mmol/L [facility] M ILLENNIUM K Whole Blood 3.5 3.5 - 5.0 mmol/L [facility] LLENNIUM Comment: Please note: Patients with WBC >100,000 may have falsely elevated Potassium levels. Contact the Clinical Chemistry L aboratory if there are any questions. ICa Whole Blood 1.15 1.15 - 1.33 mmol/L [facility] Comment: Note: ??Total bilirubin higher than 20 m g/dL may lead to falsely low ionized calcium. CL Whole Blood 106 98 - 107 mmol/L [facility] LLENNIUM Gluc Whole Bld 157 65 - 199 mg/dL [facility] LENNIUM Comment: Diabetes: >=200 mg/dL plus symp toms. Specimen Anatomical Collection Method Collection Time Receive d Time (Source) Location / / Volume Laterality Blood specimen Arterial Draw / 10/22/2014 9:34 AM 10/07 (specimen) Unknown EDT 11:23 AM EDT Resulting Agency Comment Spec In Lab Marcela Godfrey MD CHEMISTRY ORDERABLES Performing Organization Address City/State/[place] [address] [facility] Pathology Addendum Report (10/22/2014 9:08 AM EDT) [facility] Method Time Signature Addendum [facility] Report ? [facility] ? Provider: ?? MACRELA GODFREY ?? Pt. Name: ?? RAYMUNDO N, ELVIA T ? Acc #: ?[id number] ?Pt. MRN: ?[id number] ? Col Date: ?? 5 ? /Sex: [...] MD PATHOLOGY/CYTOLOGY ORDERABLE S Performing Organization Address [facility]/ZIP [place] [address] [facility] Surgical Pathology Report (10/22/2014 9:08 AM EDT) Component Value Ref Test Analysis Performed At [facility] gist Range Method Time Signature Surgical [facility] Pathology ? [facility] Report ? Provider: ?? MARCELA GODFREY ?? Pt. Name: ?? GOODYOUSIF N, ELVIA T ? Acc #: ?[id number] ?Pt. MRN: ?[id number] ? Col Date: ?? 5 ? /Sex: [...] ? pNX ??(Cannot be assessed ) ? [facility] ? Provider: ?? MARCELA GODFREY ?? Pt. Name: ?? GOODYOUSIF N, ELVIA T ? Acc #: ?[id number] ?Pt. MRN: ?[id number] ? Col Date: ?? 5 ? /Sex: ?1960,(54 years),Female ? Rec Date: ?? 10/22/2014 ? LOC: ?1WST ? SURGICAL PATHOLOGY ? CR-0 ? 10/25/14 ? LJT ? 10/30/14 Verified by: ? Paul ALVARADO, Molly Oconnell ? Pathologist ? (Electronic Si gnature) ? The attending pathologist whose signature appears o n this report has ? reviewed all diagnostic slides and has edited the oz ss and/or ? microscopic portion of the [...] purple ? discoloration suggestive of hemorrhage. ? [facility] ? Provider: ?? MARCELA OGDFREY ?? Pt. Name: ?? RAYMUNDO N, ELVIA T ? Acc #: ?[id number] ?Pt. MRN: ?[id number] ? Col Date: ?? 5 ? /Sex: [...] side is ink ed black; (11) ? guest service representative sectio n of left ovary; (12) guest service representative section of left ? fallopian tube; (13) Job Site Supervisor section of right ovary; (14) ? guest service representative sectio n of the right fallopian [...] Organization Address City/State/[place] [address] [facility]NI[facility] Frozen Section Report (10/22/2014 9:08 AM EDT) Component Value Ref Test Analysis Performed At [facility] Range Method Time Signature Frozen CERNER Section ? [facility] Report ? Provider: ?? MARCELA GODFREY ?? Pt. Name: ?? GOODWI N, ELVIA T ? Acc #: ?[id number] ?Pt. MRN: ?[id number] ? Col Date: ?? 5 ? /Sex: ?1960,(54 years),Female ? Rec Date: ?? 10/22/2014 ? LOC: ?SDA ? FROZEN SECTION REPORT ? ---Frozen Section Report--- ? AFS - Uterus and cervix for frozen section: ? 1. Focal hyperplasia, no definite tumor identified on gross or ? guest service representative section. ? 2. Lower uterine segment is not involved. ? 10/22/14 10:19 ? 10/22/14 ??Verified by: ??Paul ALVARADO, Molly Oconnell, Pathologmukund st ? The attending [facility] whose electronic signature appears on this report [...] Organization Address City/State/ZIP Code Phon e Number [address] LAB[address] [facility] Specimen to Pathology (surgical or derm) (10/22/2014 [...] Organization Address City/State/[place] [address] LINDSAY FRAGOSO documented in this encounter Visit Diagnoses Not on filedocumented in this encounter Administered Medications Inactive Administered Medications - up to 3 most recent administrations Medication Order MAR Action Action Date Dose Rate Site BUpivacaine (PF) (MARCAINE) 0.5 % Given 10/22/2014 9:03 AM EDT 1 3 mLs (5 mg/mL) injection ONCE PRN, Starting on Tue10/22/14 at 0903, Until Tue10/22/14 at 1451, Intra-Operative (Intra-Procedure), Routine documented in this encounter Active and Recently [...] Routine esomeprazole (NexIUM) capsule 40 mg (CANCELED) 0801 (Given - Provider: Julissa Cruz RN) 0925 (Given - Provider: Opal Pena RN) 40 mg, Oral, DAILY, First dose on Tue at 0900, Until Discontinued, Routine gabapentin (NEURONTIN) capsule 600 mg (COMPLETED) 0000 (Due)07 (Given - Provider: Hortensia Hayes RN) 600 mg, Oral, 30 MIN PRE-OP, 1 dose, Tue10/22/14 at 0000, Routin e heparin (porcine) subcutaneous [...] Adali Spears, ASHLEE)1234 (Given - Provider: Opal Pena RN) 600 mg, Oral, EVERY 6 HOURS, First dose on Tue10/23/14 at 1715, Until Discontinued, Administer orally with milk or food to minimize GI irritation, Routine levothyroxine (SYNTHROID) tablet 75 mcg (CANCELED) 713 (Given - Provider: Lakisha Leo RN)0900 (Canceled Entry - Provider: Lakisha Leo RN - Reason: See comment - Comment: given at 0715.) 75 mcg, Oral, DAILY, First dose on Tue at 0900, Until Discontinued, Routine levothyroxine (SYNTHROID) tablet 75 mcg (CANCELED) 814 (Not Given - Provider: Julissa Cruz RN - Reason: See comment - Comment: order already given) 05 (Given - Provider: Adali Spears RN) 75 mcg, Oral, DAILY, First dose on Tue at 0815, Until Discontinued, Routine magnesium sulfate 2 g in sterile water 50 mL (COMPLETED) 802 (Given - Provider: Julissa Cruz RN) 2 g, Intravenous, ONCE, 1 dose, Tue10/23/14 at 0645, for 120 Min utes meTOPROLOL tartrate (LOPRESSOR) tablet 25 mg (CANCELED ) 2025 (Not Given - Provider: Melinda Perez RN - Reason: Contraindicated - Comment: SBP 98, HR 85. MD aware and med held per verbal order) 800 (Given - Provider: Julissa Cruz RN)2032 (Given - Provider: Adali Spears, RN) 923 (Given - Provider: Opal Pena, RN) 25 mg, Oral, EVERY 12 HOURS SCHEDULED (2 times per day), First dose on Tue10/22/14 at 2100, Until Discontinued, Hold for systolic blood pressure <100, diastolic blood pressure <40, Heart rate <50, Routine scopolamine (TRANSDERM-SCOP) 1.5 mg patch 1 patch (COM PLETED) 714 (Given - Provider: Hortensia Hayes RN) 1 patch, Transdermal, ONCE, 1 dose, Tue10/22/14 at 0715, Recovery (Recovery- Hospital Unit), Routine senna-docusate (PERICOLACE) 8.6-50 mg per tablet 2 tab let 2028 (Given - Provider: Melinda Perez RN) 801 (Given - Provider: Julissa Cruz, ASHLEE)2034 (Given - Provider: Adali Spears, ASHLEE) 09 (Given - Provider: Opal Pena, ASHLEE) 2 tablet, Oral, 2 TIMES DAILY, First dos e on Tue10/22/14 at 2100, Until Discontinued, Routine sodium chloride 0.9 % flush 5 mL (CANCELED) 1227 (Give n - Provider: Latonya Ruvalcaba, ASHLEE) 5 mL, Intravenous, EVERY 12 HOURS, First dose on Tue10/22/14 at 0715, Until Discontinued, Day of Surgery (Day of Procedure), Routine sodium chloride 0.9 % flush 5 mL (CANCELED) 2029 (Give n - Provider: Melinda Perez, ASHLEE) 08 (Given - Provider: Julissa Cruz, ASHLEE)2099 (Given - Provider: Adali Spears, ASHLEE) 09 (Given - Provider: Opal Pena, ASHLEE) 5 mL, Intravenous, 2 TIMES DAILY, First dose on Tue10/22/14 at 2100, Until Discontinued, Routine Continuous Medication Order 10/22/2014 10/23/2014 10/24/2014 HYDROmorphone (DILAUDID) 1 mg/mL MH TEACHER 30 mL (CANCELED) 1230 (New Syringe/Cartridge - Provider: Latonya Ruvalcaba, RN) 0951 (Stopped - Provider: Julissa Cruz, RN) Intravenous, MH TEACHER ONLY, Starting 10/22/14 at 1230, Until W [...] RN)2127 (New Bag - Provider: Melinda Perez, ASHLEE) 0550 (New Bag - Provider: Melinda Perez, ASHLEE) 1,000 mL, at 100 mL/hr, Intravenous, CON TINUOUS, Starting 10/22/14 at 1230, Until 10/23/14 at 0743 PRN Medication Order 10/22/2014 10/23/2014 10/24/2014 acetaminophen (TYLENOL) tablet 650 mg (CANCELED) 2028 (Given - Provider: Melinda Perez, RN) 0801 (Given - Provider: Julissa Cruz, RN)1704 (Given - Provider: Julissa Cruz, RN)2249 (Given - Provider: Adali Spears RN) 650 mg, Oral, EVERY 6 HOURS PRN, Startin g 10/22/14 at 1233, Until Simran 10/24/14 at 1703, Pain, Use acetaminophen first, Routine BUpivacaine (PF) (MARCAINE) 0.5 % (5 mg/mL) injection (CANCELED) 0903 (Given - Provider: Marcela Godfrey MD) ONCE PRN, Starting Tue10/22/14 at 0903, Until Tue10/22/14 at 1451, Intra- Operative (Intra-Procedure), Routine calcium carbonate (TUMS) chewable tablet 500 mg (CANCELED) 1707 (Given - Provider: Julissa Cruz, RN) 1234 (Given - Provider: Opal Pena, [...] 5-10 mg 0802 (Given - Provider: Julissa Cruz, RN)1255 (Given - Provider: Julissa Cruz, RN) 5-10 mg, Oral, EVERY 4 HOURS PRN, Starti ng Tue10/23/14 at 0639, Until Tue10/24/14 at 1703, Pain, give 5mg for pain scale 4-6/10 and 10mg for pain scale >6/10, Routine documented in this encounter Care Teams Tooling Mechanic Relationship Specialty Start Date End Date None PCP - General 03/07/14 06/23/16 None documented as of this encounter
--- OUTSIDE RECORDS SUMMARY | 2022-02-19 02:05 | XMS_ITS | Encounter Summary ---
:1960 Author Organization [facility] [place] [address] Care Team Providers Name Role Phone Jackie Gee MD Primary Care Provider Encounter Details Date Type Department Care Team Description 01/14/2014 Notes Only [place] [facility] [place]my Grier MD [facility] [place] [address] CARDIOLOGY DEPT. [phone] [place], [place] [address] (Wo rk) Social History Tobacco [...] documented as of this encounter Progress Notes Timmy Grier MD - 01/14/2014 12:20 PM EDT Medtronic LINQ report (Implantable loop recorder) Symptom ID # 7 - Episode on (01/11/2014) This shows what appears to be sinus rhythm at about 90 beats per minute, followed by the sudden onset of SVT, with rates of of to 180 bpm, lasting for 47 seconds. This might be a 'short RP' tachycardia (although P waves are somewhat difficult to see) TIMMY GRIER MD documented in this encounter Plan of Treatment Not on filedocumented as of this encounter Visit Diagnoses Not on filedocumented in this encounter Care Teams Contract Runner Relationship Specialty Start Date End Date Jackie Gee MD PCP - General 09/09/11 03/06/14 [address] [place] [address] documented as of this encounter
--- OUTSIDE RECORDS SUMMARY | 2022-02-19 02:05 | XMS_ITS | Encounter Summary ---
:1960 Author Organization [facility] [place] [address] Care Team Providers Name Role Phone Jackie Gee MD Primary Care Provider Reason for Visit Reason Comments Other Encounter Details Date Type Department Care Team Description 10/02/2013 Telephone Neurology at [facility] [place] Margaret Null, [facility] [place] [address] [facility] [phone] NEUROLOGY [place] [id number] (Wo rk) Social History Tobacco Use Types [...] this encounter Miscellaneous Notes Telephone Encounter - Margaret Null MD - 10/02/2013 1:44 PM EDT Spoke with patient today. She has had no further events since saw her in clinic and thus no events were captured on the Holter monitor. 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 There is minimal evidence for leukomalacia and thus I think the chance of that lesion (likely congenital) causing seizures is low, but not completely ruled out. Further in the differential for her events would be migraine. She does have a strong history of migraine for which she is currently on amitriptyline 25mg HS. Ms. Huizar agreed to return to clinic in the next 2 weeks so we could discuss further options. 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 It may be worthwhile to switch the amitriptyline (or add) to Topamaxfor dual coverage of both seizures and migraine. documented in this encounter Plan of Treatment Not on filedocumented as of this encounter Visit Diagnoses Not on filedocumented in this encounter Care Teams Wellness Coordinator Relationship Specialty Start Date End Date Jackie Gee MD PCP - General 09/09/11 03/06/14 [address] [place] [address] documented as of this encounter
--- OUTSIDE RECORDS SUMMARY | 2022-02-19 02:05 | XMS_ITS | Encounter Summary ---
:1960 [place] [address] Care Team Providers Name Role Phone None Primary Care Provider Unavailable Encounter Details Date Type Department Care Team Description 03/29/2014 Office Visit Cardiology at [facility] [place] Abdirahman Patton, DO Near syncope [facility] [place] [facility] [address] CARDIOLOGY DEPT [phone] [place], [place] [address] (Wo rk) Social History Tobacco [...] Time Taken Comments Blood Pressure 130/62 03/29/2014 12:08 PM EST Pulse 62 03/29/2014 12:08 PM EST Temperature - - Respiratory Rate - - Oxygen Saturation 98% 03/29/2014 12:08 PM EST Inhaled Oxygen Concentration - - Weight 112.5 kg (248 lb) 03/29/2014 12:08 PM EST Height 167.6 cm (5' 5.98) 03/29/2014 12:08 PM EST Body Mass Index 40.05 03/29/2014 12:08 PM EST documented in this encounter Progress Notes Abdirhaman Patton DO - 03/29/2014 2:50 PM EST Electrophysiology Pacemaker Device Implant Note Date: 03/29/2014 Primary Tool Maker Apprentice: Lisa Patton DO Implanting Physician: Abdirahman Patton DO Sausage Meat Trimmer: [employer] Info Model: Reveal LINQ LNQ11 Serial # [id number] Implant Date: 12/12/2013 Indication for ILR: Near Syncope Final Parameters Symptom Trigger: No triggered events Detection: ?? Tachy ON 380ms (150BPM) for 16 Beats ?? Dave ON 2000ms (30BPM) for 4 beats ?? Pause ON 3sec ?? AT/AF Detection: ON AF only, least sensitive ?? Ectopy Rejection: aggressive ?? AT/AF recording threshold: Only longest episode Sensing 0.035mV Blank after Sense 150ms Sensing threshold decay Delay 150ms Episodes One episode which represents artifact that occurred when patient was sighting in her rifle. No arrhythmia seen Abdirahman Patton DO Tool Maker Apprentice Cardiac Electrophysiology Department [place], [place] ) Pager ([phone]) documented in this encounter Plan of Treatment Not on filedocumented as of this encounter Visit Diagnoses Diagnosis Near syncope Syncope and collapse documented in this encounter Care Teams Global Security Architect Relationship Specialty Start Date End Date None PCP - General 03/07/14 06/23/16 None documented as of this encounter
--- OUTSIDE RECORDS SUMMARY | 2022-02-19 02:05 | XMS_ITS | Encounter Summary ---
:1960 Author Organization [facility] Address [facility] [place] [address] Care Team Providers Name Role Phone None Primary Care Provider Unavailable Encounter Details Date Type Department Care Team Description 09/02/2014 Hospital Encounter Ultrasound at [facility], DR JON [facility] Jackie Glover MD [address] [place], [place] [address] [place] [address] Social History Tobacco Use Types Packs/Day [...] Sig Dispensed Refills Start Date End Date acetaminophen (TYLENOL) 325 Take 650 mg by 0 mg Tablet mouth every 4 hours as needed for Pain. hydrochlorothiazide Take 25 mg by 0 (HYDRODIURIL) 25 mg tablet mouth daily. simvastatin (ZOCOR) 20 mg Take 20 mg by 0 tablet mouth nightly. levothyroxine (SYNTHROID) 75 Take 75 mcg by 0 mcg tablet mouth daily. aspirin 81 mg Tablet, Delayed Take 81 mg by 0 10/03/2014 Release (E.C.) mouth daily. metoprolol tartrate Take 25 mg by 0 (LOPRESSOR) 25 mg tablet mouth 2 times daily. documented as of this encounter Plan of Treatment Not on filedocumented as of this encounter Procedures Procedure Name Priority Date/Time Associated Comments Diagnosis US TRANSVAGINAL NON Routine 09/02/2014 3:11 PM Re sults for this OB EDT procedure are i n the results section. documented in this encounter Results US Transvaginal non OB (09/02/2014 3:11 PM EDT) Anatomical Region Laterality Modality Ultrasound Specimen (Source) Anatomical Collection Method Collection Time Re ceived Time Location / / Volume Laterality 09/02/2014 3:11 PM EDT Narrative 09/02/2014 5:02 PM EDT Gynecological Report ? (Signed Final 09/02/2014 05:01 ? pm) Patient Info ID #: ? [id number] ?: [birth year] (53 yrs) Name: ? ELVIA HUIZAR ?Visit Date: 09/02/2014 03:09 pm Performed By Performed By: ?Madeleine LOPEZ, ??Rizwana bar Attending: ? Tonie JURADO, Marie Friend Referred By: ? JACKIE GARCÍA MD Service(s) Provided ??UTV - Ultrasound - Transvaginal - [phone] [id number] ? [id number] Indications ??IRREGULA MAT MENOPAUSAL ??VAGINAL ??BLEEDING Comparison No prior studies for comparison. ------- History ------- Age: ?? 53 Menses: ?Irregula r ------ Uterus ------ Uterus: ? Visualized Position: ?? Anteverted Size (cm) ?L: ??9.6 ? W: ?? 6.6 ?H: ??5.4 Description: ?? Diffusely heterogeneous myometrial ?echogenicity. ?? One measurable fibroid ?visualized, list ed below. ------ Myomas ------ ??Site ? L(cm) ? W(cm) ? D(cm) ? Location ??Posterior ?2.8 ? 2.5 ? 2.1 ? Intramural ??Blood Flow ?RI ? PI ? Comments Endometrium Endometrium: ?Ill-defined, heterogeneous Thickness(mm): ?8.0 ------ Cervix ------ Small nabothian cysts seen. [place] No fluid is visualized. Right Ovary Status: ?? Visualized Size (cm) ?L: ??2.4 ? W: ?? 2.2 ?H: ??1.5 Vol (ml): ?4.1 Morphology: ?Normal appearance Left Ovary Status: ?? Visualized Size (cm) ?L: ??1.4 ? W: ?? 1.9 ?H: ??1.6 Vol (ml): ?2.2 Morphology: ?Normal appearance Impression Ultrasound - Transvaginal - Summary 1. ??Normal thickness endometrium for a menstruating woman, no associated vascularity, howev er endometrium is ill defined and heteroge neous in appearance. ??In the clinical setting o f abnormal bleeding, consider gynecologic consulta tion. 2. ??Diffusely heterogeneous myometrial echogenicity suggestive of adenomyosis, which could be better characterized by MR. ??One discrete jonathan surable fibroid identified, measuring approximately 3 c m. 3. ??Normal ovaries. I ??viewed the images and agree with beth bar above interpretation. ?Marie Schilling MD Electronically Signed Final Report ?? 05:01 pm Procedure Note Marie Schilling MD - 09/02/2014Formatt ing of this note might be different from the original. Gynecological Report (Signed Final 08/08 05:01 pm) Patient Info ID #: [id number] : [birth year] (53 y rs) Name: ELVIA HUIZAR Visit Date: 09/02 03:09 pm Performed By Performed By: Charla Salvador RDMS Attending: Marie Schilling MD Referred By: JACKIE GARCÍA MD Service(s) Provided UTV - Ultrasound - Transvaginal - [phone] [id number] Indications IRREGULA MAT MENOPAUSAL VAGINAL BLEEDING Comparison No prior studies for comparison. ------- History ------- Age: 53 Menses: Irregular ------ Uterus ------ Uterus: Visualized Position: Anteverted Size (cm) L: 9.6 W: 6.6 H: 5.4 Description: Diffusely heterogeneous my ometrial echogenicity. One measurable fibroid visualized, listed below. [...] Summary 1. Normal thickness endometrium for a m enstruating woman, no associated vascularity, howev er endometrium is ill defined and heteroge neous in appearance. In the clinical setting of abnormal bleeding, consider gynecologic consulta tion. 2. Diffusely heterogeneous myometrial e chogenicity suggestive of adenomyosis, which could be better characterized by MR. One discrete measu rable fibroid identified, measuring approximately 3 c m. 3. Normal ovaries. I viewed the images and agree with the above interpretation. Marie Schilling MD Electronically Signed Final Report 09/02 05:01 pm Jackie García MD IMG US PELVIC ORDERABLES documented in this encounter Visit Diagnoses Not on filedocumented in this encounter Care Teams Filing Machine Operator Relationship Specialty Start Date End Date None PCP - General 03/07/14 06/23/16 None documented as of this encounter
--- OUTSIDE RECORDS SUMMARY | 2022-02-19 02:05 | XMS_ITS | Encounter Summary ---
:1960 Author Organization [facility] [address] Care Team Providers Name Role Phone None Primary Care Provider Unavailable Encounter Details Date Type Department Care Team Description 09/25/2014 [place] [address] Social History Tobacco Use Types Packs/Day [...] Associated Diagnosis Comme nts CARDIAC DEVICE Routine 09/25/2014 2:15 AM Results for this CHECK - REMOTE EDT procedure are in the results section. documented in this encounter Results Cardiac device check - Remote (09/25/2014 2:15 AM EDT) Component Value Ref Test Analysis Performed Pathologis t Range Method Time At Signature Date Time [id number] IDCO Interrogation Session Implantable Medtronic IDCO Pulse Generator Email Engineer Implantable [id number] IDCO Pulse Generator Model Implantable [id number] IDCO Pulse Generator Serial Number Type Remote IDCO Interrogation Session Implantable Implantable IDCO Pulse Generator Diagnostic Type Monitor Implantable [id number] IDCO Pulse Generator Implant Date Anatomical Region Laterality Modality Other Specimen (Source) Anatomical Collection Method Collection Time Re ceived Time Location / / Volume Laterality 09/25/2014 2:15 AM EDT Physician Cardiology MD IMPLANTABLE CARDIAC DEVICE documented in this encounter Visit Diagnoses Not on filedocumented in this encounter Care Teams Enrollment Specialist Relationship Specialty Start Date End Date None PCP - General 03/07/14 06/23/16 None documented as of this encounter
--- OUTSIDE RECORDS SUMMARY | 2022-02-19 02:05 | XMS_ITS | Encounter Summary ---
:1960 Author Organization [facility] [place] [address] Care Team Providers Name Role Phone Jackie Gee MD Primary Care Provider Encounter Details Date Type Department Care Team Description 01/01/2014 External Results Cardiology at [facility] [place] [place] Jackie Gee [place] [facility] [address] [place] [address] [place], [place] [phone] [id number] (Wo rk) Social History Tobacco Use Types [...] Diagnosis Comme nts EP DEVICE SCAN Routine 12/31/2013 documented in this encounter Results Scan Doc: EP Device (12/31/2013) Anatomical Region Laterality Modality Other Narrative This result has an attachment that is no t available. Jackie Gee MD MEDIA MGR SCAN EXT ORDR/RSLT documented in this encounter Visit Diagnoses Not on filedocumented in this encounter Care Teams Senior Enlisted Advisor Relationship Specialty Start Date End Date Jackie Gee MD PCP - General 09/09/11 03/06/14 [address] [place] [address] documented as of this encounter
--- OUTSIDE RECORDS SUMMARY | 2022-02-19 02:05 | XMS_ITS | Encounter Summary ---
:1960 Author Organization [facility] [place] [address] Care Team Providers Name Role Phone None Primary Care Provider Unavailable Reason for Visit Reason Comments Follow-up Encounter Details Date Type Department Care Team Description 09/16/2014 Follow-Up Obstetrics and Pacis, Alba Vines MD [facility] DR OBSTETRICS & GYNECOLOGY DEPT [place], [place] [id number] Abnormal uterine Gynecology at [facility] Jackie Gee MD [address] [place], [place] [id number] bleeding (AUB) [facility] (Primary Dx) [place] [phone] Social History Tobacco Use Types Packs/Day Years [...] Sign Reading Time Taken Comments Blood Pressure 114/70 09/16/2014 1:27 PM EDT Pulse - - Temperature - - Respiratory Rate - - Oxygen Saturation - - Inhaled Oxygen Concentration - - Weight 112.5 kg (248 lb) 09/16/2014 1:27 PM EDT Height 162.6 cm (5' 4) 09/16/2014 1:27 PM EDT Body Mass Index 42.57 09/16/2014 1:27 PM EDT documented in this encounter Progress Notes Radha Morse MD - 09/24/2014 10:30 AM EDT I saw and evaluated Elvia Huizar with Dr Leigh and assisted with the endometrial biopsy. I agree with the findings and the plan of care as documented in the resident's note. Radha Morse MD Alba Leigh MD - 09/16/2014 1:41 PM EDT Gynecology Visit ID: Elvia Huizar is a 53 y.o. LMP 08/29/14 who presents with AUB. HPI: Elvia reports having irregular periods for at least a year, maybe two. She noticed that she has been skipping months at a time, with the largest period being about 6 months. When she does get her menses, they are heavier than they used to be, though she is not passing clots or symptomatic. Theyare about 5 days duration. She has had one episode in July when she had a period then a week later had one day of spotting. She denies dizziness, sob, cp with menses. She presented to her PCP who ordered a transvaginal u/s, which demonstrated the following: Uterus ------ Uterus: Visualized Position: Anteverted Size [...] measuring approximately 3 cm. 3. 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 Psoriasis ??? Obesity ??? HTN (hypertension) ??? Hypothyroidism ??? Hyperlipidemia ??? Migraine ??? Palpitations started on beta lena approx one month ago Past Surgical History Procedure Laterality Date ??? Orthopedic surgery cyst removed from bone in pelvis ??? Finger surgery ??? Sling oper stres incontinence 09/20/2012 URETHRAL SUSPENSION, SLING\FASCIA OR SYNTHETIC performed by Jozef Kent MD at [facility] MAIN OR ??? Ablation of dysrhythmic focus Allergies Allergen Reactions ??? Shellfish Containing Products Angioedema ??? Pollen Extracts Stuffy head headache. History Social History ??? Marital Status: Spouse Name: N/A Number of Children: N/A ??? Years of Education: N/A Occupational History ??? Not on file. Social History Main Topics ??? Smoking status: Former Smoker -- 1.50 packs/day for 10 years Types: Cigarettes Quit date: 06/12/1987 ??? Smokeless tobacco: Never Used ??? Alcohol Use: Yes Comment: 2-3 a couple of times per week ??? Drug Use: Yes Comment: marijuana (very occasional) ??? Sexual Activity: Partners: Male Comment: no contraception Other Topics Concern ??? Not on file Social History Narrative Physical exam: Filed Vitals: 09/16/14 1327 BP: 114/70 Gen: NAD CVS: RRR, no m/r/g Resp: cta b/l, no wheezing Abd: soft, ndnt, obese : normal external genitalia, BM: anteverted uterus, no masses or adnexal fullness; SE: physiologicdischarge, no masses or lesions Procedure: Speculum placed in vagina. Cervix prepped with betadine x3. Tenaculum used to grasp anterior lip of cervix. EMB done with adequate return of tissue. Tenaculum removed. Hemostasis on cervix achieved with application of silver nitrate. All instruments removed from vagina. Pt tolerated the procedure well. 800 mg ibuprofen given at termination of procedure. Ext: no calf tenderness A/P: Elvia Huizar is a 53 y.o. with irregular bleeding likely reflective of anovulatory cycles. Endometrial thickness of 8mm with heterogeneous echogenicity is probably due to the pt menstruating at that time. However, reasonable given her age, irregular bleeding pattern, and findings on ultrasound to do EMB to r/o polyp and malignancy. Will call pt with results when pathology returns. Dr. Radha Morse, OBGYN Attending, present and participated in all aspects of this procedure without conflicting clinical responsibilities. Alba Leigh MD PGY4 09/16/2014 documented in this encounter Plan of Treatment Not on filedocumented as of this encounter Procedures Procedure Name Priority Date/Time Associated Diagnosis Comme nts SPECIMEN TO Routine 09/16/2014 2:32 PM Abnormal uterine Resul ts for this PATHOLOGY (NON-OR) EDT bleeding (AUB) procedu re are in the results section. SURGICAL PATHOLOGY Routine 09/16/2014 2:00 PM Res ults for this REPORT EDT procedure are i n the results section. documented in this encounter Results Specimen to Pathology (NON-OR) (09/16/2014 2:32 PM EDT) Specimen Anatomical Collection Method Collection Time Receive d Time (Source) Location / / Volume Laterality AP Specimen 09/16/2014 2:32 PM 5 2:32 EDT PM EDT Narrative [facility] - 09/16/2014 2:32 PM E DT Specimen requisition ordered. ??Separate Pathology report to follow Radha Morse MD PATHOLOGY/CYTOLOGY ORDERABLE S Performing Organization Address [facility]/State/[place] [address] [facility] Surgical Pathology Report (09/16/2014 2:00 PM EDT) [employer] gist Method Time Signature Surgical [facility] Pathology ? [facility] Report ? Provider: ?? VICTOR M, ALBA Vines ?? Pt. Name: ?? GOODYOUSIF N, ELVIA T ? Acc #: ?[id number] ?Pt. MRN: ?[id number] ? Col Date: ?? 5 ? /Sex: ?1960,(53 years),Female ? Rec Date: ?? 09/16/2014 ? LOC: ?5L ? SURGICAL PATHOLOGY ? ---Pathologic Diagnosis--- ? 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 ? CR-0 ? 09/18/14 ? ARS ? 09/18/14 Verified by: ? Stephanie JURADO, Hao Isidro ? Pathologist ? (Electronic Si gnature) ? The attending pathologist whose signature appears o n this report has ? reviewed all diagnostic slides and has edited the zo ss and/or ? microscopic portion of the report in rendering the fi nal pathologic ? diagnosis. ? ---Microscopic Description--- ? Slides reviewed, microscopic description not recorded . ? Whole slide scan: ? [id number] ? ---Gross Description--- ? A - Labeled/Fixative: Patient demographics, formalin. ? Quantity/Size: Fragments, 3.5 x 3.0 x 1.0 cm. ? Tissue Description: Soft, red tissues. ? Sections/Processing: (T4) ??sns ? ---Clinical Information--- ? Specimen Submitted: ? A - Endometrial bx ? Clinical History: ? 53-year-old with abnormal uterine bleeding ? Clinical Diagnosis: ? Same Specimen (Source) Anatomical Collection Method Collection Time Re ceived Time Location / / Volume Laterality 09/16/2014 2:00 PM EDT Alba Leigh MD PATHOLOGY/CYTOLOGY ORDERABLE S Performing Organization Address City/State/[place] [address] [facility] documented in this encounter Visit Diagnoses Diagnosis Abnormal uterine bleeding (AUB) - Primar y documented in this encounter Care Teams Folding Rules Printing Machine Operator Relationship Specialty Start Date End Date None PCP - General 03/07/14 06/23/16 None documented as of this encounter
--- OUTSIDE RECORDS SUMMARY | 2022-02-19 02:05 | XMS_ITS | Encounter Summary ---
:1960 Author Organization [facility] [place] [address] Care Team Providers Name Role Phone None Primary Care Provider Unavailable Reason for Visit Reason Comments Palpitations Encounter Details Date Type Department Care Team Description 10/21/2014 Office Visit Cardiology at [facility] [place] [place] Sammie Hernandez SVT (supraventricular [facility] ASHLEE [place]man) [place] [address] Social History Tobacco Use Types [...] Sign Reading Time Taken Comments Blood Pressure 140/74 10/21/2014 3:40 PM EDT Pulse 62 10/21/2014 3:40 PM EDT Temperature - - Respiratory Rate - - Oxygen Saturation 97% 10/21/2014 3:40 PM EDT Inhaled Oxygen Concentration - - Weight - - Height 165.1 cm (5' 5) 10/21/2014 3:40 PM EDT Body Mass Index - - documented in this encounter Progress Notes Sammie Hernandez RN - 10/21/2014 4:18 PM EDT ILR INTERROGATION OUTPATIENT Usha Huizar is a 54 y.o. female who presents today for ILR interrogation. The ILR was implanted 12/12/2013 for presyncope and palpitations and she since has had an ablation for SVT. PCP: RENE GARCÍA MD Implant data: Medtronic Reveal Linq Model# [id number], Serial # [id number] Final Programming: Tachy detection: 370 ms / 162 bpm, 5 beats Asystole: 3 seconds Bradycardia: 1500 ms / 40 bpm for 8 beats Sensitivity: 0.035 MV AT/AF detection: On Current ILR programming: Same as above Underlying rhythm today: SR 65 bpm Battery status: OK R wave: 0.29 mV Activations: None Findings: 4 episodes that are noise are noted in history. Impression: Normal device function. Reprogramming: None Plan: On Care Link (cellular). RTC 6 mos Provider: Sammie Hernandez RN Provider ID: [id number] Attending: Dr. Grier Addendum I have personally reviewed the device interrogation as performed by Sammie Hernandez RN ILR No significant events Normal device function Summary 1) Normal device function 2) Routine follow up as planned Timmy Grier MD documented in this encounter Plan of Treatment Not on filedocumented as of this encounter Visit Diagnoses Diagnosis SVT (supraventricular tachycardia) Other specified cardiac dysrhythmias documented in this encounter Care Teams Acid Concentrator Relationship Specialty Start Date End Date None PCP - General 03/07/14 06/23/16 None documented as of this encounter
--- OUTSIDE RECORDS SUMMARY | 2022-02-19 02:05 | XMS_ITS | Encounter Summary ---
:1960 Author Organization [facility] [place] [address] Care Team Providers Name Role Phone Jackie García MD Primary Care Provider Encounter Details Date Type Department Care Team Description 10/09/2013 Follow-Up Neurology at [facility] [place] Johnson Ugarte (Primary Dx) [facility] MD Minnie [address] [facility] [place] [address] NEUROLOGY DEPT. [phone] [place], [place] [address] (Wo rk) Social History Tobacco [...] Sign Reading Time Taken Comments Blood Pressure 131/74 10/09/2013 3:20 PM EDT Pulse 67 10/09/2013 3:20 PM EDT Temperature - - Respiratory Rate - - Oxygen Saturation - - Inhaled Oxygen Concentration - - Weight 104.3 kg (230 lb) 10/09/2013 3:20 PM EDT Height 165.1 cm (5' 5) 10/09/2013 3:20 PM EDT Body Mass Index 38.27 10/09/2013 3:20 PM EDT documented in this encounter Progress Notes Margaret Null MD - 10/09/2013 3:30 PM EDT Neurology Outpatient Clinic - Follow up Patient name: Usha Huizar Date of : 1960 PCP: JACKIE GARCÍA MD Clinic Attending: Shanel Follow up: spells Summary of prior visits: Usha Huizar is a 53 y.o. woman with spells of pre- syncope and feeling like she is going to pass out occuring 5-6 times between April 2013 and July 2013 only when driving. Interim History: She has had no further events since July. Holter monitoring was normal over 2 weeks with no events captured. They will possibly implant a loop recorded. Amb 24hr EEG was also normal. 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 She has noticed an increase in the frequency and intensity of her headaches lately. Last week,she was bucked off her horse, TBI with loss of consciousness. CT head was normal (report scanned in). This may be why her headaches have increased. Past Medical/Surgical History: Past Medical History Diagnosis Date ??? Psoriasis ??? Obesity ??? HTN (hypertension) ??? Hypothyroidism ??? Hyperlipidemia ??? Migraine ??? Palpitations started on beta lena approx one month ago Past Surgical History Procedure Date ??? Orthopedic surgery cyst removed from bone in pelvis ??? Finger surgery ??? Sling oper stres incontinence 09/20/2012 URETHRAL SUSPENSION, SLING\FASCIA OR SYNTHETIC performed by Jozef Kent MD at [facility] Medications: Current Outpatient Prescriptions Medication Sig Dispense Refill ??? amitriptyline (ELAVIL) 50 mg tablet Take 1 tablet by mouth every evening. 90 tablet 3 ??? ibuprofen (ADVIL;MOTRIN) 600 mg tablet Take 1 tablet by mouth every 6 hours as needed for Pain. 30 tablet 2 ??? metoprolol tartrate (LOPRESSOR) 25 mg tablet Take 25 mg by mouth 2 times daily. ??? hydrochlorothiazide (HYDRODIURIL) 25 mg tablet Take 25 mg by mouth daily. ??? simvastatin (ZOCOR) 20 mg tablet Take 20 mg by mouth nightly. ??? levothyroxine (SYNTHROID) 75 mcg tablet Take 75 mcg by mouth daily. ??? clobetasol (TEMOVATE) 0.05 % ointment Apply topically 2 times daily. For up to 2 weeks, then useon weekends only. 45 g 2 Allergies: Allergies Allergen Reactions ??? Shellfish Containing Products Angioedema ??? Pollen Extracts Stuffy head headache. Family History: No family history on file. Social History: She reports that she quit smoking about 26 years ago. Her smoking use included Cigarettes. She has a 15 pack-year smoking history. She has never used smokeless tobacco. She reports thatshe drinks alcohol. She reports that she does not use illicit drugs. ROS and other subjective patient data: Seizure Control: QEpilepsy 10/09/2013 Number of seizures in past month: 0 Social Factors: QEPILEPSY SOCIAL FACTORS 10/09/2013 Employment status: - Currently driving: - Considering No Review of Systems: Review of systems 10/09/2013 1. double vision - 2. headache Often 3. rash Never 4. unsteadiness Never 5. upset stomach, nausea, vomiting Never 6. troubles with gums or teeth Sometimes 7. weight loss or gain Never 8. tremors or shaking Never 9. restlessness Never 10. dizziness Never 11. tiredness/sleepiness Sometimes 12. trouble sleeping Never 13. difficulties concentrating Sometimes 14. feelings of aggression Never 15. depression Never 16. thoughts about ending your life Never 17. palpitations or chest pains Sometimes 18. bladder problems Never 19. breathing problems Never Memory and concentration symptoms (QOLIE-31) QEPILEPSY QOLIE31 10/09/2013 Memory problems Some of the time Difficulty reasoning and solving problems Some of the time Trouble remembering things people tell Some of the time Trouble concentrating on reading - Trouble concentrating on doing one thing at a time - How much do your memory difficulties bother you? 2 QOLIE-31 Incomplete Depression Score (NDDI-E) QEPILEPSY DEPRESSION SCORE 10/09/2013 Depression Score 6 (scores >15 suggest Major Depression) Quality of Life QEPILEPSY QOL 10/09/2013 Quality of Life (10-Best Quality of Life; 0-Worst Quality of Life) 9 Physical Exam: Filed Vitals: 10/09/13 1520 BP: 131/74 Pulse: 67 Constitutional: Patient of apparent stated age, well nourished, well developed, no acute distress Neck: Supple, no meningismus CV: RRR, S1, S2, no murmur Resp: CTAB Abd: Soft, nontender, nondistended Neuro: MS: Alert, oriented, clear language (fluency and comprehension), no dysarthria CN: PERRL, EOMI, visual pope full, trigeminal sensation intact, no facial asymmetry, hearing intact to whisper, palate elevates symmetrically, tongue protrudes midline, SCM and trap strength intact Motor: Normal bulk and tone. 5/5 strength in bilateral upper and lower extremities Sensation: Intact to light touch throughout Gait: Stable, normal base and arm-swing Labs: No results found for this or any previous visit (from the past 24 hour(s)). Diagnostic Tests and Imaging: none Assessment / Plan: Usha Huizar is a 53 y.o. woman with spells of pre-syncope and feeling like she is going to pass out occuring 5-6 times between April 2013 and July 2013 only when driving. She had a normal 24-hrEEG. MRI brain showed an incidental finding of an arachnoid cyst. This is likely congenital and doesnot raise the concern for seizure. Overall, her events do not sound like seizure and with benign work-up that is reassuring. However, it is not clear exactly what these spells are, though they seemed to have stopped for the time being. One possible etiology is complex migraine. With her history of migraine and recent increase in headaches, we will increase her amitriptyline to 50mg HS for migraine pro phylaxis. We have no further tests or recommendations. She should continue to follow up and completecardiology recommendations. 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 This was discussed with the patient. Follow up as needed or for any other events. Discussed with attending, Dr. Ugarte, who agrees with plan. Margaret Null MD Neurophysiology Fellow Pager [phone] Neurology (Staff) Addendum I saw and evaluated the patient. I have reviewed the resident's history, physical examination findings, assessment and plan during the visit and I agree with the details as written, unless otherwise specified as below. Symptoms are not likely to be seizures. Patient did not loose consciousness. EEG is normal. MRI shows incidental finding with low chance of causing any symptoms. 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 Discussed follow up with cardiology as patient has not completed her work up with them. Johnson Ugarte MD documented in this encounter Plan of Treatment Not on filedocumented as of this encounter Visit Diagnoses Diagnosis Spells - Primary Other convulsions documented in this encounter Care Teams English Language Learner Teacher Relationship Specialty Start Date End Date Jackie García MD PCP - General 09/09/11 03/06/14 [address] [place] [address] documented as of this encounter
--- OUTSIDE RECORDS SUMMARY | 2022-02-19 02:05 | XMS_ITS | Encounter Summary ---
:1960 Author Organization [facility] Address [address] [place] [address] Care Team Providers Name Role Phone Jackie Gee MD Primary Care Provider Encounter Details Date Type Department Care Team Description 02/19/2014 Hospital Encounter Mammography at [facility], DR JON [facility] Jackie Glover MD [address] [place], [place] [id number] [place] [address] Social History Tobacco Use Types Packs/Day [...] Diagnosis Comme nts MAMMO SCREENING CAD Routine 02/19/2014 1:53 PM Re sults for this BILATERAL EDT procedure are i n the results section. documented in this encounter Results Mammo digital bilateral Screening with CAD (02/19/2014 1:53 PM EDT) Anatomical Region Laterality Modality Breast Bilateral Mammography Specimen (Source) Anatomical Collection Method Collection Time Re ceived Time Location / / Volume Laterality 02/19/2014 1:53 PM EDT Narrative 02/20/2014 10:26 AM EDT Reason for Exam: Screening Technique: Craniocaudal (CC) and Medio-l ateral Oblique (MLO) views of both breasts obtained with direct digital cap ture. The exam was evaluated by CAD version 8. 3.17. Findings: This is a negative mammogram (ACR Catego ry 1). There is a stable fibroglandular pattern without significant change from prior studies. There is no mammographic evidence of can cer. The breasts are of scattered density. A cardiac loop recorder is pres ent in the left breast. CONCLUSION: This is a NEGATIVE mammogram (ACR Catego ry 1). Routine screening mammography is recomme nded with the frequency dependent upon the patients age and breast cancer risk factors. A letter has been sent to this patient b y the breast imaging center. Procedure Note Zandra Langford MD - 02/20/2014Format ting of this note might be different from the original. Reason for Exam: Screening Technique: Craniocaudal (CC) and Medio-l ateral Oblique (MLO) views of both breasts obtained with direct digital cap ture. The exam was evaluated by CAD version 8. 3.17. Findings: This is a negative mammogram (ACR Catego ry 1). There is a stable fibroglandular pattern without significant change from prior studies. There is no mammographic evidence of can cer. The breasts are of scattered density. A cardiac loop recorder is pres ent in the left breast. CONCLUSION: This is a NEGATIVE mammogram (ACR Catego ry 1). Routine screening mammography is recomme nded with the frequency dependent upon the patients age and breast cancer risk factors. A letter has been sent to this patient b y the breast imaging center. Jackie Gee MD IMG MAMMO ORDERABLES documented in this encounter Visit Diagnoses Not on filedocumented in this encounter Care Teams Plate Slitter And Inspector Relationship Specialty Start Date End Date Jackie Gee MD PCP - General 09/09/11 03/06/14 [address] [place], [place] [id number] documented as of this encounter
--- OUTSIDE RECORDS SUMMARY | 2022-02-19 02:05 | XMS_ITS | Encounter Summary ---
:1960 Author Organization [facility] Address [place] [id number] Care Team Providers Name Role Phone Jackie García MD Primary Care Provider Encounter Details Date Type Department Care Team Description 09/24/2013 Follow-Up Cardiology at [facility] WaJaved gonzales, Syncope and collapse [facility] (Primary Dx) [place] [address] CARDIOLOGY DEPT. [place] [address] (Wo rk) Social History Tobacco Use Types [...] Sign Reading Time Taken Comments Blood Pressure 158/82 09/24/2013 3:15 PM EDT Pulse 62 09/24/2013 3:15 PM EDT Temperature - - Respiratory Rate - - Oxygen Saturation 99% 09/24/2013 3:15 PM EDT Inhaled Oxygen Concentration - - Weight 104.3 kg (230 lb) 09/24/2013 3:15 PM EDT Height 162.6 cm (5' 4) 09/24/2013 3:15 PM EDT Body Mass Index 39.48 09/24/2013 3:15 PM EDT documented in this encounter Progress Notes Javed Pepe MD - 09/24/2013 3:43 PM EDT Images from the original note were not included. [facility] [place] [address] [address] CARDIOLOGY OUTPATIENT FOLLOW-UP NOTE Usha Stephania Huizar [id number] PCP: JACKIE GARCÍA MD 09/24/2013 PRIMARY CARE PROVIDER: JACKIE GARCÍA MD PROBLEM LIST: Patient Active Problem List Diagnosis ??? Near syncope ??? Palpitations ?? Echo 07/07/12 showing normal LF with EF 68%; mild MR ?? Holter 07/08/12 showing rare PACs with no runs ?? Symptoms abated after treatment for HTN with metoprolol ??? Hyperlipemia ??? Migraine headache ??? Hypothyroidism ??? Breast mass MEDICATIONS: Current Outpatient Prescriptions Medication Sig Dispense Refill ??? ibuprofen (ADVIL;MOTRIN) 600 mg tablet Take 1 tablet by mouth every 6 hours as needed for Pain. 30 tablet 2 ??? metoprolol tartrate (LOPRESSOR) 25 mg tablet Take 25 mg by mouth 2 times daily. ??? hydrochlorothiazide (HYDRODIURIL) 25 mg tablet Take 25 mg by mouth daily. ??? amitriptyline (ELAVIL) 25 mg tablet Take 25 mg by mouth every evening. ??? simvastatin (ZOCOR) 20 mg tablet Take 20 mg by mouth nightly. ??? levothyroxine (SYNTHROID) 75 mcg tablet Take 75 mcg by mouth daily. ??? clobetasol (TEMOVATE) 0.05 % ointment Apply topically 2 times daily. For up to 2 weeks, then useon weekends only. 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 She had several subsequent episodes. She was evaluated with a 30 day monitor and had no symptoms. She was scheduled for Zio patch and this follow-up visit. Unfortunately, she had no episodes during the two-week period of monitoring. She has not, in fact, had a syncopalor near syncopal episode in 4-6 weeks. She continues to abstain from driving her school bus. She is otherwise feeling well. Thinking back, she can think of nothing that was unusual during the period of time she was expansion episodes other than she may have switch to a generic form of one of her medications. She is not sure which medication. OBJECTIVE: Physical Exam: On examination today she appeared in good spirits. Her blood pressure was 158/82 and pulse 62. She had no JVD. Her lungs were clear. Her heart exam revealed a regular rhythm without murmurs, rubs, or gallops. Zio patch: Recorded for 2 weeks beginning on August 28, 2013 she showed a low, average, and maximal heart rate of 49, 69, and 144 beats respectively. She had no ectopy and no runs of SVT. On at least one occasion at night she may of had shown some Wenckebach phenomenon. DIAGNOSES: 1. Syncope of unclear etiology 2. History of palpitations DISCUSSION: Unfortunately, the etiology of her syncope has not yet been determined. She is under active investigation by neurology. Her Zio patch showed no good explanation for her symptoms. I continueto caution her about not driving commercially and, in fact, driving at all. She is upset by this recommendation. I recommended that we schedule her for an implantable loop recorder and this will be setup in the near future. PLAN: 1. No change in medications 2. Placement of an implantable loop recorder to be scheduled 3. Routine follow-up in 3-4 months 4. No driving until an explanation for her syncope has been determined or until she goes for 6 months without an episode documented in this encounter Plan of Treatment Not on filedocumented as of this encounter Visit Diagnoses Diagnosis Syncope and collapse - Primary documented in this encounter Care Teams World History Teacher Relationship Specialty Start Date End Date Jackie García MD PCP - General 09/09/11 03/06/14 [address] [place] [address] documented as of this encounter
--- OUTSIDE RECORDS SUMMARY | 2022-02-19 02:05 | XMS_ITS | Encounter Summary ---
:1960 Author Organization [facility] [place] [address] Care Team Providers Name Role Phone Jackie Gee MD Primary Care Provider Encounter Details Date Type Department Care Team Description 03/01/2014 Surgery Electrophysiology Lab at Jordana Grier LECTROPHYSIOLOGY [facility] MD Henrik PROCEDURE [facility] [place] [address] CENTER [phone] [place] [address] Social History Tobacco Use Types Packs/Day Years [...] Sign Reading Time Taken Comments Blood Pressure 130/73 03/01/2014 8:57 AM EDT Pulse 58 03/01/2014 8:57 AM EDT Temperature 36 ??C (96.8 ??F) 03/01/2014 8:57 AM EDT Respiratory Rate 16 03/01/2014 8:57 AM EDT Oxygen Saturation 100% 03/01/2014 8:57 AM EDT Inhaled Oxygen Concentration - - Weight 106.1 kg (234 lb) 03/01/2014 8:57 AM EDT Height 167.6 cm (5' 6) 03/01/2014 8:57 AM EDT Body Mass Index 37.77 03/01/2014 8:57 AM EDT documented in this encounter Discharge Instructions Patient InstructionsPipo Lake - 03/02/2014 7:48 AM EDT Final Recommendations: 1. Medications as prescribed. 2. Follow up with Dr. Grier in 1 month. You will be contacted with date and time. 3. Standard post ablation wound care instructions (see below): Call your doctor if: Chest pain, dyspnea, pain or swelling in legs occurs. Activity level: No heavy lifting (more than five pounds) for 48 hours; no more than 10 pounds for one week. May return to work in one to two weeks. Diet: Healthy heart/Diabetic (Low fat, low cholesterol, low sodium. low sugar). Driving: No driving for 48 hours. Shower/Bath: May shower; no tub bath for five days. Wound Care: Wash with soap and water daily. Contact MD if redness, swelling, increased pain or drainage. documented in this encounter Medications at Time [...] documented as of this encounter Progress Notes Lev Pollock RN - 03/02/2014 9:22 AM EDT The patient has met discharge criteria per policy. Discharge instruction reviewed and patient discharged to responsible adult. Patient???s pain level has been assessed and patient states that his/her level is tolerable at this time. The After Visit Summary (AVS) and accompanying hand-outs have been reviewed with the patient; the patient verbalizes understanding at this time. Opportunity for clarification provided. All new medications have been reviewed with the patient and the appropriate hand-outs have been given to the patient. Reportable sign and symptoms have been reviewed with patient. PT discharged to [facility] with , pt declined wheelchair as she is walking without difficulty. Jordana Grier MD - 03/02/2014 6:41 AM EDT Patient Name: Usha Huizar Patient Age: 53 y.o. Birthdate: 1960 Admit date: 03/01/2014 Attending Physician: Jordana Grier MD Patient Active Problem List Diagnosis ??? Near [...] Migraine headache ??? Hypothyroidism ??? Breast mass Interval History: No issues overnight and feeling well this morning. No recurrent dysrhythmia noted overnight and postimplant instructions given. She has no questions regarding her follow up care and will plan to discharge later today. ROS: Constitutional: No fever or chills. Integ: No bruising. HEENT: No headaches, dizziness, visual changes or epistaxis. Cardiac:No chest discomfort. Respiratory: No SOB. GI: No N/V. Ext: Denies swelling or weakness. Surgical sites: Minimal discomfort. PE: Constitutional: Adult with NAD. Integ: Warm and dry. HEENT: Head atraumatic, normocephalic Neck: No JVD @ 45 degree incline. Respiratory:CTA Cardiovascular:S1S2 RRR no MRG Extremities: No edema, pulses intact. Neuro: ZAVALETA. Surgical sites: Bilateral femoral sites C/D/I. Tele: SR 80-90's. ECG: Pending. Filed Vitals: 03/02/14 0323 BP: 104/60 Pulse: 62 Temp: 37 ??C (98.6 ??F) Resp: 12 Assessment/Plan: 53 y/o with a h/o SVT admitted yesterday by Dr. Grier for a EPS for further evaluation. 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 She tolerated the procedure well and had no issues overnight. Willplan to discharge later today. 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 Clean dry and intact. Pt. With strong D.P. Pulses palpated by this nurse @ 0600 Dede Sapin RN - 03/02/2014 3:11 AM EDT At 0200 pt.'s groin sites dry and intact bilat., no swelling to sites bilat.-no evidence of hematoma.pt. With palpable strong dorsalis pedis pulses to feet bilat. Feet warm to this nurses touch,pink , with positive pt. Stated sensation.pt. Has no pain to groin sites. Pt.'s only pain is her chronic lower back pain Dede Spain RN - 03/01/2014 10:21 PM EDT @ 2220 pt.'s bilateral groin dressings dry and intact-no swelling, no evidence of hematoma.pt. With positive strong dorsalis pedis pulses bilat. To feet. Pt.'s feet warm to touch, pinke and with positive pt. Stated sensation bilat. Dede Spain RN - 03/01/2014 7:25 PM EDT Left and right Dorsalis pedis pulses palpable @ 1920. Feet warm to nurse's touch,pt. Stated positivesensation,pink in color. Pt. Has bilat right and left groin sites dry and intact at this time.pt. Has 0/10 pain.pt. Has clear lungs bilat. documented in this encounter H&P Notes Jordana Grier MD - 03/01/2014 8:53 AM EDT Complete Adult Pre-Procedural H&P Patient Name: Usha Huizar : [id number] 53 y.o. MR#: [id number] Chief Complaint: 1) Palpitations Planned Procedure: EPS +/- ablation Patient Active Problem List Diagnosis ??? Near syncope ??? Palpitations ?? Echo 07/07/12 showing normal LF with EF 68%; mild MR ?? Holter 07/08/12 showing rare PACs with no runs ?? Symptoms abated after treatment for HTN with metoprolol ??? Hyperlipemia ??? Migraine headache ??? Hypothyroidism ??? Breast mass History of Present Illness: HPI See recent note '.. Usha Huizar is a 53 y.o. female with a past medical history significant for a long-standing history of palpitations and fast heart rates that dates back to her teenage years.over the last 20-30years she has been able to stop these episodes of tachycardia but holding her breath and bearing down. She states that she has aged the symptoms have become more frequent and have been more difficult to stop using her maneuver. She states that these episodes can very and how fast her tachycardia is. She states occasionally she may get a little lightheaded or dizzy. A few months ago she was started on a medication for her headaches (Elavil). At some point after thestart of this medication she began to have a second set of symptoms in addition to her symptoms of tachycardia. These neuro symptoms were associated with a profound draining feeling that started at herhead and migrated down. She states that she felt like she was going to pass out she was so lightheaded and he also experienced some visual disturbances with this as well. She states that this newer symptom is intermittent and does not occur frequently. To date she has had a workup by general cardiology as well as neurology and they have not been able to adequately determine what the etiology is.she has had 24-hour ambulatory EEG is performed as well as MRIs of her brain. In December of this year she underwent implantation of a reveal LinQ. Since implantation of her implantable loop recorder she has had several recorded episodes of supraventricular tachycardia some of which have associated symptoms and others which do not. Her tachycardia ranges from 150-180 beats per minute. I reviewed the results of her device interrogation today with her in the office. 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 I have reviewed the other potential etiologies of this supraventricular arrhythmia with her and I discussed treatment options including medical therapy and cardiac ab lation. All of her questions about risks of the procedure as well as the efficacy of the procedure and medications were answered to her satisfaction...' NPO since last night No recent infectious symptoms I have reviewed and updated as necessary the Medical, Surgical, Family, and Social History captured within the EMR. I have reviewed and updated as necessary the patient's allergies and current medication list within the EMR. Prescriptions prior to admission Medication Sig Dispense Refill ??? amitriptyline (ELAVIL) [...] tablet Take 75 mcg by mouth daily. Review of Systems: Review of Systems Physical Exam: Filed Vitals: 03/01/14 0857 BP: 130/73 Pulse: 58 Temp: 36 ??C (96.8 ??F) TempSrc: Temporal Resp: 16 Height: 167.6 cm (5' 6) Weight: 106.142 kg (234 lb) SpO2: 100% Physical Exam Warm, well perfused Oriented CV: S1 and S2, no added heart sounds or murmurs Lungs clear Some plaques - back, elbows, legs No edema Assessment and Plan: 1) 53 y.o. woman with palpitations, SVT, likely AVNRT - here for EPS/ablation JORDANA GRIER MD 03/01/2014 No results found for this or any previous visit (from the past 24 hour(s)). 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 Language: Haitian Race: White Ethnicity: Not nor Admit date: 03/01/2014 Discharge date and time: 03/02/2014 Attending Physician: Jordana Grier MD Discharge Physician: Jordana Grier MD 1) Admitted for elective EPS and ablation - AVNRT found and cryoablation performed Active Non-Hospital Problems Diagnosis ??? Near syncope [...] Migraine headache ??? Hypothyroidism ??? Breast mass History of Presentation: Patient seen by Dr. Grier for further evaluation and management of her SVT. EPS with possible ablation recommended and the patient agreed to proceed after the risks as well as benefits reviewed. Hospital Course: 53 y/o with a h/o SVT admitted yesterday by Dr. Grier for a EPS for further evaluation. 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 She tolerated the procedure well and had no issues overnight. Willplan to discharge later today. Important Studies and Lab Data: Labs: Lab Results Component Value Date WBC 8.5 03/01/2014 HGB 14.5 03/01/2014 HCT 41.7 03/01/2014 PLATELET 311 03/01/2014 Recent Labs Basename 03/01/14 1058 INR 1.0 Lab Results Component Value Date NA 142 03/01/2014 K 4.0 03/01/2014 CL 97* 03/01/2014 CO2 29 03/01/2014 BUN 15 03/01/2014 CREATININE 0.78 03/01/2014 Discharge to: Home. Updated Allergies/ADRs: Allergies Allergen Reactions ??? Shellfish Containing Products Angioedema ??? Pollen Extracts Stuffy head headache. Immunizations Given this Hospitalization: There is no immunization history on file for this patient. Discharge Medications: Your Medications As of 03/02/2014 7:49 AM Continued medications, unchanged Dose Details amitriptyline 50 mg Tab Commonly known as: ELAVIL Take 1 tablet by mouth every evening. 50 mg Quantity: 90 tablet Refills: 3 hydrochlorothiazide 25 mg Tab Commonly known as: HYDRODIURIL Take 25 mg by mouth daily. 25 mg Refills: 0 ibuprofen 600 mg Tab Commonly known as: ADVIL;MOTRIN Take 1 tablet by mouth every 6 hours as needed for Pain. 600 mg Quantity: 30 tablet Refills: 2 levothyroxine 75 mcg Tab Commonly known as: SYNTHROID Take 75 mcg by mouth daily. 75 mcg Refills: 0 metoprolol tartrate 25 mg Tab Commonly known as: LOPRESSOR Take 25 mg by mouth 2 times daily. 25 mg Refills: 0 simvastatin 20 mg Tab Commonly known as: ZOCOR Take 20 mg by mouth nightly. 20 mg Refills: 0 Smoking Status at Discharge: History Smoking status ??? Former Smoker -- 1.5 packs/day for 10 years ??? Types: Cigarettes ??? Quit date: 06/12/1987 Smokeless tobacco ??? Never Used Instructions Given to Patient at Discharge: Patient Instructions Final Recommendations: 1. Medications as prescribed. 2. Follow up with Dr. Grier as needed. 3. Standard post ablation wound care instructions (see below): Call your doctor if: Chest pain, dyspnea, pain or swelling in legs occurs. Activity level: No heavy lifting (more than five pounds) for 48 hours; no more than 10 pounds for one week. May return to work in one to two weeks. Diet: Healthy heart/Diabetic (Low fat, low cholesterol, low sodium. low sugar). Driving: No driving for 48 hours. Shower/Bath: May shower; no tub bath for five days. Wound Care: Wash with soap and water daily. Contact MD if redness, swelling, increased pain or drainage. 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 EKG 12-LEAD Routine 03/02/2014 7:55 AM Palpitations Results f or this EDT procedure are i n the results section. HEMOGRAM Routine 03/01/2014 10:58 Syncope Results for this AM EDT Palpitations procedure are i n the results section. DIFFERENTIAL, Routine 03/01/2014 10:58 Syncope Results for this AUTOMATED AM EDT Palpitations procedure are i n the results section. PROTHROMBIN TIME STAT 03/01/2014 10:58 Syncope Results for this AM EDT Palpitations procedure are i n the results section. CBC (WITH DIFF) Routine 03/01/2014 10:58 Syncope AM EDT Palpitations BASIC METABOLIC STAT 03/01/2014 10:58 Syncope Results for this PANEL (NON-FASTING) AM EDT Palpitations procedur e are in the results section. 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 (03/04/2014 12:00 AM EDT) Narrative 03/04/2014 10:58 PM EDT Procedure Note Provider, Scanning - 03/04/2014 12:00 AM EDT Scanning Provider MEDIA MGR SCAN EXT ORDR/RSLT EKG 12 Lead (03/02/2014 7:55 AM EDT) Component Value Ref Range Test Analysis Performed Pathologis t Method Time At Signature Ventricular rate 62 BPM MUSE SYSTEM Atrial Rate 62 BPM MUSE SYSTEM P-R Interval 170 ms MUSE SYSTEM QRS Duration 92 ms MUSE SYSTEM Q-T Interval 440 ms MUSE SYSTEM QTC Calculated 446 ms MUSE SYSTEM (Bezet) Calculated P Norvell 59 degrees MUSE SYSTEM Calculated R Norvell 7 degrees MUSE SYSTEM Calculated T Norvell 6 degrees MUSE SYSTEM INTERPRETATION Normal sinus rhythm MUSE SYSTEM Normal ECG When compared with ECG of 28-AUG-2013 13:36, No significant change was found Confirmed by MD Elizabeth Douglas ([id number]) on 03/02/2014 2:05:44 P M Specimen Anatomical Collection Method Collection Time Receive d Time (Source) Location / / Volume Laterality 03/02/2014 7:55 AM 4 2:05 EDT PM EDT Jordana Grier MD ECG ORDERABLES Performing Organization Address City/State/ZIP Code Phon e Number MUSE SYSTEM (ABNORMAL) Differential, Automated (03/01/2014 10:58 AM EDT) P athologist Signature Neutrophils % 63.4 % CERNER MILLENNIUM Neutr Abs (ANC) 5.36 1.50 - CERNER 6.30 MILLENNIUM x10(3)/mcL Lymphocytes % 29.5 % CERNER MILLENNIUM Lymphocytes Abs 2.5 1.0 - 3.6 CERNER x10(3)/mcL MILLENNIUM Monocytes % 4.7 % CERNER MILLENNIUM Monocyte Abs 0.4 0.2 - 1.0 CERNER x10(3)/mcL MILLENNIUM Eosinophils % 1.4 % CERNER MILLENNIUM Eosinophils Abs 0.1 0.0 - 0.5 CERNER x10(3)/mcL MILLENNIUM Basophils % 0.2 % CERNER MILLENNIUM Basophils Abs 0.0 0.0 - 0.2 CERNER x10(3)/mcL MILLENNIUM Immature Gran % 0.80 % CERNER MILLENNIUM Comment: Immature granulocytes(IG's)percentage an d absolute count will include metamyelocytes, myelocytes, and promyelo cytes. Blood smears from CBCs yielding IG's will be scanned manually for concor dance. If this scan disagrees with the automated IG or if promyelocytes are not ed, a manual differential will be performed. Ayala Gran Abs 0.07 (H) 0.00 - 0.05 x10(3)/mcL CER NER MILLENNIUM Specimen Anatomical Collection Method Collection Time Receive d Time (Source) Location / / Volume Laterality Blood specimen 03/01/2014 10:58 4 (specimen) AM EDT 11:14 AM EDT Resulting Agency Comment Spec In Lab Abdirahman Patton DO HEMATOLOGY ORDERABLES Performing Organization Address City/State/ZIP [place] [address] CERNER MILLENNIUM Hemogram (03/01/2014 10:58 AM EDT) P athologist Signature WBC 8.5 4.0 - 10.0 CERNER x10(3)/mcL MILLENNIUM RBC 4.71 3.93 - 5.22 CERNER x10(6)/mcL MILLENNIUM Hemoglobin 14.5 11.2 - 15.7 CERNER gm/dL MILLENNIUM Hematocrit 41.7 34.0 - 45.0 CERNER % MILLENNIUM MCV 88.5 79.0 - 94.0 CERNER fL MILLENNIUM MCH 30.8 26.6 - 32.2 CERNER pg MILLENNIUM MCHC 34.8 32.0 - 36.5 CERNER gm/dL MILLENNIUM Platelets 311 145 - 370 CERNER x10(3)/mcL MILLENNIUM RDWSD 39.9 35.0 - 46.0 CERNER fL MILLENNIUM RDWCV 12.5 10.9 - 14.4 CERNER % MILLENNIUM MPV 9.4 9.0 - 12.0 CERNER fL MILLENNIUM Specimen Anatomical Collection Method Collection Time Receive d Time (Source) Location / / Volume Laterality Blood specimen 03/01/2014 10:58 4 (specimen) AM EDT 11:14 AM EDT Resulting Agency Comment Spec In Lab Abdirahman Patton DO HEMATOLOGY ORDERABLES Performing Organization Address City/State/ZIP [place] [address] [facility] Prothrombin Time (03/01/2014 10:58 AM EDT) P athologist Signature PT 13.5 12.5 - 15.5 [facility] sec MILLENNIUM Comment: [facility] Transfusion Committee Guidelines: I NR less than 2.0, PTT less than OR equal to 43.5 seconds, or Fibrinogen gre ater than or equal to 100 mg/dl indicate adequate procoagulant activity for hemostasis in patients without underlying bleeding disorders. INR 1.0 0.9 - 1.1 [facility] Specimen Anatomical Collection Method Collection Time Receive d Time (Source) Location / / Volume Laterality Blood specimen 03/01/2014 10:58 4 (specimen) AM EDT 11:14 AM EDT Resulting Agency Comment Spec In Lab Abdirahman Patton DO HEMATOLOGY ORDERABLES Performing Organization Address City/State/ZIP [place] [address] CERNER MILLENNIUM (ABNORMAL) Basic Metabolic Panel (non-fasting) (03/01/2014 10:58 AM EDT) athologist Signature Glucose Lvl 75 60 - 199 CERNER mg/dL MILLENNIUM Comment: Diabetes: >=200 mg/dL plus symp toms BUN 15 8 - 18 mg/dL CERNER MILLENNIUM Creatinine 0.78 0.70 - 1.20 mg/dL CERNER MILL ENNIUM Comment: Please note that the pediatric reference intervals supplied above were not validated at [facility]. Results from pediatri c patients should be interpreted in conjunction to the patient's age, height and muscle mass. Sodium 142 135 - 145 mmol/L CERNER JOSR NIUM Potassium 4.0 3.5 - 5.0 mmol/L CERNER JOSR NIUM Comment: Please note: ??Patients with WBC >100,00 0 may have falsely elevated Potassium levels. ??For accurate Potassium quantif ication in these patients send serum separator tube (gold top) for subsequent determinations. ??Contact the Clinical Chemistry Laboratory if there are any qu estions. Chloride 97 (L) 98 - 107 mmol/L CERNER MILLENN IUM CO2 29 22 - 31 mmol/L CERNER MILLENNI UM Anion Gap 16 (H) 5 - 15 mmol/L CERNER MILLENNIU M Calcium 9.9 8.5 - 10.5 mg/dL CERNER JOSR NIUM [...] the following links into your internet browser. [email or web address] [email or web address] Specimen Anatomical Collection Method Collection Time Receive d Time (Source) Location / / Volume Laterality Blood specimen 03/01/2014 10:58 4 (specimen) AM EDT 11:14 AM EDT Resulting Agency Comment Spec In Lab Abdirahman Moreno Abdi HOU CHEMISTRY ORDERABLES Performing Organization Address City/State/ZIP Code Phon e Number [place] [phone] [facility] documented in this encounter Visit Diagnoses Diagnosis Syncope Syncope and collapse Palpitations SVT (supraventricular tachycardia) Other specified cardiac dysrhythmias Syncope Syncope and collapse documented in this encounter Administered Medications Inactive Administered Medications - up to 3 most recent administrations Medication Order MAR Action Action Date Dose Rate Site acetaminophen (TYLENOL) tablet 650 Given 03/02/2014 1:52 AM EDT 650 mg mg 650 mg, Oral, EVERY 4 HOURS PRN, Starting on Tue03/01/14 at 1508, Until 03/02/14 at 1234, Pain, Fever, Mild to moderate pain, Administer for mild to moderate pain. (maximum daily dose 4 gm), Cath (Recovery-Hospital Unit), Routine amitriptyline (ELAVIL) tablet 50 mg Given 03/01/2014 11:42 PM EDT 25 mg 50 mg, Oral, EVERY EVENING, First dose on Tue03/01/14 at 1700, Until Discontinued, Routine fentaNYL 50mcg/mL injection Given 03/01/2014 2:05 PM EDT 25 mcg 25-50 mcg, Intravenous, EVERY 5 MIN PRN, Starting on Tue03/01/14 at 0810, Until Tue03/01/14 at 1427, Pain, As needed to induce or maintain moderate sedation per [facility] Moderate Sedation Protocol, Not to exceed 50 mcg/dose, 250 mcg/hr, or 20 mcg/kg per case., EP (Intra-Procedure), Routine Given 03/01/2014 1:58 PM EDT 50 mcg Given 03/01/2014 1:49 PM EDT 25 mcg heparin (porcine) injection Given 03/01/2014 12:53 PM EDT 5,000 Units 1,000-10,000 Units 1,000-10,000 Units, Intravenous, 4 TIMES DAILY PRN, Starting on Tue03/01/14 at 0809, Until Tue03/01/14 at 1427, transeptal puncture-therapeutic ACT, EP (Intra-Procedure), Routine heparin (porcine) subcutaneous injection Given 014 8:49 AM EDT 5,000 Units 5,000 Units 5,000 Units, Subcutaneous, EVERY 12 HOURS SCHEDULED (2 times per day), First dose on Tue03/01/14 at 2100, Until Discontinued, Routine Given 03/01/2014 10:11 PM EDT 5,000 Units Abdo agnieszka Tissue hydrochlorothiazide (HYDRODIURIL) tablet 25 mg Given 03/02/2014 8:48 AM EDT 25 mg 25 mg, Oral, DAILY, First dose on Tue03/01/14 at 1530, Until Discontinued, Routine isoproterenol (ISUPREL) 1 mg in New Bag 03/01/2014 1:48 PM EDT 2 mcg/min 30 mL/hr sodium chloride 0.9% 250 mL infusion (EP lab) 1-20 mcg/min (rounded to 15-300 mL/hr), Intravenous, CONTINUOUS PRN, Starting on Tue03/01/14 at 0809, Until Tue03/01/14 at 1427, EP Study/Ablation, EP (Intra-Procedure) Rate/Dose Change 03/01/2014 1:28 PM EDT 1 mcg/min 15 mL/hr New Bag 03/01/2014 12:51 PM EDT 1 mcg/min 15 mL/hr levothyroxine (SYNTHROID) tablet 75 mcg Given 03/02/2014 6:33 AM EDT 75 mcg 75 mcg, Oral, DAILY, First dose on Tue03/01/14 at 1530, Until Discontinued, Routine metoprolol tartrate (LOPRESSOR) tablet 2 5 mg Given 03/02/2014 8:48 AM EDT 25 mg 25 mg, Oral, 2 TIMES DAILY, First dose on Tue03/01/14 at 2100, Until Discontinued, Routine Given 03/01/2014 11:39 PM EDT 25 mg midazolam (PF) (VERSED) 1 mg/mL injection 0.5-1 Given 03/01/2014 2:05 PM EDT 1 mg mg 0.5-1 mg, Intravenous, EVERY 5 MIN PRN, Starting on Tue03/01/14 at 0810, Until Tue03/01/14 at 1427, Sleep, As needed to induce or maintain moderate sedation per [facility] Moderate Sedation Protocol, Not to exceed 1 mg per dose, 5mg/hour, or 0.2mg/kg per case., EP (Intra-Procedure), Routine Given 03/01/2014 1:49 PM EDT 1 mg Given 03/01/2014 1:30 PM EDT 1 mg simvastatin (ZOCOR) tablet 20 mg Given 03/01/2014 11:40 PM EDT 20 mg 20 mg, Oral, EVERY EVENING, First dose on Tue03/01/14 at 1700, Until Discontinued, Routine documented in this encounter Active and Recently Administered Medications Times are shown in EDT. Scheduled Medication Order 02/28/2014 03/01/2014 03/02/2014 amitriptyline (ELAVIL) tablet 50 mg (CANCELED) 2342 (Given - Provider: Dede Spain RN - Comment: pt. refused the whole 50mg's but took 25mg's) 50 mg, Oral, EVERY EVENING, First dose o n Tue03/01/14 at 1700, Until Discontinued, Routine heparin (porcine) subcutaneous injection 5,000 Units (CANCEL ED) 2211 (Given - Provider: Dede Spain RN) 0849 (Given - Provider: Hernando Henry) 5,000 Units, Subcutaneous, EVERY 12 HOUR S SCHEDULED (2 times per day), First dose on Tue03/01/14 at 2100, Until Discontinued, Routine hydrochlorothiazide (HYDRODIURIL) tablet 25 mg (CANCELED) 1530 (Not Given - Provider: Severo Shahid RN - Reason: Patient/family refused - Comment: took this AM) 0848 (Given - Provider: Hernando Henry) 25 mg, Oral, DAILY, First dose on Tue at 1530, Until Discontinued, Routine levothyroxine (SYNTHROID) tablet 75 mcg (CANCELED) 1530 (Not Given - Provider: Severo Shahid RN - Reason: Patient/family refused - Comment: took this AM) 0633 (Given - Provider: Dede Spain RN)0900 (Canceled Entry - Provider: Dede Spain RN - Comment: given prior) 75 mcg, Oral, DAILY, First dose on Tue at 1530, Until Discontinued, Routine metoprolol tartrate (LOPRESSOR) tablet 25 mg (CANCELED) 2339 (Given - Provider: Dede Spain RN - Comment: sent up late from pharmacy) 0848 (Given - Provider: Lev Pollock RN) 25 mg, Oral, 2 TIMES DAILY, First dose o n Tue03/01/14 at 2100, Until Discontinued, Routine simvastatin (ZOCOR) tablet 20 mg (CANCELED) 2340 (Given - Provider: Dede Spain RN) 20 mg, Oral, EVERY EVENING, First dose o n Tue03/01/14 at 1700, Until Discontinued, Routine PRN Medication Order 02/28/2014 03/01/2014 03/02/2014 acetaminophen (TYLENOL) tablet 650 mg (CANCELED) 0152 (Given - Provider: Dede Spain RN) 650 mg, Oral, EVERY 4 HOURS PRN, Startin g Tue03/01/14 at 1508, Until 03/02/14 at 1234, Pain, Fever, Mild to moderate pain, Administer for mild to moderate pain. (maximum daily dose 4 gm), Cath (Recovery-Hospital Unit), Routine fentaNYL 50mcg/mL injection (CANCELED) 1 136 (Given - Provider: Wesley Buenrostro RN)1140 (Given - Provider: Wesley Buenrostro RN)1143 (Given - Provider: Rodríguez Fontenot RN)1203 (Given - Provider: Rodríguez Fontenot RN)1221 (Given - Provider: Rodríguez Fontenot RN) 25-50 mcg, Intravenous, EVERY 5 MIN PRN, Starting Tue03/01/14 at 0810, Until Tue03/01/14 at 1427, Pain, As needed to induce or maintain moderate sedation per [facility] Moderate Sedation Protocol, Not to ex 1232 (G iven - Provider: Rodríguez Fontenot RN)1250 (Given - Provider: Rodríguez Fontenot RN)1304 (Given - Provider: Rodríguez Fontenot RN)1311 (Given - Provider: Rodríguez Fontenot RN)1318 (Given - Provider: Rodríguez Fontenot RN) ceed 50 mcg/dose, 250 mcg/hr, or 20 mcg/ kg per case., EP (Intra-Procedure), Routine 1330 (Given - Provider: Mike Fontenot RN)1339 (Given - Provider: Rodríguez Fontenot RN)1349 (Given - Provider: Rodríguez Fontenot RN)1358 (Given - Provider: Rodríguez Fontenot RN)1405 (Given - Provider: Rodríguez Fontenot RN) heparin (porcine) injection 1,000-10,000 Units (CANCELED) 1253 (Given - Provider: Rodríguez Fontenot RN) 1,000-10,000 Units, Intravenous, 4 TIMES DAILY PRN, Starting Tue03/01/14 at 0809, Until Tue03/01/14 at 1427, transeptal puncture-therapeutic ACT, EP (Intra-Procedure), Routine isoproterenol (ISUPREL) 1 mg in sodium c hloride 0.9% 250 mL infusion (EP lab) (CANCELED) 1200 (Rate/Dose Change - Pro vider: Rodríguez Fontenot RN)1251 (New Bag - Provider: Rodríguez Fontenot RN)1328 (Rate/Dose Change - Provider: Rodríguez Fontenot RN)1348 (New Bag - Provider: Rodríguez Fontenot RN) 1-20 mcg/min = 15-300 mL/hr, Intravenous , CONTINUOUS PRN, Starting Tue03/01/14 at 0809, Until Tue03/01/14 at 1427, EP Study/Ablation, EP (Intra-Procedure) 1406 (Stopped - Provider: Rodríguez Fontenot RN) midazolam (PF) (VERSED) 1 mg/mL injection 0.5-1 mg (CANCELED ) 1136 (Given - Provider: Wesley Buenrostro RN)1140 (Given - Provider: Wesley Buenrostro RN)1143 (Given - Provider: Rodríguez Fontenot RN)1203 (Given - Provider: Rodríguez Fontenot RN)1221 (Given - Provider: Rodríguez Fontenot RN) 0.5-1 mg, Intravenous, EVERY 5 MIN PRN, Starting Tue03/01/14 at 0810, Until Tue03/01/14 at 1427, Sleep, As needed to induce or maintain moderate sedation per [facility] Moderate Sedation Protocol, Not to ex 1232 (Given - Provider: Rodríguez Fontenot RN)1251 (Given - Provider: Rodríguez Fontenot RN)1304 (Given - Provider: Rodríguez Fontenot RN)1318 (Given - Provider: Rodríguez Fontenot RN)1330 (Given - Provider: Rodríguez Fontenot RN) ceed 1 mg per dose, 5mg/hour, or 0.2mg/k g per case., EP (Intra-Procedure), Routine 1349 (Given - Provider: Mike Fontenot RN)1405 (Given - Provider: Rodríguez Fontenot RN) documented in this encounter Care Teams Founder / Ceo Relationship Specialty Start Date End Date Jackie Gee MD PCP - General 09/09/11 03/06/14 [address] [place] [address] documented as of this encounter
--- OUTSIDE RECORDS SUMMARY | 2022-02-19 02:05 | XMS_ITS | Encounter Summary ---
:1960 Author Organization [facility] [place] [address] Care Team Providers Name Role Phone Jackie Gee MD Primary Care Provider Encounter Details Date Type Department Care Team Description 09/24/2013 Hospital Encounter MRI at [facility], DR JON [facility] Johnson Ugarte MD [facility] [address] [place] [address] Social History Tobacco Use Types Packs/Day [...] 25 mg tablet mouth 2 times daily. amitriptyline (ELAVIL) 25 mg Take 25 mg by 0 10/09/2013 tablet mouth every evening. documented as of this encounter Plan of Treatment Not on filedocumented as of this encounter Procedures Procedure Name Priority Date/Time Associated Diagnosis Comme nts MRI BRAIN WO Routine 09/24/2013 3:06 PM Results f or this CONTRAST EDT procedure are i n the results section. documented in this encounter Results MRI brain WO contrast (09/24/2013 3:06 PM EDT) Anatomical Region Laterality Modality Head Magnetic Resonance Specimen (Source) Anatomical Collection Method Collection Time Re ceived Time Location / / Volume Laterality 09/24/2013 3:06 PM EDT Narrative 09/24/2013 4:23 PM EDT Examination MR Brain without Contrast Clinical History spells Comparison None. Technique Examination is done without contrast. Findings The hippocampal formations are normal. ? ?There is a superficial cortical defect most consistent with an arachnoid cyst i n the right temporal occipital region, measuring approximately 2 cm in maximum dimension. ??There are some scattered areas of T2 prolongation in the cerebral white matter bilaterally of the nonspecific sort, thought age compatible . ??Ventricles are normal in size no sign of mass. ??No abnormal susceptibili ty is defined. ??There are no indications of migrational abnormality or obvious co rtical dysplasia. Impression Findings consistent with right temporo o ccipital arachnoid cyst. ??No other significant abnormality is seen. Procedure Note Gorge Woods MD - 09/24/2013Format ting of this note might be different from the original. Examination MR Brain without Contrast Clinical History spells Comparison None. Technique Examination is done without contrast. Findings The hippocampal formations are normal. T here is a superficial cortical defect most consistent with an arachnoid cyst i n the right temporal occipital region, measuring approximately 2 cm in maximum dimension. There are some scattered areas of T2 prolongation in the cerebral white matter bilaterally of the nonspecific sort, thought age compatible . Ventricles are normal in size no sign of mass. No abnormal susceptibility is defined. There are no indications of migrational abnormality or obvious co rtical dysplasia. Impression Findings consistent with right temporo o ccipital arachnoid cyst. No other significant abnormality is seen. Johnson Ugarte MD IMG MRI ORDERABLES documented in this encounter Visit Diagnoses Diagnosis Spells Other convulsions documented in this encounter Care Teams Chopping Machine Operator Relationship Specialty Start Date End Date Jackie Gee MD PCP - General 09/09/11 03/06/14 [address] [place] [address] documented as of this encounter
--- OUTSIDE RECORDS SUMMARY | 2022-02-19 02:05 | XMS_ITS | Encounter Summary ---
:1960 Author Organization [facility] [address] Care Team Providers Name Role Phone Jackie Gee MD Primary Care Provider Encounter Details Date Type Department Care Team Description 11/27/2013 Orders Only Cardiology at [facility] Javed Pepe, Syncope (Primary Dx) [facility] [place] [address] [address] [phone] CARD[address] DEPT. [place] [id number] (Wo rk) Social History Tobacco Use Types [...] Priority Date/Time Associated Comments Diagnosis ELECTROPHYSIOLOGY Routine 03/01/2014 2:20 Syncope Results for this PROCEDURE PM EDT procedure are i n the results section. documented in this encounter Results Electrophysiology Procedure (03/01/2014 2:20 PM EDT) Anatomical Region Laterality Modality Other Specimen (Source) Anatomical Location Collection Method / Collectio n Time Received Time / Laterality Volume Impressions 03/04/2014 8:45 AM EDT : ??Successful ablation of AV tessy reent rant tachycardia, with good endpoints EBL 30 cc to flush catheters No drains in situ Narrative 03/04/2014 8:45 AM EDT Ablation of Atrioventicular Tessy Re-Entrant Tachycardia: Electrophysiology Evaluation, 3-d Mappin g (Herberth-X), Ablation, and Moderate Sedation Indication: Supraventricular Tachycardia Operators: Timmy LEWIS.ChB. Procedure: The patient was brought to [facility] biplane Electrophysiology Laboratory in the fasting sedated state. ??Continuous electrocardiographic monitoring was instituted. ??Moderate se dation was performed with incremental doses of midazolam and fenta nyl. ??Both groins and the right neck were prepped and draped in the usua l sterile fashion and 2% lidocaine with 0.5 % bupivicaine in a 2:3 mixture was instilled for local anesthesia. ??Venous access was obtained using the modified Seldinger technique, guided by ultrasonography. ?? Catheters were positioned utilizing fluoroscopy. Site ??Sheath Catheter ?Access site ? Right atrium 10 Fr Trio 4 Fr Daig CRD qu adripolar ??Left femoral vein His ??10 Fr Trio 5 Fr Daig CRD-2 quadrip olar ??Left femoral vein Right ventricle 10 Fr Trio 4 Fr Daig CRD quadripolar Left femoral vein Coronary sinus 6 Fr 6 Fr Daig CS decapol ar ?? Right femoral vein Ablation/rove 8 Fr 8 Fr 6 mm tip, large curve Cryo Right femoral vein Although the right neck IJ region was pr epped and anesthetised, no sheath was placed here. After all of the catheters were in posit ion the patient was heparinized with a single 5000 unit bolus of heparin Programmed electrical stimulation, mappi ng, and ablation was performed as detailed below and stored on the [employer] network. ??At the termination of the procedure, the catheters and sheaths were removed, and hemostasis was obtained with manual compression. ??The patient tolerated the procedure well and was transported to a telemetry bed in good condition. Total fluoroscopy time: 4.1 minutes, bip francisco javier, DAP 503 cGy/cm-2 RESULTS: Baseline Parameters: Intervals: Cycle length: 738 ms IN 176 ms QRS 93 ms QT 432 ms AH 81 ms HV 49 ms Effective refractory periods: RA: ? < 700/320 RVA: ? 600/250 AV node, antegrade: ??700/320 Retrograde conduction: ??< 600/250 Conduction: AV Wenckebach: 430 ms (at end of study, could not measure at beginning due to SVT) VA Conductioh: 1:1 at 600 ms SUMMARY: 1. Baseline rhythm was sinus without pre -excitation at 738 ms. 2. Rapid ventricular pacing and ventricu lar extrastimuli protocols were performed. ??Decremental conduction was demonstrat ed. ??The retrograde atrial activation sequ ence was HBE, proximal coronary sinus, distal coronary sinus, and right atrium. ??Retrograde effective refractory < 600 /250 ms. 3. Rapid atrial pacing and atrial extras timuli protocols were performed. ??Atrial pacing did not pre-excite the ventricle. ??Atrio-ventricular Wenckebach occurred at 430 ms at the end of the study (at the beginning of the study, AVNRT wa s induced in attempts to measure the AVW limit) ??Effective refractory period of the AV node was 700/320 ms from the coronary sinus. ??Dual atrioventricular tessy physiolog y was noted with a 50ms increment in A2H2 seen with a 10ms decrement in A1 A2 interval of 700/630 ms. 4. Supraventricular tachycardia occurred spontaneously and with atrial pacing and atrial programmed stimulation . ??During SVT, the AH interval was 344 m s, the HV interval was 52 ms and the VA interval was 12 ms to the Atrial septum ??Atrial activation was earliest in the His position, followed by the proximal coronary sinus, distal coronary sinus, and finally RA. ??The atrial activation sequence was th e same as during ventricular pacing. ??The His atrial electrogram preceded t he ventricular electrogram during SVT ??The SVT was terminated with RVP at 30 0-250 ms. ??Ventricular entrainment during SVT de monstrated a V-A-H-V response with termination. 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 5. 5 ??cryoablation lesions were deliver ed to the tricuspid valve annulus at the level of the CS os and up to the midseptal region carefully monitoring AV conduction. The Herberth-X elec tro-anatomic system was used for voltage mapping of the septum and to loc ate the lesions in 3 D space. Supraventricular tachycardia was no long er inducible immediately after the first ablation lesion, which was placed at just above the CS OS level, on the septum, with a 1:3 A-V EGM ratio. Th is was a location that was on the periphery of a 'low voltage' zone on the atrial septum. This location was surrounded by insurance 4 lesions (of 6 minutes each), the first of which was delivered in a 'exoimy-smzq-kdblbo' manner. ??The Herberth-X 3 D navigation system was used to document the location of ablation points in 3 dimensional space to assist in localisat ion. SVT was no longer seen after the first cryoablationlesion, when it street d occurred spontaneously on and off isoproterenol at the beginning of [facility] procedure. Single echo beats were still seen just prior to AVN ERP at the end of the procedure. 6. 45 minutes later, pre and post-Isupre l (2 ??mcg/minute), heart rate 102 bpm) supraventricular tachycardia was no longer inducible, when it had been easily inducible with programmed st imulation and spontaneously at the beginning of the procedure. AV wenckebac h could also be reliably measured now. Procedure Note Timmy Grier MD - 03/01/2014Formatt ing of this note might be different from the original. Ablation of Atrioventicular Tessy Re-Ent rant Tachycardia: Electrophysiology Evaluation, 3-d Mapping (Herberth-X), Ablation, and Moderate Sedation Indication: Supraventricular Tachycardia Operators: Timmy LEWIS.ChB. Procedure: The patient was brought to [facility] bi[facility] Electrophysiology Laboratory in the fasting sedated state. Continuous electrocardiographic monitoring was instituted. Moderate sedation was performed with incremental doses of midazolam and fenta nyl. Both groins and the right neck were prepped and draped in the usual sterile fashion and 2% lidocaine with 0.5 % bupivicaine in a 2:3 mixture was instilled for local anesthesia. Venous access was obtained u sing the modified Seldinger technique, guided by ultrasonography. Catheters were positioned utilizing fluoroscopy. Site Sheath Catheter Access site Right atrium 10 Fr Trio 4 Fr Daig CRD qu adripolar Left femoral vein His 10 Fr Trio 5 Fr Daig CRD-2 quadripol ar Left femoral vein Right ventricle 10 Fr Trio 4 Fr Daig CRD quadripolar Left femoral vein Coronary sinus 6 Fr 6 Fr Daig CS decapol ar Right femoral vein Ablation/rove 8 Fr 8 Fr 6 mm tip, large curve Cryo Right femoral vein Although the right neck IJ region was pr epped and anesthetised, no sheath was placed here. After all of the catheters were in posit ion the patient was heparinized with a single 5000 unit bolus of heparin Programmed electrical stimulation, mappi ng, and ablation was performed as detailed below and stored on the computer network. At the termination of the procedure, the catheters and sheaths were removed, and hemostasis was obtained with manual compression. The ailyn erilly tolerated the procedure well and was transported to a telemetry bed in good condition. Total fluoroscopy time: 4.1 minutes, bip francisco javier, DAP 503 cGy/cm-2 RESULTS: Baseline Parameters: Intervals: Cycle length: 738 ms IN 176 ms QRS 93 ms QT 432 ms AH 81 ms HV 49 ms Effective refractory periods: RA: < 700/320 RVA: 600/250 AV node, antegrade: 700/320 Retrograde conduction: < 600/250 Conduction: AV Wenckebach: 430 ms (at end of study, could not measure at beginning due to SVT) VA Conductioh: 1:1 at 600 ms SUMMARY: 1. Baseline rhythm was sinus without pre -excitation at 738 ms. 2. Rapid ventricular pacing and ventricu lar extrastimuli protocols were performed. Decremental conduction was demonstrated . The retrograde atrial activation sequen ce was HBE, proximal coronary sinus, distal coronary sinus, and right atrium. Retrograde effective refractory < 600/2 50 ms. 3. Rapid atrial pacing and atrial extras timuli protocols were performed. Atrial pacing did not pre-excite the ve ntricle. Atrio-ventricular Wenckebach occurred a t 430 ms at the end of the study (at the beginning of the study, AVNRT was induced in attempts to measure the AVW limit) Effective refractory period of the AV n ode was 700/320 ms from the coronary sinus. Dual atrioventricular tessy physiology was noted with a 50ms increment in A2H2 seen with a 10ms decrement in A1A2 interval of 700/630 ms. 4. Supraventricular tachycardia occurred spontaneously and with atrial pacing and atrial programmed stimulation. During SVT, the AH interval was 344 ms, the HV interval was 52 ms and the VA interval was 12 ms to the Atrial septum Atrial activation was earliest in the H is position, followed by the proximal coronary sinus, distal coronary sinus, and finally RA. The atrial activation sequence was the same as during ventricular pacing. The His atrial electrogram preceded the ventricular electrogram during SVT The SVT was terminated with RVP at 300- 250 ms. Ventricular entrainment during SVT demo nstrated a V-A-H-V response with termination. 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 5. 5 cryoablation lesions were delivered to the tricuspid valve annulus at the level of the CS os and up to the midseptal region carefully monitoring AV conduction. The [employer] electro-anatomic system was used for voltage mapping of the septum and to loc ate the lesions in 3 D space. Supraventricular tachycardia was no longer inducible immediately after the first ablation lesion, which was placed at just above the CS OS level, on the septum, with a 1:3 A-V EGM ratio. Th is was a location that was on the periphery of a 'low voltage' zone on the atrial septum. This location was surrounded by insurance 4 lesions (of 6 minutes each), the first of which was delivered in a 'vaeeks-bpif-pdgiao' manner. The [employer] 3 D navigation system was used to document the location of ablation points in 3 dimensional space to assist in localisation. SVT was no longer seen after the first cryoablationlesion, when it street d occurred spontaneously on and off isoproterenol at the beginning of the procedure. Single echo beats were still seen just prior to AVN ERP at the end of the procedure. 6. 45 minutes later, pre and post-Isupre l (2 mcg/minute), heart rate 102 bpm) supraventricular tachycardia was no longer inducible, when it had been easily inducible with programmed stimulation and spontaneously at the beginning of the procedure. AV wenckebac h could also be reliably measured now. IMPRESSION: Successful ablation of AV tessy reentra nt tachycardia, with good endpoints EBL 30 cc to flush catheters No drains in situ Javed Pepe MD EP PROCEDURE ORDERABLES documented in this encounter Visit Diagnoses Diagnosis Syncope - Primary Syncope and collapse Syncope Syncope and collapse documented in this encounter Care Teams Regional Service Manager Relationship Specialty Start Date End Date Jackie Gee MD PCP - General 09/09/11 03/06/14 [address] [place] [address] documented as of this encounter
--- OUTSIDE RECORDS SUMMARY | 2022-02-19 02:05 | XMS_ITS | Encounter Summary ---
:1960 Author Organization [facility] Address [address] [place] [address] Care Team Providers Name Role Phone Jackie García MD Primary Care Provider Reason for Visit Reason Comments Dizziness ILR check Encounter Details Date Type Department Care Team Description 02/12/2014 [place] [facility] [place] Jhony Rodriguez RN Near syncope; [facility] [place] [address] Social History Tobacco Use Types Packs/Day [...] Sign Reading Time Taken Comments Blood Pressure 132/78 02/12/2014 9:14 AM EDT Pulse 60 02/12/2014 9:14 AM EDT Temperature - - Respiratory Rate - - Oxygen Saturation 97% 02/12/2014 9:14 AM EDT Inhaled Oxygen Concentration - - Weight 106.1 kg (234 lb) 02/12/2014 9:14 AM EDT Height 167.6 cm (5' 6) 02/12/2014 9:14 AM EDT Body Mass Index 37.77 02/12/2014 9:14 AM EDT documented in this encounter Progress Notes Jhony Rodriguez RN - 02/12/2014 9:10 AM EDT ILR INTERROGATION OUTPATIENT Usha Huizar is a 53 y.o. female who presents today for ILR interrogation. The ILR was implanted 12/12/2013 for presyncope and palpitations. This is her first visit back to clinic since the ILR was implanted. She continues to c/o infrequent dizziness. PCP: JACKIE GARCÍA MD Implant data: [employer] Model# LNQ11, Serial # [id number] Final Programming: Tachy detection: 370 ms / 162 bpm, 5 beats Asystole: 3 seconds Bradycardia: 1500 ms / 40 bpm for 8 beats Sensitivity: 0.035 MV AT/AF detection: On Current ILR programming: Same as above Underlying rhythm today: SR 80 bpm Battery status: OK R wave: 0.31 mV Activations: 2 symptom and 6 tachy. 1 of 2 symptom events appear to reflect sudden onset SVT as described in note dated 01/14/[address] Grier. The other symptom event is benign, suggests SR 65-95 bpm.The tachy events look like noise. Findings: As above Impression: Normal device function. Infrequent symptoms, likely as a result of SVT Reprogramming: None Plan: On [facility] [employer] (cellular). RTC 6 mos or prn with symptoms. I have personally/independently reviewed and analyzed the data collected from the patients device. The device is functioning normally and I agree with the plan. See my visit note for further recommendations. Abdirahman Patton DO Cardiac Boarding Machine Operator Cardiac Electrophysiology Department [place], [place] ) Pager ([phone]) documented in this encounter Plan of Treatment Not on filedocumented as of this encounter Visit Diagnoses Diagnosis Near syncope Syncope and collapse Palpitations documented in this encounter Care Teams Mathematical Statistician Relationship Specialty Start Date End Date Jacike García MD PCP - General 09/09/11 03/06/14 [address] [place] [address] documented as of this encounter
--- OUTSIDE RECORDS SUMMARY | 2022-02-19 02:05 | XMS_ITS | Encounter Summary ---
:1960 Author Organization [facility] [place] [address] Care Team Providers Name Role Phone None Primary Care Provider Unavailable Encounter Details Date Type Department Care Team Description 03/29/2014 Follow-Up Cardiology at [facility] Abdirahman Patton, AVNRT (AV tessy re-entry tac hycardia); [facility] DO Chronic migraine without aura with statu s migrainosus, not intractable; Drive [facility] [place] [address] [place] [address] (Wo rk) Social History Tobacco Use Types [...] Time Taken Comments Blood Pressure 130/62 03/29/2014 1:00 PM EST Pulse 62 03/29/2014 1:00 PM EST Temperature - - Respiratory Rate - - Oxygen Saturation 98% 03/29/2014 1:00 PM EST Inhaled Oxygen Concentration - - Weight 112.5 kg (248 lb) 03/29/2014 1:00 PM EST Height 167.6 cm (5' 5.98) 03/29/2014 1:00 PM EST Body Mass Index 40.05 03/29/2014 1:00 PM EST documented in this encounter Progress Notes Abdirahman Patton, DO - 03/29/2014 1:30 PM EST Electrophysiology Progress Note Today's Date: 03/29/2014 Subjective: Usha Huizar was seen in follow up today for her near syncope history. To recap she had tachycardia symptoms for years but after the addition of Elavil she began to have near syncopal episodes. She had a thorough workup to try and pinpoint an etiology. 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 She stopped the elavil right after the ablation and since that time has been symptom free. PMHX Patient Active Problem List Diagnosis Code ??? Breast mass 611.72 ??? Near syncope 780.2 ??? SVT (supraventricular tachycardia) 427.89 ??? Hyperlipemia 272.4 ??? Migraine headache 346.90 ??? Hypothyroidism 244.9 ROS: Cardiovascular:No palpitations, no tachycardia, no CP, no SOB, no syncope, no near syncope Respiratory:No SOB, no cough, no wheeze, no hemoptysis Objective: Temp: -- Heart Rate: [62] Resp: -- BP: (130)/(62) SpO2: [98 %] acetaminophen (TYLENOL) 325 mg Tablet, ; aspirin 81 mg Tablet, Delayed Release (E.C.), ; metoprolol tartrate (LOPRESSOR) 25 mg tablet, ; hydrochlorothiazide (HYDRODIURIL) 25 mg tablet, ; simvastatin (ZOCOR) 20 mg tablet, ; levothyroxine (SYNTHROID) 75 mcg tablet, PHYSICAL EXAM General: Pt is alert and oriented x3, mm pink and moist, well nourished, Anicteric, Acyanotic and Afebrile HEENT: Normocephalic/atraumatic, PERRL, EOMI Neck: Supple with no carotid bruit or thyromegaly. JVP0cm above clavicle Respiratory: Good air entry bilaterally, No crackles, No wheezes, normal effort Cardiac: PMI Nondisplaced, Physiologic S1, S2, No S3 or S4. There was no Murmur, no gallops/rubs, regular rhythm Abdominal: Soft and non-tender with no organomegaly. Normal bowel sounds, no masses Extremities: No atrophy, no clubbing/cyanosis, no edema, 2+ radial/pedal pulses bilaterally ASSESSMENT/PLAN: 1. Atrioventricular Tessy Reentrant Tachycardia ?? S/P Ablation with one month revel showing no evidence of recurrence. ?? Continue with Reveal. Call if palpitations recur ?? Routine [facility] follow up for device 2. Near Syncope ?? No recurrence since Elavil stopped and SVT ablated ?? Since patient had tachycardia without syncope before Elavil perhaps the Elavil is the etiology, or the Elavil in combination with the tachycardia was the issue. Regardless, she is now off Elavil andher symptoms have resolved. Would recommend avoiding Elavil as it seems to be involved with this symptom. 3. Migraine Headaches ?? I informed her to speak with her PCP or her neurologist about other options for treatment of migraines since her headaches have returned. Abdirahman Patton DO [facility] Cardiac Electrophysiology Department [place], [place] ) Pager ([phone]) documented in this encounter Plan of Treatment Not on filedocumented as of this encounter Visit Diagnoses Diagnosis AVNRT (AV tessy re-entry tachycardia) Other specified cardiac dysrhythmias Chronic migraine without aura with statu s migrainosus, not intractable Chronic migraine without aura, without m ention of intractable migraine with status migrainosus Near syncope Syncope and collapse documented in this encounter Care Teams Clinical Administrative Coordinator Relationship Specialty Start Date End Date None PCP - General 03/07/14 06/23/16 None documented as of this encounter
--- OUTSIDE RECORDS SUMMARY | 2022-02-19 02:05 | XMS_ITS | Encounter Summary ---
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 documented in this encounter Results ZIOPATCH (08/28/2013 2:18 PM EDT) Anatomical Region Laterality Modality Other Specimen (Source) Anatomical Location Collection Method / Collectio n Time Received Time / Laterality Volume Narrative 09/14/2013 6:12 PM EDT ZIOPATCH MONITOR Hookup Date: 08/28/2013 Monitor duration: 13 days, 16 hours (13 days, 7 hours after artifact removed) Predominant rhythm: Sinus Average heart rate: 69 beats per minute Minimum sinus rate: 49 beats per minute at 2:03 AM Maximum sinus rate: 144 beats per minute at 3:08 PM Atrial ectopy: Rare (less than 1%) No runs of SVT: Ventricular ectopy: None Bradycardia: There were no significant p auses. Nocturnal Wenckebach was noted of limited clinical significance Symptoms: None Procedure Note Hamida Meredith MD - 09/14/2013Forma tting of this note might be different from the original. ZIOPATCH MONITOR Hookup Date: 08/28/2013 Monitor duration: 13 days, 16 hours (13 days, 7 hours after artifact removed) Predominant rhythm: Sinus Average heart rate: 69 beats per minute Minimum sinus rate: 49 beats per minute at 2:03 AM Maximum sinus rate: 144 beats per minute at 3:08 PM Atrial ectopy: Rare (less than 1%) No runs of SVT: Ventricular ectopy: None Bradycardia: There were no significant p auses. Nocturnal Wenckebach was noted of limited clinical significance Symptoms: None Javed Pepe MD CARDIAC SERVICES ORDERABLES documented in this encounter Visit Diagnoses Diagnosis Palpitations Near syncope Syncope and collapse documented in this encounter Care Teams Railway Traction Line Worker Relationship Specialty Start Date End Date Jackie Gee MD PCP - General 09/09/11 03/06/14 [address] [place] [address] documented as of this encounter
--- OUTSIDE RECORDS SUMMARY | 2022-02-19 02:05 | XMS_ITS | Encounter Summary ---
:1960 Author Organization [facility] [place] [address] Care Team Providers Name Role Phone Jackie Gee MD Primary Care Provider Encounter Details Date Type Department Care Team Description 12/12/2013 Anesthesia Event Electrophysiology Lab at [facility] [place] [address] [place] [phone] ANESTHESIOLOGY DEPT [place], [place] [address] Anesthesia Record Procedure Summary Procedure Name Responsible Anesthesia Start Anesthesia Stop Anesthesiologist Time Time ELECTROPHYSIOLOGY PROCEDURE (N/A ) Events No events on file. No medications on file. Agents No agents on file. Blood No blood administrations on file. Lines, Drains, and Airways Type Details Placement Removal Incision 09/20/12; vagina; 09/20/12 0000 by 01/04/22 1715 by 01/04/22 (LDA cleanup Molly Jacob RN Mull er, Dierdre L utility RA#[id number]); 1715 (LDA cleanup utility RA#[id number]) PIV 12/12/13; 0743; median 12/12/13 0743 by 12/12/13 0910 by cubital vein right Melinda Connolly RN Dennis, K aren E, RN (antecubital fossa); sael-gwy-tpcjby catheter system; 20 gauge, 1 in length; Derrell Thurston RN; intradermal injection, tolerated well, appears comfortable; 1; metacarpal vein (top of hand), right; no longer indicated, catheter intact; 12/12/13; 0910 Incision 12/12/13; 0829; chest; 12/12/13 0829 by 01/04/22 1715 by 01/04/22 (LDA cleanup Genoveva Giles RN Mull er, Dierdre L utility RA#[id number]); 1715 (LDA cleanup utility RA#[id number]) PIV 03/01/14; 0916; 03/01/14 0916 by 03/02/14 0818 b y metacarpal vein left (Clarissa Chappell RN Bl ake, Ashley N, RN of hand); kjef-bxq-luejek catheter system; 18 gauge, 1 in length; Clarissa Noe RN; distraction, intradermal injection, tolerated well, appears comfortable, age-appropriate response; 03/02/14; 0818 Urethral Catheter 03/01/14; 1145; 03/01/14 1145 by 03/01/14 1850 by indwelling double lumen Rodríguez Fontenot RN Av lauro, Cederic R H, catheter; 100% silicone; RN 16; inserted at this facility; 10; 10; none; 03/01/14; 1850 LDA Cath/EP Sheath 03/01/14; 1212; 10 Prydeinig 03/01/14 1212 by 1420 by (Fr); Left; Femoral Rodríguez Fontenot RN Maroni, Michael A, RN LDA Cath/EP Sheath 03/01/14; 1212; 8 Prydeinig 03/01/14 1212 by 1420 by (Fr); Right; Femoral Rodríguez Fontenot RN Maron i, Michael A, RN LDA Cath/EP Sheath 03/01/14; 1213; 6.5 03/01/14 1213 by 03/01/14 1420 by Prydeinig (Fr); Right; Rodríguez Fontenot RN Maroni, Michael A, Internal jugular RN Incision 10/22/14; abdomen; 10/22/14 0000 by 01/04/22 171 5 by laparoscopic punctures Eugenia León, Eran Dimas (specify); 01/04/22 (LDA cleanup utility RA#[id number]); 1715 (LDA cleanup utility RA#[id number]) Incision 10/22/14; vagina; 10/22/14 0000 by 01/04/22 1715 by 01/04/22 (LDA cleanup Eugenia León, ASHLEE Nelson Eran wilson utility RA#[id number]); 1715 (LDA cleanup utility RA#[id number]) PIV 10/22/14; 0714; 10/22/14 0714 by 10/23/14 1043 b y metacarpal vein right Hortensia Hayes RN Horion, Amanda G, (top of hand); CALENDER ROLL OPERATOR favn-lsp-agegko catheter system; 20 gauge; Patrice Chang MD; intradermal injection; 10/23/14; 1043 PIV 10/22/14; 0734; median 10/22/14 0734 by 10/24/14 1400 by vein left (underside of Leonard Baer MD En Opal snyder RN arm); 20 gauge; Lula Chang; 1; metacarpal vein (top of hand), left; no longer indicated, removed per policy/procedure; 10/24/14; 1400 ETT Mask Ventilation: Easy 10/22/14 0753 by 10/22/14 1153 by (1); ETT Type: Cuffed, Leonard Baer MD Wel ch, Lula Whyte MD Oral; ETT Size: 7.5 mm; Mac Blade: 4; Notes: Asleep, Pre-O2, Stylette; Attempts: 1; Laryngoscopy Grade: 1; ETT Placement Verified By: Auscultation, Capnometry; Secured at Teeth: 22 cm; Inserted by: Keyur Urethral Catheter 10/22/14; 0853; 10/22/14 0853 by 10/23/14 1005 by Genitourinary surgery; Eugenia León, Margaret Cota, indwelling double lumen CALENDER ROLL OPERATOR catheter; 100% silicone; 16; inserted at this facility; 1; 5; 10; none; drainage bag to dependent drainage; 10/23/14; 1005 Arterial Line dorsalis pedis artery; 20 10/22/14 1206 by 10/22 1400 by gauge; Keyur; Sterile Jose Juan Munoz RN Prep, Sterile Gloves; 10/22/14; 1400 Incision abdomen; midline; 10/22/14 2206 by 08/29/22 1715 by 01/04/22 (LDA cleanup PressleyNicolle maximilianore L utility RA#[id number]); 1715 (LDA cleanup utility RA#[id number]) Incision 10/15/15; chest; 01/04/22 10/15/15 0000 by 01/04 1715 by (LDA cleanup utility Genoveva Giles, ASHLEE Bello r, Dierdre L RA#[id number]); 1715 (LDA cleanup utility RA#[id number]) PIV 05/29/21; 1517; median 05/29/21 1517 by 05/29/21 1730 by cubital vein (antecubital Mitchel, ASHLEE Kim Kerry M, RN fossa), right; yhuf-pad-uwcavz catheter system; Anatomical Landmarks; 22 gauge; linda richardson rn; tolerated well; 05/29/21; 1730 documented in this encounter Social History Tobacco Use Types Packs/Day Years [...] on filedocumented in this encounter Care Teams Rescue Boat Operator Relationship Specialty Start Date End Date Jackie Gee MD PCP - General 09/09/11 03/06/14 [address] [place] [address] documented as of this encounter
--- OUTSIDE RECORDS SUMMARY | 2022-02-19 02:05 | XMS_ITS | Encounter Summary ---
:1960 Author Organization [facility] [place] [address] Care Team Providers Name Role Phone Jackie Gee MD Primary Care Provider Encounter Details Date Type Department Care Team Description 12/26/2013 External Results Cardiology at [facility] Jackie Gee MD [facility] [address] [place] [address] [place], [place] [phone] [id number] (Wo rk) Social History Tobacco Use Types [...] Diagnosis Comme nts EP DEVICE SCAN Routine 12/19/2013 documented in this encounter Results Scan Doc: EP Device (12/19/2013) Anatomical Region Laterality Modality Other Narrative This result has an attachment that is no t available. Jackie Gee MD MEDIA MGR SCAN EXT ORDR/RSLT documented in this encounter Visit Diagnoses Not on filedocumented in this encounter Care Teams Building Dismantler Relationship Specialty Start Date End Date Jackie Gee MD PCP - General 09/09/11 03/06/14 [address] [place] [address] documented as of this encounter
--- OUTSIDE RECORDS SUMMARY | 2022-02-19 02:05 | XMS_ITS | Encounter Summary ---
:1960 Author Organization [place] [address] Care Team Providers Name Role Phone Jackie Gee MD Primary Care Provider Encounter Details Date Type Department Care Team Description 02/05/2014 External Results [place] [facility] [place] Gee MD [facility] [address] [place] [address] [place], [place] [phone] (Wo rk) Social History Tobacco Use Types [...] Diagnosis Comme nts EP DEVICE SCAN Routine 01/31/2014 documented in this encounter Results Scan Doc: EP Device (01/31/2014) Anatomical Region Laterality Modality Other Narrative This result has an attachment that is no t available. Jackie Gee MD MEDIA MGR SCAN EXT ORDR/RSLT documented in this encounter Visit Diagnoses Not on filedocumented in this encounter Care Teams Deck Builder Relationship Specialty Start Date End Date Jackie Gee MD PCP - General 09/09/11 03/06/14 [address] [place] [address] documented as of this encounter
--- OUTSIDE RECORDS SUMMARY | 2022-02-19 02:05 | XMS_ITS | Encounter Summary ---
:1960 [place] [address] Care Team Providers Name Role Phone None Primary Care Provider Unavailable Encounter Details Date Type Department Care Team Description 10/22/2014 Anesthesia Event Main Operating Room Lula Ritter MD [facility] [place] [address] [place] [address] [phone] Anesthesia Record Procedure Summary Procedure Name Responsible Anesthesia Start Anesthesia Stop Time Anesthesiologist Time LAPAROSCOPY,TOTAL Lula Chang MD 10/22/14 0734 10/22/14 1 206 HYST, UTERUS<250GM, REM TUBE &/OR OVARY, ROBOTIC ASSIST (WRVU 15) (N/A Abdomen) Events Date Time Event Comment 10/22/2014 0703 0734 Start 0736 AN Verify 0738 An Start Data 0748 An Induction 0753 An Intubation 0757 Anesthesia Ready 0823 Quick Note Pt bradycardic t o 20s with insufflation; deflation, given glycopyrrolate and ephedrine with quick resolution . No issues with repeat insufflation 0832 Break/Relief In Nicholas Gupta, SENIOR MANAGER QUALITY ASSURANCE 0843 Break/Relief Out 0851 Quick Note Surgeons had an iatrogenic injury to a blood vessel upon entr y, at least 300 cc blood loss. Explains hypoten maricarmen. IVF given and art line being started, CBC to be drawn Hypotension improved with fluid and phenyl gtt 0942 ABG Data Arterial Blood G as result: pH 7.45 pCO2 34.4 pO2 462 FiO2 462 %O2 Sat 99 HCO3 23.4 BE -0.5 Hb 11.6 Glucose 157 K 3. 5 0956 Break/Relief In Anil Joseph MD 1153 Extubation/LMA Out To Delete (sk ip) the Extubation event, click the X below. 1155 an stop data 1206 Stop Name Total Midazolam 2 mg fentaNYL 100 mcg IV Lidocaine 50 mg Propofol 200 mg Rocuronium 100 mg PHENYLephrine 840 mcg ePHEDrine 10 mg Ondansetron 8 mg Dexamethasone 8 mg Neostigmine 2.5 mg Glycopyrrolate 0.8 mg ceFAZolin 6 g PHENYLephrine INF 3,655 mcg heparin (porcine) subcutaneous injection 5,000 Units 5 ,000 Units HYDROmorphone 0.8 mg Furosemide 5 mg Lactated Ringers 3,000 mL Lactated Ringers 2,000 mL Agents Name O2 Air N2O Sevoflurane (et) Blood No blood administrations on file. Lines, Drains, and Airways Type Details Placement Removal Incision 09/20/12; vagina; 01/04/22 09/20/12 0000 by 12/08 01/28 1715 by ([employer] cleanup utility Molly Jacob, ASHLEE ndiaye, Shanicere L RA#[id number]); 1715 ([employer]ir[employer] cleanup utility RA#[id number]) Incision 12/12/13; 0829; chest; 12/12/13 0829 by 01/04/22 1715 by 01/04/22 ([employer] cleanup Genoveva Giles RN Mull er, Shanicere L utility RA#[id number]); 1715 ([employer]ir[employer] cleanup utility RA#[id number]) Incision 10/22/14; abdomen; 10/22/14 0000 by 01/04/22 171 5 by laparoscopic punctures Eugenia León, ASHLEE jean, Shanicere L (specify); 01/04/22 (LDA cleanup utility RA#[id number]); 1715 (LDA cleanup utility RA#[id number]) Incision 10/22/14; vagina; 01/04/22 10/22/14 0000 by 12/08 01/28 1715 by (LDA cleanup utility Eugenia León, ASHLEE ndiaye, Shanicere L RA#[id number]); 1715 (LDA cleanup utility RA#[id number]) PIV 10/22/14; 0714; metacarpal 10/22/14 0714 by 10/07 11/20 1043 by vein right (top of hand); Hortensia Hayes, Margaret Cota, [id number] catheter CREAM BUYER system; 20 gauge; Patrice Chang MD; intradermal injection; 10/23/14; 1043 PIV 10/22/14; 0734; median 10/22/14 0734 by 10/24/14 1400 by vein left (underside of Leonard Baer MD En Opal snyder, ASHLEE arm); 20 gauge; Lula Chang; 1; metacarpal [...] Secured at Teeth: 22 cm; Inserted by: Baer Urethral Catheter 10/22/14; 0853; 10/22/14 0853 by 10/23/14 1005 by Genitourinary surgery; Eugenia León, Margaret Cota, indwelling double lumen CREAM BUYER catheter; 100% silicone; 16; inserted at this facility; 1; 5; 10; none; drainage bag to dependent drainage; 10/23/14; 1005 Arterial Line dorsalis pedis artery; 20 10/22/14 1206 by 10/22 1400 by alfreda Baer; Sterile Jose Juan Munoz RN Prep, Sterile Gloves; 10/22/14; 1400 documented in this encounter Social History Tobacco [...] on file documented as of this encounter OR Notes Anesthesia Postprocedure Evaluation - Lula Chang MD - 10/22/2014 1:05 PM EDT Patient: Usha Huizar Procedure(s) Performed: Procedure(s): LAPAROSCOPY,TOTAL HYST, UTERUS<250GM, DERRICK TYBE &/OR OVARY, ROBOTIC ASSIST LAPAROSCOPY,W\BILATERAL TOTAL PELVIC LYMPHADENECTOMY, PERIAORTIC LYMPH NODE SAMPLING, ROBOTIC MODIFIER ROBOT,DAVINCI XI @EXPLORATION RETROPERITONEAL W OR W\O BIOPSY Actual Anesthetic: general Patient location: PACU Post-op pain: having lots of pain in her abdomen, but having to work in slow doses of dilaudid dueto decreased RR Pt not interested in an epidural Post-op nausea: no nausea or vomiting Last Vitals: Filed Vitals: 10/22/14 1300 BP: 96/56 Pulse: Temp: Resp: 14 Post-op cardiovascular and respiratory status: is stable Level of consciousness: sleepy but arousable Complications: no apparent complications and tolerated the procedure well Fluid Status: normal Anesthesia Preprocedure Evaluation - Leonard Baer MD - 10/22/2014 6:08 AM EDT Images from the original note were not included. Pre-Anesthesia Evaluation for: Usha Huizar a 54 y.o. female. Procedure(s): LAPAROSCOPY,TOTAL HYST, UTERUS<250GM, DERRICK TYBE &/OR OVARY, ROBOTIC ASSIST LAPAROSCOPY,W\BILATERAL TOTAL PELVIC LYMPHADENECTOMY, PERIAORTIC LYMPH NODE SAMPLING, ROBOTIC MODIFIER ROBOT,DAVINCI XI Patient Active Problem List Diagnosis ??? Near [...] Migraine headache ??? Hypothyroidism ??? Breast mass Past Medical History Diagnosis Date ??? Psoriasis ??? Obesity ??? HTN (hypertension) ??? Hypothyroidism ??? Hyperlipidemia ??? Migraine ??? Palpitations started on beta lena approx one month ago Past Surgical History Procedure Laterality Date ??? Orthopedic surgery cyst removed from bone in pelvis ??? Finger surgery ??? Sling oper stres incontinence 09/20/2012 URETHRAL SUSPENSION, SLING\FASCIA OR SYNTHETIC performed by Jozef Kent MD at [facility] MA[facility] OR ??? Ablation of dysrhythmic focus History Substance Use Topics ??? Smoking status: Former Smoker -- 1.50 packs/day for 10 years Types: Cigarettes Quit date: 06/12/1987 ??? Smokeless tobacco: Never Used ??? Alcohol Use: Yes Comment: 2-3 a couple of times per week History Drug Use ??? Yes Comment: marijuana (very occasional) Allergies Allergen Reactions ??? Shellfish Containing Products Angioedema ??? Pollen Extracts Stuffy head headache. Medications: MAR and/or home medications have been reviewed. Physical Exam: There were no vitals filed for this visit. There is no weight on file to calculate BMI. Airway Assessment: Mallampati: II TM distance: >3 FB Neck ROM: full Cardiovascular Assessment: Rhythm: regular Pulmonary Assessment: breath sounds clear to auscultation Dental Assessment: Comment: None loose [facility] Assessment: Anesthesia Plan: ASA 2 general, with a(n) intravenous induction 54 y/o F with PMHx of HTN, HLD, hypothyroidism, SVT s/p ablation who presents for robot assisted laphysterectomy. Plan for GETA, standard monitors, adequate IV access. Previous anesthetic with LMA #4 EKG shows sinus sindy Echo shows mild MR, mild AR, LVEF 68% Region - Other Informed Consent: Anesthetic plan and risks discussed with patient and spouse. Use of blood products discussed with patient and spouse whom. Plan discussed with attending. Misc. Assessment: documented in this encounter Plan of Treatment Not on filedocumented as of this encounter Visit Diagnoses Not on filedocumented in this encounter Administered Medications Inactive Administered Medications - up to 3 most recent administrations Medication Order MAR Action Action Date Dose Rate Site ceFAZolin (ANCEF) 1g in dextrose 5% Given 10/22/2014 10:50 AM ED T 3 g 50mL PRN, Starting on Tue10/22/14 at 0801, Until Tue10/22/14 at 1206, Administer over 30 Minutes, Anesthesia Intra-op Given 10/22/2014 8:01 AM EDT 3 g dexamethasone (DECADRON) injection Given 10/22/2014 8:08 AM EDT 8 mg PRN, Starting on Tue10/22/14 at 0808, Until Tue10/22/14 at 1206, Anesthesia Intra-op, Routine ePHEDrine 5 mg/mL multi-dose injection Given 10/22/2014 8:24 AM EDT 10 mg PRN, Starting on Tue10/22/14 at 0824, Until Tue10/22/14 at 1206, Anesthesia Intra-op, Routine fentaNYL 50 mcg/mL multi-dose injection Given 10/22/2014 10:40 AM EDT 25 mcg PRN, Starting on Tue10/22/14 at 0747, Until Tue10/22/14 at 1206, Pain, Anesthesia Intra-op, Routine Given 10/22/2014 7:47 AM EDT 75 mcg furosemide (LASIX) injection Given 10/22/2014 11:49 AM EDT 5 mg PRN, Starting on Tue10/22/14 at 1149, Until Tue10/22/14 at 1206, Anesthesia Intra-op, Routine glycopyrrolate (ROBINUL) multi-dose Given 10/22/2014 11:17 AM ED T 0.4 mg injection PRN, Starting on Tue10/22/14 at 0822, Until Tue10/22/14 at 1206, Anesthesia Intra-op, Routine Given 10/22/2014 8:22 AM EDT 0.4 mg heparin (porcine) subcutaneous injection Given 015 8:18 AM EDT 5,000 Units 5,000 Units 5,000 Units, Subcutaneous, ONCE, 1 dose, On Tue10/22/14 at 0715, Day of Surgery (Day of Procedure), Routine HYDROmorphone (DILAUDID) injection Given 10/22/2014 11:50 AM EDT 0.2 mg PRN, Starting on Tue10/22/14 at 1114, Until Tue10/22/14 at 1206, Pain, Anesthesia Intra-op, Routine Given 10/22/2014 11:20 AM EDT 0.3 mg Given 10/22/2014 11:14 AM EDT 0.3 mg lactated ringers infusion New Bag 10/22/2014 7:34 AM EDT CONTINUOUS PRN, Starting on Tue10/22/14 at 0734, Until Tue10/22/14 at 1206, Anesthesia Intra-op lactated ringers infusion New Bag 10/22/2014 7:57 AM EDT CONTINUOUS PRN, Starting on Tue10/22/14 at 0757, Until Tue10/22/14 at 1206, Anesthesia Intra-op lidocaine (PF) (XYLOCAINE) 100 mg/5 mL (2 %) Given 5 7:47 AM EDT 50 mg injection PRN, Starting on Tue10/22/14 at 0747, Until Tue10/22/14 at 1206, Anesthesia Intra-op, Routine midazolam (PF) (VERSED) 1 mg/mL multi-dose Given 10/22/2014 7:38 AM EDT 2 mg injection PRN, Starting on Tue10/22/14 at 0738, Until Tue10/22/14 at 1206, Sleep, Anesthesia Intra-op, Routine neostigmine (PROSTIGMINE) multi-dose Given 10/22/2014 11:17 AM E DT 2.5 mg injection PRN, Starting on Tue10/22/14 at 1117, Until Tue10/22/14 at 1206, Anesthesia Intra-op, Routine ondansetron (ZOFRAN) injection Given 10/22/2014 11:16 AM EDT 4 mg PRN, Starting on Tue10/22/14 at 1056, Until Tue10/22/14 at 1206, Nausea, Anesthesia Intra-op, Routine Given 10/22/2014 10:56 AM EDT 4 mg PHENYLephrine (CARMEN-SYNEPHRINE) Restarted 10/22/2014 10:03 AM 40 mcg/min 30 mL/hr 20 mg in sodium chloride 250 mL EDT (standard ADULT & Sienna greater than 20kg) infusion CONTINUOUS PRN, Starting on Tue10/22/14 at 0853, Until Tue10/22/14 at 1206, Anesthesia Intra-op, Routine Rate/Dose Change 10/22/2014 9:11 AM EDT 10 mcg/min 7.5 mL/hr Rate/Dose Change 10/22/2014 9:00 AM EDT 25 mcg/min 18.8 mL/hr PHENYLephrine HCl in NS (PF) Given 10/22/2014 10:03 AM EDT 160 m cg (CARMEN-SYNEPHRINE) 0.8 mg/10 mL (80 mcg/mL) multi-dose injection Syrg PRN, Starting on Tue10/22/14 at 0801, Until Tue10/22/14 at 1206, Anesthesia Intra-op, Routine Given 10/22/2014 8:40 AM EDT 160 mcg Given 10/22/2014 8:35 AM EDT 160 mcg propofol (DIPRIVAN) 10 mg/mL bolus injection Given 7:48 AM EDT 200 mg (Anesthesia) PRN, Starting on Tue10/22/14 at 0748, Until Tue10/22/14 at 1206, Anesthesia Intra-op rocuronium (ZEMURON) multi-dose injectio n Given 10/22/2014 8:45 AM EDT 50 mg PRN, Starting on Tue10/22/14 at 0749, Until Tue10/22/14 at 1206, Anesthesia Intra-op, Routine Given 10/22/2014 7:49 AM EDT 50 mg documented in this encounter Care Teams Rate Marker Relationship Specialty Start Date End Date None PCP - General 03/07/14 06/23/16 None documented as of this encounter
--- OUTSIDE RECORDS SUMMARY | 2022-02-19 02:05 | XMS_ITS | Encounter Summary ---
:1960 Author Organization [place] [address] Care Team Providers Name Role Phone Jackie Gee MD Primary Care Provider Encounter Details Date Type Department Care Team Description 09/28/2013 Telephone Neurology at [facility] Margaret Null, [facility] [place] [address] [facility] [phone] NEUROLOGY [place] [id number] (Wo rk) Social History Tobacco Use Types [...] Telephone Encounter - Margaret Null MD - 09/28/2013 11:38 AM EDT Called patient at her home phone to discuss MRI and EEG results. No answer and unable to leave voicemail. Will try again later. documented in this encounter Plan of Treatment Not on filedocumented as of this encounter Visit Diagnoses Not on filedocumented in this encounter Care Teams Grief Counselor Relationship Specialty Start Date End Date Jackie Gee MD PCP - General 09/09/11 03/06/14 [address] [place] [address] documented as of this encounter
--- OUTSIDE RECORDS SUMMARY | 2022-02-19 02:05 | XMS_ITS | Encounter Summary ---
:1960 Author Organization [facility] [place] [address] Care Team Providers Name Role Phone Jackie Gee MD Primary Care Provider Encounter Details Date Type Department Care Team Description 03/01/2014 - [facility] 03/02/2014 Seema Chester MD Palpitations; [facility] SVT (supraventricular tachyc ardia) [facility] [address] [place] [id number] [phone] Social History Tobacco Use Types Packs/Day Years [...] Sign Reading Time Taken Comments Blood Pressure 116/67 03/02/2014 7:46 AM EDT Pulse 61 03/02/2014 7:46 AM EDT Temperature 37.1 ??C (98.8 ??F) 03/02/2014 7:46 AM EDT Respiratory Rate 16 03/02/2014 7:46 AM EDT Oxygen Saturation 100% 03/02/2014 7:46 AM EDT Inhaled Oxygen Concentration - - Weight 106.1 kg (234 lb) 03/01/2014 8:57 AM EDT Height 167.6 cm (5' 6) 03/01/2014 8:57 AM EDT Body Mass Index 37.77 03/01/2014 8:57 AM EDT documented in this encounter Discharge Instructions Patient InstructionsPipo Lake - 03/02/2014 7:48 AM EDT Final Recommendations: 1. Medications as prescribed. 2. Follow up with Dr. Lou in 1 month. You will be contacted [...] documented as of this encounter Progress Notes [place], Star, RN - 03/02/2014 9:22 AM EDT The [...] been reviewed with patient. PT discharged to [facility] with , pt declined wheelchair as she is walking without difficulty. Jordana Lou MD - 03/02/2014 6:41 AM EDT Patient Name: Usha Huizar Patient Age: 53 y.o. Birthdate: 1960 Admit date: 03/01/2014 Attending Physician: Jordana Lou MD Patient Active Problem List Diagnosis ??? [...] a h/o SVT admitted yesterday by Dr. Lou for a EPS for further evaluation. 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 She tolerated the procedure well and had no issues overnight. Willplan to discharge later today. [place], MSN, IMPREGNATOR OPERATOR, CCDS Addendum I have personally interviewed and examined the patient Doing well POD # 1 s/p ablation of AVNRT OK for discharge to home JORDANA LOU MD Dede Spain RN - 03/02/2014 6:01 AM EDT Pt.'s groin sites bilat. Clean dry and intact. Pt. With strong D.P. Pulses palpated by this nurse @ 0600 Dede Spain RN - 03/02/2014 3:11 AM EDT At [...] documented in this encounter H&P Notes Jordana Lou MD - 03/01/2014 8:53 AM EDT Complete Adult Pre-Procedural H&P Patient Name: Usha Huizar : [id number] 53 y.o. MR#: [id number] Chief Complaint: 1) Palpitations Planned Procedure: EPS [...] likely AVNRT - here for EPS/ablation JORDANA LOU MD 03/01/2014 No results found for this or any previous visit (from the past 24 hour(s)). documented in this encounter Procedure Notes Provider, Scanning - 03/04/2014 12:00 AM EDTAssociated Order(s): SCAN DOC: CURRICULUM COACH documented in this encounter Miscellaneous Notes Miscellaneous - ProviderJose - 03/04/2014 12:00 AM EDT Discharge Summary - Jordana Lou MD - 03/02/2014 7:49 AM EDT EP Discharge Summary Patient Name: Usha Huizar Patient Age: 53 y.o. Language: Bhutanese Race: White Ethnicity: Not nor Admit date: 03/01/2014 Discharge date and time: 03/02/2014 Attending Physician: Jordana Lou MD Discharge Physician: Jordana Lou MD 1) Admitted for elective EPS and [...] History of Presentation: Patient seen by Dr. Lou for further evaluation and management of her SVT. EPS with possible ablation recommended and the patient agreed to proceed after the risks as well as benefits reviewed. Hospital Course: 53 y/o with a h/o SVT admitted yesterday by Dr. Lou for a EPS for further evaluation. ANVRT [...] as prescribed. 2. Follow up with Dr. Lou as needed. 3. Standard post ablation wound [...] 03/29/2014 11:10 AM Javed Pepe MD Cardiology [phone] [facility] Joint Appt Nurse [facility] ASHLEE Edwards 4A [phone] [facility] Miscellaneous - Provider, Scanning - 03/01/2014 12:00 AM EDT documented in this encounter Plan of Treatment Not on filedocumented as of this encounter Procedures Procedure Name Priority Date/Time Associated Diagnosis Comme nts CURRICULUM COACH SCAN 03/04/2014 12:00 Res ults for this [...] documented in this encounter Results SCAN DOC: CURRICULUM COACH (03/04/2014 12:00 AM EDT) Narrative 03/04/2014 10:58 [...] 446 ms MUSE SYSTEM (Bezet) Calculated P [place] 59 degrees MUSE SYSTEM Calculated R [place] 7 degrees MUSE SYSTEM Calculated T [place] 6 degrees MUSE SYSTEM INTERPRETATION Normal sinus rhythm MUSE SYSTEM Normal ECG When compared with ECG of 28-AUG-2013 13:36, No significant change was found Confirmed by MD Elizabeth Douglas (57) on 03/02/2014 2:05:44 P M Specimen Anatomical Collection Method Collection Time Receive d Time (Source) Location / / Volume Laterality 03/02/2014 7:55 AM 4 2:05 EDT PM EDT Jordana Lou MD ECG ORDERABLES Performing Organization Address City/State/ZIP [...] Organization Address City/State/[place] [address] CERNER MILLENNIUM Hemogram (03/01/2014 [...] Organization Address City/State/[place] [address] [facility] MILL[facility] Prothrombin Time (03/01/2014 10:58 AM EDT) athologist Signature PT 13.5 12.5 - 15.5 CERNER sec MILLENNIUM Comment: [facility] Transfusion Committee Guidelines: I NR less than 2.0, PTT less than OR equal to 43.5 seconds, or Fibrinogen gre ater than or equal to 100 mg/dl indicate adequate procoagulant activity for hemostasis in patients without underlying bleeding disorders. INR 1.0 0.9 - 1.1 [facility] Specimen Anatomical Collection Method Collection Time Receive d Time (Source) Location / / Volume Laterality Blood specimen 03/01/2014 10:58 4 (specimen) AM EDT 11:14 AM EDT Resulting Agency Comment Spec In Lab Abdirahman Patton DO HEMATOLOGY ORDERABLES Performing Organization Address City/State/ZIP Code Phon e Number [place] [phone] CERNER MILLENNIUM (ABNORMAL) Basic Metabolic Panel (non-fasting) (03/01/2014 10:58 AM EDT) P athologist Signature Glucose Lvl 75 60 - 199 CERNER mg/dL MILLENNIUM Comment: Diabetes: >=200 mg/dL plus symp toms BUN 15 8 - 18 mg/dL CERNER MILLENNIUM Creatinine 0.78 0.70 - 1.20 mg/dL CERNER MILL ENNIUM Comment: Please note that the pediatric reference intervals supplied above were not validated at [facility]. Results from pediatri c patients should be [...] the following links into your internet browser. [email or web address] Specimen Anatomical Collection Method Collection Time Receive d Time (Source) Location / / Volume Laterality Blood specimen 03/01/2014 10:58 4 (specimen) AM EDT 11:14 AM EDT Resulting Agency Comment Spec In Lab Abdirahman L Abdi HOU CHEMISTRY ORDERABLES Performing Organization Address City/State/ZIP Code Phon e Number SEEMA [place] [phone] [facility] documented in this encounter Visit Diagnoses Diagnosis [...] to induce or maintain moderate sedation per [facility] Moderate Sedation Protocol, Not to exceed 50 [...] to induce or maintain moderate sedation per [facility] Moderate Sedation Protocol, Not to exceed 1 [...] to induce or maintain moderate sedation per [facility] Moderate Sedation Protocol, Not to ex 1232 [...] to induce or maintain moderate sedation per [facility] Moderate Sedation Protocol, Not to ex 1232 (Given - Provider: Rodríguez Fontenot RN)1251 (Given - Provider: Rodríguez Fontenot RN)1304 (Given - Provider: Rodríguez Fontenot RN)1318 (Given - Provider: Rodríguez Fontenot RN)1330 (Given - Provider: Rodríguez Fontenot RN) ceed 1 mg per dose, 5mg/hour, or 0.2mg/k g per case., EP (Intra-Procedure), Routine 1349 (Given - Provider: Mike oFntenot RN)1405 (Given - Provider: Rodríguez Fontenot RN) documented in this encounter Care Teams Risk And Insurance Consultant Relationship Specialty Start Date End Date Jackie Gee MD PCP - General 09/09/11 03/06/14 [address] [place] [address] documented as of this encounter
--- OUTSIDE RECORDS SUMMARY | 2022-02-19 02:05 | XMS_ITS | Encounter Summary ---
:1960 Author Organization [facility] [place] [address] Care Team Providers Name Role Phone None Primary Care Provider Unavailable Encounter Details Date Type Department Care Team Description 02/28/2014 Orders Only Cardiology at [facility] Abdirahman Patton, DO Syncope; [facility] [address] [facility] [place] [address] CARDIOLOGY DEPT [phone] [place] [id number] (Wo rk) Social History Tobacco Use Types [...] Not on filedocumented as of this encounter Results Prothrombin Time (03/01/2014 10:58 AM EDT) P athologist Signature PT 13.5 12.5 - 15.5 CERNER sec MILLENNIUM Comment: [facility] Transfusion Committee Guidelines: I NR less than 2.0, PTT less than OR equal to 43.5 seconds, or Fibrinogen gre ater than or equal to 100 mg/dl indicate adequate procoagulant activity for hemostasis in patients without underlying bleeding disorders. INR 1.0 0.9 - 1.1 CERNER MILLENNIUM Specimen Anatomical Collection Method Collection Time Receive d Time (Source) Location / / Volume Laterality Blood specimen 03/01/2014 10:58 4 (specimen) AM EDT 11:14 AM EDT Resulting Agency Comment Spec In Lab Abdirahman Patton DO HEMATOLOGY ORDERABLES Performing Organization Address City/State/[place] [address] CERNER MILLENNIUM (ABNORMAL) Basic Metabolic Panel (non-fasting) (03/01/2014 10:58 AM EDT) athologist Signature Glucose Lvl 75 60 - 199 CERNER mg/dL MILLENNIUM Comment: Diabetes: >=200 mg/dL plus symp toms BUN 15 8 - 18 mg/dL CERNER MILLENNIUM Creatinine 0.78 0.70 - 1.20 mg/dL CERNER MILL ENNIUM Comment: Please note that the pediatric reference intervals supplied above were not validated at [facility]. Results from pediatri c patients should be [...] the following links into your internet browser. [email or web address] Specimen Anatomical Collection Method Collection Time Receive d Time (Source) Location / / Volume Laterality Blood specimen 03/01/2014 10:58 4 (specimen) AM EDT 11:14 AM EDT Resulting Agency Comment Spec In Lab Abdirahman Patton DO CHEMISTRY ORDERABLES Performing Organization Address City/State/ZIP Code Phon e Number [address] LABORATORY [facility] documented in this encounter Visit Diagnoses Diagnosis Syncope Syncope and collapse Palpitations documented in this encounter Care Teams Licensed Sales Producer Relationship Specialty Start Date End Date None PCP - General 03/07/14 06/23/16 None documented as of this encounter
--- OUTSIDE RECORDS SUMMARY | 2022-02-19 02:05 | XMS_ITS | Encounter Summary ---
:1960 Author Organization [facility] [place] [address] Care Team Providers Name Role Phone Jackie Gee MD Primary Care Provider Encounter Details Date Type Department Care Team Description 01/22/2014 External Results Cardiology [place] [facility] [place] Gee MD [facility] [address] [place] [address] [place], [place] [phone] (Wo rk) Social History Tobacco Use Types [...] Diagnosis Comme nts EP DEVICE SCAN Routine 01/14/2014 EP DEVICE SCAN Routine 01/12/2014 documented in this encounter Results Scan Doc: EP Device (01/14/2014) Anatomical Region Laterality Modality Other Narrative This result has an attachment that is no t available. Jackie Gee MD MEDIA MGR SCAN EXT ORDR/RSLT Scan Doc: EP Device (01/12/2014) Anatomical Region Laterality Modality Other Narrative This result has an attachment that is no t available. Jackie Gee MD MEDIA MGR SCAN EXT ORDR/RSLT documented in this encounter Visit Diagnoses Not on filedocumented in this encounter Care Teams Golf Club Repairer Relationship Specialty Start Date End Date Jackie Gee MD PCP - General 09/09/11 03/06/14 [address] [place] [address] documented as of this encounter
--- OUTSIDE RECORDS SUMMARY | 2022-02-19 02:05 | XMS_ITS | Encounter Summary ---
:1960 Author Organization [facility] [place] [address] Care Team Providers Name Role Phone None Primary Care Provider Unavailable Encounter Details Date Type Department Care Team Description 10/03/2014 Clinical Support Same Day at [facility] Endometrial cancer [facility] [place] [address] Social History Tobacco Use Types Packs/Day [...] documented as of this encounter Progress Notes Adrián Landis RN - 10/03/2014 12:42 PM EDT PAT questionnaire reviewed with patient while in Pre Admission testing. Pre- operative instruction booklet reviewed. Patient verbalizes a good understanding of all information reviewed. Patient has had general anesthesia previously at [facility] without a problem. Pt did wake up last procedure a year ago but nothing traumatic involved. PLAN: Testing: Blood work + T&S + EKG Procedure date: 10/22 with Epifanio documented in this encounter Plan of Treatment Not on filedocumented as of this encounter Procedures Procedure Name Priority Date/Time Associated Diagnosis Comme nts EKG 12-LEAD Routine 10/03/2014 1:09 PM Endometrial cancer Res ults for this EDT procedure are i n the results section . documented in this encounter Results EKG 12 [...] 459 ms MUSE SYSTEM (Bezet) Calculated P [place] 61 degrees MUSE SYSTEM Calculated R [place] 25 degrees MUSE SYSTEM INTERPRETATION Sinus bradycardia MUSE SY STEM Otherwise normal ECG When compared with ECG of 02-MAR-2014 07:55, No significant change was found Confirmed by MD Magdalene, Du ([id number]) on 10/03/2014 7:30:36 P M Specimen Anatomical Collection Method Collection Time Receive d Time (Source) Location / / Volume Laterality 10/03/2014 1:09 PM 7:30 EDT PM EDT Marsha Godfrey MD ECG ORDERABLES Performing Organization Address City/State/ZIP Code Phon e Number MUSE SYSTEM documented in this encounter Visit Diagnoses Diagnosis Endometrial cancer Malignant neoplasm of corpus uteri, exce pt isthmus documented in this encounter Care Teams Armored Vehicle Officer Relationship Specialty Start Date End Date None PCP - General 03/07/14 06/23/16 None documented as of this encounter
--- OUTSIDE RECORDS SUMMARY | 2022-02-19 02:05 | XMS_ITS | Encounter Summary ---
:1960 Author Organization [facility] [place] [address] Care Team Providers Name Role Phone Jackie Gee MD Primary Care Provider Encounter Details Date Type Department Care Team Description 02/11/2014 Hospital Encounter Electrophysiology Lab at [facility] [place] [address] [facility] [phone] [place] [address] Social History Tobacco Use Types Packs/Day Years [...] on filedocumented in this encounter Care Teams Trading Floor Operator Relationship Specialty Start Date End Date Jackie Gee MD PCP - General 09/09/11 03/06/14 [address] [place] [address] documented as of this encounter
--- OUTSIDE RECORDS SUMMARY | 2022-02-19 02:05 | XMS_ITS | Encounter Summary ---
:1960 Author Organization [facility] [place] [address] Care Team Providers Name Role Phone Jackie Gee MD Primary Care Provider Encounter Details Date Type Department Care Team Description 02/19/2014 External Results Cardiology at [facility] Jackie Gee MD [facility] [address] [place] [address] [place], [place] [phone] (Wo rk) Social History Tobacco Use Types [...] Diagnosis Comme nts EP DEVICE SCAN Routine 02/12/2014 EP DEVICE SCAN Routine 02/10/2014 documented in this encounter Results Scan Doc: EP Device (02/12/2014) Anatomical Region Laterality Modality Other Narrative This result has an attachment that is no t available. Jackie Gee MD MEDIA MGR SCAN EXT ORDR/RSLT Scan Doc: EP Device (02/10/2014) Anatomical Region Laterality Modality Other Narrative This result has an attachment that is no t available. Jackie Gee MD MEDIA MGR SCAN EXT ORDR/RSLT documented in this encounter Visit Diagnoses Not on filedocumented in this encounter Care Teams Glass Ribbon Machine Operator Relationship Specialty Start Date End Date Jackie Gee MD PCP - General 09/09/11 03/06/14 [address] [place] [address] documented as of this encounter
--- OUTSIDE RECORDS SUMMARY | 2022-02-19 02:05 | XMS_ITS | Encounter Summary ---
:1960 Author Organization [facility] [place] [address] Care Team Providers Name Role Phone None Primary Care Provider Unavailable Encounter Details Date Type Department Care Team Description 2014 Telephone Obstetrics and Gynecology Alba Leigh MD at [facility] Dre bonner OBSTETRICS [place] [address] DEPT [phone] [place], [place] [address] (Wo rk) Social History Tobacco [...] this encounter Miscellaneous Notes Telephone Encounter - Alba Leigh MD - 2014 5:41 PM EDT Telephone Call Spoke w/ pt regarding results of EMB. Grade 2 endometrioid endometrial ca. We discussed that hysterectomy, BSO would be next steps with possible lymphadenectomy. Explained that prognosis is associated with cancer stage, and this is determined surgically. Explained that I would be referring her to [facility] for further management. She is requesting a female provider. In-basket sent to [facility] triage secretaries. Pt is expectedly shocked with this result and does not have any questions at this time. Encouraged pt to call back if she has further questions. Number for [facility] clinic given to pt in case she does not hear from them for appt. Alba Leigh MD PGY4 2014 documented in this encounter Plan of Treatment Not on filedocumented as of this encounter Visit Diagnoses Not on filedocumented in this encounter Care Teams Teleservices Representative Relationship Specialty Start Date End Date None PCP - General 03/07/14 06/23/16 None documented as of this encounter
--- OUTSIDE RECORDS SUMMARY | 2022-02-19 02:05 | XMS_ITS | Encounter Summary ---
:1960 Author Organization [facility] [place] [address] Care Team Providers Name Role Phone None Primary Care Provider Unavailable Reason for Visit Reason Onset Date Comments Other 09/23/2014 Encounter Details Date Type Department Care Team Description 09/23/2014 Telephone Care Management Molly Choe, SUPERVISOR SPECIAL SERVICES Other [facility] [place] [address] PSYCHIATRY [phone] [place] [address] Social History Tobacco Use Types Packs/Day Years [...] this encounter Miscellaneous Notes Telephone Encounter - Molly Choe, COMMERCIAL REAL ESTATE AGENT - 09/23/2014 4:23 PM EDT 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 Pt called requesting an advocate who can help her to coordinate apts and places stay. Pt resides in [place] with her spouse. Pt has her first apt with Dr. Cutler on 10/03 to discuss treatment and surgery. I explained the role of social work to the pt and what services we were able to provide. Pt shared that she has not worked since May of 2013 due to varies medical reasons. Pt does not have any disability benefits. Pt does have medicaid. Discussed applying for SSDI as pt has been out of work due tomedical reasons for over a year now and is looking at a least a few more months of no work. Pt was not sure she would qualify but agreed it may be worthwhile to try. Also provided information on [facility] assistance, the [facility], [employer] Program and asked pt to call [place] Medicaid about her transportation benefit. I will mail out materials on the above resources for pt 's reference. Pt's apt is on 10/03, will try to meet with pt to follow up at that time. documented in this encounter Plan of Treatment Not on filedocumented as of this encounter Visit Diagnoses Not on filedocumented in this encounter Care Teams Repair Table Operator Relationship Specialty Start Date End Date None PCP - General 03/07/14 06/23/16 None documented as of this encounter
--- OUTSIDE RECORDS SUMMARY | 2022-02-19 02:05 | XMS_ITS | Encounter Summary ---
:1960 [place] [address] Care Team Providers Name Role Phone Jackie Gee MD Primary Care Provider Encounter Details Date Type Department Care Team Description 12/12/2013 Hospital Encounter Same Day Program at [facility], [facility] [address] [place] [address] [place] [address] [phone] (Wo rk) Social History Tobacco Use Types [...] no sedation . Ready for discharge home. 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 [...] clinic. documented in this encounter Miscellaneous Notes Miscellaneous - Jose Blankenship - 12/12/2013 7:17 PM EDT Miscellaneous - Pattie, Jose - 12/12/2013 12:41 PM EDT OR Attestation [...] in the 4th intercostal space and the Buddy [employer]ink[employer] supplied incision tool was applied to create the plane for insertion in a d iagonal direction ( \). ??The Buddy Drinkstronic Reveal Linq Model# LNQ11, Seri al# [id number] ILR was inserted using the supplied tool and interrogated with a community recreation programmer - which demonstrated good sensing.. ?? The wound was closed with two stitches o f 3-O Monocryl. Medical adhesive (Lacey+flex) was applied to the incision which was [...] in the 4th intercostal space and the Buddy Drinkstronic supplied incision tool was applied to create the plane for insertion in a diagonal direction ( \). The TLM Com Reveal Linq Model# LNQ11, Serial# [id number] ILR was inserted using the supplied tool and interrogated with a community recreation programmer - which demonstrated good sensing.. The wound was closed with two stitches o f 3-O Monocryl. Medical adhesive (Lacey+flex) was applied to the incision which was [...] of Diabetes Mellitus, Position Statement from the [place] [employer]. ??Diabete s Care, Volume 33, Supplement 1, May 2009 BUN 20 (H) 8 - 18 mg/dL CERNER MILLENNIUM Creatinine 0.83 0.70 - 1.20 mg/dL CERNER MILL ENNIUM Comment: Please note that the pediatric reference intervals supplied above were not validated at [facility]. Results from pediatri c patients [...] the following links into your internet browser. http://[employer]/DHnkdep http://[employer]/MCnkf Specimen Anatomical Collection Method Collection Time Receive d Time (Source) Location / / Volume Laterality Blood specimen 12/12/2013 6:21 AM 014 6:25 (specimen) EDT AM EDT Resulting Agency Comment Spec In Lab Javed Pepe MD CHEMISTRY ORDERABLES Performing Organization Address City/State/ZIP Code Phon e Number [place] [phone] [facility] documented in this encounter Visit Diagnoses Diagnosis Syncope Syncope and collapse documented in this [...] (5 mg/mL) injection 150 mg (CO MPLETED) 0826 (Given - Provider: Genoveva Giles, ASHLEE) 30 mL = 150 mg, Subcutaneous, ONCE, 1 do se, Tue12/12/13 at 0800, EP (Intra- Procedure), Routine ceFAZolin (ANCEF) 2g in dextrose 5% 50 mL (COMPLETED) 08 (Given - Provider: Genoveva Giles, ASHLEE) 2 g, Intravenous, ONCE, 1 dose, Tue at 0800, EP (Intra-Procedure), Indication for (Active or Suspected): Prophylaxis lidocaine (XYLOCAINE) 20 mg/mL (2 %) injection 400 mg (COMPLETED ) 08 (Given - Provider: Genoveva Giles, ASHLEE) 20 mL = 400 mg, Subcutaneous, ONCE, 1 do se, Tue12/12/13 at 0800, EP (Intra- Procedure), Routine neomycin-polymyxin B (NEOSPORIN) irrigation solution (COMPLETED) 839 (Given - Provider: Genoveva Giles, ASHLEE) Irrigation, ONCE, Tue12/12/13 at 0800, For 1 dose, EP (Intra-Proc edure) documented in this encounter Care Teams Welding Machine Assembler Relationship Specialty Start Date End Date Jackie Gee MD PCP - General 09/09/11 03/06/14 [address] [place] [address] documented as of this encounter
--- OUTSIDE RECORDS SUMMARY | 2022-02-19 02:05 | XMS_ITS | Encounter Summary ---
:1960 Author Organization [facility] [place] [address] Care Team Providers Name Role Phone Jackie Gee MD Primary Care Provider Reason for Visit Reason Comments Procedure Out Patient EEG Encounter Details Date Type Department Care Team Description 09/27/2013 Procedure visit Neurology at [facility], DR JON Johnson [facility] Farhat Gil MD [facility] [place] [address] [place] [address] Social History Tobacco Use Types Packs/Day Years [...] on file documented as of this encounter Procedure Notes Connor Wiley - 09/27/2013 8:48 AM EDTAssociated Order(s): EEG 24 HOUR MONITORING, PORTABLE Pre-Procedure Diagnose(s): Spells Name:Usha Huizar Test #: [id number] Age: 53 y.o. Referring Provider: Jackie Gee MD [address] [place] [address] Hours of Sleep: P.C.: Sleep Deprived: Location: OPT Date of Study: Tech: SB Patient History: This is a 53 year old female who presents to the EEG lab for an ambulatory 24 hour EEG recording. Sleep: Obtained Photic Driving: bilateral Hyperventillation: If Hyperventillated Effort Given: excellent [facility] Department of Neurology LONG-TERM AMBULATORY EEG REPORT Patient: Usha Huizar [id number] Date of Recordin09/26/13-09/27/13 Interpreting Physician: Dr. Farhat Enciso (Attending) Dr. Margaret Null (Fellow) Reason for study: Usha Huizar is a 53 y.o. female with a history of spells. Current Medications: Current Outpatient Prescriptions on File Prior to Visit Medication Sig Dispense Refill ??? ibuprofen (ADVIL;MOTRIN) [...] then useon weekends only. 45 g 2 METHODS: An 18-channel digitized electroencephalogram was recorded in the ambulatory setting. The 10/20 international system of electrode placement was used and bipolar and referential electrode montages were recorded. In addition to EEG the patient was monitored for EKG. Activation procedures of photic stimulation and hyperventilation were perfomed if applicable. The duration of the recording was 24 hours. DESCRIPTION OF EEG: Waking background activity: During maximal wakefulness a 9-10 Hz posterior background rhythm was present which was well-modulated, symmetrical, reactive to eye opening, and of moderate voltage. Faster frequencies were present in the bilateral anterior head regions. There was a normal anterior-posterior voltage gradient. Drowsy and sleeping background activity: During drowsiness, there was attenuation of the posterior dominant background rhythm and vertex waves. Normal stage II and III sleep was present with symmetrical sleep spindles, K-complexes, and vertex waves with slowing of the background rhythm to delta/theta f requencies. REM sleep manifested by rapid lateral eye movements and faster background rhythms was recorded. Arousal was unremarkable. Interictal abnormalities: none. Ictal findings: none. Activating Procedures: Photic stimulation was performed which produced a symmetrical posterior driving response at various flash frequencies. Hyperventilation was performed with moderate effort and produced no physiological slowing of the background. EKG: EKG revealed normal sinus rhythm. INTERPRETATION: This long-term EEG is normal during the awake and sleep states as well as during the activation procedures. No events captured. PRIOR EEG: none CLINICAL CORRELATION: No interictal focal regions of cerebral dysfunction or epileptiform activity was present. No events were captured. Review of the patient's 24-hour journal revealed normal ADLs but no symptoms of epilepsy. Epilepsy remains a clinical diagnosis and a normal EEG does not rule out epilepsy. Clinical correlation is advised. Margaret Null MD Neurophysiology Fellow Pager [phone] Neurology Attending I have personally reviewed the EEG, and I agree with the details as written. The above report was formulated in discussion with me at the time of EEG reading, and I agree with it as documented. Farhat Enciso [place] [address] Pager: [phone], #[phone] Email: [email or web address] documented in this encounter Plan of Treatment Not on filedocumented as of this encounter Procedures Procedure Name Priority Date/Time Associated Diagnosis Comme nts ZEEG 24 HOUR Routine 09/28/2013 10:36 PM Spells Results for this MONITORING, EDT procedure are i n PORTABLE the results section. documented in this encounter Results 24 Hour EEG, Portable (09/28/2013 10:36 PM EDT) Narrative Farhat Enciso MD - 09/28/2013 10:36 PM EDT Farhat Enciso MD ? 09/28/2013 10:36 PM Name:Usha Huizar ?Test #: ??[id number] - [id number] ? Age: ??53 y.o. ? Referring Provider: Jackie Gee MD [address] [place] [address] Hours of Sleep: ?? P.C.: ?? Sleep Deprived: ?? Location: OPT Date of Study: ?? Tech: SB Patient History: This is a 53 year old f emale who presents to the EEG lab for an ambulatory 24 hour EEG re cording. Sleep: Obtained Photic Driving: bilateral Hyperventillation: ? If Hyperventillated ??Effort Give n: excellent [facility] Department of Neurology LONG-TERM AMBULATORY EEG REPORT Patient: ??Usha Huizar ??[id number] Date of Recordin09/26/13-09/27/13 Interpreting Physician: Dr. Farhat Enciso (Attending) Dr. Margaret Null (Fellow) Reason for study: ??Usha Huizar is a 53 y.o. female with a history of spells. Current Medications: Current Outpatient Prescriptions on File Prior to Visit Medication Sig Dispense Refill ? ? ibuprofen (ADVIL;MOTRIN) 600 mg tablet Take 1 tablet by mouth every 6 hours as needed for Pain. ??30 t ablet ??2 ? ? metoprolol tartrate (LOPRESSOR) 25 mg tablet Take 25 mg by mouth 2 times daily. ? hydrochlorothiazide (HYDRODIURIL) 25 mg tablet Take 25 mg by mouth daily. ? amitriptyline (ELAVIL) 25 mg tablet Take 25 mg by mouth every evening. ? simvastatin (ZOCOR) 20 mg tablet Take 20 mg by mouth nightly. ? levothyroxine (SYNTHROID) 75 mcg tablet Take 75 mcg by mouth daily. ? clobetasol (TEMOVATE) 0.05 % ointment Apply ??topically 2 times daily. For up to 2 weeks, then use on we ekends only. ??45 g ??2 METHODS: An 18-channel digitized electroencephalo gram was recorded in the ambulatory setting. ??The 10/20 internat ional system of electrode placement was used and bipolar and refer ential electrode montages were recorded. ??In addition to EEG the patient was monitored for EKG. ??Activation procedures of photic s timulation and hyperventilation were perfomed if applic able. ??The duration of the recording was 24 hours. ?? DESCRIPTION OF EEG: Waking background activity: ??During max imal wakefulness a 9-10 Hz posterior background rhythm was present which was well-modulated, symmetrical, reactive to eye opening, an d of moderate voltage. Faster frequencies were present in the b ilateral anterior head regions. ??There was a normal anterior-p osterior voltage gradient. Drowsy and sleeping background activity: During drowsiness, there was attenuation of the posterior dominan t background rhythm and vertex waves. ??Normal stage II and III sleep was present with symmetrical sleep spindles, K-complexes, and vertex waves with slowing of the background rhythm to delt a/theta frequencies. ??REM sleep manifested by rapid lateral eye mo vements and faster background rhythms was recorded. ??Arous al was unremarkable. ?? Interictal abnormalities: none. Ictal findings: none. Activating Procedures: Photic stimulation was performed which p roduced a symmetrical posterior driving response at various fl parth frequencies. ?? Hyperventilation was performed with mode rate effort and produced no physiological slowing of the backgrou nd. EKG: EKG revealed normal sinus rhythm. INTERPRETATION: This long-term EEG is normal during the awake and sleep states as well as during the activation procedures . ??No events captured. PRIOR EEG: none CLINICAL CORRELATION: No interictal focal regions of cerebral dysfunction or epileptiform activity was present. ??No events were captured. Review of the patient's 24-hour journal revealed normal ADLs but no symptoms of epilepsy. Epilepsy remain s a clinical diagnosis and a normal EEG does not rule out epile psy. ??Clinical correlation is advised. Margaret Null MD Neurophysiology Fellow Pager [phone] Neurology Attending I have personally reviewed the EEG, and I agree with the details as written. ?? The above report was form ulated in discussion with me at the time of EEG reading, and I agr ee with it as documented. Farhat Enciso MD [place] [address] Pager: [phone], #[phone] Email: [email or web address] Procedure Note Connor Wiley - 09/27/2013 8:48 AM EDT Name:Usha Huizar Test #: [id number] Age: 53 y.o. Referring Provider: Jackie Gee MD [address] [place] [id number] Hours of Sleep: P.C.: Sleep Deprived: Location: OPT Date of Study: Tech: SB Patient History: This is a 53 year old f emale who presents to the EEG lab for an ambulatory 24 hour EEG recording. Sleep: Obtained Photic Driving: bilateral Hyperventillation: If Hyperventillated Effort Given: norah aponte [facility] Department of Neurology LONG-TERM AMBULATORY EEG REPORT Patient: Usha Huizar [id number] Date of Recordin09/26/13-09/27/13 Interpreting Physician: Dr. Farhat Enciso (Attending) Dr. Margaret Null (Fellow) Reason for study: Usha Huizar is a [age] y.o. female with a history of spells. Current Medications: Current Outpatient Prescriptions on File Prior to Visit Medication Sig Dispense Refill ? ? ibuprofen (ADVIL;MOTRIN) 600 mg tablet Take 1 tablet by mouth every 6 hours as needed for Pain. 30 tablet 2 ? ? metoprolol tartrate (LOPRESSOR) 25 mg tablet Take 25 mg by mouth 2 times daily. ? ? hydrochlorothiazide (HYDRODIURIL) 25 mg tablet Take 25 mg by mouth daily. ? ? amitriptyline (ELAVIL) 25 mg tablet Take 25 mg by mouth every evening. ? ? simvastatin (ZOCOR) 20 mg tablet Take 20 mg by mouth nightly. ? ? levothyroxine (SYNTHROID) 75 mcg tablet Take 75 mcg by mouth daily. ? ? clobetasol (TEMOVATE) 0.05 % ointment Apply topically 2 times daily. For up to 2 weeks, then use on weekends only. 45 g 2 METHODS: An 18-channel digitized electroencephalo gram was recorded in the ambulatory setting. The 10/20 international system of electrode placement was used and bipolar and referential electrode montages were recorded. In addition to EEG the patient was monitore d for EKG. Activation procedures of photic stimulation and hyperventilation were perfomed if applicable. The duration of the recording was 24 hours. DESCRIPTION OF EEG: Waking background activity: During maxim al wakefulness a 9-10 Hz posterior background rhythm was present which was well-modulated, symmetrical, reactive to eye opening, and of moderate voltage. Faster frequencies were present in the bilatera l anterior head regions. There was a normal anterior-posterior voltage gradient. Drowsy and sleeping background activity: During drowsiness, there was attenuation of the posterior dominant background rhythm and vertex waves. Normal stage II and III sleep was present with symmetrical sleep spindles, K-complexes, and vertex waves with slowi ng of the background rhythm to delta/theta frequencies. REM sleep manifested by rapid lateral eye movements and faster background rhythms was recorded. Arousal was unremarkable. Interictal abnormalities: none. Ictal findings: none. Activating Procedures: Photic stimulation was performed which p roduced a symmetrical posterior driving response at various flash frequencies. Hyperventilation was performed with moderate effort and produced no physiological slowing of the background. EKG: EKG revealed normal sinus rhythm. INTERPRETATION: This long-term EEG is normal during the awake and sleep states as well as during the activation procedures. No events captured. PRIOR EEG: none CLINICAL CORRELATION: No interictal focal regions of cerebral dysfunction or epileptiform activity was present. No events were captured. Review of the patient's 24-hour journal revealed normal ADLs but no symptoms of epilepsy. Epilepsy remains a clinical diagnosis and a viral l EEG does not rule out epilepsy. Clinical correlation is advised. Margaret Null MD Neurophysiology Fellow Pager [phone] Neurology Attending I have personally reviewed the EEG, and I agree with the details as written. The above report was formulated in discussion with me at the time of EEG reading, and I agree with it as documented. Farhat Enciso MD [place] [address] Pager: [phone], #[phone] Email: [email or web address] Johnson Ugarte MD NEUROLOGY ORDERABLES documented in this encounter Visit Diagnoses Diagnosis Spells Other convulsions documented in this encounter Care Teams Retail Customer Service Representative Relationship Specialty Start Date End Date Jackie Gee MD PCP - General 09/09/11 03/06/14 [address] [place] [address] documented as of this encounter
--- OUTSIDE RECORDS SUMMARY | 2022-02-19 02:05 | XMS_ITS | Encounter Summary ---
:1960 Author Organization [facility] Address [facility] [place] [address] Care Team Providers Name Role Phone Jcakie Gee MD Primary Care Provider Encounter Details Date Type Department Care Team Description 02/12/2014 Office Visit Cardiology at [facility] Abdirahman Patton, Near syncope (Primary Dx); [facility] DO Paroxysmal SVT (supraventricular tachyca rdia) [place] [address] CARDIOLOGY DEPT [phone] [place] [id number] Social History Tobacco Use Types Packs/Day Years [...] Time Taken Comments Blood Pressure 132/78 02/12/2014 9:20 AM EDT Pulse 60 02/12/2014 9:20 AM EDT Temperature - - Respiratory Rate - - Oxygen Saturation 97% 02/12/2014 9:20 AM EDT Inhaled Oxygen Concentration - - Weight 106.1 kg (234 lb) 02/12/2014 9:20 AM EDT Height 167.6 cm (5' 6) 02/12/2014 9:20 AM EDT Body Mass Index 37.77 02/12/2014 9:20 AM EDT documented in this encounter Progress Notes Abdirahman Patton, - 02/12/2014 11:48 AM EDT Electrophysiology Consult Date of Consultation: 02/12/2014 Place of Service: Electrophysiology Clinic [address] Reason for Consult:supraventricular tachycardia HPI: Usha Huizar is a 53 y.o. female with a past medical history significant for a long-standing history of palpitations and fast heart rates that dates back to her teenage years.over the last 20-30 years she has been able to stop these [...] procedure and medications were answered to her satisfaction. Past Medical History Diagnosis Date ??? Psoriasis ??? Obesity ??? HTN (hypertension) ??? Hypothyroidism ??? Hyperlipidemia ??? Migraine ??? Palpitations started on beta lena approx one month ago Past Surgical History Procedure Date ??? Orthopedic surgery cyst removed from bone in pelvis ??? Finger surgery ??? Sling oper stres incontinence 09/20/2012 URETHRAL SUSPENSION, SLING\FASCIA OR SYNTHETIC performed by Jozef Kent MD at [facility] Allergies Allergen Reactions ??? Shellfish Containing Products Angioedema ??? Pollen Extracts Stuffy head headache. Review of Systems:10 system review of systems obtained and negative for pertinent positives except as listed below Cardiovascular:palpitations, tachycardia, skipped beats Neurological:dizziness, lightheadedness, near syncope Out-Patient Medications: Medications 02/12/14 0918 Medication Sig Taking? amitriptyline (ELAVIL) 50 mg tablet Take 1 tablet by mouth every evening. Yes ibuprofen (ADVIL;MOTRIN) 600 mg tablet Take 1 tablet by mouth every 6 hours as needed for Pain. Yes metoprolol tartrate (LOPRESSOR) 25 mg tablet Take 25 mg by mouth 2 times daily. Yes hydrochlorothiazide (HYDRODIURIL) 25 mg tablet Take 25 mg by mouth daily. Yes simvastatin (ZOCOR) 20 mg tablet Take 20 mg by mouth nightly. Yes levothyroxine (SYNTHROID) 75 mcg tablet Take 75 mcg by mouth daily. Yes clobetasol (TEMOVATE) 0.05 % ointment Apply topically 2 times daily. For up to 2 weeks, then use on weekends only. Yes Family History: No family history on file. No family history of sudden cardiac Social History: History Social History ??? Marital Status: Spouse [...] History Narrative ??? No narrative on file Physical Exam: Last value Range last 8 hrs Temperature Heart Rate Heart Rate: 60 Heart Rate: [60] Blood Pressure BP: 132/78 mmHg BP: (132)/(78) Respiratory Rate Resp: -- SpO2 SpO2: 97 % SpO2: [97 %] General: MM pink and moist, well nourished, Anicteric, Acyanotic and Afebrile Eyes: PERRL, EOMI, sclera clear and anicteric E,N,T,M: Normocephalic/atraumatic, hearing grossly normal, Dentition fair Neck: Supple with no thyromegaly. JVP0cm above clavicle. No masses Respiratory: Good air entry bilaterally, No crackles, No wheezes, normal effort, no dullness to percussion or tactile fremitus Cardiac: PMI Nondisplaced, Physiologic S1, S2, No S3 or S4. There was no Murmur, no gallops/rubs, regular rhythm, carotid, abdominal, femoral bruit. no LE edema, 2+ radial/pedal pulses bilaterally Abdominal: Soft and non-tender with no organomegaly. Normal bowel sounds, no mass, no hernia, no indication for rectal or stool card Extremities: Normal gait, No atrophy, no clubbing/cyanosis, Normal ROM of cervical spine with no crepitus, mass, restriction, dysfunction and normal tone. Normal ROM of Thoracic spine with no crepitus,mass, restriction, dysfunction and normal tone. Skin:no rash, lesion, or ulcer. No induration or nodule Neurology: CN II-XII grossly intact, no loss of sensation, strength 5/5 in upper and lower extremities bilaterally, DTRs 2+ bilaterally. Non-focal exam Psychiatric: Normal mood and affect, Pt is alert and oriented x3, memory intact, normal insight. DATA: ECG:EKG from August 2013 was personally reviewed and analyzed by myself and shows sinus rhythm with aventricular rate of 60 beats per minute and no evidence of prolonged QT interval, preexcitation, channelopathy ECHO: Echocardiogram from August of this year shows no evidence of congenital malformation or significant valvular disease and shows normal left ventricular function and wall motion with ejection fraction 68%. Device ILR Report: See separate encounter from today Assessment: 1. Supraventricular tachycardia ?? Patient with documented symptomatic episodes (fast heart rates) ?? 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 A long discussion was held the patient today regarding the risks benefits options and alternatives of electrophysiology study with catheter ablation. Her questions regarding this procedure as well as the risks were explained to her satisfaction. She was given reading material information. I will have our schedulers call to set up a date for her procedure. 2. Near syncope ?? Currently there is been no direct correlation between tachycardia arrhythmias in bradycardia arrhythmias with the patient's near syncopal episodes as they are described as a separate entity from hersymptoms that occur with her supraventricular tachycardia. ?? I did describe to Usha today that there are many reasons for near syncopal episodes including both cardiac and neurogenic. I informed her that this could be related to changes in her blood pressurecausing her to feel this way. Side effects of Elavil do include problems with dizziness lightheadedness as well as increased peripheral vasodilation and problems with orthostatic hypotension. I have recommended to need to discuss with her primary care provider stopping the Elavil and see if these new symptoms get better. She needs to get the Elavil if these 2 weeks before she starts looking for improvement in symptoms. ?? I have also encouraged her to continue to use the loop recorder to document any episodes of the thenar symptoms that she is getting so they can be correlated with her rhythm. Abdirahman Patton DO [facility]iac Electrophysiology Department [place], [place] ) Pager [phone]) This note was created using [employer] Dictation Software. documented in this encounter Plan of Treatment Not on filedocumented as of this encounter Visit Diagnoses Diagnosis Near syncope - Primary Syncope and collapse Paroxysmal SVT (supraventricular tachyca rdia) Paroxysmal supraventricular tachycardia documented in this encounter Care Teams Transliterator Relationship Specialty Start Date End Date Jackie Gee MD PCP - General 09/09/11 03/06/14 [address] [place] [address] documented as of this encounter
--- OUTSIDE RECORDS SUMMARY | 2022-02-19 02:06 | XMS_ITS | Encounter Summary ---
:1960 Author Organization [facility] Address [place] [id number] Care Team Providers Name Role Phone Jackie Gee MD Primary Care Provider Reason for Visit Reason Comments Psoriasis Encounter Details Date Type Department Care Team Description 12/27/2011 Office Visit Dermatology Kaylie Johnson, Prurigo (Primary Dx) [place] [address] [facility] [address]-DERMATOLOGY [place] [address] Social History Tobacco Use Types Packs/Day Years Used Date Former Smoker Sex Assigned at Date Recorded Not on file documented as of this encounter Progress Notes Sherman High III, MD - 12/28/2011 4:46 PM EDT I directly supervised Dr. Johnson during this office visit. Dr. Johnson presented the history and physical exam to me. I then saw and examined this patient with Dr. Johnson. We reviewed the history and pertinent details and I confirmed the physical findings. I agree with the details of the history and physical exam as documented in Dr. Johnson's note. Kaylie Johnson MD - 12/27/2011 1:59 PM EDT DERMATOLOGY - NEW PATIENT NOTE Date of service: 12/27/2011 Usha Huizar : 1960 Dermatology Resident Note: Kaylie Johnson MD Chief Problem: psoriaisis Chief Complaint Patient presents with ??? Psoriasis Ms. Usha Huizar is a 51 y.o. female. This is a new patient to me. Seen in consultation at the request of Jackie Gee specifically for the evaluation and management of the above problem. HPI: Ms. Huizar presents for treatment of her psoriasis. She states she has had psoriasis since she was a teenager. She states she has used various topical medications in the past, but she does not recall the names. Per her PCP note in March, she has been on various topical steroids with minimal relief. She has was given Dovenox in March, but she does not recall if that was helpful. She has never been on oral medication or phototherapy for psoriasis. She prefers to use topical medications for her psoriasis. Past Skin History: psoriasis Medical History: There is no problem list on file for this patient. Medications: Current outpatient prescriptions ordered prior to encounter Medication Sig Dispense Refill ??? lisinopril (PRINIVIL;ZESTRIL) 10 mg tablet Allergies: No Known Allergies Family History: No family h/o melanoma, or Non Melanoma Skin Cancer She states psoriasis may run in her family, but she is unsure what family members. 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 Skin: A full skin examination was performed. This includes the head, neck, face and scalp including behind the ears. The chest, abdomen, back, and axillae, as well as the arms, hands, palms, fingers. Legs, feet, toes and soles were also examined. Buttocks and breasts were also examined with patient consent. Genitalia were not examined. Specific skin findings: 1.Scattered well-demarcated, thick erythematous plaques with silvery scale distributed: bilateral lower legs, elbows, a few on trunk Approximately 2% body surface area involved. Erythema is mild The amount of scale is mild Nails: One nail with a few pits Scalp: None at this time Joints: Denies The worst area(s) of psoriasis for this patient are: bilateral lower legs 2. Two 0.5cm firm pink papules with central erosion without intervening rash, subtle hyperpigmentation around lesions, one on right anterior cid, one on left posterior cid, consistent with Prurigo Nodularis Diagnosis/Assessment/Treatment Plan: 1. Psoriasis, mild at this time. Patient states gets worse in winter months. Prescriptions: Clobetasol ointment to be used bid for up to weeks. She may then use triamcinolone ointment, twice daily and clobetasol on weekends if the plaques persist. Phototherapy was also discussed as a future option, but the patient lives 90 [address] [place], so this would be difficult for her logistically. Will reassess in 3 months. 2. Prurigo Nodularis- .Kenalog 5 mg/mL injected intralesionally, 0.1 mL to each lesion, total of 0.2ml. Discussed indication for this procedure and potential side effects including ulceration and skin atrophy. Follow-up: RTC in 3 months. Instructed to call for questions or concerns. Kaylie Johnson MD Resident in Dermatology [facility] Patient seen and evaluated with staff powder hand: Sherman High MD Section of Dermatology [facility] documented in this encounter Plan of Treatment Not on filedocumented as of this encounter Visit Diagnoses Diagnosis Prurigo - Primary documented in this encounter Administered Medications Inactive Administered Medications - up to 3 most recent administrations Medication Order MAR Action Action Date Dose Rate Site triamcinolone acetonide (KENALOG) Given 12/27/2011 3:08 PM EDT 5 mg injection 5 mg 5 mg, Intra-Lesional, ONCE, 1 dose, On 12/27/11 at 1530, Routine documented in this encounter Care Teams Pack Worker Supervisor Relationship Specialty Start Date End Date Jackie Gee MD PCP - General 09/09/11 03/06/14 [address] [place] [address] documented as of this encounter
--- OUTSIDE RECORDS SUMMARY | 2022-02-19 02:06 | XMS_ITS | Encounter Summary ---
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) Formerly [facility], later [facility] [address] [place] OBSTETRICS & [id number] GYNECOLOGY [phone] [place] [id number] Social History Tobacco Use Types Packs/Day Years [...] Sign Reading Time Taken Comments Blood Pressure 102/66 09/12/2012 12:39 PM EDT Pulse 56 09/12/2012 12:39 PM EDT Temperature 36.8 ??C (98.3 ??F) 09/12/2012 12:39 PM EDT Respiratory Rate 14 09/12/2012 12:39 PM EDT Oxygen Saturation - - Inhaled Oxygen Concentration - - Weight 103.1 kg (227 lb 3.2 oz) 09/12/2012 12:39 PM EDT Height 165.1 cm (5' 5) 09/12/2012 12:39 PM EDT Body Mass Index 37.81 09/12/2012 12:39 PM EDT documented in this encounter Progress Notes Jozef Kent MD - 09/12/2012 2:41 PM EDT Patient is scheduled for a tranobturator sling. I discussed the planned procedure with the patient, including risks and benefits. We reviewed the consent form, which the patient has signed. As part of our discussion, we reviewed risks including but not limited to infection, bleeding, injury to bladder, urethra, ureters, and bowels. We discussed that we perform cystoscopy to assure no urinary tract injury prior to ending the procedure. We discussedrare risks of peripheral leg nerve injury due to positioning, retraction, or sutures. We also reviewed potential for urinary retention or continued incontinence depending on tensioning of the mesh. We reviewed risks of mesh erosion (into the vaginal or urethra) that can occur even many years out from surgery and risks of persistent pain, including dyspareunia and thigh pain. We discussed that transvaginal mesh anti-incontinence procedures are different than transvaginal mesh prolapse procedures in the amount of mesh and the complications that can ensue, and the FDA warnings are related to incontinence procedures. documented in this encounter H&P Notes Devika Kingsley APRN - 09/12/2012 1:43 PM EDT Date of Visit: 09/12/2012 Planned Surgery Date: 09/20/12 Planned Procedure: Transobturator sling Indications/Pre-op Diagnosis: Stress incontinence HISTORY OF PRESENT ILLNESS: Ms. Huizar is a 51 y.o. para 2 woman who presents for her preoperative examination. Patient with history of symptomatic stress incontinence, desires surgical repair. Pleasesee prior encounter notes for more detail. REVIEW OF SYMPTOMS/FUNCTIONAL STATUS: Chest pain: no Shortness of breath: no Can you walk 1/2 mile or more? yes Can you go up more than 2 flights of stairs? yes Patient can dress herself? yes Prepare meals herself? yes Bleeding disorder (h/o nose bleeds, excessive bleeding following a surgical procedure?): no Personal or Family history of blood clots?: not in patient, PGM had a DVT Sexually active?: yes Last PAP smear: With in the year- normal Past anesthesia problems?: no Past Medical History Diagnosis Date ??? Psoriasis ??? Obesity ??? HTN (hypertension) ??? Hypothyroidism ??? Hyperlipidemia ??? Migraine Past Surgical History Procedure Date ??? Orthopedic surgery cyst removed from bone in pelvis ??? 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 Shellfish Containing Products Angioedema Outpatient Prescriptions Marked as Taking for the 09/12/12 encounter (Office Visit) with Devika Kingsley APRN Medication Sig Dispense Refill ??? hydrochlorothiazide (HYDRODIURIL) 25 mg tablet Take 25 mg by mouth daily. ??? aspirin 81 mg chewable tablet Take 81 mg by mouth daily. ??? amitriptyline (ELAVIL) [...] then useon weekends only. 45 g 2 ??? lisinopril (PRINIVIL;ZESTRIL) 10 mg tablet Blood pressure 102/66, pulse 56, temperature 36.8 ??C (98.3 ??F), temperature source Oral, resp. rate 14, height 165.1 cm (5' 5), weight 103.057 kg (227 lb 3.2 oz). EXAM: General: alert/oriented x 3, NAD, cooperative ENT: No lymphadenopathy, pharynx clear, Good dentition Neck: No lymphadenopathy, no thyromegaly Chest: CTA rustam COR: RRR no murmur appreciated Abdomen: soft, non tender, no organomegaly Pelvic: deferred cough stress test Rectal: deferred to operating room. Extremities: no calf tenderness, no swelling IMPRESSION: Usha Huizar is a 51 y.o. woman with stress incontinence who desires surgical repair. PLAN: We will proceed with the above procedures on 09/20/12. Anesthesia preference: per anesthesia (x) Medications and herbal preparations reviewed Discussed: (x) Discontinuation of all herbal preparations, vitamin E 7-10 days preop (x) ASA, NSAIDS, Plavix: ( ) Hormones: ?? (x) NPO after MN ( ) Clear liquids 24 hours prior to surgery. DEVIKA KINGSLEY APRN Division of Female Pelvic Medicine and Reconstructive Surgery documented in this encounter Miscellaneous Notes Addendum Note - Adilene Chase - 09/12/2012 3:38 PM EDT Addended by: ADILENE CHASE on: 09/12/2012 03:38 PM Modules accepted: Orders Addendum Note - Devika Kingsley APRN - 09/12/2012 2:22 PM EDT Addended by: DEVIKA KINGSLEY on: 09/12/2012 02:22 PM Modules accepted: Orders documented in this encounter Plan of Treatment Not on filedocumented as of this encounter Procedures Procedure Name Priority Date/Time Associated Diagnosis Comme nts DIFFERENTIAL, Routine 09/12/2012 3:25 PM Results for this AUTOMATED EDT procedure are i n the results section. TYPE AND SCREEN, Routine 09/12/2012 3:25 PM Pre-op exam SDP (FUTURE EDT SURGERY, [facility] SAME DAY PROGRAM ONLY) ABO/RH TYPING Routine 09/12/2012 3:25 PM Pre-op exam Results for this EDT procedure are i n the results section. CBC (WITH DIFF) Routine 09/12/2012 3:25 PM Pre-op exam Result s for this EDT procedure are i n the results section. ANTIBODY SCREEN Routine 09/12/2012 3:25 PM Pre-op exam Result s for this EDT procedure are i n the results section. documented in this encounter Results Differential, Automated (09/12/2012 3:25 PM EDT) P athologist Signature Neutrophils % 56.1 34.0 - CERNER 71.0 % MILLENNIUM Neutr Abs (ANC) 4.13 1.50 - CERNER 6.30 MILLENNIUM x10(3)/mcL Lymphocytes % 35.2 19.0 - CERNER 53.0 % MILLENNIUM Lymphocytes Abs 2.6 1.0 - 3.6 CERNER x10(3)/mcL MILLENNIUM Monocytes % 5.4 4.0 - 13.0 CERNER % MILLENNIUM Monocyte Abs 0.4 0.2 - 1.0 CERNER x10(3)/mcL MILLENNIUM Eosinophils % 2.7 0.0 - 7.0 CERNER % MILLENNIUM Eosinophils Abs 0.2 0.0 - 0.5 CERNER x10(3)/mcL MILLENNIUM Basophils % 0.5 0.0 - 2.0 CERNER % MILLENNIUM Basophils Abs 0.0 0.0 - 0.2 CERNER x10(3)/mcL MILLENNIUM Immature Gran % 0.10 0.00 - CERNER 0.66 % MILLENNIUM Comment: Immature granulocytes(IG's)percentage an d absolute count will include metamyelocytes, myelocytes, and promyelo cytes. Blood smears from CBCs yielding IG's will be scanned manually for concor dance. If this scan disagrees with the automated IG or if promyelocytes are not ed, a manual differential will be performed. Ayala Gran Abs 0.01 0.00 - 0.05 x10(3)/mcL CER NER MILLENNIUM Specimen Anatomical Collection Method Collection Time Receive d Time (Source) Location / / Volume Laterality Blood specimen 09/12/2012 3:25 PM 013 4:01 (specimen) EDT PM EDT Jozef Kent MD HEMATOLOGY ORDERABLES Performing Organization Address City/State/ZIP [place] [address] CERNER MILLENNIUM Antibody screen (09/12/2012 3:25 PM EDT) Analysis Performed At Patho logist Time Signature Ab Screen Negative CERNER Interp MILLENNIUM Expires at [id number] CERNER 2359 on: MILLENNIUM Specimen Anatomical Collection Method Collection Time Receive d Time (Source) Location / / Volume Laterality Blood specimen 09/12/2012 3:25 PM 013 4:23 (specimen) EDT PM EDT Resulting Agency Comment Spec In Lab Jozef Kent MD BLOOD BANK ORDERABLES Performing Organization Address City/[facility]/ZIP Code Phon e Number [address] [facility] MILLENNIUM ABO/Rh Typing (09/12/2012 3:25 PM EDT) athologist Signature ABORh Type B Pos [facility] M[facility] Specimen Anatomical Collection Method Collection Time Receive d Time (Source) Location / / Volume Laterality Blood specimen 09/12/2012 3:25 PM 013 4:23 (specimen) EDT PM EDT Resulting Agency Comment Spec In Lab Jozef Kent MD BLOOD BANK ORDERABLES Performing Organization Address City/[facility]/[place] [address] [facility] MILLENNIUM CBC (with Diff) (09/12/2012 3:25 PM EDT) P athologist Signature WBC 7.4 4.0 - 10.0 CERNER x10(3)/mcL MILLENNIUM RBC 4.49 3.93 - 5.22 CERNER x10(6)/mcL MILLENNIUM Hemoglobin 13.3 11.2 - 15.7 CERNER gm/dL MILLENNIUM Hematocrit 39.8 34.0 - 45.0 CERNER % MILLENNIUM MCV 88.6 79.0 - 94.0 CERNER fL MILLENNIUM MCH 29.6 26.6 - 32.2 CERNER pg MILLENNIUM MCHC 33.4 32.0 - 36.5 CERNER gm/dL MILLENNIUM Platelets 274 145 - 370 CERNER x10(3)/mcL MILLENNIUM RDWSD 39.8 35.0 - 46.0 CERNER fL MILLENNIUM RDWCV 12.5 10.9 - 14.4 CERNER % MILLENNIUM MPV 10.2 9.0 - 12.0 CERNER fL MILLENNIUM Specimen Anatomical Collection Method Collection Time Receive d Time (Source) Location / / Volume Laterality Blood specimen 09/12/2012 3:25 PM 013 4:01 (specimen) EDT PM EDT Resulting Agency Comment Spec In Lab Jozef Kent MD HEMATOLOGY ORDERABLES Performing Organization Address City/State/ZIP Code Phon e Number [place] [phone] [address] [facility] documented in this encounter Visit Diagnoses Diagnosis Pre-op exam - Primary Preoperative examination, unspecified documented in this encounter Care Teams Highway Landscape Architect Relationship Specialty Start Date End Date Jackie Gee MD PCP - General 09/09/11 03/06/14 [address] [place] [address] documented as of this encounter
--- OUTSIDE RECORDS SUMMARY | 2022-02-19 02:06 | XMS_ITS | Encounter Summary ---
:1960 Author Organization [facility] Address [facility] [place] [address] Care Team Providers Name Role Phone Jackie Gee MD Primary Care Provider Encounter Details Date Type Department Care Team Description 09/20/2012 Surgery Main Operating Room Jozef Kent, UR ETHRAL SUSPENSION, Seema Rios [facility] SLING\FASCIA OR Hospital [facility] SYNTHETIC (WRVU 12.13) [facility] [address] [place] [facility] [place] [address] GYNECOLOGY [phone] [place], [place] [address] (Wo rk) Social History Tobacco [...] Sign Reading Time Taken Comments Blood Pressure 137/80 09/20/2012 9:00 AM EDT Pulse 66 09/20/2012 9:00 AM EDT Temperature 36.1 ??C (97 ??F) 09/20/2012 8:43 AM EDT Respiratory Rate 16 09/20/2012 9:00 AM EDT Oxygen Saturation 100% 09/20/2012 9:00 AM EDT Inhaled Oxygen Concentration - - Weight 103 kg (227 lb) 09/20/2012 6:00 AM EDT Height - - Body Mass Index 37.77 09/12/2012 12:39 PM EDT documented in this encounter Discharge Instructions Discharge InstructionsLaura Saunders RN - 09/20/2012 8:52 AM EDT POST ANESTHESIA INSTRUCTIONS Go home, rest, use caution on stairs. Change positions slowly. Do not smoke if you are alone. Diet light to regular as tolerated today. If nausea occurs start with clear liquids and progress slowly. No driving, operating machinery, alcoholic beverages and no important decisions for 24 hours. Monitor IV site for signs and symptoms of infection: increasing redness, swelling, foul drainage, ifoccurs contact M.D. Patients who have had endotrachial tubes (this tube, used by anesthesia department, is passed down your throat after you are asleep, to ensure safe air passage during your operation). A sore throat is normal due to the tube. Cold liquids or soothing lozenges will help ease the discomfort. The generalized muscle aches are due to the medication given to you just before the tube is inserted. As the medication wears off, you may develop muscle soreness, which usually goes away in 12-24 hours. Patient InstructionsJesus Giles MD - 09/20/2012 6:34 AM EDT PATIENT DISCHARGE INSTRUCTIONS Call your doctor if you develop: --A fever over 101 degrees --Severe pain --Heavy vaginal bleeding --Increasing pain, redness, or discharge at your incision --It is normal to have light spotting from the vagina for up to 1 week Activity level: No heavy lifting, pushing or pulling for 6 weeks. No sexual intercourse, no tampons,nothing in the vagina for 6 weeks. Diet: You may resume your regular diet. Be sure you drink plenty of fluids. Please use colace 100-200 mg twice daily for the entire time that you are taking pain medication to keep your bowel movementssoft and regular. If you are constipated or have not had a bowel movement in 3 days, please use milkof magnesia (or miralax) as directed over the counter. Driving: Do not drive until you are off of all narcotic medications. Shower/Bath: Showering is fine. Short baths are OK but you should avoid having any incision submerged for more than 10-15 minutes for the next 2 weeks. Wound Care: None. You have surgical glue over your incisions in your groin and suture on your vaginal wall. The sutures will dissolve on their own. Special Physician Instructions: Pain medications include percocet and ibuprofen Please use ibuprofen 600 mg every 6 hours with food around the clock for the next several days and then after that use it only as needed. Please use the percocet (1-2 tablets) every 4-6 hours as needed for pain that breaks through the motrin. documented in this encounter Medications at Time of Discharge Medication Sig Dispensed Refills Start Date End Date hydrochlorothiazide Take 25 mg by 0 (HYDRODIURIL) 25 mg tablet mouth daily. simvastatin (ZOCOR) 20 mg Take 20 mg by 0 tablet mouth nightly. levothyroxine (SYNTHROID) 75 Take 75 mcg by 0 mcg tablet mouth daily. docusate sodium (COLACE) 100 Take 1 capsule 30 capsule 1 09/30/2012 mg capsule by mouth 2 times daily for 10 days. ibuprofen (ADVIL;MOTRIN) 600 Take 1 tablet by 30 tablet 2 0 09/20/2012 03/29/2014 mg tablet mouth every 6 hours as needed for Pain. OXYcodone-acetaminophen Take 1-2 tablets 15 tablet 0 201210/31/2012 (PERCOCET) 5-325 mg per by mouth every 4 tablet hours as needed for Pain. metoprolol tartrate Take 25 mg by 0 (LOPRESSOR) 25 mg tablet mouth 2 times daily. amitriptyline (ELAVIL) 25 mg Take 25 mg by 0 10/09/2013 tablet mouth every evening. 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 Kent on 09/12/2012. (x) Condition unchanged since H&P originally performed. 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 I counseled her that she may need some narcotic medication and cannot drive. Additionally, she will need further time to heal. Will discuss recommend time off work with Dr. Kent. JESUS GILES MD 09/20/2012 documented in this encounter Procedure Notes Provider, Scanning - 09/20/2012 6:12 PM EDTAssociated Order(s): SCAN DOC: IMPLANTABLE DEVICES documented in this encounter Miscellaneous Notes Miscellaneous - Provider, Scanning - 09/20/2012 6:17 PM EDT Op Note - Jozef Kent MD - 09/20/2012 8:55 AM EDT [facility] Operative Note Patient Name: Usha Huizar : [id number] MR#: [id number] Case Date: 09/20/2012 Surgeon: Surgeon(s) and Role: * Jozef Kent MD - Primary * Jesus Giles MD - Resident-Surgeon Chief Preoperative diagnosis: stress incontinence Postoperative diagnosis: stress incontinence Procedure(s): URETHRAL SUSPENSION, SLING\FASCIA OR SYNTHETIC ([place] Transobturator sling) Anesthesia: General Findings: normal bladder and conclusion of procedure Complications: none Fluids: per anesthesia record Estimated Blood Loss: 50 cc Drains: meyers Disposition: awakened from anesthesia, extubated and taken to the recovery room in a stable condition, having suffered no apparent untoward event. Condition: doing well without problems Patient was positioned in the dorsal lithotomy position in adjustable Yellow[place] stirrups in what wasfelt to be a neurologically safe positioning. She had knee- high intermittent pneumatic compression stockings in place throughout the procedure. She received 2 gram of Ancef IV prior to incision. Exam under anesthesia was performed. She was prepped and draped in the usual sterile fashion. A timeout protocol was adhered to, confirming the patient's identity, planned procedure and safety measures. A site just lateral to the ischiopubic ramus at junction between the adductor longus and gracilis muscles was identified and injected with 5 cc of 0.25% marcaine. This was repeated on the opposite side. Stab wound incisions were made in the skin at both sites. The mid-urethra was identified with aid of a urethral catheter. The mid-urethral vaginal wall was infiltrated with 1% lidocaine with epinephrine, extending out to the sulci bilaterally. A 2 cm vertical incision was in the suburethral vagina and a full thickness dissection performed in the paraurethral space out to the inferior pubic rami bilaterally. A helical Monarc needle was used to marin the obturator foramen via the lateral skin incision. The needle was aligned with the handle pointing to the ipsilateral ischial tuberosity. This was performed bilaterally. The Monarc sling was attached to the needle and retrieved. This was performed bilaterally. Cystoscopy was performed with a 70-degree cystoscope with reassuring findings. The mesh was tensioned with a #10 Renita diliator to create a gap between the urethra and mesh. The mesh was deployed by removing the protective plastic coating bilaterally. The vaginal wall was reapproximated with 2-0 Vicryl in a running fashion. The obturator skin incisions were reapproximated with DermaFlex glue. Sponge and needle counts were correct at the conclusion of the procedure. JOZEF KENT MD Division of Female Pelvic Medicine & Reconstructive Surgery Op Note - Jozef Kent MD - 09/20/2012 8:54 AM EDT Entered in duplicate. See Dr. Kent's operative note. JESUS GILES MD Obgyn PGY4 Brief Op Note - Jozef Kent MD - 09/20/2012 8:54 AM EDT Brief Operative Note Patient Name: Usha Huizar : [id number] MR#: [id number] Case Date: 09/20/2012 Surgeon: Surgeon(s) and Role: * Jozef Kent MD - Primary * Jesus Giles MD - Resident-Surgeon Chief Preoperative diagnosis: stress incontinence Postoperative diagnosis: stress incontinence Procedure(s): URETHRAL SUSPENSION, SLING\FASCIA OR SYNTHETIC Anesthesia: General Findings: normal bladder and conclusion of procedure Complications: none Fluids: per anesthesia record Estimated Blood Loss: 50 cc Drains: meyers Disposition: awakened from anesthesia, extubated and taken to the recovery room in a stable condition, having suffered no apparent untoward event. Condition: doing well without problems (Please see the Surgical Encounter Summary for any Implant and Specimen details pertinent to this patient.) OR Attestation - Jozef Kent MD - 09/20/2012 8:53 AM EDT Attestation: Case Date: 09/20/2012 I was present and I participated during the entire procedure (does not need to include opening and closing). JOZEF KENT MD 09/20/2012 Miscellaneous - Provider, Scanning - 09/20/2012 7:05 AM EDT documented in this encounter Plan of Treatment Not on filedocumented as of this encounter Procedures Procedure Name Priority Date/Time Associated Diagnosis Comme nts IMPLANTABLE DEVICES 09/20/2012 6:12 PM Re sults for this SCAN EDT procedure are i n the results section. URETHRAL SUSPENSION, 09/20/2012 7:17 AM stress inconti nence SLING\FASCIA OR EDT SYNTHETIC (WRVU 12.13) URETHRAL Routine 09/20/2012 5:49 AM SUSPENSION,SLING\FAS EDT [place] OR SYNTHETIC documented in this encounter Results SCAN DOC: IMPLANTABLE DEVICES (09/20/2012 6:12 PM EDT) Narrative 09/20/2012 6:12 PM EDT Procedure Note Provider, Scanning - 09/20/2012 6:12 PM EDT Scanning Provider MEDIA MGR SCAN EXT ORDR/RSLT documented in this encounter Visit Diagnoses Not on filedocumented in this encounter Administered Medications Inactive Administered Medications - up to 3 most recent administrations Medication Order MAR Action Action Date Dose Rate Site BUpivacaine (PF) Given 09/20/2012 8:05 AM 25 mg 19- Surgical Site (MARCAINE) 0.25 % (2.5 EDT mg/mL) injection ONCE PRN, Starting on Tue09/20/12 at 0805, Until Tue09/20/12 at 1150, Intra-Operative (Intra-Procedure), Routine lactated ringers infusion 1,000 mL New Bag 09/20/2012 7:00 AM EDT mL 1,000 mL, at 100 mL/hr, Intravenous, CONTINUOUS, Starting on Tue09/20/12 at 0615, Until Tue09/20/12 at 1150, Day of Surgery (Day of Procedure) New Bag 09/20/2012 6:27 AM EDT 1,000 mLs 100 mL/hr lidocaine-epiNEPHrine 1 Given 09/20/2012 8:12 AM 7 mLs 19- Surgical Site %-1:200,000 injection EDT ONCE PRN, Starting on Tue09/20/12 at 0812, Until Tue09/20/12 at 1150, Intra-Operative (Intra-Procedure), Routine documented in this encounter Active and Recently Administered Medications Times are shown in EDT. Continuous Medication Order 09/18/2012 2012 09/20/2012 lactated ringers infusion 1,000 mL (CANCELED) 0627 (New Bag - Provider: Alba Gomez RN)0700 (New Bag - Provider: Seema Martinez CRNA)0825 (Anesthesia Volume Adjustment - Provider: Seema Martinez CRNA) 1,000 mL, at 100 mL/hr, Intravenous, CON TINUOUS, Starting Tue09/20/12 at 0615, Until Tue09/20/12 at 1150, Day of Surgery (Day of Procedure) PRN Medication Order 09/18/2012 2012 09/20/2012 BUpivacaine (PF) (MARCAINE) 0.25 % (2.5 mg/mL) injection (CANCEL ED) 804 (Given - Provider: Jozef Kent MD) ONCE PRN, Starting Tue09/20/12 at 0805, Until Tue09/20/12 at 1150, Intra- Operative (Intra-Procedure), Routine lidocaine-epiNEPHrine 1 %-1:200,000 injection (CANCELED) 811 (Given - Provider: Jozef Kent MD) ONCE PRN, Starting Tue09/20/12 at 0812, Until Tue09/20/12 at 1150, Intra- Operative (Intra-Procedure), Routine documented in this encounter Care Teams Chicken Sexer Relationship Specialty Start Date End Date Jackie Gee MD PCP - General 09/09/11 03/06/14 [address] [place] [address] documented as of this encounter
--- OUTSIDE RECORDS SUMMARY | 2022-02-19 02:06 | XMS_ITS | Encounter Summary ---
:1960 Author Organization [facility] [address] Care Team Providers Name Role Phone Jackie Gee MD Primary Care Provider Reason for Visit Reason Comments Urinary Incontinence Encounter Details Date Type Department Care Team Description 06/12/2012 Office Visit Obstetrics and Jozef Kent, Urinary incontinence Gynecology at [facility] MD (Primary Dx) [address] [place], [place] OBSTETRICS & [phone] GYNECOLOGY [phone] [place], [place] [address] Social History Tobacco Use Types Packs/Day Years Used Date Former Smoker Cigarettes 1.5 10 Quit: 06/12/18 88 Smokeless Tobacco: Never Used Sex Assigned at Date Recorded Not on file documented as of this encounter Last Filed Vital Signs Vital Sign Reading Time Taken Comments Blood Pressure 144/80 06/12/2012 2:13 PM EST Pulse 72 06/12/2012 2:13 PM EST Temperature - - Respiratory Rate - - Oxygen Saturation - - Inhaled Oxygen Concentration - - Weight 110.2 kg (243 lb) 06/12/2012 2:13 PM EST Height 165.1 cm (5' 5) 06/12/2012 2:13 PM EST Body Mass Index 40.44 06/12/2012 2:13 PM EST documented in this encounter Progress Notes Jozef Kent MD - 06/12/2012 2:33 PM EST Female Pelvic Medicine and Reconstructive Surgery @ [facility] Patient Name: Usha Huizar Patient Primary Care Provider: Jackie Gee MD Referring Provider: Heidi Haskins Chief Complaint: Urinary incontinence History of Present Illness: Ms. Huizar is a 51 y.o. old para 2 woman, seen at the kind request of Heidi Haskins. She presents for evaluation and assessment of urinary incontinence of 25 years duration. Symptoms have been progressive over the last few years. She will leak with anything Walking standing, moving. Cough or sneeze. Denies symptoms of urge incontinence Goals for visit: 1. Fix the problem Bladder Function Urinary incontinence: yes No. episodes: Several times a day. Pad use (per day): 3 Pad type: Thick pad Daytime voids: 5-6 Nocturia: 0 Previous urinary incontinence treatment (Medical/Behavioral/Surgical): denies Storage symptoms Urinary frequency Nocturia x Stress urinary incontinence - leakage with exertion, cough/sneeze Urge urinary incontinence - leakage preceded immediately by urge to void Noctural enuresis - NOT IN ASSOCIATION WITH URGE Continuous urinary leakage Other: (e,g. giggle, intercourse-related) Bladder sensation x Normal - aware of filling and increased sensation up to desire to void Increased - feels an early and persistent need to void Reduced - aware of filling but NOT definite desire to void Absent - NO sensation of filling or need to void Non-specific - No specific bladder symptoms during filling or void Voiding symptoms x None Slow stream Spraying Intermittent stream - stop/start on > 1 occasion during void Straining - muscular effort to initiate, maintain OR improve stream Terminal dribble - prolonged final part of void Feeling of incomplete emptying Bladder irritants: Caffeine intake: 2 cups in am, tea Cigarette smoking (packs, time, if quit when): denies Alcohol: a few drinks a month Pelvic Organ Prolapse (POP) Any personally see or feel a vaginal bulge? no What precipitates prolapse or symptoms of prolapse? na Extent of protrusion: na Previous treatment for POP (physical therapy, pessary, surgery)?: denies Bowel Function Fecal incontinence (yes/no): denies Number of fecal incontinent episodes (day/week): na Number of bowel movements (day/week): 1/d Defecatory Dysfunction: Symptom Presence Symptom Presence NONE x Incomplete Emptying Straining Infrequent stools (<3 week) Splinting Abdominal discomfort Loose stools Defecatory urgency Hard stools Other Sexual Function Active?: yes Pain with intercourse?: denies If yes, insertional / deep?: na Desire to retain sexual function?: yes Gynecologic/Obstetric History: Last PAP smear: 04/2012 Past Medical History Diagnosis Date ??? Psoriasis ??? Obesity ??? HTN (hypertension) ??? Hypothyroidism ??? Hyperlipidemia ??? Migraine Past Surgical History Procedure Date ??? Orthopedic surgery cyst removed from bone in pelvis ??? Finger surgery Outpatient Prescriptions Marked as Taking for the 06/12/12 encounter (Office Visit) with Jozef Kent MD Medication Sig Dispense Refill ??? hydrochlorothiazide (HYDRODIURIL) [...] 2 ??? lisinopril (PRINIVIL;ZESTRIL) 10 mg tablet Allergies Allergen Reactions ??? Shellfish Containing Products Angioedema History Social History ??? Marital Status: Spouse Name: N/A Number of Children: N/A ??? Years of Education: N/A Occupational History ??? Not on file. Social History Main Topics ??? Smoking status: Former Smoker -- 1.5 packs/day for 10 years Types: Cigarettes Quit date: 06/12/1987 ??? Smokeless tobacco: Never Used ??? Alcohol Use: Not on file ??? Drug Use: Not on file ??? Sexually Active: Not on file Other Topics Concern ??? Not on file Social History Narrative ??? No narrative on file No family history on file. Family history: denies history of gynecologic cancer ROS: Review of all other systems negative except for those mentioned above or indicated below: System Symptom Presence Constitutional Weight Loss Weight gain Fatigue x Eyes Vision changes ENT/Mouth Sinus problems Mouth sores Cardiovascular Chest pain CURRY Leg swelling Heart palpitations X (not worked up) Respiratory Wheezing Hemoptysis SOB Chronic cough GI Nausea/vomiting Abdominal pain Musculoskeletal Muscle weakness Skin/breast Pain in breast Discharge Masses Rash/ulcer Neurological Dizziness Numbness Trouble Walking Psychiatric Depression Anxiety Endocrine Abnormal thirst Hot flashes Hematologic Frequent bruising Blood clots (DVT / PE) Prior problems w/ anesthesia Outside medical records reviewed: Notes from Dr. Haskins OBJECTIVE: Bladder scan (to exclude urinary retention): 10ml Urine Dip (to rule out infection): negative for all components Blood pressure 144/80, pulse 72, height 165.1 cm (5' 5), weight 110.224 kg (243 lb), last menstrual period 05/28/2012. General: normal appearing female, pleasant mood, normal speech Skin: skin of abdomen/pelvis normal Respiratory: clear to auscultation bilaterally Neuro: no paraspinous tenderness; saddle sensory function (S2-4) intact in the pelvic area to touch Cardiac: regular rate and rhythm, no appreciated murmurs Gastrointestinal: no palpable masses/organomegaly, soft/nontender, no appreciable hernia Musculoskeletal: levator ani tone (0-5): 3, levator ani contraction (0-5): 3, absent levator tenderness; lower extremity motor 5/5 bilaterally Pelvic: Cough stress test (empty supine): POSITIVE External Genitalia: Vulva, [place]'s and Bartholin glands normal, urethra without tenderness or mass Vagina: With Valsalva, the anterior vaginal wall comes 2 cm above the hymen, the posterior vagina wall comes1 cm above the hymen, and the cervix/apex comes 7 cm above the hymen Atrophic epithelium (yes/no)?: no Discharge?: scant Cervix: Normal appearance Bimanual (uterus/adnexa): without masses Rectovaginal: No masses appreciated, non-tender Rectocele (yes/no): small Enterocele (yes/no): no POP Q Measurements: Aa -2 Ba -2 C -7 GH 4,4 PB 3,3 TVL 10 Ap -1 Bp -1 D -8 Impression: Ms. Huizar is a .51 y.o. woman with: ?? Signs and symptoms of stress incontinence ?? Sporatic symptoms of a tachy arrythmia which has not been worked up Recommendations: I reviewed the anatomy and physiology of urinary incontinence. We discussed options for management including: Continued observation, pelvic floor exercises (supervised or unsupervised), pessary and/or surgery. We discussed the procedure of transobturator sling including the use of mesh and the FDA warnings, and a description of the procedure itself Based on the patients expressed goals for management I have recommended the following: ?? Patient to see PCP for work of of intermittent tachycardia ?? To have transobturator sling scheduled once medically cleared. I spent 60 minutes total with the patient, with 35 minutes of the time spent [id number] in discussing her diagnosis and reviewing options for treatment. ( ) ACOG or other informational pamphlets given to patient JOZEF KENT MD Division of Female Pelvic Medicine/Reconstructive Surgery CC: Jackie Gee MD Elaine Paul documented in this encounter Plan of Treatment Not on filedocumented as of this encounter Procedures Procedure Name Priority Date/Time Associated Diagnosis Comme nts BLADDER SCANNER Routine 06/12/2012 Urinary incontinence Resu lts for this procedure are i n the results section . POCT URINE DIPSTICK Routine 06/12/2012 Urinary incontinence Results for this procedure are i n the results section . documented in this encounter Results Bladder Scanner (06/12/2012) P athologist Signature Scan 10 ml. Jozef Kent MD UROLOGY ORDERABLES POCT urine dipstick (06/12/2012) P athologist Signature POC Sp [place] 1.002 - 1.030 POC pH, UA 5.0 - 8.5 POC Leuk, UA Neg. Negative - Negative POC Nitrite, Neg. Negative - UA Negative POC Protein, Negative - UA Negative mg/dL POC Glucose, Normal - UA Normal mg/dL POC Ketone, UA Negative - Negative POC Urobil, UA 0.2 - 1.0 mg/dL POC Bili, UA Negative - Negative POC Blood, UA Neg. Negative - Negative manas/uL Jozef Kent MD POINT OF CARE TEST ORDERABLE S documented in this encounter Visit Diagnoses Diagnosis Urinary incontinence - Primary Unspecified urinary incontinence documented in this encounter Care Teams Dredge Pumper Relationship Specialty Start Date End Date Jackie Gee MD PCP - General 09/09/11 03/06/14 [address] [place] [address] documented as of this encounter
--- OUTSIDE RECORDS SUMMARY | 2022-02-19 02:06 | XMS_ITS | Encounter Summary ---
:1960 Author Organization [facility] Address [facility] [address] [place] [address] Care Team Providers Name Role Phone Jackie Gee MD Primary Care Provider Encounter Details Date Type Department Care Team Description 04/18/2012 Hospital Encounter Mammography at [facility] Jackie Glover MD [address] [place] [address] [place] [address] Social History Tobacco Use Types Packs/Day Years Used Date Former Smoker Sex Assigned at Date Recorded Not on file documented as of this encounter Medications at Time of Discharge Medication Sig Dispensed Refills Start Date End Date simvastatin (ZOCOR) 20 mg Take 20 mg by mouth 0 tablet nightly. levothyroxine (SYNTHROID) Take 75 mcg by mouth 0 75 mcg tablet daily. amitriptyline (ELAVIL) 25 Take 25 mg by mouth 0 10/09/2013 mg tablet every evening. triamcinolone (KENALOG) Apply topically 2 60 g 2 12/2606/12/2012 0.1 % ointment times daily. On weekdays lisinopril 0 05/10/2006 09/12/2012 (PRINIVIL;ZESTRIL) 10 mg tablet documented as of this encounter Plan of Treatment Not on filedocumented as of this encounter Procedures Procedure Name Priority Date/Time Associated Diagnosis Comme nts MAMMO SCREENING CAD Routine 04/18/2012 10:14 AM R esults for this BILATERAL EST procedure are i n the results section. documented in this encounter Results Mammo digital bilateral Screening with CAD (04/18/2012 10:14 AM EST) Anatomical Region Laterality Modality Breast Bilateral Mammography Specimen (Source) Anatomical Collection Method Collection Time Re ceived Time Location / / Volume Laterality 04/18/2012 10:14 AM EST Narrative 04/19/2012 10:12 AM EST Reason for Exam: Screening ?? Technique: Craniocaudal (CC) and Medio-l ateral Oblique (MLO) views of both breasts obtained with direct digital cap ture. The exam was evaluated by CAD version 8. 3.17. ?? Findings: ?? This is a negative mammogram (ACR Catego ry 1). ??There is a stable fibroglandular pattern without significa nt change from prior studies. There is no mammographic evidence of can cer. ??The breasts are of scattered density. ?? CONCLUSION: This is a NEGATIVE mammogram (ACR Catego ry 1). ?? Routine screening mammography is recomme nded with the frequency dependent upon the patient's age and breast cancer risk factors. A letter has been sent to this patient b y the breast imaging center. Procedure Note Joaquina Simmons MD - 04/19/2012 Reason for Exam: Screening Technique: Craniocaudal (CC) and Medio-l ateral Oblique (MLO) views of both breasts obtained with direct digital cap ture. The exam was evaluated by CAD version 8. 3.17. Findings: This is a negative mammogram (ACR Catego ry 1). There is a stable fibroglandular pattern without significa nt change from prior studies. There is no mammographic evidence of can cer. The breasts are of scattered density. CONCLUSION: This is a NEGATIVE mammogram (ACR Catego ry 1). Routine screening mammography is recomme nded with the frequency dependent upon the patient's age and breast cancer risk factors. A letter has been sent to this patient b y the breast imaging center. Jackie Gee MD IMG MAMMO ORDERABLES documented in this encounter Visit Diagnoses Not on filedocumented in this encounter Care Teams Processor Inspector Relationship Specialty Start Date End Date Jackie Gee MD PCP - General 09/09/11 03/06/14 [address] [place], [place] [id number] documented as of this encounter
--- OUTSIDE RECORDS SUMMARY | 2022-02-19 02:06 | XMS_ITS | Encounter Summary ---
:1960 [place] [address] Care Team Providers Name Role Phone Jackie Gee MD Primary Care Provider Encounter Details Date Type Department Care Team Description 09/20/2012 Anesthesia Event Main Operating Room Nataliya Phillips MD [facility] [place] [address] [facility] [place] [address] [place] [address] Anesthesia Record Procedure Summary Procedure Name Responsible Anesthesia Start Anesthesia Stop Time Anesthesiologist Time URETHRAL Nataliya Vinson MD 09/20/12 0723 09/20/12 0841 SUSPENSION, SLING\FASCIA OR SYNTHETIC (WRVU 12.13) (N/A Pelvis) Events Date Time Event Comment 09/20/2012 0708 0723 Start 0725 AN Verify 0727 An Start Data 0729 An Induction 0741 An Data Art 0746 An Intubation 0746 Anesthesia Ready 0755 Procedure Start 0800 Quick Note Local per surgeo n 0826 Procedure Stop 0834 Extubation/LMA Out 0836 an stop data 0841 Stop Name Total Midazolam 2 mg fentaNYL 100 mcg IV Lidocaine 20 mg Propofol 170 mg ePHEDrine 20 mg Ondansetron 4 mg Dexamethasone 4 mg ketorolac (Toradol) (30 mg/mL) injection 30 mg lactated ringers infusion 1,000 mL 0 mL Agents Name O2 Air Sevoflurane (et) Blood No blood administrations on file. Lines, Drains, and Airways Type Details Placement Removal Incision 09/20/12; vagina; 09/20/12 0000 by 01/04/22 1715 by 01/04/22 (Molly Moura RN Muller, Di erdre L cleanup utility RA#[id number]); 1715 ([facility] cleanup utility RA#[id number]) PIV 09/20/12; 0625; 09/20/12 0625 by Jason, 09/20/12 0923 by 09/20/12; 0923 ASHLEE Tellez Christin e E, RN (RETIRED) Mask Ventilation: 09/20/12 0751 by 09/20/12 0834 by Non-Surgical Airway Easy (1); LMA Size: Seema Martinez CRNA 4 documented in this encounter Social History Tobacco [...] encounter OR Notes Anesthesia Postprocedure Evaluation - Nataliya Vinson MD - 09/20/2012 9:00 AM EDT Patient: Usha Huizar Procedure(s) Performed: Procedure(s): URETHRAL SUSPENSION, SLING\FASCIA OR SYNTHETIC Actual Anesthetic: general Patient location: PACU Post-op pain: Adequate analgesia Post-op nausea: no nausea or vomiting Last Vitals: Filed Vitals: 09/20/12 0843 BP: 134/73 Pulse: 78 Temp: 36.1 ??C (97 ??F) Resp: 16 Post-op cardiovascular and respiratory status: is stable Level of consciousness: awake, alert and oriented Complications: no apparent complications and tolerated the procedure well Fluid Status: normal Anesthesia Preprocedure Evaluation - Nataliya Vinson MD - 2012 3:37 PM EDT Pre-Anesthesia Evaluation for: Usha Huizar a 52 y.o. female. Procedure(s): URETHRAL SUSPENSION, SLING\FASCIA OR SYNTHETIC There are no active problems to display for this patient. Past Medical History Diagnosis Date ??? Psoriasis ??? Obesity ??? HTN (hypertension) ??? Hypothyroidism ??? Hyperlipidemia ??? Migraine ??? Palpitations started on beta lena approx one month ago Past Surgical History Procedure Date ??? Orthopedic surgery cyst removed from bone in pelvis ??? Finger surgery History Substance Use Topics ??? Smoking status: Former Smoker -- 1.5 packs/day for 10 years Types: Cigarettes Quit date: 06/12/1987 ??? Smokeless tobacco: Never Used ??? Alcohol Use: Yes 2-3 a couple of times per week Allergies Allergen Reactions ??? Shellfish Containing Products Angioedema ??? Pollen Extracts Other (See Comments) Stuffy head headache. Medications: MAR and/or home medications have been reviewed. Physical Exam: There were no vitals filed for this visit. There is no height or weight on file to calculate BMI. Airway Assessment: Mallampati: I TM distance: >3 FB Neck ROM: full Cardiovascular Assessment: Pulmonary Assessment: Dental Assessment: - normal exam Misc Assessment: Anesthesia Plan: ASA 3 general, with a(n) intravenous induction Plan GA/ET Region - Other Informed Consent: Anesthetic plan and risks discussed with patient and spouse. Plan discussed with ROTARY FILTER OPERATOR and attending. Misc. Assessment: documented in this encounter Plan of Treatment Not on filedocumented as of this encounter Visit Diagnoses Not on filedocumented in this encounter Administered Medications Inactive Administered Medications - up to 3 most recent administrations Medication Order MAR Action Action Date Dose Rate Site dexamethasone (DECADRON) injection Given 09/20/2012 7:35 AM EDT 4 mg PRN, Starting on Tue09/20/12 at 0735, Until Tue09/20/12 at 0841, Anesthesia Intra-op, Routine ePHEDrine Sulfate in sodium chloride 0.9% (PF) Given 0 09/20/2012 8:15 AM EDT 10 mg 50 mg/10 mL (5 mg/mL) injection Syrg PRN, Starting on Tue09/20/12 at 0800, Until Tue09/20/12 at 0841, Anesthesia Intra-op Given 09/20/2012 8:00 AM EDT 10 mg fentaNYL 50mcg/mL injection Given 09/20/2012 8:15 AM EDT 25 mcg PRN, Starting on Tue09/20/12 at 0729, Until Tue09/20/12 at 0841, Pain, Anesthesia Intra-op, Routine Given 09/20/2012 8:10 AM EDT 25 mcg Given 09/20/2012 7:29 AM EDT 50 mcg ketorolac (TORADOL) injection Given 09/20/2012 8:27 AM EDT 30 mg PRN, Starting on Tue09/20/12 at 0827, Until Tue09/20/12 at 0841, Pain, Anesthesia Intra-op, Routine lactated ringers infusion 1,000 mL New Bag 09/20/2012 7:00 AM EDT mL 1,000 mL, at 100 mL/hr, Intravenous, CONTINUOUS, Starting on Tue09/20/12 at 0615, Until Tue09/20/12 at 1150, Day of Surgery (Day of Procedure) New Bag 09/20/2012 6:27 AM EDT 1,000 mLs 100 mL/hr lidocaine (PF) (XYLOCAINE) 100 mg/5 mL (2 %) Given 3 7:29 AM EDT 20 mg injection PRN, Starting on Tue09/20/12 at 0729, Until Tue09/20/12 at 0841, Anesthesia Intra-op, Routine midazolam (VERSED) injection Given 09/20/2012 7:23 AM EDT 2 mg PRN, Starting on Tue09/20/12 at 0723, Until Tue09/20/12 at 0841, Sleep, Anesthesia Intra-op, Routine ondansetron (ZOFRAN) injection Given 09/20/2012 7:45 AM EDT 4 mg PRN, Starting on Tue09/20/12 at 0745, Until Tue09/20/12 at 0841, Nausea, Anesthesia Intra-op, Routine propofol (DIPRIVAN) 10 mg/mL bolus injection Given 7:29 AM EDT 170 mg (Anesthesia) PRN, Starting on Tue09/20/12 at 0729, Until Tue09/20/12 at 0841, Anesthesia Intra-op documented in this encounter Care Teams Crimper Assembler Relationship Specialty Start Date End Date Jackie Gee MD PCP - General 09/09/11 03/06/14 [address] [place] [address] documented as of this encounter
--- OUTSIDE RECORDS SUMMARY | 2022-02-19 02:06 | XMS_ITS | Encounter Summary ---
:1960 Author Organization [facility] Address [facility] [place] [address] Care Team Providers Name Role Phone Jackie Gee MD Primary Care Provider Encounter Details Date Type Department Care Team Description 08/28/2013 Office Visit Cardiology at [facility] Javed Pepe MD Palpitations; [facility] [facility] [address] X[address] syncope; [place] [address] CARDIOLOGY DEPT. Hypertension [phone] [place] [address] (Wo rk) Social History Tobacco Use Types [...] Sign Reading Time Taken Comments Blood Pressure 138/78 08/28/2013 12:37 PM EDT Pulse 62 08/28/2013 12:37 PM EDT Temperature - - Respiratory Rate - - Oxygen Saturation 98% 08/28/2013 12:37 PM EDT Inhaled Oxygen Concentration - - Weight 108 kg (238 lb) 08/28/2013 12:37 PM EDT Height 165.1 cm (5' 5) 08/28/2013 12:37 PM EDT Body Mass Index 39.61 08/28/2013 12:37 PM EDT documented in this encounter Progress Notes Javed Pepe MD - 08/28/2013 1:35 PM EDT Images from the original note were not included. [place] [address] [address] CARDIOLOGY OUTPATIENT CONSULTATION [facility] Usha Huizar [id number] 08/28/2013 REFERRING PROVIDER: Jackie Gee CHIEF COMPLAINT: No chief complaint on file. PROBLEM LIST Patient Active Problem List Diagnosis ??? Near [...] then useon weekends only. 45 g 2 ALLERGIES: Shellfish containing products and Pollen extracts HISTORY OF PRESENT ILLNESS: This 52-year-old woman was kindly referred by Dr. Jackie Gee for evaluation of multiple episodes of near syncope. She has a background notable for palpitations which wereoccurring a year or so ago. A Holter monitor at that time showed only rare PACs. An echocardiogram showed a structurally normal heart and only some mild mitral regurgitation. Her ejection fraction was 68%. She was apparently started on a beta lena for her hypertension and her palpitations abated completely. 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 This extended from her head all the way down throughout her body and she felt very drained, weak, and near-syncopal. She was able to maintain consciousness and pulled the bus over to the side of the road. Her episode lasted about 2-3 minutes, abated, and she continued with her school pickup. She had a second episode while driving with her and this also was manifested as a fairly instant sense of feeling d rained. It lasted a few minutes and abated. She says she has had a total of 5-6 episodes. 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 At no time has she had a complete loss of consciousness. She has had no loss of bowel or bladder control. She has had no awareness of her heart rhythm during these episodes and has specifically experienced no chest discomfort or dyspnea during episodes. Her workup has included a 30 day event monitor during which she had no symptoms. Automatic tracings showed nothing but sinus rhythm. An EEG was done earlier today and the results are pending. She is scheduled to see a neurologist later this afternoon. PAST MEDICAL HISTORY: Reviewed and updated as appropriate in the medical record. Please refer to detailed Problem List above for current listing of active medical problems. SOCIAL HISTORY: She is and lives with her and daughter, Mark Anthony. She was a smoker but quit about 15 years ago. Prior to this she smoked up to one and one half pack of cigarettes per day. She drinks alcoholic beverages only rarely. 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 FAMILY HISTORY: Her father committed suicide in his 30s after previously having an accident and becoming paralyzed. Her mother is alive at 78 and generally healthy. She has 3 healthy sisters. She has abrother who is experienced syncope and has had resolution of the symptoms with cessation of caffeine. She has 2 sons, one with type 2 diabetes. REVIEW OF SYSTEMS: General: No weight loss, fatigue, anorexia, insomnia, or fever. Eyes: No visual loss, double vision, drainage, eye pain, or dry eyes. ENT: No sore throat or dry mouth. Pulmonary: No shortness of breath, cough, or hemoptysis. Hem/Lymph: No swollen glands, fever, or bleeding. GI: No abdominal pain, change in bowel habits, melena, nausea, vomiting or dysphagia. : No urethral discharge, dysuria, frequency, or nocturia. Endocrine: No hot spells, cold spells. Musculoskeletal: No limb pain, joint pain, or joint swelling. Neuro: No focal weakness, ataxia, confusion, paresthesias or headache. Skin: No rashes or dry skin. Psych: No depression, anxiety, suicidal ideation. Cardiac: See HPI PHYSICAL EXAMINATION: Exam Details: On physical examination she was a mildly overweight middle-aged woman in no acute distress. Her blood pressure was 138/78, pulse 62, oxygen saturation 98% and weight 238 pounds. Head examwas generally normal. There was no scleral icterus or corneal arcus. Mucus membranes were moist. Neck was supple and without jugular venous distension, thyromegaly, or carotid bruits. Carotids were easily palpable bilaterally. There was no adenopathy. Lungs were clear to auscultation and percussion, and with normal diaphragmatic excursion. No wheezes or rales were noted. Cardiac exam revealed the PMIto be normally situated and sized. The rhythm was regular and no extrasystoles were noted during several minutes of auscultation. The first and second heart sounds were normal and physiologic splittingof the second heart sound was noted. There were no murmurs, rubs, clicks, or gallops. Abdominal examrevealed normal bowel sounds. The abdomen was soft, non-tender, and without masses, organomegaly, orappreciable enlargement of the abdominal aorta. Extremities were nonedematous bilaterally. DATA: Twelve-lead EKG: This revealed normal sinus rhythm at a rate of 60. Her axis was normal. Her intervals were normal. She had no pathologic Q waves or significant ST or T-wave changes. ASSESSMENT: In summary, this is a 52-year-old woman who has had 5 episodes of near syncope during the last few months. She has no symptoms or physical findings to suggest any underlying structural heart disease. An echocardiogram a year ago was unremarkable. Her EKG today is notable only for a borderline slow heart rate. She is on a beta lena for her blood pressure and this could be contributing to a bradycardia arrhythmia. All things considered, I am most concerned that she has a conduction abnormality with either profound bradycardia or pauses although this has not been documented during her event monitor during which she had no symptoms. We reviewed the situation in detail. She is scheduled to see a neurologist this afternoon following an EEG earlier this morning. Assuming there is not an overt neurologic cause for her symptoms, she will be set up for a Zio patch to more thoroughly evaluate for any bradycardia or pauses (even if not symptomatic) during the next 2 weeks. Immediate again inabout a month to review the findings. I continued to recommend that she not drive commercially and acase could be made that she should not be driving at all. RECOMMENDATIONS: 1. Zio patch to be applied today looking for occult arrhythmias, bradycardia or pauses 2. Continue to abstain from driving 3. Routine follow-up in 1 month Thank you for requesting this consultation. For questions, please feel free to contact me via any ofthe following mechanisms: Email: [email or web address] documented in this encounter Plan of Treatment Not on filedocumented as of this encounter Procedures Procedure Name Priority Date/Time Associated Diagnosis Comme nts EKG 12-LEAD Routine 08/28/2013 1:36 PM Palpitations Results for this EDT Near [...] None Javed Pepe MD CARDIAC SERVICES ORDERABLES EKG 12 Lead (08/28/2013 1:36 PM EDT) [facility] gist Method Time Signature Ventricular rate 60 BPM MUSE SYSTEM Atrial Rate 60 BPM MUSE SYSTEM P-R Interval 174 ms MUSE SYSTEM QRS Duration 98 ms MUSE SYSTEM Q-T Interval 454 ms MUSE SYSTEM QTC Calculated 454 ms MUSE SYSTEM (Bezet) Calculated P [place] 54 degrees MUSE SYSTEM Calculated R [place] 12 degrees MUSE SYSTEM Calculated T [place] 6 degrees MUSE SYSTEM INTERPRETATION Normal sinus rhythm MUSE SYSTEM Normal ECG No previous ECGs available Confirmed by Tyler Chang MD ([id number]) on 08/28/2013 3:32:42 PM Specimen Anatomical Collection Method Collection Time Receive d Time (Source) Location / / Volume Laterality 08/28/2013 1:36 PM 4 3:32 EDT PM EDT Javed Pepe MD ECG ORDERABLES Performing Organization Address City/State/ZIP Code Phon e Number MUSE SYSTEM documented in this encounter Visit Diagnoses Diagnosis Palpitations Near syncope Syncope and collapse Hypertension Unspecified essential hypertension Palpitations Near syncope Syncope and collapse documented in this encounter Care Teams Hand Etcher Relationship Specialty Start Date End Date Jackie Gee MD PCP - General 09/09/11 03/06/14 [address] [place] [address] documented as of this encounter
--- OUTSIDE RECORDS SUMMARY | 2022-02-19 02:06 | XMS_ITS | Encounter Summary ---
:1960 Author Organization [facility] [place] [address] Care Team Providers Name Role Phone Jackie Gee MD Primary Care Provider Encounter Details Date Type Department Care Team Description 08/20/2013 Orders Only Neurology at [facility] Johnson Ugarte Partial seizures [facility] MD Minnie (Primary Dx) [place] [address] NEUROLOGY DEPT. [phone] [place], [place] [address] (Wo rk) Social History Tobacco [...] on filedocumented as of this encounter Results EEG INNC. RECORDING AWAKE AND ASLEEP, W. HYPERVENT/PHOTIC STIMU PRFM (01/03/2014 1:28 PM EDT) Narrative Johnson Ugarte MD - 01/03/2014 1 :28 PM EDT Margaret Null MD ? 01/03/2014 ??1:28 PM Name:Usha Huizar ?Test #: ??[id number] ? Age: ??52 y.o. ? Referring Provider: Jackie Gee MD [address] [place] [address] Hours of Sleep: 3.5 ??P.C.: 4:00AM Sleep Deprived: Y ??Location: [facility] Date of Study: 08/28/2013 ??Tech: SB Patient History: This is a 52 year old f emale who presents to the EEG lab for seizure vs syncope. Sleep: Not Obtained Photic Driving: bilateral Hyperventillation: no build up noted ? If Hyperventillated ??Effort Give n: good [facility] Department of Neurology EEG REPORT Patient: ??Usha Huizar ??[id number] Date of Recordin08/28/13 Interpreting Physician: Dr. Forrest Ugarte (Attending) Dr. Margaret Null (Fellow) Reason for study: ??Usha Huizar is a 52 y.o. female with a history of spells. [...] we ekends only. ??45 g ??2 METHODS: A 21 channel digitized electroencephalog arben was performed in the [facility] Clinical Neurophysio logy Laboratory. The 10/20 international system of electrode placement was used and bipolar and referential electrode montag es were recorded. ??In addition to EEG the patient was monitore d for EKG and lateral/vertical eye movements. Activati on procedures of photic stimulation and hyperventilation were pe rfomed if applicable. ?? Video was used during activation procedu res and during events where applicable. ??The duration of the recording was 30 minutes. DESCRIPTION OF EEG: The patient was noted to be awake and dr pérez during the recording. ??During maximal wakefulness a 10-Hz posterior background rhythm was present which was well-modulated, symmetrical, reactive to eye opening, an d of moderate voltage. With eye opening the background activity changed to a low voltage mixture of alpha, beta, and occasional t heta range frequencies. ?? Faster frequencies were present in the b ilateral anterior head regions. ??There was a normal anterior-p osterior voltage gradient. During drowsiness, there was attenuatio n of the posterior dominant background rhythm and vertex wa ves. ??No stage II sleep was recorded. There was rare, moderate-amplitude, left anterior temporal polymorphic delta slowing (maximum at F7 /T3). Activating Procedures: Photic stimulation was performed which p roduced no posterior driving response. ??Hyperventilation was performed with moderate effort and produced mild physiological s lowing of the background. EKG: EKG revealed normal sinus rhythm. INTERPRETATION: This EEG is abnormal due to rare, left a nterior temporal arrhythmic slowing. PRIOR EEG: none CLINICAL CORRELATION: The finding above could represent an are a of focal cerebral dysfunction or be a normal variant. ??No definite epileptiform activity was present. ??If seizure remai ns a strong clinical suspicion, a repeat, sleep-deprived EEG is recommended. Margaret Null MD Neurophysiology Fellow Pager [phone] Procedure Note Connor Wiley - 08/28/2013 9:59 AM EDT Name:Usha Huizar Test #: [id number] Age: 52 y.o. Referring Provider: Jackie Gee MD [address] [place] [address] Hours of Sleep: 3.5 P.C.: 4:00AM Sleep Deprived: Y Location: [facility] Date of Study: 08/28/2013 Tech: SB Patient History: This is a 52 year old f emale who presents to the EEG lab for seizure vs syncope. Sleep: Not Obtained Photic Driving: bilateral Hyperventillation: no build up noted If Hyperventillated Effort Given: mayra [facility] Department of Neurology EEG REPORT Patient: Usha Huizar [id number] Date of Recordin08/28/13 Interpreting Physician: Dr. Forrest Ugarte (Attending) Dr. Margaret Null (Fellow) Reason for study: Usha Huizar is a [age] y.o. female with a history of spells. [...] on weekends only. 45 g 2 METHODS: A 21 channel digitized electroencephalog arben was performed in the [facility] Clinical Neurophysiology Laboratory. The 10/20 international system of electrode placement was used and bipolar and referential electrode montages were recorded. In add ition to EEG the patient was monitored for EKG and lateral/vertical eye movements. Activation procedures of photic stimulation and hyperventilation were perfomed if applicable. Video was used during activa tion procedures and during events where applicable. The duration of the recording was 30 minutes. DESCRIPTION OF EEG: The patient was noted to be awake and dr pérez during the recording. During maximal wakefulness a 10-Hz posterior background rhythm was present which was well-modulated, symmetrical, reactive to eye opening, and of moderate voltage. With eye opening the background activity changed to a low voltage mixture of alpha, beta, and occasional theta range frequencies. Faster frequencies were present in the bilateral anterior head regions. There was a normal anterior-posterior voltage gradient. During drowsiness, there was attenuation of the posterior dominant background rhythm and vertex waves. No stage II sleep was recorded. There was rare, moderate-amplitude, left anterior temporal polymorphic delta slowing (maximum at F7/T3). Activating Procedures: Photic stimulation was performed which p roduced no posterior driving response. Hyperventilation was performed with moderate effort and produced mild physiological slowing of the background. EKG: EKG revealed normal sinus rhythm. INTERPRETATION: This EEG is abnormal due to rare, left a nterior temporal arrhythmic slowing. PRIOR EEG: none CLINICAL CORRELATION: The finding above could represent an are a of focal cerebral dysfunction or be a normal variant. No definite epileptiform activity was present. If seizure remains a strong clinical suspicion, a repeat, sleep-deprived EEG is recommended. Margaret Null MD Neurophysiology Fellow Pager [phone] Johnson Ugarte MD NEUROLOGY ORDERABLES documented in this encounter Visit Diagnoses Diagnosis Partial seizures - Primary Other convulsions Partial seizures - Primary Other convulsions documented in this encounter Care Teams Market Research Senior Project Manager Relationship Specialty Start Date End Date Jackie Gee MD PCP - General 09/09/11 03/06/14 [address] [place] [address] documented as of this encounter
--- OUTSIDE RECORDS SUMMARY | 2022-02-19 02:06 | XMS_ITS | Encounter Summary ---
:1960 Author Organization [place] [address] Care Team Providers Name Role Phone Jackie Gee MD Primary Care Provider Reason for Visit Reason Comments Post Op URETHRAL SUSPENSION, SLING\F ASCIA OR SYNTHETIC Encounter Details Date Type Department Care Team Description 10/31/2012 Office Visit Obstetrics and Jozef Kent, Post-op [facility] Gynecology at [facility] (Primary Dx) [facility] [address] [place], [place] OBSTETRICS & [address] GYNECOLOGY [phone] [place], [place] [address] Social History Tobacco Use Types [...] Reading Time Taken Comments Blood Pressure 132/78 10/31/2012 2:55 PM EDT Pulse - - Temperature - - Respiratory Rate - - Oxygen Saturation - - Inhaled Oxygen Concentration - - Weight 106.4 kg (234 lb 9.6 oz) 10/31/2012 2:55 PM EDT Height - - Body Mass Index 39.04 09/12/2012 12:39 PM EDT documented in this encounter Progress Notes Jozef Kent MD - 10/31/2012 3:16 PM EDT FEMALE PELVIC MEDICINE AND RECONSTRUCTIVE SURGERY POST OPERATIVE VISIT There is no problem list on file for this patient. Date of visit: 10/31/2012 Patient name: Usha Huizar Date of surgery: 09/20/2012 Procedure: transobturator sling Subjective: Ms. Huizar is s/p the above procedures. She has been tolerating a regular diet. She denies nausea and vomiting, and she has been afebrile since surgery. Since surgery, she reports: None x Continued vaginal bleeding New pelvic related pain Abnormal vaginal discharge Burning with urination Blood in urine Enuresis New prolapse symptoms since surgery Bladder Function Number of daytime voids: ? Number of nocturia events: 0 Urinary incontinence since surgery (y/n): yes If yes, [place] Incontinence Severity Index: How often do you experience urinary leakage? 0. Never 1. Less than once a month 2. A few times a month 3. A few times a week 4. Every day and/or night Value 4 How much urine do you lose each time? 0. None 1. Drops 2. Small Splashes 3. More Value 1 The Severity Index is the product of the two questions 0 - NONE 1-2 Slight 3-6 Moderate 8-9 Severe 12 Very severe SCORE: 4 If yes, leaks with: Event Presence Event Presence NONE [place] Walking x Cold Weather Running Anticipation of going to the lavatory Cough/Sneeze x First morning void Lifting x Running water Laughing Other Number of pads / day: 1 Pad type: liner Voiding Dysfunction: Symptom Presence NONE Straining to empty Incomplete emptying Weak stream x Feeling the urge to void after voiding Dribbling Changes in position Difficulty initiating a stream Bowel Function Fecal incontinence since surgery? (stool/gas) no How many fecal incontinence episodes / week? na How often do you have bowel movements? 1/d Any new defecatory problems since surgery?: no IF so which defecatory problem?: Symptom Presence Symptom Presence NONE Require laxatives regularly Difficulty emptying Less than three bowel movements / week Need to strain Urgency Hard stools Other Loose stools none Treatment Outcome Satisfaction How would you describe your level of satisfaction with your treatment outcome? 0. Strongly UNsatisfied 1. UNsatisfied 2. Neither satisfied nor unsatisfied 3. Satisfied 4. Strongly satisfied Value 2-3 Would you recommend this therapy to a friend?: unsur How much has your treatment outcome met your before treatment expectation? 0. Strongly NOT met my before treatment expectations 1. Not met my before treatment expectations 2. Undecided 3. Met my before treatment expectations 4. Strongly met my before treatment expectations 2 OBJECTIVE: BP 132/78 Wt 106.414 kg (234 lb 9.6 oz) LMP 09/13/2012 General: normal appearing female, pleasant mood, normal speech Abdomen: Abdomen soft, non-tender, bowel sounds normal. Surgical incision(s): well healed. Skin edges well applied. No evidence of erythema or induration. Back: Non-tender, without costovertebral angle or paraspinal tenderness Pelvic: Cough stress test (empty supine): negative External Genitalia: Vulva, Bailey's and Bartholin glands normal, urethra without tenderness or mass Vagina: well supported Discharge?: none Impression: Ms. Huizar is a 52 y.o. year old woman now 6 wks s/p transobturator midurethral sling. Plan: Activity: ad astrid Return in 12 months / PRN to reassess JOZEF KENT MD Division of Female Pelvic Medicine/Reconstructive Surgery documented in this encounter Miscellaneous Notes Miscellaneous - Provider, Scanning - 11/08/2012 11:41 AM EDT documented in this encounter Plan of Treatment Not on filedocumented as of this encounter Visit Diagnoses Diagnosis Post-operative state - Primary Other postprocedural status documented in this encounter Care Teams Wind Operations Manager Relationship Specialty Start Date End Date Jackie Gee MD PCP - General 09/09/11 03/06/14 [address] [place] [address] documented as of this encounter
--- OUTSIDE RECORDS SUMMARY | 2022-02-19 02:06 | XMS_ITS | Encounter Summary ---
:1960 Author Organization [facility] [place] [address] Care Team Providers Name Role Phone Jackie Gee MD Primary Care Provider Encounter Details Date Type Department Care Team Description 10/24/2006 Orders Only Neurology at [facility] Johnson Ugarte, [facility] [place] [address] [facility] [phone] NEUROLOGY DEPT. [place], [place] [address] (Wo rk) Social History Tobacco Use Types Packs/Day Years Used Date Never Assessed Sex Assigned at Date Recorded Not on file documented as of this encounter Plan of Treatment Not on filedocumented as of this encounter Procedures Procedure Name Priority Date/Time Associated Diagnosis Comme nts FILM LIBRARY Routine 10/24/2006 7:28 AM Results f or this STORAGE ONLY CT EDT procedure ar e in HEAD the results section. documented in this encounter Results Film Library- Storage only CT Head (10/24/2006 7:28 AM EDT) Anatomical Region Laterality Modality Head Other Specimen (Source) Anatomical Collection Method Collection Time Re ceived Time Location / / Volume Laterality 10/24/2006 7:28 AM EDT Narrative 10/04/2013 7:33 AM EDT This is a Non-reportable exam Procedure Note 10/04/2013 This is a Non-reportable exam Johnson Ugarte MD IMG FILM LIBRARY ORDERABLES documented in this encounter Visit Diagnoses Not on filedocumented in this encounter Care Teams Commercial Crabber Relationship Specialty Start Date End Date Jackie Gee MD PCP - General 09/09/11 03/06/14 [address] [place] [address] documented as of this encounter
--- OUTSIDE RECORDS SUMMARY | 2022-02-19 02:06 | XMS_ITS | Encounter Summary ---
:1960 Author [address] [facility] [place] [address] Care Team Providers Name Role Phone Jackie Gee MD Primary Care Provider Encounter Details Date Type Department Care Team Description 02/16/2013 Hospital Encounter [place] [facility] [address] Social History Tobacco Use Types Packs/Day [...] Priority Date/Time Associated Diagnosis Comme nts MAMMO BREAST US Routine 02/16/2013 12:00 PM Breast lump Resul ts for this LIMITED EDT procedure are i n the results section. documented in this encounter Results Mammo breast US unilateral bilateral (02/16/2013 12:00 PM EDT) Anatomical Region Laterality Modality Breast N/A Mammography Specimen (Source) Anatomical Collection Method Collection Time Re ceived Time Location / / Volume Laterality 02/16/2013 12:00 PM EDT Impressions 02/25/2013 5:06 PM EDT IMPRESSION: The Left breast is NEGATIVE (BIRADS Coretta gory 1) with no mammographic or sonographic correlate for the palpable a bnormality. The patient is recommended to follow-up clinically. The Right breast is NEGATIVE (BIRADS Cat egory 1) with the recommendation to continue with screening based on the pat ient's age and breast cancer risk factors. Film and interpretation reviewed by the attending Narrative 02/25/2013 5:06 PM EDT BILATERAL DIAGNOSTIC MAMMOGRAM AND LEFT BREAST ULTRASOUND ON 02/16/13: CLINICAL INDICATION: Patient detected Le ft breast lump felt for two years now. Area of redness around the palpable abno rmality. TECHNIQUE: Bilateral CC and MLO views an d Left LM view obtained with direct digital capture. Left breast ultrasound targeted to the area of clinical concern. COMPARISON: Screening mammography from , 04/20/10, 04/18/12 and Left breast ultrasound from 05/17/06. FINDINGS: CC and MLO images demonstrate a stable fibroglandular pattern without significant change from prior studies. T here is no mammographic evidence of cancer. The breasts are of scattered density. Targeted ultrasound to the area of inter est over the inner left breast, at the 0900 oclock position, 9 cm from the nipp le demonstrates normal appearing fibroglandular tissue without discrete a bnormality. Note is made of superficial mild erythema and excoriations of the sk in over the area of clinical concern. Procedure Note Kathleen Marie MD - 02/25/2013 BILATERAL DIAGNOSTIC MAMMOGRAM AND LEFT BREAST ULTRASOUND ON 02/16/13: CLINICAL INDICATION: Patient detected Le ft breast lump felt for two years now. Area of redness around the palpable abno rmality. TECHNIQUE: Bilateral CC and MLO views an d Left LM view obtained with direct digital capture. Left breast ultrasound targeted to the area of clinical concern. COMPARISON: Screening mammography from , 04/20/10, 04/18/12 and Left breast ultrasound from 05/17/06. FINDINGS: CC and MLO images demonstrate a stable fibroglandular pattern without significant change from prior studies. T here is no mammographic evidence of cancer. The breasts are of scattered density. Targeted ultrasound to the area of inter est over the inner left breast, at the 0900 oclock position, 9 cm from the nipp le demonstrates normal appearing fibroglandular tissue without discrete a bnormality. Note is made of superficial mild erythema and excoriations of the sk in over the area of clinical concern. IMPRESSION IMPRESSION: The Left breast is NEGATIVE (BIRADS Coretta gory 1) with no mammographic or sonographic correlate for the palpable a bnormality. The patient is recommended to follow-up clinically. The Right breast is NEGATIVE (BIRADS Cat egory 1) with the recommendation to continue with screening based on the pat ient's age and breast cancer risk factors. Film and interpretation reviewed by the attending Wes Ardon MD IMG MAMMO ORDERABLES documented in this encounter Visit Diagnoses Diagnosis Breast lump Lump or mass in breast documented in this encounter Care Teams Blindstitch Hemmer Relationship Specialty Start Date End Date Jackie Gee MD PCP - General 09/09/11 03/06/14 [address] [place] [address] documented as of this encounter
--- OUTSIDE RECORDS SUMMARY | 2022-02-19 02:06 | XMS_ITS | Encounter Summary ---
:1960 Author Organization [facility] [address] Care Team Providers Name Role Phone Jackie Gee MD Primary Care Provider Encounter Details Date Type Department Care Team Description 02/16/2013 Hospital Encounter Mammography at [facility] [place] [address] Social History Tobacco Use Types Packs/Day [...] Procedure Name Priority Date/Time Associated Comments Diagnosis MAMMO DIAGNOSTIC CAD Routine 02/16/2013 11:41 AM Results for this BILATERAL EDT procedure are i n the results section. documented in this encounter Results Mammo digital bilateral diagnostic with CAD (02/16/2013 11:41 AM EDT) Anatomical Region Laterality Modality Breast Bilateral Mammography Specimen (Source) Anatomical Collection Method Collection Time Re ceived Time Location / / Volume Laterality 02/16/2013 11:41 AM EDT Impressions 02/25/2013 5:06 PM EDT IMPRESSION: [...] breast documented in this encounter Care Teams Wood Tank Erector Relationship Specialty Start Date End Date Jackie Gee MD PCP - General 09/09/11 03/06/14 [address] [place] [address] documented as of this encounter
--- OUTSIDE RECORDS SUMMARY | 2022-02-19 02:06 | XMS_ITS | Encounter Summary ---
:1960 Author Organization [facility] [place] [address] Care Team Providers Name Role Phone Jackie Gee MD Primary Care Provider Encounter Details Date Type Department Care Team Description 08/28/2013 Orders Only Cardiology at [facility] Javed Pepe MD [facility] [place] [address] CARDIOLOGY DEPT. [phone] [place], [place] [address] (Wo rk) Social History Tobacco [...] on filedocumented in this encounter Care Teams Financial Foundations Representative Relationship Specialty Start Date End Date Jackie Gee MD PCP - General 09/09/11 03/06/14 [address] [place], [place] [id number] documented as of this encounter
--- OUTSIDE RECORDS SUMMARY | 2022-02-19 02:06 | XMS_ITS | Encounter Summary ---
:1960 Author Organization [facility] Address [place] [id number] Care Team Providers Name Role Phone Jackie Gee MD Primary Care Provider Encounter Details Date Type Department Care Team Description 07/20/2012 Orders Only Obstetrics and Gynecology Jozef López MD at [facility] Dre bonner OBSTETRICS & [place] [address] [place] [address] [phone] (Wo rk) Social History Tobacco Use Types Packs/Day Years Used Date Former Smoker Cigarettes 1.5 10 Quit: 06/12/18 88 Smokeless Tobacco: Never Used Sex Assigned at Date Recorded Not on file documented as of this encounter Progress Notes Jozef Kent MD - 07/20/2012 2:51 PM EDT Letter from Dr. Gee receivedPhuc Vargas had an ECG which was normal as well as a normal Holter. She has been started on Metoprolol 25 BID. She is cleared for surgery documented in this encounter Plan of Treatment Scheduled Orders Name Type Priority Associated Diagnoses Order S chedule URETHRAL Procedures Routine One Time for 1 SUSPENSION,SLING\FASC Occurr ences starting IA OR SYNTHETIC 07/20/2012 u ntil 07/20/2012 documented as of this encounter Visit Diagnoses Not on filedocumented in this encounter Care Teams Mixer Operator Relationship Specialty Start Date End Date Jackie Gee MD PCP - General 09/09/11 03/06/14 [address] [place] [address] documented as of this encounter
--- OUTSIDE RECORDS SUMMARY | 2022-02-19 02:06 | XMS_ITS | Encounter Summary ---
:1960 Author Organization [facility] [place] [address] Care Team Providers Name Role Phone Jackie Gee MD Primary Care Provider Encounter Details Date Type Department Care Team Description 09/20/2012 Hospital Encounter Same Day Program at Jozef Kent (stress urinary Seema Erickson MD incontinence, [facility]) (Primary Dx) [facility] [address] OBSTETRICS & [place], [place] GYNECOLOGY [address] [place], [place] [phone] [address] Social History Tobacco Use Types Packs/Day Years [...] MD - 09/20/2012 6:30 AM EDT Inpatient ELECTROMECHANIC - Admission Interval Note I have reviewed [...] Kent MD - 09/20/2012 8:55 AM EDT [facility] [place] Note Patient Name: Usha Huizar : [id number] MR#: [id number] Case Date: 09/20/2012 Surgeon: Surgeon(s) and Role: * Jozef Kent MD - Primary * Jesus Giles MD - Resident-Surgeon Chief Preoperative diagnosis: stress incontinence Postoperative diagnosis: stress incontinence Procedure(s): URETHRAL SUSPENSION, SLING\FASCIA OR SYNTHETIC ([employer] Transobturator sling) Anesthesia: General Findings: normal bladder [...] Operative Note Patient Name: Usha Huizar : [id number] MR#: [id number] Case Date: 09/20/2012 Surgeon: Surgeon(s) and Role: [...] ORDR/RSLT documented in this encounter Visit Diagnoses Diagnosis ZENIA (stress urinary incontinence, female ) - Primary Female stress incontinence documented in this encounter Administered Medications Inactive Administered Medications - up to 3 most recent administrations Medication Order MAR Action Action Date Dose Rate Site lactated ringers infusion 1,000 mL New Bag 09/20/2012 7:00 AM EDT mL 1,000 mL, at 100 mL/hr, Intravenous, CONTINUOUS, Starting on Tue09/20/12 at 0615, Until Tue09/20/12 at 1150, Day of Surgery (Day of Procedure) New Bag 09/20/2012 6:27 AM EDT 1,000 mLs 100 mL/hr documented in this encounter Active and Recently [...] 0.25 % (2.5 mg/mL) injection (CANCEL ED) 0805 (Given - Provider: Jozef Kent MD) ONCE PRN, Starting Tue09/20/12 at 0805, Until Tue09/20/12 at 1150, Intra- Operative (Intra-Procedure), Routine lidocaine-epiNEPHrine 1 %-1:200,000 injection (CANCELED) 0812 (Given - Provider: Jozef Kent MD) ONCE PRN, Starting Tue09/20/12 at 0812, Until Tue09/20/12 at 1150, Intra- Operative (Intra-Procedure), Routine documented in this encounter Care Teams Idea Man Relationship Specialty Start Date End Date Jackie Gee MD PCP - General 09/09/11 03/06/14 [address] [place] [address] documented as of this encounter
--- OUTSIDE RECORDS SUMMARY | 2022-02-19 02:06 | XMS_ITS | Encounter Summary ---
:1960 [place] [address] Care Team Providers Name Role Phone Jackie Gee MD Primary Care Provider Reason for Visit Reason Onset Date Comments Follow-up 02/21/2013 Encounter Details Date Type Department Care Team Description 02/21/2013 Telephone General Surgery at [facility] Zandra Johnston, YUVAL Follow-up [facility] [place] [address] GENERAL SURGERY [phone] [place], [place] [address] (Wo rk) Social History Tobacco [...] encounter Miscellaneous Notes Telephone Encounter - Zandra Johnston APRN - 02/21/2013 1:41 PM EDT I called Usha to discuss follow up after her breast imaging was performed which showed benign findings. She is reassured and I am recommending that I see her in about 3 months for another breast exam. She agrees with this plan and will call me before then with any new breast concerns. documented in this encounter Plan of Treatment Not on filedocumented as of this encounter Visit Diagnoses Not on filedocumented in this encounter Care Teams News Editor Relationship Specialty Start Date End Date Jackie Gee MD PCP - General 09/09/11 03/06/14 [address] [place] [address] documented as of this encounter
--- OUTSIDE RECORDS SUMMARY | 2022-02-19 02:06 | XMS_ITS | Encounter Summary ---
:1960 Author Organization [place] [address] Care Team Providers Name Role Phone Jackie García MD Primary Care Provider Reason for Visit Reason Comments Breast Mass Encounter Details Date Type Department Care Team Description 02/16/2013 [facility] B, WATER MANAGER Dx) [facility] [address] [place] SURGERY [id number] [place] [id number] [phone] (Wo rk) Social History Tobacco Use Types [...] documented as of this encounter Progress Notes Zandra Johnston, WATER MANAGER - 02/16/2013 9:30 AM EDT Ms. Huizar is a 52 y.o. year-old patient who I am seeing at the request of Dr Jackie García to evaluate a mass in the medial left breast with associated skin changes. By way of history,Usha reports feeling masses in this part of her breast for a few years.Recently though her skin became itchy over the masses and her skin became discolored. She can feel at least two masses. She denies any skin changes,breast trauma, prior breast surgery or nipple discharge. Imaging performed ( bilateral mammogram)at [facility] on 04/2012 was interpreted as Category 1/scattered density. She is scheduled for breast imaging later today. She does have a history of cystic breast tissue and has not had cysts aspirated or breast biopsies in the past. She does do regular self-breast exams. Recent weight gain of 20 lbs. She has no new or concerning complaints of fatigue, cardiovascular or respiratory symptoms. All other ROS are negative. Reproductive History: , had her first child at the age of 23 and did not nurse her children. Menarche began at 11.Her LMP was a week ago (bryan menopausal). HRT/OC: none Family History: Negative for breast or ovarian cancer. 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 She does not smoke. Past Medical History: HTN,Migraines,elevated cholesterol,hypothyroid Past Surgical History: Noncontributory Physical Exam: She looks well and is in no apparent distress. Her skin is anicteric with good turgor. Sclera are anicteric. Her head and neck are without masses or adenopathy. Her arms have good ROM without any evidence of lymphedema. Breasts are large and symmetric. Her nipples are everted. There is no axillary adenopathy on the right or the left. There are no skin changes or dimpling noted in her right breast. Her left medial breast at 0900,along the medial edge there is an irregular area of skin discoloration.It is not erythema.It is approx 3x3cm. Below the skin change I can feel at least one smooth mass,approx 1cm in dimension.No other left breast masses felt. The right is notable for generally homogenous breast tissue,without discrete masses. Assessment: Clinical breast exam notable for fibrocystic breast tissue With a mass in her medial left breast with associated skin changes,possibly representing fat lobules,a lipoma,cysts or a solid lesion. Uncertain significance of skin changes,may be chronic from itching and rubbing. Plan: I have discussed my assessment and recommendations with Ms. Huizar And will call her after her mammogram and focused US of the left breast. Surgical follow up based on outcome of imaging. Ms. Huizar agrees to this plan. JACKIE GARCÍA MD documented in this encounter Plan of Treatment Not on filedocumented as of this encounter Visit Diagnoses Diagnosis Breast mass - Primary Lump or mass in breast documented in this encounter Care Teams Motor And Generator Brush Maker Relationship Specialty Start Date End Date Jackie García MD PCP - General 09/09/11 03/06/14 [address] [place] [address] documented as of this encounter
--- OUTSIDE RECORDS SUMMARY | 2022-02-19 02:06 | XMS_ITS | Encounter Summary ---
:1960 Author Organization [facility] [place] [address] Care Team Providers Name Role Phone Jackie García MD Primary Care Provider Encounter Details Date Type Department Care Team Description 08/28/2013 Office Visit Neurology at [facility] Johnson Ugarte MD [facility] [place] [address] Hoa (Primary Dx) [facility] Margaret Null MD [facility] [address] [place] [id number] Social History Tobacco Use Types Packs/Day Years [...] Sign Reading Time Taken Comments Blood Pressure 142/78 08/28/2013 2:38 PM EDT Pulse 60 08/28/2013 2:38 PM EDT Temperature - - Respiratory Rate - - Oxygen Saturation - - Inhaled Oxygen Concentration - - Weight 108.4 kg (239 lb) 08/28/2013 2:38 PM EDT Height 162.6 cm (5' 4) 08/28/2013 2:38 PM EDT Body Mass Index 41.02 08/28/2013 2:38 PM EDT documented in this encounter Progress Notes Margaret Null MD - 08/28/2013 2:32 PM EDT Neurology Outpatient Clinic - Initial Encounter Patient name: Usha Huizar Date of : 1960 PCP: JACKIE GARCÍA MD Primary/Referring Neurologist: n/a Clinic Attending: Dr. Colorado CC: hoa HPI: Usha Huizar is a 52 y.o. right-handed woman with a PMH of hypertension, hyperlipidemia, hypothyroidism, and migraine headaches who presents for evaluation of spells. She has had palpitations for most of her life. About 1 year ago, she underwent a cardiac work-up which was unremarkable and she was e ventually placed on metoprolol for hypertension. Since starting metoprolol, she has had no further palpitations. 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 She had a sudden onset feeling of fuzziness in her head just behind the eyes. This was instantly followed by a feeling of her blood draining from her starting at her head and then progressing downwards over seconds. She felt like she would pass out and weak. She was able to pull the bus over (it was empty at the time). She began shaking her arms out to try and get the circulation going. Her symptoms lasted about 1 minute. She had no loss of consciousness, no chest pain or palpitations. No vision changes, diaphoresis, nausea. She describes similar symptoms with HV today during her EEG but not completely the same. Since April, she has had the same spell about 5-6 more times. The last one was at the end of July 2013. All of the episodes have occurred while she was driving and fairly early on in the drive. They do not correlate with time of day or with food. Her has witnessed several but d id not notice anything wrong with her, i.e. Paling. Work-up thus far has been cardiac. She had a 30-day Holter study which was normal and did not capture any events. She say Cardiology here at [facility] today and they are planning further cardiac monitoringfor the next 2 weeks as they are concerned for a sinus block/arrhythmia. Risk factors for epilepsy: -Family history of seizures/febrile seizures: no. -Febrile seizures in childhood: no. -History of staring spells, am limb jerking, bedwetting, or waking up with sore/bloody tongue: bedwetting as a teenager but was told it was from sleeping too heavily. - complications: none. -History of encephalitis/ meningitis: no. -History of head trauma: ~5years ago, fell off horse +LOC >5min. -History of prior EMERGENCY CREW SUPERVISOR surgery: no. Psychiatric history: none. Previous Epilepsy diagnostic work up: -MRI: none -EEG: performed today, official report pending, but appears normal awake and drowsy Current AEDs: none Previously tried AEDs: none. Past Medical History: Past Medical History Diagnosis Date ??? Psoriasis ??? Obesity ??? HTN (hypertension) ??? Hypothyroidism ??? Hyperlipidemia ??? Migraine ??? Palpitations started on beta lena approx one month ago Past Surgical History: Past Surgical History Procedure Date ??? Orthopedic surgery cyst removed from bone in pelvis ??? Finger surgery ??? Sling oper stres incontinence 09/20/2012 URETHRAL SUSPENSION, SLING\FASCIA OR SYNTHETIC performed by Jozef Kent MD at [facility] Medications: Current Outpatient Prescriptions Medication [...] Pollen Extracts Stuffy head headache. Family History: History reviewed. No pertinent family history. Social History: . She/He reports that she quit smoking about 26 years ago. Her smoking use included Cigarettes. She has a 15 pack-year smoking history. She has never used smokeless tobacco. She reports that she drinks alcohol. She reports that she does not use illicit drugs. She drinks about one drink per week. 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 double vision Never 2. headache Sometimes 3. rash Never 4. unsteadiness Rarely 5. upset stomach, nausea, vomiting Rarely 6. troubles with gums or teeth Never 7. weight loss or gain Never 8. tremors or shaking Never 9. restlessness Never 10. dizziness Never 11. tiredness/sleepiness Never 12. trouble sleeping Never 13. difficulties concentrating Sometimes 14. feelings of aggression Sometimes 15. depression Never 16. thoughts about ending your life Never 17. palpitations or chest pains Sometimes 18. bladder problems Sometimes 19. breathing problems Sometimes Memory and concentration symptoms (QOLIE-31) Memory and concentration symptoms (QOLIE-31) 08/28/2013 Memory problems A little of the time Difficulty reasoning and solving problems Some of the time Trouble remembering things people tell A good bit of the time Trouble concentrating on reading Some of the time Trouble concentrating on doing one thing at a time Most of the time How much do your memory difficulties bother you? 2 QOLIE-31 5.66 (low scores suggest severe memory symptoms) Depression Score (NDDI-E) Depression Score (NDDI-E) 08/28/2013 Depression Score 10 (scores >15 suggest Major Depression) Quality of Life Quality of Life 08/28/2013 Quality of Life (10-Best Quality of Life; 0-Worst Quality of Life) 8 Physical Exam: Vitals: Temp: -- Heart Rate: [60-62] Resp: -- BP: (138-142)/(78) SpO2: [98 %] Gen: Patient of apparent stated age, well nourished, well developed, awake, alert, NAD Neck: Supple, no meningismus, no carotid bruit, no occipital tenderness CV: + S1, S2, RRR, no murmur Resp: CTA B/L Abd: +normoactive bowel sounds, soft, nontender, nondistended Ext: No edema. No bony deformity Neuro Exam: Language: fluency, naming, repetition, and comprehension intact; Mental Status: AAOx3, current events intact, fund of knowledge intact; Speech: no dysarthria Cranial nerves: Funduscopy: disk margins clear bilaterally CN II: visual acuity intact, visual pope intact CN III, IV, : extraocular movements intact, no nystagmus, pupils symmetric and reactive to light CN V: face sensation intact to LT and PP CN VII: no facial asymmetry noted CN VIII: hearing intact bilaterally CN IX, X: palate rises symmetrically CN XI: trapezius/SCM 5/5 bilaterally CN XII: protrudes tongue symmetrically Sensory: intact to LT, PP, vibration, and joint position in all extremities Motor: bulk and tone intact. Fine motor movements intact bilaterally. No pronator drift. Strength 5/5 throughout including the deltoids, biceps, triceps, wrist extensors, hip flexors, knee flexors, knee extensors, ankle flexors, and ankle extensors. Reflexes: 2+ at the biceps, triceps, brachioradialis, patella, and achilles tendons bilaterally; toes down going bilaterally; Coordination: FTN and HTS intact bilaterally Gait: normal gait Labs: No results found for this or any previous visit (from the past 24 hour(s)). Diagnostic Tests and Imaging: as above Assessment / Plan: Usha Huizar is a 52 y.o. RH woman with spells of pre-syncope and feeling like she is going to pass out. These are certainly concerning for a cardiac cause, however, with her history of significant head injury with LOC, she would be at risk for seizures and seizures cannot be completely ruled out at this time. Agree with cardiac work-up as per cardiology team. In the meantime, will get MRI brain w/wo contrast to evaluate for scarring from the head trauma as a risk factor for epilepsy. I would also like to get an ambulatory EEG to capture sleep and to see if any abnormalities show up, possibly capture an event, though her events are rare. I agree that she should not be driving her school bus, but other driving is ok as she has technically not lost consciousness and is able to control a car during these events. RTC in 2 months after tests are completed. Discussed with attending, Dr. Ugarte, who agrees with plan. Margaret Null MD Neurophysiology Fellow Pager [phone] Neurology (Staff) Addendum I saw and evaluated the patient. I have reviewed the resident's history, physical examination findings, assessment and plan during the visit and I agree with the details as written, unless otherwise specified as below. Johnson Ugarte MD documented in this encounter Plan of Treatment Not on filedocumented as of this encounter Results 24 Hour EEG, Portable (09/28/2013 10:36 PM EDT) Narrative Farhat Enciso MD - 09/28/2013 10:36 PM EDT Farhat Enciso MD ? 09/28/2013 10:36 PM Name:Usha Huizar ?Test #: ??[id number] ? Age: ??53 y.o. ? Referring Provider: Jackie García MD [address] [place] [address] Hours of Sleep: ?? P.C.: ?? Sleep Deprived: ?? Location: OPT Date of Study: ?? Tech: SB Patient History: This is a 53 year old f emale who presents to the EEG lab for an ambulatory 24 hour EEG re cording. Sleep: Obtained Photic Driving: bilateral Hyperventillation: ? If Hyperventillated ??Effort Give n: excellent [facility] Department of Neurology LONG-TERM AMBULATORY EEG REPORT Patient: ??Usha Huizar ??[id number] Date of Recordin09/26/13-09/27/13 Interpreting Physician: Dr. Farhat [...] advised. Margaret Null MD Neurophysiology Fellow Pager [phone] Neurology Attending I have personally reviewed the EEG, and I agree with the details as written. ?? The above report was form ulated in discussion with me at the time of EEG reading, and I agr ee with it as documented. Farhat Enciso [place] [address] Pager: [phone], #[phone] Email: [email or web address] Procedure Note Connor Wiley - 09/27/2013 8:48 AM EDT Name:Usha Huizar Test #: [id number] Age: 53 y.o. Referring Provider: Jackie García MD [address] [place] [address] Hours of Sleep: P.C.: Sleep Deprived: Location: OPT Date of Study: Tech: SB Patient History: This is a 53 year old f emale who presents to the EEG lab for an ambulatory 24 hour EEG recording. Sleep: Obtained Photic Driving: bilateral Hyperventillation: If Hyperventillated Effort Given: norah aponte [facility] Department of Neurology LONG-TERM AMBULATORY EEG REPORT Patient: Usha Huizar [id number] Date of Recordin09/26/13-09/27/13 Interpreting Physician: Dr. Farhat [...] advised. Margaret Null MD Neurophysiology Fellow Pager [phone] Neurology Attending I have personally reviewed the EEG, and I agree with the details as written. The above report was formulated in discussion with me at the time of EEG reading, and I agree with it as documented. Farhat Enciso MD [place] [address] Pager: [phone], #[phone] Email: [email or web address] Johnson Ugarte MD NEUROLOGY ORDERABLES documented in this encounter Visit Diagnoses Diagnosis Spells - Primary Other convulsions Spells Other convulsions documented in this encounter Care Teams Corrugated Box Machine Operator Relationship Specialty Start Date End Date Jackie García MD PCP - General 09/09/11 03/06/[address] [place] [address] documented as of this encounter
--- OUTSIDE RECORDS SUMMARY | 2022-02-19 02:06 | XMS_ITS | Encounter Summary ---
:1960 Author Organization [place] [address] Care Team Providers Name Role Phone aJckie Gee MD Primary Care Provider Encounter Details Date Type Department Care Team Description 01/29/2013 Orders Only Hematology and Zandra Johnston Breas t lump (Primary Oncology at [facility] DRY PASTE SUPERVISOR Dx) [facility] [address] [place], [place] GENERAL SURGERY [address] [place] [id number] [phone] (Wo rk) Social History Tobacco Use Types [...] on filedocumented as of this encounter Results Mammo breast US unilateral [...] this encounter Visit Diagnoses Diagnosis Breast lump - Primary Lump or mass in breast Breast lump Lump or mass in breast documented in this encounter Care Teams Principal Technical Writer Relationship Specialty Start Date End Date Jackie Gee MD PCP - General 09/09/11 03/06/14 [address] [place] [address] documented as of this encounter
--- OUTSIDE RECORDS SUMMARY | 2022-02-19 02:06 | XMS_ITS | Encounter Summary ---
:1960 Author Organization [place] [address] Care Team Providers Name Role Phone Jackie Gee MD Primary Care Provider Reason for Visit Reason Onset Date Comments Post Procedure Call 09/21/2012 Encounter Details Date Type Department Care Team Description 09/21/2012 Telephone Obstetrics and Lacey Argueta, Post Procedure Call Gynecology at [facility] [place] [address] Social History Tobacco Use Types Packs/Day Years [...] this encounter Miscellaneous Notes Telephone Encounter - Lacey Argueta RN - 09/21/2012 11:44 AM EDT DIVISION OF FEMALE PELVIC MEDICINE AND RECONSTRUCTIVE SURGERY POST-OP TELEPHONE UPDATE Date of Surgery: 09/20/12 Overall well-being: I am doing quite well Pain?: 05/18 Pain medication working(Y/N)?: Using Motrin with relief Location of pain: groin Bladder function: voiding without difficulty Bowel function: No BM , passing little flatus, encouraged Colace BID Ambulating: yes Tolerating solids / liquids: well-tolerated Dressings: none Incisions: clean, dry and intact Vaginal bleeding: Lite flow Fever: none Post Op appointment booked? Appt made Instructions: We reviewed phone contacts. The patient will call triage at during daytime hours or during the evening or weekends and ask for the meteorological engineer svp marketing & communications at [employer] if she is having problems. LACEY ARGUETA, RN Nurse coordinator of Female Pelvic Medicine and Reconstructive Surgery documented in this encounter Plan of Treatment Not on filedocumented as of this encounter Visit Diagnoses Not on filedocumented in this encounter Care Teams Machine Shop Worker Relationship Specialty Start Date End Date Jackie Gee MD PCP - General 09/09/11 03/06/14 [address] [place] [address] documented as of this encounter
--- OUTSIDE RECORDS SUMMARY | 2022-02-19 02:06 | XMS_ITS | Encounter Summary ---
:1960 Author Organization [facility] [place] [address] Care Team Providers Name Role Phone Jackie Gee MD Primary Care Provider Encounter Details Date Type Department Care Team Description 07/17/2013 Telephone General Surgery at [facility] [place] [address] Social History Tobacco Use Types Packs/Day [...] encounter Miscellaneous Notes Telephone Encounter - Cherri Cardenas - 07/17/2013 11:14 AM EDT Tried to contact patient on 04/17,07/13,07/17 to schedule an appointment with Stephanie Cortes. Patient has not contacted us to schedule. I have cancelled the reminder. documented in this encounter Plan of Treatment Not on filedocumented as of this encounter Visit Diagnoses Not on filedocumented in this encounter Care Teams Electrification Adviser Relationship Specialty Start Date End Date Jackie Gee MD PCP - General 09/09/11 03/06/14 [address] [place] [address] documented as of this encounter
--- OUTSIDE RECORDS SUMMARY | 2022-02-19 02:06 | XMS_ITS | Encounter Summary ---
:1960 Author Organization [facility] [place] [address] Care Team Providers Name Role Phone Jackie Gee MD Primary Care Provider Encounter Details Date Type Department Care Team Description 09/12/2012 Clinical Support Same Day at [facility] [place] [address] Social History Tobacco Use Types Packs/Day [...] Taken Comments Blood Pressure - - Pulse 61 09/12/2012 2:36 PM EDT Temperature - - Respiratory Rate - - Oxygen Saturation 100% 09/12/2012 2:36 PM EDT Inhaled Oxygen Concentration - - Weight - - Height - - Body Mass Index - - documented in this encounter Progress Notes Alba Gomez RN - 09/12/2012 3:22 PM EDT Patient seen in Pre Admission Testing today for upcoming surgery, stated by patient as date of 09/20/12. PAT Questionnaire reviewed with patient while in Pre Admission Testing. +HTN well controlled on medications per pt. Pre-operative folder reviewed with patient. Patient expresses good understanding of all information reviewed. Labwork while in Pre-Admission Testing. documented in this encounter Plan of Treatment Not on filedocumented as of this encounter Visit Diagnoses Not on filedocumented in this encounter Care Teams Cat Driver Relationship Specialty Start Date End Date Jackie Gee MD PCP - General 09/09/11 03/06/14 [address] [place] [address] documented as of this encounter
--- OUTSIDE RECORDS SUMMARY | 2022-02-19 02:06 | XMS_ITS | Encounter Summary ---
:1960 Author Organization [facility] [place] [address] Care Team Providers Name Role Phone Jackie Gee MD Primary Care Provider Reason for Visit Reason Comments Procedure Out Patient EEG Encounter Details Date Type Department Care Team Description 08/28/2013 Procedure visit Neurology at [facility] [place] ELECTROENCEPHALOGRAM, NEURO [facility] [place] [id number] Partial seizures [facility] Johnson Ugarte MD [facility] [place] [address] (Primary Dx) [place] [phone] Social History Tobacco Use Types Packs/Day Years [...] documented as of this encounter Progress Notes Johnson Ugarte MD - 01/03/2014 1:27 PM EDT I reviewed the EEG and I agree with the interpretation as written. Johnson Ugarte MD documented in this encounter Procedure Notes Connor Wiley A - 08/28/2013 9:59 AM EDTAssociated Order(s): EEG AWAKE, ASLEEP, DROWSY Procedure(s): EEG INNC. RECORDING AWAKE AND ASLEEP, W. HYPERVENT/PHOTIC STIMU PRFM Pre-Procedure Diagnose(s): Partial seizures Name:Usha Huizar Test #: [id number] Age: 52 y.o. Referring Provider: [place] [address] Hours of Sleep: 3.5 P.C.: 4:00AM Sleep Deprived: Y Location: OPT Date of Study: 08/28/2013 Tech: SB Patient History: This is a 52 year old female who presents to the EEG lab for seizure vs syncope. Sleep: Not Obtained Photic Driving: bilateral Hyperventillation: no build up noted If Hyperventillated Effort Given: [facility] Department of Neurology EEG REPORT Patient: Usha Huiazr [id number] Date of Recordin08/28/13 Interpreting Physician: Dr. Forrest Ugarte (Attending) Dr. Margaret Null (Fellow) Reason for study: Usha Huizar is a 52 y.o. female with [...] useon weekends only. 45 g 2 METHODS: A 21 channel digitized electroencephalogram was performed in the [facility] Clinical Neurophysiology Laboratory. The 10/20 international system of electrode placement was used and bipolar and referential electrode montages were recorded. In addition to EEG the patient was monitored for EKG and lateral/vertical eye movements. Activation procedures of photic stimulation and hyperventilation were perfomed if applicable. Video was used during activation procedures and during events where applicable. The duration of the recording was 30 minutes. DESCRIPTION OF EEG: The patient was noted to be awake and drowsy during the recording. During maximal wakefulness a 10-Hz posterior background rhythm was present which was well-modulated, symmetrical, reactive to eye opening, and of moderate voltage. With eye opening the background activity changed to a low voltage mixture of alpha, beta, and occasional theta range frequencies. Faster frequencies were present in the bilateral anterior head regions. There was a normal anterior- posterior voltage gradient. During drowsiness, there was attenuation of the posterior dominant background rhythm and vertex waves. No stage II sleep was recorded. There was rare, moderate-amplitude, left anterior temporal polymorphic delta slowing (maximum at F7/T3). Activating Procedures: Photic stimulation was performed which produced no posterior driving response. Hyperventilation was performed with moderate effort and produced mild physiological slowing of the background. EKG: EKG revealed normal sinus rhythm. INTERPRETATION: This EEG is abnormal due to rare, left anterior temporal arrhythmic slowing. PRIOR EEG: none CLINICAL CORRELATION: The finding above could represent an area of focal cerebral dysfunction or be a normal variant. No definite epileptiform activity was present. If seizure remains a strong clinical suspicion, a repeat, sleep-deprived EEG is recommended. Margaret Null MD Neurophysiology Fellow Pager [phone] documented in this encounter Plan of Treatment Not on filedocumented as of this encounter Procedures Procedure Name Priority Date/Time Associated Diagnosis Comme nts EEG INNC. RECORDING Routine 01/03/2014 1:28 PM Partial seizure s Results for this AWAKE AND ASLEEP, EDT procedure are in W. HYPERVENT/PHOTIC the resu lts STIMU PRFM section. documented in this encounter Results EEG INNC. RECORDING AWAKE AND ASLEEP, W. HYPERVENT/PHOTIC STIMU PRFM (01/03/2014 1:28 PM EDT) Narrative Johnson Ugarte MD - 01/03/2014 1 :28 PM EDT Margaret Null MD ? 01/03/2014 ??1:28 PM Name:Usha Huizar ?Test #: ??14 - 683 ? Age: ??52 y.o. ? Referring Provider: Jackie Gee MD [address] [place] [address] Hours of Sleep: 3.5 ??P.C.: 4:00AM Sleep Deprived: Y ??Location: OPT Date of Study: 08/28/2013 ??Tech: SB Patient History: This is a 52 year old f emale who presents to the EEG lab for seizure vs syncope. Sleep: Not Obtained Photic Driving: bilateral Hyperventillation: no build up noted ? If Hyperventillated ??Effort Give n: good [facility] Department of Neurology EEG REPORT Patient: ??Usha Huizar ??[id number] Date of Recordin08/28/13 Interpreting Physician: Dr. Forrest [...] digitized electroencephalog arben was performed in the [facility] Clinical [facility]physio logy Laboratory. The 10/20 [...] recommended. Margaret Null MD Neurophysiology Fellow Pager [phone] Procedure Note Connor Wiley - 08/28/2013 9:59 AM EDT Name:Usha Huizar Test #: [id number] Age: 52 y.o. Referring Provider: Jackie Gee MD [address] [place] [address] Hours of Sleep: 3.5 P.C.: 4:00AM Sleep Deprived: Y Location: OPT Date of Study: 08/28/2013 Tech: SB Patient History: This is a 52 year old f emale who presents to the EEG lab for seizure vs syncope. Sleep: Not Obtained Photic Driving: bilateral Hyperventillation: no build up noted If Hyperventillated Effort Given: mayra [facility] Department of Neurology EEG REPORT Patient: Usha Huizar [id number] Date of Recordin08/28/13 Interpreting Physician: Dr. Forrest [...] digitized electroencephalog arben was performed in the [facility]. The 10/20 international [...] recommended. Margaret Null MD Neurophysiology Fellow Pager [phone] Johnson Ugarte MD NEUROLOGY ORDERABLES documented in this encounter Visit Diagnoses Diagnosis Partial seizures - Primary Other convulsions documented in this encounter Care Teams Manager Emergency Relationship Specialty Start Date End Date Jackie Gee MD PCP - General 09/09/11 03/06/14 [address] [place] [address] documented as of this encounter
--- OUTSIDE RECORDS SUMMARY | 2022-02-19 02:06 | XMS_ITS | Encounter Summary ---
:1960 Author Organization [facility] [place] [address] Care Team Providers Name Role Phone Jackie Stephen MD Primary Care Provider Encounter Details Date Type Department Care Team Description 04/20/2010 Office Visit [place] [address] Social History Tobacco Use Types Packs/Day Years Used Date Never Assessed Sex Assigned at Date Recorded Not on file documented as of this encounter Plan of Treatment Not on filedocumented as of this encounter Visit Diagnoses Not on filedocumented in this encounter Care Teams Director Of Employee Development Relationship Specialty Start Date End Date Jackie Stephen MD PCP - General 03/31/10 09/08/11 [address] [place] [address] documented as of this encounter
--- OUTSIDE RECORDS SUMMARY | 2022-02-19 02:09 | XMS_ITS | Encounter Summary ---
:1960 Author Organization [facility] Address [address] [place] [address] Care Team Providers Name Role Phone Unavailable Primary Care Provider Unavailable Encounter Details Date Type Department Care Team Description 03/06/2010 Results Only [facility] Shirley García MD Laboratory Services - [address] [facility] [place] [address] [address] [facility] [place] [address] [phone] Social History Tobacco Use Types Packs/Day Years Used Date Never Assessed Sex Assigned at Date Recorded Not on file documented as of this encounter Plan of Treatment Not on filedocumented as of this encounter Procedures Procedure Name Priority Date/Time Associated Diagnosis Comme nts CYTOPATHOLOGY Routine 03/06/2010 0:00 EDT Results for this procedure are i n the results section . documented in this encounter Results CYTOPATHOLOGY (03/06/2010 0:00 EDT) Pathology Report: CYTOPATHOLOGY REPORT ? [facility] ? LAB Reports generated via Sendia interface contain original data; ? however they are lacking the format of the original report. ? Caution should be taken when reading/interpreting unformatted reports. ? Name: ? ELVIA HUIZAR ? Accession #: ? [id number] ? : ? 1960 (Age: 49) ??F ?Collect Date: ? 03/06/2010 ? Location: ? [facility] ? R eceive Date: ? 03/09/2010 ? Provider: RENE GARCÍA MD ? Copy to: ? Final Report ? SPECIMEN ADEQUACY ? Satisfactory for Eval uation ? - transformation zone compon ent present ? GENERAL CATEGORIZATION ? Negative for Intraepi thelial Lesion or Malignancy ? INTERPRETATION ? Shift in aranza presen t suggestive of bacterial vaginosis. ? Last Menstural Period: 10/4/ 2010 ? Specimen/Source: ??Pap Test, Cervix/Endocervix, ThinPrep Imaging System with ? manual evaluation ? Document reviewed and electr onically signed by: ? Sofia Mcclure, CT( CP)(IAC) ? Report ??Date: 1102/ 2010 13:58 ? HPV with Pap Test ? Date Ordered: ? 1 05/10/2009 ? Status: ?? Signed Out ?Date Complete: ? 03/13/2010 ? By: ??System Interface ? Date Reported: ? 03/13/2010 ? Interpretation ? RESULT: Negative for HPV typ es 16, 18, 31, 33, 35, 39, 45, 51, 52, ? 56, 58, 59, and 68. ? Comments ? Document reviewed and electr onically signed by: ? System Interface ? Report date: 03/13/20 10 ? By the signature above, the attending physician certifies that he/she has ? personally conducted a gross and/or microscopic examination of the described ? specimens and rendered or co nfirmed the above diagnosis. ? End of Report ? Specimen Performing Organization Address City/State/ZIP Code Phon e Number [facility] [address] [place] [id number] SERVICES [facility] [address] [place] [address] documented in this encounter Visit Diagnoses Not on filedocumented in this encounter
--- OUTSIDE RECORDS SUMMARY | 2022-02-19 02:09 | XMS_ITS | Encounter Summary ---
:1960 Author Organization [facility] Address [address] [place] [address] Care Team Providers Name Role Phone Unavailable Primary Care Provider Unavailable Encounter Details Date Type Department Care Team Description 12/21/2007 Before PRISM Converted [facility] - Nitin Huff PA Visit (Maple) Maple conversion [address] [place] [address] Social History Tobacco Use Types Packs/Day Years Used Date Never Assessed Sex Assigned at Date Recorded Not on file documented as of this encounter Plan of Treatment Not on filedocumented as of this encounter Procedures Procedure Name Priority Date/Time Associated Comments Diagnosis HPV DETECTION, HIGH Routine 12/21/2007 13:16 Resu lts for this RISK TYPES EDT procedure are i n the results section. CYTOPATHOLOGY Routine 12/21/2007 0:00 Results for this EDT procedure are i n the results section. documented in this encounter Results HUMAN PAPILLOMA VIRUS DNA TEST (12/21/2007 13:16 EDT) Specimen Description Cervix, ThinPrep [facility] vial Result Negative for HPV [facility] types 16, 18, 31, 33, 35, 39, 45, 51, 52, 56, 58, 59, and 68. Report Status Final [facility] [id number] Specimen Performing Organization Address City/State/ZIP Code Phon e Number [facility] [address] [place] [address] SERVICES [facility] [address] [place] [address] CYTOPATHOLOGY (12/21/2007 0:00 EDT) Pathology Report: CYTOPATHOLOGY REPORT ? [facility] ? LAB Reports generated via electr onic interface contain original data; ? however they are lacking the format of the original report. ? Caution should be taken when reading/interpreting unformatted reports. ? Name: ? ELVIA HUIZAR ? Accession #: ? [id number] ? : ? 1960 (Age: 47) ??F ?Collect Date: ? 12/21/2007 ? Location: ? [facility] ? Receive Date: ? 12/22/2007 ? Provider: ?JUAN J SIM ON PA ? Copy to: ? Specimen/Source: ? ThinPrep Pap Test, Endocervix, processed on Cytyc ? ThinPrep Imaging System, wit h manual evaluation ? Last Menstrual Period: ? 7/24/08 ? Other: ? HPVDX - HPV testing requeste d regardless of diagnosis on current ThinPrep Pap ?? test. ? SPECIMEN ADEQUACY ? Satisfactory for Eval uation ? - transformation zone compon ent present ? GENERAL CATEGORIZATION ? Negative for Intraepi thelial Lesion or Malignancy ? INTERPRETATION ? Shift in aranza presen t suggestive of bacterial vaginosis. ? Document reviewed and electr onically signed by: ? Cinthya Verville,CT(ASCP) ? Report Date: ??08/20/ 2008 11:31 ? End of Report ? Specimen Performing Organization Address City/State/ZIP Code Phon e Number [facility] [address] [place] [address] SERVICES [facility] [address] [place] [address] documented in this encounter Visit Diagnoses Not on filedocumented in this encounter
--- OUTSIDE RECORDS SUMMARY | 2022-02-19 02:09 | XMS_ITS | Encounter Summary ---
:1960 Author Organization [facility] Address [address] [place] [address] Care Team Providers Name Role Phone Unavailable Primary Care Provider Unavailable Encounter Details Date Type Department Care Team Description 07/07/2005 Results Only [facility] - Nicolas Haskins MD Maple conversion [address] [place] [address] [place] [address] Social History Tobacco Use Types Packs/Day Years Used Date Never Assessed Sex Assigned at Date Recorded Not on file documented as of this encounter Plan of Treatment Not on filedocumented as of this encounter Procedures Procedure Name Priority Date/Time Associated Diagnosis Comme nts CYTOPATHOLOGY Routine 07/07/2005 0:00 EST Results for this procedure are i n the results section . documented in this encounter Results CYTOPATHOLOGY (07/07/2005 0:00 EST) Pathology Report: CYTOPATHOLOGY REPORT [facility] Reports generated via electronic interface contain raul ginal data; however they are lacking the format of the original re port. Caution should be taken when reading/interpreting unfo rmatted reports. Name: ? ELVIA HUIZAR ? Accession #: ? [id number] : ? 1960 (Age: 44) ??F ?Collect Date: ? 05/2005 Location: ? [facility] ? Receive Date : ? 07/08/2005 Provider: ?HCER HASKINS MD Copy to: ? Specimen/Source: ? ThinPrep Pap Test, Cervix/Endocervix, processed on [employer] ThinPrep Imaging System, with manual evaluation Last Menstrual Period: ? 07/03/05 Other: ? HPVA - HPV testing requested if ASC-US on the current ThinPrep Pap test. Additional clinical information: Last pap 19 + years a go ? SPECIMEN ADEQUACY ? Satisfactory for Evaluation - transformation zone component present GENERAL CATEGORIZATION ? Negative for Intraepithelial Lesion or Malignan cy INTERPRETATION ? Shift in aranza present suggestive of bacterial vaginosis. ? Document reviewed and electronically signed by: ? GEORGETTE Kinney(ASCP) ? Report Date: ??07/13/2005 09:55 End of Report Specimen Performing Organization Address City/State/ZIP Code Phon e Number [facility] [address] [place] [phone] SERVICES [facility] [address] [place] [address] documented in this encounter Visit Diagnoses Not on filedocumented in this encounter
--- OUTSIDE RECORDS SUMMARY | 2022-02-19 02:09 | XMS_ITS | Encounter Summary ---
:1960 Author Organization [facility] Address [address] [place] [address] Care Team Providers Name Role Phone Unknown, Provider Primary Care Provider Encounter Details Date Type Department Care Team Description 08/20/2014 Results Only [facility] Shirley García MD Laboratory Services - [address] [address] [facility] [place] [place], [place] [id number] [phone] Social History Tobacco Use Types Packs/Day Years Used Date Never Assessed Sex Assigned at Date Recorded Not on file documented as of this encounter Plan of Treatment Not on filedocumented as of this encounter Procedures Procedure Name Priority Date/Time Associated Diagnosis Comme nts PAP TEST- RESULT Routine 08/20/2014 0:00 EDT Resu lts for this ONLY procedure are i n the results section. documented in this encounter Results PAP TEST- RESULT ONLY (08/20/2014 0:00 EDT) Pathology Report: CYTOPATHOLOGY REPORT [facility] Reports generated via electronic interface contain raul ginal data; SERVICES however they are lacking the format of the original re port. Caution should be taken when reading/interpreting unfo rmatted reports. Name: ? ELVIA HUIZAR ? Accession #: ? [id number] ? : ? 1960 (Age: 53) ??F ?Collect Da te: ? 08/20/2014 ? Location: ? [facility] ? Receive Date: ? 015 ? Provider: RENE GARCÍA MD Copy to: ? Final Report SPECIMEN ADEQUACY ? Satisfactory for Evaluation - transformation zone component present GENERAL CATEGORIZATION ? Negative for Intraepithelial Lesion or Malignan cy ?? Last Menstrual Period: 07/08/14 Hormonal/Contraceptive status: Yes: Levothyroxine Specimen/Source: ??Pap Test, Cervix/Endocervix, ThinPr ep Imaging System with manual evaluation Document reviewed and electronically signed by: ? Hortensia Hernandez, CT(ASCP) ? Report ??Date: 08/30/2014 11:32 HPV with Pap Test ? Date Ordered: ? 08/30/2014 ? Status: ?? Signed Out ?Date Complete: ? 09/03/2014 ? By: ??S ystem Interface ? Date Reported: ? 09/03/2014 ? Interpretation RESULT: Negative for HPV. No E6 or E7 mRNA is detected from HPV types 16,18,31,3 3,35, 39,45,51,52,56,58,59,66, and 68 by rn physician office media valente amplification. Comments Document reviewed and electronically signed by: ? System Interface ? Report date: 09/03/2014 By the signature above, the attending physician certif ies that he/she has personally conducted a gross and/or microscopic examin ation of the described specimens and rendered or confirmed the above diagnosi s. End of Report Specimen Performing Organization Address City/State/ZIP Code Phon e Number [facility] [address] [place] [address] SERVICES documented in this encounter Visit Diagnoses Not on filedocumented in this encounter Care Teams Parking Worker Relationship Specialty Start Date End Date Unknown, Provider, PCP - General 08/21/14 documented as of this encounter
--- OUTSIDE RECORDS SUMMARY | 2022-02-19 02:09 | XMS_ITS | Encounter Summary ---
:1960 Author Organization [facility] Address [address] [place] [address] Care Team Providers Name Role Phone Unknown, Provider Primary Care Provider Encounter Details Date Type Department Care Team Description 01/20/2016 Results Only [facility]- PRISM Rajeev Cook MD [phone] [facility] [address] [place] [address] (Wo rk) Social History Tobacco Use Types Packs/Day Years Used Date Never Assessed Sex Assigned at Date Recorded Not on file documented as of this encounter Plan of Treatment Not on filedocumented as of this encounter Procedures Procedure Name Priority Date/Time Associated Diagnosis Comme [facility] SURGICAL PATHOLOGY Routine 01/20/2016 14:11 Resul ts for this EDT procedure are i n the results section. documented in this encounter Results SURGICAL PATHOLOGY (01/20/2016 14:11 EDT) Pathology Report: SURGICAL PATHOLOGY REPORT [facility] Reports generated via electronic interface contain raul ginal data; LABORATORY however they are lacking the format of the original re port. SERVICES Caution should be taken when reading/interpreting unfo rmatted reports. Name: ? ELVIA HUIZAR ? Accession #: ? [id number] ? : ? 1960 (Age: [age]) ??F ? Collect Date: ? 01/20/2016 ? Location: ? [facility] ? Receive Date: ? 6 ? Provider: NAREN COOK MD Copy to: ? Final Pathologic Diagnosis: A. ??COLON, ASCENDING, POLYP #1 AND #2, BIOPSY: - Two tubular adenomas. B. ??COLON, SIGMOID, POLYP, POLYPECTOMY: - Tubulovillous adenoma. - Lateral (mucosa) margins are negative for dysplasia. ?? Document reviewed and electronically signed by: JESUS CRUMP MD Report ??Date: 01/23/2016 12:20 By the signature above, the attending physician certif ies that he/she has personally conducted a gross and/or microscopic examin ation of the described specimens and rendered or confirmed the above diagnosi s. Specimen(s) Received: A. ??Ascending colon polyp #1, #2 B. ??Sigmoid polyp Clinical History: Screening; clinical diagnosis code: ??Z12.11 Gross Description: A. ?Received in formalin labelled with proper p atient identification (initials G, A) and ascending colon tashi yps #1, #2 are three pink-burden tissues (0.1 x 0.1 x 0.1 cm to 0.6 x 0.5 x 0.4 cm). Entirely s ubmitted in A1 and A2. B. ?Received in formalin labelled with proper p atient identification (initials G, A) and sigmoid polyp is a single pink-burden polypoid tissue (0.9 x 0.8 x 0.6 cm). The margin is inked blue. The specimen is trisected and entirely submitted in B1. Dr. Menjivar 01/21/2016 4:41 PM End of Report Specimen Performing Organization Address City/State/ZIP Code Phon e Number [facility] [address] [place] [address] SERVICES documented in this encounter Visit Diagnoses Not on filedocumented in this encounter Care Teams Nude Model Relationship Specialty Start Date End Date Unknown, Provider, PCP - General 08/21/14 documented as of this encounter
--- OUTSIDE RECORDS SUMMARY | 2022-02-19 02:09 | XMS_ITS | Encounter Summary ---
:1960 Author Organization [facility] Address [address] [place] [address] Care Team Providers Name Role Phone Unknown, Provider Primary Care Provider Encounter Details Date Type Department Care Team Description 08/15/2020 Lab Requisition [facility] Outr Resulting Lab, Pathology & Laboratory Provider [facility] [address] [place] [address] Social History Tobacco Use Types Packs/Day Years Used Date Never Assessed Sex Assigned at Date Recorded Not on file documented as of this encounter Plan of Treatment Not on filedocumented as of this encounter Procedures Procedure Name Priority Date/Time Associated Diagnosis Comme nts HEPATITIS C AB W Routine 08/15/2020 8:15 EDT Resu lts for this REFLEX TO HCV RNA procedure are in BY PCR the results section. documented in this encounter Results HEPATITIS C AB W REFLEX TO HCV RNA BY PCR (08/15/2020 8:15 EDT) Pathologist Sig nature Hep C Antibody Negative Negative [facility] Specimen Blood - Venous blood (substance) Performing Organization Address City/State/ZIP Code Phon e Number [facility] [address] [place] [address] SERVICES documented in this encounter Visit Diagnoses Not on filedocumented in this encounter Care Teams Retail Loss Prevention Investigator Relationship Specialty Start Date End Date Unknown, Provider, PCP - General 08/21/14 documented as of this encounter
--- OUTSIDE RECORDS SUMMARY | 2022-02-19 02:09 | XMS_ITS | Encounter Summary ---
:1960 Author Organization [facility] Address [address] [place] [address] Care Team Providers Name Role Phone Unavailable Primary Care Provider Unavailable Encounter Details Date Type Department Care Team Description 03/31/2012 Results Only [facility] Shirley García MD Laboratory Services - [address] [place] [address] [address] [facility] [place] [address] [phone] Social History Tobacco Use Types Packs/Day Years Used Date Never Assessed Sex Assigned at Date Recorded Not on file documented as of this encounter Plan of Treatment Not on filedocumented as of this encounter Procedures Procedure Name Priority Date/Time Associated Diagnosis Comme nts PAP TEST- RESULT Routine 03/31/2012 0:00 EST Resu lts for this ONLY procedure are i n the results section. documented in this encounter Results PAP TEST- RESULT ONLY (03/31/2012 0:00 EST) Pathology Report: CYTOPATHOLOGY REPORT [facility] Reports generated via electronic interface contain raul ginal data; however they are lacking the format of the original re port. Caution should be taken when reading/interpreting unfo rmatted reports. Name: ? ELVIA HUIZAR ? Accession #: ? [id number] : ? 1960 (Age: 51) ??F ?Collect Date: ? 03/10 Location: ? [facility] ? Receive Date : ? 04/04/2012 Provider: ?RENE GARCÍA MD Copy to: ? Specimen/Source: ? Pap Test, Cervix/Endocervix, ThinPrep Imaging System with manual evaluation Last Menstrual Period: ? 01/2012 ? SPECIMEN ADEQUACY ? Satisfactory for Evaluation - transformation zone component present GENERAL CATEGORIZATION ? Other, see interpretation INTERPRETATION ? Reactive cellular zackary nges associated with inflammation present (includes repair). Endometrial cells present in a woman equal to or great er than age 40. Negative for Intraepithelial Lesion. Shift in aranza present suggestive of bacterial vaginos is. EDUCATIONAL NOTES/RECOMMENDATIONS ? Benign appearing endometrial cells on Pap tests are usually a normal finding in women with regular menstrual cycles, especially if the Pap test was collected during the first half of the menstrual cycle . There is data showing that e ndometrial cells on Pap tests may be associated with endometrial/uterine abnormal ities in post menopausal women or in perimenopausal women with abnormal bleeding. There is limited data on the significance of bry ign endometrial cells in post menopausal women on HRT. ??Clinical correlation is rec ommended. Note: ??The Pap test is not an accurate test for the screening of endometrial lesions and should not be used as a follow up in patie nts with clinical suspicion of endometrial pathology. ? Document reviewed and electronically signed by: ? ROSALVA URENA MD ? Report Date: ??04/13/2012 11:23 End of Report Specimen Performing Organization Address City/State/ZIP Code Phon e Number [facility] [address] [place] [address] SERVICES [facility] [address] [place] [address] documented in this encounter Visit Diagnoses Not on filedocumented in this encounter
--- OUTSIDE RECORDS SUMMARY | 2022-02-19 02:09 | XMS_ITS | Clinical Summary ---
:1960 Author Organization [facility] Address [address] [place] [address] Care Team Providers Name Role Phone Unknown, Provider Primary Care Provider Social History Tobacco Use Types Packs/Day Years Used Date Never Assessed Sex Assigned at Date Recorded Not on file Plan of Treatment Not on file Insurance Payer Benefit Plan Subscriber ID Effective Phone Address Typ e / Group Dates MEDICAID ACO MEDICAID ACO [id number] 2020-Pres [phone] [address] [place] [address] [facility] [id number] Care Teams Ranch Hand Supervisor Relationship Specialty Start Date End Date Unknown, Provider, PCP - General 08/21/14
[2022-02-19 14:03] LABS: ALT 27 U/L (14-59); AST 21 U/L (15-37); Albumin 4.2 g/dL (3.4-5.0); Alkaline Phosphatase 83 U/L (46-116); Anion Gap 8.4 mmol/L (3-11); BUN 23 mg/dL (7-18); Bilirubin, Total 0.4 mg/dL (0.2-1.0); CO2 29.6 mmol/L (21.0-32.0); Calcium 9.2 mg/dL (8.5-10.1); Calculated LDL 98 mg/dL (<100); Chloride 104 mmol/L (98-107); Cholesterol 182 mg/dL (<200); Estimated GFR 64.09 (mL/min/1.73m2); Glucose 75 mg/dL (74-106); HDL Cholesterol 58 mg/dL (40-60); Potassium 3.3 mmol/L (3.5-5.1); Sodium 142 mmol/L (136-145); TSH (W/Ref FT4) 1.66 uIU/mL (0.36-3.74); Total Protein 7.3 g/dL (6.4-8.2); Triglyceride 134 mg/dL (<150)
== END 2022-02-19 02:02 | disposition home or self-care (01) ==
LOC: LBO 02:01
PROVIDERS: Visit Provider Nurse Practitioner Family
DX: E78.5 Hyperlipidemia, unspecified (principal); Z00.00 Encounter for general adult medical examination without abnormal findings; E03.9 Hypothyroidism, unspecified
CPT/HCPCS: 36415; 80053; 80061; 84443

== ENCOUNTER → 2023-03-16 17:19 | Outpatient (CLI) | payer OTHER, SELFPAY ==
--- NOTE | 2023-03-16 17:30 | DI.RAD_ITS ---
Exam(s) XR KNEE LT 3V AP,LAT,MARLY EXAM: XR KNEE LT 3V AP,LAT,MARLY CLINICAL HISTORY: right knee pain, injury. TECHNIQUE: 2D digital imaging was performed. COMPARISON: No exams were available for comparison FINDINGS: 3 views No evidence of acute fracture but there does appear to be a small joint effusion. No joint space emanuel rowing but there appears to be a loose intra-articular body in the posterior aspect of the intercondy lar notch seen. No obvious osteochondral defect evident in the femoral condyles. IMPRESSION: Loose intra-articular body. Joint effusion. DATA REPOSITORY: RADIATION DOSE DELIVERED:
== END ==
PROVIDERS: PCP Nurse Practitioner Family; Visit Provider Physician Assistant
DX: M24.051 Loose body in right hip (principal); M25.461 Effusion, right knee
CPT/HCPCS: 73562

== ENCOUNTER 2024-03-19 03:06 | Outpatient (CLI) | payer BC, SELFPAY ==
[2024-03-19 12:20] LABS: HCT 40.8 % (36.0-46.0); HGB 13.7 g/dL (11.2-15.7); MCH 29.5 pg (27.0-33.0); MCHC 33.6 % (32.0-36.0); MCV 88 fL (80-95); MPV 9.9 fL (8.0-11.0); Platelet Count 289 10^3/uL (130-400); RBC 4.64 10^6/uL (3.93-5.22); RDW 12.4 % (11.7-14.6); RDW-SD 39.9 fL
[2024-03-19 12:34] LABS: Hemoglobin A1C 5.7 % (<5.7)
[2024-03-19 12:42] LABS: ALT 29 U/L (14-59); AST 21 U/L (15-37); Albumin 4.2 g/dL (3.4-5.0); Alkaline Phosphatase 87 U/L (46-116); Anion Gap 9.9 mmol/L (3-11); BUN 20 mg/dL (7-18); Bilirubin, Total 0.55 mg/dL (0.2-1.0); CO2 29.1 mmol/L (21.0-32.0); Calcium 9.4 mg/dL (8.5-10.1); Calculated LDL 95 mg/dL (<100); Chloride 105 mmol/L (98-107); Cholesterol 181 mg/dL (<200); Glucose 89 mg/dL (74-106); HDL Cholesterol 58 mg/dL (40-60); Potassium 3.5 mmol/L (3.5-5.1); Sodium 144 mmol/L (136-145); TSH (W/Ref FT4) 1.41 uIU/mL (0.36-3.74); Total Protein 7.1 g/dL (6.4-8.2); Triglyceride 143 mg/dL (<150)
== END 2024-03-19 03:07 | disposition home or self-care (01) ==
LOC: LOS 03:06
PROVIDERS: PCP Nurse Practitioner Family; Visit Provider Nurse Practitioner Family
DX: Z00.00 Encounter for general adult medical examination without abnormal findings (principal); F32.9 Major depressive disorder, single episode, unspecified; R63.8 Other symptoms and signs concerning food and fluid intake; I10 Essential (primary) hypertension; E78.5 Hyperlipidemia, unspecified; E03.9 Hypothyroidism, unspecified
CPT/HCPCS: 36415; 80053; 80061; 85027; 83036; 84443

== ENCOUNTER 2024-04-30 01:34 | Outpatient (CLI) | payer BC, SELFPAY ==
--- NOTE | 2024-04-30 08:47 | DI.MAMMO_ITS ---
Exam(s) MAMMO SCREENING EXAM: MAMMO SCREENING CLINICAL HISTORY: screening,z12.39 TECHNIQUE: Mammograms were interpreted according to the usual protocol including computer analysis w [employer] CAD system, tomosynthesis and C-view imaging. COMPARISON: 2014 through 2021 FINDINGS: The breasts are composed of mainly fatty density , Breast Density category A. No suspicious masses or suspicious microcalcifications are seen. No skin thickening or abnormal axillary lymph nodes are seen. There has been no significant change from prior exams. IMPRESSION: BI-RADS Category 1, Negative mammogram Yearly screening mammography is recommended. Breast Density - Category A, fatty density. A negative radiographic report should not delay biopsy if a dominant or clinically suspicious mass is present. Up to ten percent of cancers are not identified on mammography. A negative report may reinforce clinical impression. Adenosis and dense breasts may obscure an underlying neoplasm. False positive reports average 6 to 10%. Patient will receive a letter notifying them of these results.
== END 2024-04-30 01:54 ==
LOC: DI 01:34
PROVIDERS: PCP Nurse Practitioner Family; Visit Provider Nurse Practitioner Family
DX: Z12.31 Encounter for screening mammogram for malignant neoplasm of breast (principal); R92.313 Mammographic fatty tissue density, bilateral breasts
CPT/HCPCS: 77063; 77067

== ENCOUNTER → 2025-05-01 00:10 | Outpatient (CLI) | payer OTHER, SELFPAY ==
--- NOTE | 2025-05-01 14:18 | DI.MAMMO_ITS ---
Exam(s) MAMMO SCREENING EXAM: MAMMO SCREENING CLINICAL HISTORY: screening Z12.39. TECHNIQUE: Bilateral full field digital CC and MLO mammographic images were obtained with 3D tomosynthesis and utilizing computer aided detection (CAD). COMPARISON: Prior mammograms were reviewed. FINDINGS: There has been no significant change in the appearance and distribution of the fibroglandular tissue. There are no new spiculated masses nor malignant appearing microcalcification groups. There is no significant architectural distortion nor skin thickening-retraction. IMPRESSION: No radiographic evidence of malignancy. BI-RADS Category 1 - Negative Breast Density - Category B - There are scattered areas of fibroglandular density. Breast density Category C or D implies that the patient has dense breast tissue. Dense breast tissue can make it harder to find cancer on a mammogram. Dense breast tissue is also associated with an increased risk of breast cancer. This information about the result of the mammogram report was provided to the patient to raise their awareness. Use this report when you speak with the patient about their risks for breast cancer, which includes their family history. At that time, you may recommend additional screening tests (Ultrasound or MRI) as these tests may add significant information. A negative radiographic report should not delay biopsy if a dominant or clinically suspicious mass is present. Up to ten percent of cancers are not identified on mammography. A negative report may reinforce clinical impression. Adenosis and dense breasts may obscure an underlying neoplasm. False positive reports average 6 to 10%. Patient will receive a letter notifying them of these results.
== END ==
LOC: DI 00:10
PROVIDERS: PCP Nurse Practitioner Family; Visit Provider Nurse Practitioner Family
DX: Z12.31 Encounter for screening mammogram for malignant neoplasm of breast (principal); R92.323 Mammographic fibroglandular density, bilateral breasts
CPT/HCPCS: 77063; 77067

== ENCOUNTER 2025-05-01 00:40 | Outpatient (CLI) | payer OTHER, SELFPAY ==
[2025-05-01 13:32] LABS: HCT 41.9 % (36.0-46.0); HGB 14.0 g/dL (11.2-15.7); MCH 29.0 pg (27.0-33.0); MCHC 33.4 % (32.0-36.0); MCV 87 fL (80-95); MPV 9.4 fL (8.0-11.0); Platelet Count 306 10^3/uL (130-400); RBC 4.83 10^6/uL (3.93-5.22); RDW 12.1 % (11.7-14.6); RDW-SD 38.6 fL; WBC 7.22 10^3/uL (4.4-10.8)
[2025-05-01 14:17] LABS: TSH (W/Ref FT4) 1.20 uIU/mL (0.55-4.78); Vitamin D 25 Total 57 ng/mL (30-100)
[2025-05-01 14:18] LABS: Vitamin B12 468 pg/mL (211-911)
[2025-05-01 14:35] LABS: ALT 21 U/L (10-49); AST 23 U/L (<34); Albumin 4.7 g/dL (3.2-5.0); Alkaline Phosphatase 82 U/L (46-116); Anion Gap 7.8 mmol/L (3-11); BUN 19 mg/dL (9-23); Bilirubin, Total 0.3 mg/dL (0.2-1.2); CO2 32.2 mmol/L (20.0-31.0); Calcium 9.7 mg/dL (8.3-10.6); Chloride 102 mmol/L (98-107); Cholesterol 191 mg/dL (<200); Glucose 104 mg/dL (74-106); HDL Cholesterol 58 mg/dL (>or=50); Potassium 3.1 mmol/L (3.5-5.1); Sodium 142 mmol/L (136-145); Total Protein 7.4 g/dL (5.7-8.2)
== END 2025-05-01 00:41 | disposition home or self-care (01) ==
LOC: LBO 00:40
PROVIDERS: PCP Nurse Practitioner Family; Visit Provider Nurse Practitioner Family
DX: Z00.00 Encounter for general adult medical examination without abnormal findings (principal); I10 Essential (primary) hypertension; E78.5 Hyperlipidemia, unspecified; E03.9 Hypothyroidism, unspecified; R41.3 Other amnesia
CPT/HCPCS: 36415; 80053; 80061; 82306; 85027; 82607; 84443